=== PATIENT | male | born 1955 | race Caucasian/White ===

== ENCOUNTER 2023-12-19 06:43 | Day surgery (SDC) | payer MEDICARE, OTHER, SELFPAY ==
[2023-12-19] VITALS (7 sets, daily range): BP systolic 143–152; BP diastolic 77–91; BMI 22.6
== END 2023-12-19 17:55 | disposition home or self-care (01) ==
LOC: GI 06:43
PROVIDERS: ATTENDING PHYSICIAN Internal Medicine Gastroenterology
DX: K86.3 Pseudocyst of pancreas (principal); K86.2 Cyst of pancreas; K86.89 Other specified diseases of pancreas
CPT/HCPCS: 43240; 43237; 74018; 76000; C1769; C1874; C2617

== ENCOUNTER → 2023-12-28 06:29 | Day surgery (SDC) | payer MEDICARE, OTHER, SELFPAY ==
[2023-12-28] VITALS (7 sets, daily range): BP systolic 126–146; BP diastolic 67–75; BMI 22.8
== END ==
LOC: GI 06:29
PROVIDERS: ATTENDING PHYSICIAN Internal Medicine Gastroenterology
DX: K86.89 Other specified diseases of pancreas (principal); K86.3 Pseudocyst of pancreas; Z97.8 Presence of other specified devices
CPT/HCPCS: 43266; 48999; 74330; 76000; C1769; C2617

== ENCOUNTER 2024-01-05 16:13 | Inpatient (IN) | payer MEDICARE, OTHER, SELFPAY ==
[2024-01-05] VITALS (15 sets, daily range): BP systolic 50–105; BP diastolic 19–66; BMI 23.3
[2024-01-05] MEDS: OMNIPAQUE 50 ML PO (09:40)
[2024-01-05] MEDS: TYLENOL 1000 MG PO (09:40)
[2024-01-05] MEDS: NSS 1000 IV (09:40)
--- NOTE | 2024-01-05 09:43 | ED.GENMED ---
History of Present Illness
General
Chief Complaint: Change in Mental Status
Source: patient, spouse and ambulance crew
Exam Limitations: none
Time Seen by Provider: 01/05/24 09:24
Nursing documentation reviewed up to this point in time: agreed with
Travel History
Have you had any contact with someone who has COVID-19?: Unable to Answer
Do you have any symptoms of coronavirus? Fever > 100 degrees, chills, cough, shortness of breath, sore throat, loss of taste or smell, muscle aches, or headache?: Yes
Symptoms:: fever
History of Present Illness
History of Present Illness:
60-year-old male with past medical history of Parkinson's, pancreatitis, previous prostate cancer status post prostatectomy presenting to the emergency department today with concerns of fever body aches nausea and worsening abdominal pain over the
past 24 hours or so. He recently had an endoscopy 1 week ago on 12/28/2023 for treatment of a necrotic portion of the pancreas he had a necrosectomy at the time. Had been feeling somewhat better until last night. Denies specific chest pain
shortness of breath.
Past History
Past History
ED Past Medical History: Asthma, Cancer (Prostate CA), HTN, Other (Polycythemia Vera, pancreatitis ,Parkinsons with Tremors, IBS, ) and Other (Parkinson's disease)
ED Past Surgical History: Urological (Prostatectomy)
Social History
Tobacco: Former smoker
Alcohol: Former
Personal:
Living: with family
Review of Systems
Review of Systems
Allergies reviewed?: Yes
All Other Systems: ROS reviewed and negative except as documented in HPI and ROS
Phy Exam
Physical Exam
Physical Exam:
GENERAL: Alert , in no apparent distress
EYE: pupils equal and reactive
NECK: Supple, no significant adenopathy.
ENT: o/p clr, mmm.
CARDIAC: Regular rate and rhythm .
LUNGS: Clear breath sounds bilaterally, no acute respiratory distress, no wheezes/rales/rhonchi
ABDOMEN: Diffuse abdominal pain
NEUROLOGICAL: Alert oriented to place does not know the year no focal neuro deficits moving all extremities
SKIN: Warm and dry, skin intact.
MUSCULOSKELETAL: No edema, well perfused.
PSYCH: Normal and appropriate interaction.
Course
Orders/Labs/Results
Orders:
Orders
01/05/24
Electrocardiogram (*1) Stat
Reason for Study: Chest Pain
Comment: DONE
01/05/24 09:29
Urinalysis Reflex To Culture Urgent
Iohexol [Omnipaque] See Protocol PO NOW STA
01/05/24 09:34
CT Abd/pel (oral only)-[facility] Only Urgent
Comment:
Reason For Exam: abd pain, recent procedure, fever, pancreatic cyst
01/05/24 09:36
Complete Blood Count/With Diff Urgent
Comprehensive Metabolic Panel Urgent
Lactic Acid Urgent
Lipase Urgent
PTT Urgent
Prothrombin Time Urgent
Blood Culture Q30M
JOSÉ Source: Blood/Venous
Specimen Description:
01/05/24 09:37
0.9% Sodium Chloride 1000 ml [Nss] 1,000 ml IV BOLUS
Acetaminophen [Tylenol] 1,000 mg PO NOW STA
01/05/24 09:38
Blood Culture Q30M
JOSÉ Source: Blood/Venous
Specimen Description:
Acetaminophen [Tylenol] 1,000 mg .ROUTE .STK-MED ONE
01/05/24 09:41
COVID-19 Antigen Urgent
Source: Nasal Swab
Influenza A+B Rapid Molecular Urgent
JOSÉ Source: Nasal Swab
Specimen Description:
01/05/24 10:15
* Blood Bank Products Urgent
Blood Bank Products: *Packed RBC Leuko(PRBC's)
Quantity: 1 uni
Transfuse Today: Yes
Reason: Anemia
01/05/24 10:17
Cefepime HCl [Maxipime] 2,000 mg IV NOW STA
01/05/24 10:55
Vancomycin [Vancocin] 2,000 mg 0.9% Sodium Chloride 500 ml [Nss] 500 ml IV NOW
01/05/24 10:58
Type And Crossmatch Urgent
Abnormal Lab Results
01/05/24 01/05/24
09:36 10:58
RBC 2.36 L 10^6/uL
(4.70-6.10)
Hgb 6.2 L* g/dL
(13.0-18.0)
Hct 20.5 L* %
(39.0-52.0)
MCH 26.3 L pg
(27.0-31.0)
MCHC 30.2 L g/dL
(33.0-37.0)
RDW 22.8 H %
(11.5-14.5)
Plt Count 420 H 10^3/uL
(130-400)
Abs Immat Gran (auto) 0.1 H 10^3/uL
(0-0.05)
Absolute Neuts (auto) 10.2 H 10^3/uL
(1.4-6.5)
Absolute Lymphs (auto) 0.1 L 10^3/uL
(1.2-3.4)
Immature Gran % 0.8 H %
(0-0.5)
Neutrophils % 97.0 H %
(42.2-75.2)
Lymphocytes % 1.1 L %
(20.5-51.1)
Monocytes % 1.0 L %
(1.7-9.3)
PT 15.6 H Sec
(11.4-14.6)
Sodium 131 L mmol/L
(135-145)
BUN 21 H mg/dl
(9-20)
Glucose 105 H mg/dl
(70-99)
Calcium 8.1 L mg/dl
(8.4-10.2)
Alkaline Phosphatase 194 H U/L
(38-126)
Total Protein 5.5 L g/dl
(6.3-8.2)
Albumin 3.2 L g/dl
(3.5-5.0)
Lipase 1143 H* U/L
(23-300)
Crossmatch IS Only See Detail
01/05/24 09:36
01/05/24 09:36
Vital Signs
Initial and Last Documented VS:
Initial Vital Signs
Temp Pulse Resp Pulse Ox
103.1 F H 100 20 100
01/05/24 09:26 01/05/24 09:26 01/05/24 09:26 01/05/24 09:26
Last Documented Vital Signs
Temp Pulse Resp BP Pulse Ox
98.5 F 93 20 98/50 98
01/05/24 13:21 01/05/24 13:21 01/05/24 13:21 01/05/24 13:21 01/05/24 13:21
MDM/Problems Addressed
MDM/Problems Addressed:
60-year-old male presenting to the emergency department today with concerns of generalized bodyaches altered mental status, fever worsening abdominal pain. Recently was treated for necrotic pancreas and had a necrosectomy via endoscopy 8 days ago.
Been feeling somewhat better until last night worsening symptoms this morning. On arrival here febrile slightly tachycardic with started on fluids concern for potential sepsis plan for CT scan further assessment. Initial heart rate elevated
temperature significantly elevated blood pressure slightly low with started on fluids and treat with empiric antibiotics as there is a high likelihood of infection due to recent procedure. Patient does have multiple allergies but was started on
cefepime and vancomycin for potential community-acquired abdominal infection. Otherwise was tested for viruses but negative. Otherwise lipase still elevated but trending downwards CT scan showing possibility of area of secondary infection patient
will be admitted for further monitoring and treatment. Additionally patient was found to be anemic with hemoglobin in the sixes previously in the nines was written for a unit of blood. Admitted in stable condition.
*Critical Care Note
Total Time (30-74mins, 75-104mins- exclusive of procedures): Not Applicable
comment:
Critical care statement: A total of 40 minutes of critical care time was provided for this patient. This includes management of unstable vital signs, evaluation of the patient at bedside, reviewing the patient's pertinent medical records, discussion
with consultants, review of old EKGs and review of pertinent medical records. This time with separate from time utilized to perform the aforementioned documented procedures
ED Attending Note
-
Portions of this chart may have been created with voice recognition software.� Occasional wrong word or��sound alike� substitutions may have occurred due to the inherent limitations of voice recognition software.
Discharge Plan
Departure
Patient Disposition: Admit
Date of Disposition: 01/05/24
Time of Disposition: 13:26
Admit to: IMU
Admit to doctor: Adriel
Presentation/result/management discussed w/ accepting MD/DO: Hospitalist
Patient with high blood pressure during this ER visit?: No
Condition: Fair
Covid-19: Not Applicable
Discharge Problem:
Abdominal infection, Sepsis, Anemia
Prescriptions:
No Action
albuterol sulfate 1 PUFF HFA aerosol inhaler
2 puff inhalation R QID
carbidopa-levodopa 25-100 mg Tablet
2 tab PO TID
Jakafi 20 mg tablet
20 mg PO BID
aspirin 81 mg Capsule
81 mg PO DAILY
losartan 50 mg tablet
50 mg PO HS
pantoprazole 40 mg tablet,delayed release (DR/EC)
40 mg PO HS
cyanocobalamin (vitamin B-12) 1,000 mcg Tablet
1,000 mcg PO DAILY Qty: 100 0RF
sennosides [senna] 8.6 mg Tablet
8.6 mg PO BID
docusate sodium 100 mg Capsule
100 mg PO BID
folic acid 1 mg Tablet
1 mg PO DAILY
Referrals:
Linnette Wisdom MD [Family Provider] -
Interventions
Interventions:
*Risk Screen - Suicide Last Done: 01/05/24 09:26
*General Assessment Last Done: 01/05/24 09:26
*Neglect/Abuse Screening Last Done: 01/05/24 09:26
ED- Fall Risk Assessment Last Done: 01/05/24 09:26
*ED COVID-19 Vaccine History Last Done: 01/05/24 09:26
ED- Neurological Assessment Last Done: 01/05/24 09:26
ED- Cardiac Assessment Last Done: 01/05/24 09:26
[2024-01-05 10:01] LABS: % Basophils 0.1 % (0-2); % Immature Granulocytes 0.8 % (0-0.5); % Lymphocytes 1.1 % (20.5-51.1); Absolute Immature Granulocytes 0.1 10^3/uL (0-0.05); Absolute Lymphocytes 0.1 10^3/uL (1.2-3.4); Absolute Monocytes 0.1 10^3/uL (0.1-0.6); Absolute Neutrophils 10.2 10^3/uL (1.4-6.5); Mean Corp Hgb Conc. 30.2 g/dL (33.0-37.0); Mean Corpuscular Hgb 26.3 pg (27.0-31.0); Mean Corpuscular Volume 86.9 fL (80.0-94.0); Mean Platelet Volume 10.1 fL (7.4-10.4); Nucleated Red Blood Cells % 0.3 % (-); Platelet Count 420 10^3/uL (130-400); Red Blood Cell Count 2.36 10^6/uL (4.70-6.10); Red Cell Dist. Width 22.8 % (11.5-14.5); White Blood Cell Count 10.6 10^3/uL (4.8-10.8)
[2024-01-05 10:04] LABS: Hematocrit 20.5 % (39.0-52.0); Hemoglobin 6.2 g/dL (13.0-18.0)
[2024-01-05 10:06] LABS: INR 1.26; PT 15.6 Sec (11.4-14.6)
[2024-01-05 10:07] LABS: APTT 25.5 Sec (23.4-35.0)
[2024-01-05 10:09] LABS: COVID-19 Antigen Negative (Negative)
[2024-01-05 10:12] LABS: Lactic Acid 1.7 mmol/L (0.7-2.0)
[2024-01-05 10:18] LABS: ALT (SGPT) 22 U/L (0-50); AST (SGOT) 35 U/L (17-59); Albumin 3.2 g/dl (3.5-5.0); Alkaline Phosphatase 194 U/L (38-126); Blood Urea Nitrogen 21 mg/dl (9-20); Calcium 8.1 mg/dl (8.4-10.2); Carbon Dioxide 23 mmol/L (22-30); Chloride 103 mmol/L (98-107); Estimated Creatinine Clearance 86 ml/min; Glucose 105 mg/dl (70-99); Lipase 1143 U/L (23-300); Potassium 4.2 mmol/L (3.5-5.1); Sodium 131 mmol/L (135-145); Total Bilirubin 0.5 mg/dl (0.2-1.3); Total Protein 5.5 g/dl (6.3-8.2); eGFR > 60.00
[2024-01-05 10:46] LABS: Anisocytosis 2+; Normal RBC Morphology No; Poikilocytosis 1+; Polychromasia 1+; Target Cells 1+
[2024-01-05 10:47] LABS: Hypochromasia 2+; Ovalocytes 1+
[2024-01-05 10:49] LABS: Macrocytosis 1+
[2024-01-05 10:50] LABS: Microcytosis 1+; Stomatocytes 1+
[2024-01-05] MEDS: MAXIPIME 2000 MG IV ×2 (11:00→21:28)
[2024-01-05] MEDS: VANCOCIN 540 MG IV (11:14)
--- NOTE | 2024-01-05 15:15 | CON.GI ---
Addendum entered and electronically signed by Primitivo Arriaga MD 01/05/24 19:03:
Dr. Song reached out to me - pigtail stent into axios isn't there, it migrated out causing infection/pus to build up as the axios is occluded. He will need endoscopic clean up of axios stent orifice and necrosectomy. If stable with broad spectrum
abx (he mentioned zosyn/meropenem I told him I d/w Dr. Ding unable to do with PCn allergy) can do procedure on Monday; if not stable will need urgent necrosectomy and recommends reaching out to [facility] for this. I updated with this as well.
Addendum entered and electronically signed by Primitivo Arriaga MD 01/05/24 18:45:
I saw and examined the patient.
The CORE CUTTER or PA's note was reviewed and I agree with the note.
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
portal vein thrombosis, other history as below. He recently underwent an EUS for cystogastrostomy with stenting of pseudocyst/necrotic cavity with Dr. Song on 12/19/23 and then returned 12/28/23 for endoscopy with with necrosectomy. This AM had
abdominal pain, fever 103.1, chills, nausea, change in MS with urinary incontinence which prompted ER visit.
CT done showed 'Known peripancreatic fluid collection with placement of cystogastrostomy in the interval since prior MRI December 11, 2023. Abnormal peripancreatic fluid collection is overall slightly decreased in volume although now contains air
within an irregular low attenuation density, cannot exclude superimposed infection.'
Labs significant for Hb 6.8; rectal scant brown stool per brown BM today. Bili normal, lipase elevated.
I reached out to Dr. Song - likely has axios stent that is occluded; he placed a pigtail stent in the axios stent to prevent occlusion but that may have fallen out and the stent orifice will be blocked. He will look at CT and get back to me.
For now - broad spectrum antibiotics, NPO, monitor labs. I d/w Dr. Ding hospitalist, , and Dr. Song advanced endo.
Original Note:
Consultation
-
Date/Time Consultation Requested: 01/05/24 1335
Date/Time Consultation Performed: 01/05/24 1450
Requesting Provider: Dr. Sanchez
Performing Provider: Dr. Arriaga / Terri Schaffer PA-C
Reason for Consultation: fever, abdominal pain, recent EUS and endoscopy w/ necrosectomy w Dr Song
Medical History
Chief Complaint / HPI
Chief Complaint: abdominal pain, fever
History of Present Illness:
Raul is a 68 year old male with a past medical history of severe necrotizing pancreatitis (initial episode in March 2023, with subsequent recurrence in September 2023) with WON and development of hemorrhagic pancreatitis requiring transfusions , h/o
splenic vein and portal vein thrombosis, Polycythemia vera, asthma, HTN, Parkinson's disease, and prostate CA s/p prostatectomy.�He saw Dr. Song in the GI office in follow-up in October 2023 and underwent EUS for cystogastrostomy with stenting of
pseudocyst/necrotic cavity with Dr. Song on 12/19/23 and then returned 12/28/23 for endoscopy with with necrosectomy. He was placed on antibiotics after both procedures (Cipro 250mg BID x 3days on 12/19 and Flagyl 250ng TID x 3days on 12/28). Plan for
repeat endoscopy with Dr. Song on 01/16/24. He states he had felt okay after the procedures, but this morning complained of abdominal pain, fever, chills and nausea. He also notes a change in mental status, stating he couldn't stand up and 'wasn't
acting like myself' with trouble findings words. This happened at home and was witnessed by his . He presented to the ER with a temperature of 103.1.
Labs reviewed: CBC shows no leukocytosis, Hgb 6.2 (baseline in the 9-10 range), MCV 86.9, PT 15.6, INR 1.26, AST 35, ALT 22, alk phos 194, total bili 0.5, lipase 1143. CT scan of the abdomen/pelvis shows the known peripancreatic fluid collection
with placement of cystogastrostomy, slightly decreased overall in volume, but 'now contains air within an irregular low attenuation density, cannot exclude superimposed infection.' Patient has been started on IV antibiotics in the ER. He has chronic
normocytic anemia. Pt denies any black, tarry or bloody stools. He takes a daily baby aspirin, but otherwise denies any NSAID use. He used to drink alcohol, but currently denies.
�
Social History
Tobacco: Non-Smoker
Alcohol: Former (previously with increased alcohol use years ago, was drinking 2 beers/day prior to the onset of pancreatitis)
Drug: None
Personal:
Living: With Family
Employment: Retired
Family History
Family History: Reviewed & Not Pertinent
Allergies / Home Medications
Allergy/AdvReac Type Severity Reaction Status Date / Time
ciprofloxacin [From Cipro] Allergy Mild Unknown Verified 01/05/24 10:50
clindamycin HCl Allergy Rash Verified 01/05/24 10:50
[From Cleocin]
clindamycin palmitate HCl Allergy Rash Verified 01/05/24 10:50
[From Cleocin]
clindamycin phosphate Allergy Rash Verified 01/05/24 10:50
[From Cleocin]
influenza virus vacc Allergy SWELLING/COULDN'T Verified 01/05/24 10:50
trivalent, split BREATHE
monosodium glutamate Allergy Unknown Verified 01/05/24 10:50
Penicillins Allergy Hives Verified 01/05/24 10:50
shellfish derived Allergy Hives Verified 01/05/24 10:50
Medication Instructions Recorded
albuterol sulfate 90 mcg/actuation 2 puff inhalation R QID 01/19/18
aerosol inhaler Lung/Breathing Issues
carbidopa 25 mg-levodopa 100 mg 2 tab PO TID Neurological Condition 07/07/23
tablet
ruxolitinib 20 mg tablet (Jakafi) 20 mg PO BID Immunologic 07/07/23
aspirin 81 mg capsule 81 mg PO DAILY Fluid 07/16/23
Retention/Swelling
losartan 50 mg tablet 50 mg PO HS Blood Pressure 09/28/23
pantoprazole 40 mg tablet,delayed 40 mg PO HS Gastrointestinal Issue 09/28/23
release
cyanocobalamin (vitamin B-12) 1,000 mcg PO DAILY #100 tabs 10/13/23
1,000 mcg tablet
sennosides 8.6 mg tablet (senna) 8.6 mg PO BID 11/23/23
docusate sodium 100 mg capsule 100 mg PO BID 01/05/24
folic acid 1 mg tablet 1 mg PO DAILY 01/05/24
Review of Systems
-
History Source: Patient
All other systems: A 12 pt ROS was Negative except as stated above in HPI
Vital Signs
Temp Pulse Resp BP Pulse Ox
98.5 F 83 22 92/58 98
01/05/24 13:37 01/05/24 14:45 01/05/24 14:45 01/05/24 14:30 01/05/24 14:45
Physical Exam
Exam
General: Well Developed, Well Nourished and No Apparent Distress
Respiratory: Clear
Cardiac: Regular Rhythm
GI: Soft, Normal Bowel Sounds, Tender (+diffuse mild tenderness (worse in the epigastric and periumbilical regions)) and Distended
Skin: Warm and Dry
Neuro: AO x 3
Psych: Calm
Results
WBC 10.6 10^3/uL (4.8-10.8) 01/05/24 09:36
Hgb 6.2 g/dL (13.0-18.0) L* 01/05/24 09:36
Hct 20.5 % (39.0-52.0) L* 01/05/24 09:36
MCV 86.9 fL (80.0-94.0) 01/05/24 09:36
Plt Count 420 10^3/uL (130-400) H 01/05/24 09:36
Absolute Neuts (auto) 10.2 10^3/uL (1.4-6.5) H 01/05/24 09:36
PT 15.6 Sec (11.4-14.6) H 01/05/24 09:36
INR 1.26 01/05/24 09:36
APTT 25.5 Sec (23.4-35.0) 01/05/24 09:36
Sodium 131 mmol/L (135-145) L 01/05/24 09:36
Potassium 4.2 mmol/L (3.5-5.1) 01/05/24 09:36
Chloride 103 mmol/L (98-107) 01/05/24 09:36
Carbon Dioxide 23 mmol/L (22-30) 01/05/24 09:36
BUN 21 mg/dl (9-20) H 01/05/24 09:36
Creatinine 0.8 mg/dL (0.7-1.3) 01/05/24 09:36
Calcium 8.1 mg/dl (8.4-10.2) L 01/05/24 09:36
Total Bilirubin 0.5 mg/dl (0.2-1.3) 01/05/24 09:36
AST 35 U/L (17-59) 01/05/24 09:36
ALT 22 U/L (0-50) 01/05/24 09:36
Alkaline Phosphatase 194 U/L (38-126) H 01/05/24 09:36
Lipase 1143 U/L (23-300) H* 01/05/24 09:36
Diagnostic Image Results:
CT Abdomen/Pelvis 01/05/24:
Known peripancreatic fluid collection with placement of cystogastrostomy in the interval since prior MRI December 11, 2023. Abnormal peripancreatic fluid collection is overall slightly decreased in volume although now contains air within an irregular
low attenuation density, cannot exclude superimposed infection.
Small volume free fluid in the dependent true pelvis.
Splenomegaly.
Stable 1.8 cm right adrenal nodule most likely a benign adenoma.
MRI Abdomen w/ and w/o contrast, 12/11/23:
Large complex cystic collection in the central abdomen containing internal necrotic debris replaces the majority of the pancreas and measures 9.7 x 11.5 x 9.7 cm (AP x TV x SI), significantly increased in size compared to previous examinations. This
measured 3.4 x 7.4 x 4.[address] abdomen/pelvis from 10/11/2023.
Small volume abdominopelvic ascites.
Partially contracted gallbladder. No intrahepatic or extrahepatic bile duct dilatation. The spleen is enlarged and measures 14.9 cm in length. The liver is unremarkable. The left adrenal gland is unremarkable. A 1.8 cm low-density right adrenal
gland nodule is most compatible with an adrenal adenoma. The bilateral kidneys are within normal limits. No hydronephrosis.
The abdominal aorta is normal in caliber.
No abdominal or retroperitoneal lymphadenopathy. Some linear and nodular low-density scarring is present in the left posteromedial pararenal retroperitoneal fat.
Colonic diverticulosis.
SKELETON: Chronic degenerative changes in the spine. Mild dextroscoliotic curvature of the lumbar spine.
Prior GI Procedures:
EGD:
Endoscopy w/ necrosectomy, 12/28/23, Dr. Song
Impression:� � � � � � - Normal esophagus.
�� � � � � � � � � � � - Pre-existing gastric stent.
�� � � � � � � � � � � - Normal duodenal bulb, first portion of the duodenum
�� � � � � � � � � � � and second portion of the duodenum.
�� � � � � � � � � � � - Necrosectomy was performed.
Recommendation:� � � � - Discharge patient to home.
�� � � � � � � � � � � - Full liquid diet today. Drink a can of coca cola
�� � � � � � � � � � � daily.
�� � � � � � � � � � � - Flagyl (metronidazole) 250 mg PO TID for 3 days.
�� � � � � � � � � � � - Repeat upper endoscopy in 1 week for retreatment.
EUS 12/19/23, Dr. Song
Impression:� � � � � � - A 100 mm by 100 mm pseudocyst / necrotic cavity was
�� � � � � � � � � � � seen in the peripancreatic region. The diagnosis is a
�� � � � � � � � � � � pancreatic pseudocyst.
�� � � � � � � � � � � - Cystogastrostomy was performed. A double pigtail
�� � � � � � � � � � � plastic stent was placed into the cavity via Axios
�� � � � � � � � � � � stent to maintain patency of Axios stent.
�� � � � � � � � � � � - No specimens collected.
Recommendation:� � � � - Discharge patient to home.
�� � � � � � � � � � � - Full liquid diet today. Advance diet as tolerated.
�� � � � � � � � � � � - Perform an upper GI endoscopy in 1 week for
�� � � � � � � � � � � re-evaluation / necrosectomy.
�� � � � � � � � � � � - Cipro (ciprofloxacin) 250 mg PO BID for 3 days.
Colonoscopy: 10 yrs ago at [place]
Assessment / Plan
-
68 year old male with a past medical history of severe necrotizing pancreatitis (initial episode in March 2023, with subsequent recurrence in September 2023) with WON and development of hemorrhagic pancreatitis requiring transfusions , h/o splenic vein
and portal vein thrombosis, Polycythemia vera, asthma, HTN, Parkinson's disease, and prostate CA s/p prostatectomy.�He saw Dr. Song in the GI office in follow-up in October 2023 and underwent EUS for cystogastrostomy with stenting of
pseudocyst/necrotic cavity with Dr. Song on 12/19/23 and then returned 12/28/23 for endoscopy with with necrosectomy. He was placed on antibiotics after both procedures (Cipro 250mg BID x 3days on 12/19 and Flagyl 250ng TID x 3days on 12/28). Plan for
repeat endoscopy with Dr. Song on 01/16/24. He states he had felt okay after the procedures, but this morning complained of abdominal pain, fever, chills and nausea. He also notes a change in mental status, stating he couldn't stand up and 'wasn't
acting like myself' with trouble findings words. This happened at home and was witnessed by his . He presented to the ER with a temperature of 103.1.
Labs reviewed: CBC shows no leukocytosis, Hgb 6.2 (baseline in the 9-10 range), MCV 86.9, PT 15.6, INR 1.26, AST 35, ALT 22, alk phos 194, total bili 0.5, lipase 1143. CT scan of the abdomen/pelvis shows the known peripancreatic fluid collection
with placement of cystogastrostomy, slightly decreased overall in volume, but 'now contains air within an irregular low attenuation density, cannot exclude superimposed infection.' Patient has been started on IV antibiotics in the ER. He has chronic
normocytic anemia. Pt denies any black, tarry or bloody stools. He takes a daily baby aspirin, but otherwise denies any NSAID use. He used to drink alcohol, but currently denies.
IMPRESSION / PLAN:
H/o severe necrotizing pancreatitis with complex pseudocyst/WON, s/p recent endoscopy with necrosectomy 12/28/23
-concern for superimposed peripancreatic fluid collection infection
-NPO
-IV antibiotics - meropenem
-will monitor clinically
Severe anemia, h/o chronic normocytic anemia
-Hgb 6.2 (baseline 9-10)
-transfusing 1 unit PRBCs
-trend Hgb, transfuse if below 7
Other medical issues managed as per hospitalist.
We will follow.
-
-
Thank you for consultation and allowing me to participate in the patient's care. Please call the rn telephone triage GI physician during the after hours with any questions or concerns.
--- NOTE | 2024-01-05 16:01 | HPS.HSE ---
Family Physician
-
Family Physician: Linnette Wisdom
Chief Complaint
-
abdominal pain
History of Present Illness
Pt is s/p pancreatic cyst necrosectomy 12/28/23
Postprocedure he was doing okay with minimal abdominal discomfort which got progressively worse.
Pain is moderately severe.
Has associated nausea but was able to tolerate last night dinner.
But he was not feeling well in general. He was noted to have fever here. He was having chills at home but no rigors. No sweats.
Pain localized to the abdomen.
He also noticed some shortness of breath today. No cough. No chest pain.
Here in the ER he was noted to be febrile on the CT imaging of abdo /pelvis with PO only contrast today shows Known peripancreatic fluid collection with placement of cystogastrostomy in the interval since prior MRI December 11, 2023. Abnormal
peripancreatic fluid collection is overall slightly decreased in volume although now contains air within an irregular low attenuation density, cannot exclude superimposed infection.
HH 6.2 which is also new ;noted some dark stools but no blood per pt.
No dizziness.
Medical History
Past Medical History
Past Medical History: Reports Asthma, Cancer (prostate) and Other (Necrotic pancreatic cyst status post necrosectomy; polycythemia vera)
Additional Past Medical History:
Parkinson dz
Past Surgical History: Reports Urological
Social History
Tobacco: Non-smoker
Alcohol: Former
Drug: None
Personal:
Living: With Family
Family History
Family History: Not pertinent
Allergies / Home Medications
Allergies reflects when Allergies were last updated in [employer]
Home Medications with original date entered in [employer]
Allergy/Medication List:
Allergies
Allergy/AdvReac Type Severity Reaction Status Date / Time
ciprofloxacin [From Cipro] Allergy Mild Unknown Verified 01/05/24 10:50
clindamycin HCl Allergy Rash Verified 01/05/24 10:50
[From Cleocin]
clindamycin palmitate HCl Allergy Rash Verified 01/05/24 10:50
[From Cleocin]
clindamycin phosphate Allergy Rash Verified 01/05/24 10:50
[From Cleocin]
influenza virus vacc Allergy SWELLING/COULDN'T Verified 01/05/24 10:50
trivalent, split BREATHE
monosodium glutamate Allergy Unknown Verified 01/05/24 10:50
Penicillins Allergy Hives Verified 01/05/24 10:50
shellfish derived Allergy Hives Verified 01/05/24 10:50
Home Medications
albuterol sulfate 90 mcg/actuation aerosol inhaler 2 puff inhalation R QID Lung/Breathing Issues 01/19/18
carbidopa 25 mg-levodopa 100 mg tablet 2 tab PO TID Neurological Condition 07/07/23
ruxolitinib 20 mg tablet (Jakafi) 20 mg PO BID Immunologic 07/07/23
aspirin 81 mg capsule 81 mg PO DAILY Fluid Retention/Swelling 07/16/23
losartan 50 mg tablet 50 mg PO HS Blood Pressure 09/28/23
pantoprazole 40 mg tablet,delayed release 40 mg PO HS Gastrointestinal Issue 09/28/23
cyanocobalamin (vitamin B-12) 1,000 mcg tablet 1,000 mcg PO DAILY #100 tabs 10/13/23
sennosides 8.6 mg tablet (senna) 8.6 mg PO BID 11/23/23
docusate sodium 100 mg capsule 100 mg PO BID 01/05/24
folic acid 1 mg tablet 1 mg PO DAILY 01/05/24
Review of Systems
-
A 12 point ROS was completed and negative except as noted: Yes
Physical Exam
Vital Signs
Vital Signs
Temp Pulse Resp BP Pulse Ox
98.3 F 79 19 91/62 98
01/05/24 15:34 01/05/24 15:34 01/05/24 15:34 01/05/24 15:34 01/05/24 14:45
Physical Exam
General: No Apparent Distress
HEENT: Moist mucous membranes
Respiratory: Clear
Cardiac: S1/S2 and Regular Rhythm
GI: Soft, Non Distended, Normal Bowel Sounds and Tender (in all but most severe in epi/rt periumbilical)
Neuro: AO x 3
Psych: Calm; No Confused (not to be not coherent at home)
Laboratory Results
-
01/05/24 09:36
01/05/24 09:36
Laboratory Results
PT 15.6 Sec (11.4-14.6) H 01/05/24 09:36
INR 1.26 01/05/24 09:36
APTT 25.5 Sec (23.4-35.0) 01/05/24 09:36
Lactic Acid 1.7 mmol/L (0.7-2.0) 01/05/24 09:36
Total Bilirubin 0.5 mg/dl (0.2-1.3) 01/05/24 09:36
AST 35 U/L (17-59) 01/05/24 09:36
ALT 22 U/L (0-50) 01/05/24 09:36
Alkaline Phosphatase 194 U/L (38-126) H 01/05/24 09:36
Lipase 1143 U/L (23-300) H* 01/05/24 09:36
Data Reviewed
-
CT Scan: Report Reviewed by me (CT A/P)
Lab Data: Labs Reviewed by me
Impression/Plan
-
Acute abdominal pain with fever concerning for superimposed peripancreatic fluid collection infection. Patient recently had necrosectomy 12/28-concerning for superimposed infection. Patient allergic to penicillin. Start on cefepime and Flagyl
pending culture data. Keep him n.p.o. Consult to GI.
Elevated lipase - going in with peripancreatic fluid collection/infection issue .
Severe anemia-normocytic. Rule out recurrent GI bleeding source especially with recent endoscopic treatments. Consented for blood transfusion. Transfuse 1 unit of blood. Patient noted to have chronic anemia.
Parkinson disease-continue with his medication
Polycythemia vera on Jakafi which we will continue.
Essential hypertension hold losartan and follow.
Hyponatremia -seems chronic. Check urine lites. Follow-up. Mild in nature.
Ful code
[2024-01-05] MEDS: ProAIR HFA INHALER INH (17:29)
[2024-01-05] MEDS: D5/0.45%NACL 1000 IV (17:30)
[2024-01-05] MEDS: TYLENOL 650 MG PO (17:36)
[2024-01-05] MEDS: FLAGYL 500 MG 100 IV (17:36)
[2024-01-05] MEDS: SINEMET 25-100 2 TABLET PO ×2 (17:37→21:29)
[2024-01-05] MEDS: ProAIR HFA INHALER 2 PUFF INH ×2 (17:55→20:02)
[2024-01-05] MEDS: COLACE 100 MG PO (20:52)
[2024-01-05] MEDS: NON-FORMULARY ITEM 20 MG PO (20:52)
[2024-01-05] MEDS: SENOKOT 8.59999999999999964 MG PO (20:52)
--- NOTE | 2024-01-05 21:00 | PTCARENOTE ---
Pt complained of 8/10 pain throughout abd. SILO MAN made aware, new order provided, see MAR.
[2024-01-05] MEDS: PROTONIX 40 MG PO (21:28)
[2024-01-05] MEDS: STERILE WATER FOR INJECTION 10 ML IV (21:28)
[2024-01-05] MEDS: MORPHINE SULFATE 2 MG IV (21:28)
[2024-01-05] MEDS: FLUSH (NSS) 2 FLUSH IV (21:30)
--- NOTE | 2024-01-05 23:32 | PTCARENOTE ---
Blood pressure decreased, result=82/42, pt complained of dizziness. COMBAT CONTROL made aware, new orders provided, midodrine administered, midodrine PRN added, see MAR. Labs ordered.
[2024-01-05] MEDS: ProAmatine 10 MG PO (23:49)
[2024-01-06] VITALS (11 sets, daily range): BP systolic 96–135; BP diastolic 44–71
[2024-01-06 00:13] LABS: Hematocrit 18.5 % (39.0-52.0)
--- NOTE | 2024-01-06 00:13 | PTCARENOTE ---
Lab informed this RN of critical Hgb, result= 6.0 and critical Hct, result= 18.5. CULINARY MANAGER made aware, new orders provided, 2 u PRBC ordered.
--- NOTE | 2024-01-06 01:17 | PTCARENOTE ---
Pt stated, 'When am I due for my inhaler next? I feel like I could use it'. CRYSTALIZER OPERATOR made aware, new order provided, PRN inhaler added to MAR, will inform respiratory.
[2024-01-06] MEDS: FLAGYL 500 MG 100 IV ×2 (01:20→08:54)
[2024-01-06] MEDS: MORPHINE SULFATE 2 MG IV ×2 (01:28→17:49)
--- NOTE | 2024-01-06 01:28 | PTCARENOTE ---
1 unit PRBCs started as ordered. Pt resting in bed comfortably. No signs or symptoms of reaction. Will continue to monitor.
[2024-01-06] MEDS: ProAIR HFA INHALER 2 PUFF INH ×6 (01:48→20:14)
--- NOTE | 2024-01-06 04:23 | PTCARENOTE ---
1 unit PRBCs started as ordered. Pt resting in bed comfortably. No signs or symptoms of reaction. Will continue to monitor.
[2024-01-06] MEDS: D5/0.45%NACL 1000 IV ×2 (05:15→17:42)
[2024-01-06 05:38] LABS: Urine Albumin Trace (Neg - Trace); Urine Bilirubin Negative (Negative); Urine Character Clear (Clear); Urine Color Yellow; Urine Glucose Negative (Negative); Urine Ketone Trace (Negative); Urine Leukocyte Negative (Negative); Urine Nitrite Negative (Negative); Urine Occult Blood Negative (Negative); Urine Urobilinogen Negative (Neg - 1+)
[2024-01-06 08:28] LABS: Hematocrit 25.3 % (39.0-52.0); Mean Corpuscular Hgb 27.2 pg (27.0-31.0); Mean Corpuscular Volume 84.9 fL (80.0-94.0); Mean Platelet Volume 10.3 fL (7.4-10.4); Platelet Count 269 10^3/uL (130-400); Red Blood Cell Count 2.98 10^6/uL (4.70-6.10); Red Cell Dist. Width 19.3 % (11.5-14.5); White Blood Cell Count 11.7 10^3/uL (4.8-10.8)
[2024-01-06 08:33] LABS: Hemoglobin 8.1 g/dL (13.0-18.0)
[2024-01-06 08:41] LABS: ALT (SGPT) 10 U/L (0-50); AST (SGOT) 36 U/L (17-59); Albumin 2.6 g/dl (3.5-5.0); Alkaline Phosphatase 141 U/L (38-126); Blood Urea Nitrogen 21 mg/dl (9-20); Calcium 7.4 mg/dl (8.4-10.2); Carbon Dioxide 21 mmol/L (22-30); Chloride 104 mmol/L (98-107); Estimated Creatinine Clearance 114 ml/min; Glucose 165 mg/dl (70-99); Lipase 333 U/L (23-300); Potassium 4.1 mmol/L (3.5-5.1); Sodium 129 mmol/L (135-145); Total Bilirubin 0.7 mg/dl (0.2-1.3); Total Protein 4.8 g/dl (6.3-8.2); eGFR > 60.00
[2024-01-06] MEDS: VITAMIN B-12 1000 MCG PO (08:53)
[2024-01-06] MEDS: ASPIR LOW (ENTERIC COATED) 81 MG PO (08:53)
[2024-01-06] MEDS: COLACE 100 MG PO ×2 (08:53→21:38)
[2024-01-06] MEDS: SENOKOT 8.59999999999999964 MG PO ×2 (08:53→21:38)
[2024-01-06] MEDS: SINEMET 25-100 2 TABLET PO ×3 (08:53→21:38)
[2024-01-06] MEDS: FOLVITE 1 MG PO (08:53)
[2024-01-06] MEDS: NON-FORMULARY ITEM 20 MG PO ×2 (08:54→21:39)
[2024-01-06] MEDS: MAXIPIME 2000 MG IV (08:54)
[2024-01-06] MEDS: STERILE WATER FOR INJECTION 10 ML IV (08:54)
[2024-01-06] MEDS: TYLENOL 650 MG PO ×2 (09:09→17:42)
--- NOTE | 2024-01-06 09:52 | W.PN.HOSP.TC ---
Today's Communication/Plan
-
Diet per GI. Continue with IV fluids.
Continue with antibiotics. Consult ID.
Follow H&H.
Follow sodium. Check urine lites.
Assessment / Plan
Assessment / Plan
Acute abdominal pain with fever concerning for superimposed peripancreatic fluid collection infection concerning for abscess..� Patient recently had necrosectomy 12/28-concerning for superimposed infection/abscess.� Patient allergic to penicillin.�
Started on cefepime and Flagyl .
GI input noted-patient after necrosectomy had a pigtail stent placed but that seems to have migrated. He needs an endoscopy before the treatments.
Bacteremia-patient has gram-positive cocci in chains-currently on cefepime which I would continue. Consult ID. Patient allergic to penicillin.
Elevated lipase - going in with peripancreatic fluid collection/infection issue . Improving
Severe anemia-normocytic.� Rule out recurrent GI bleeding source especially with recent endoscopic treatments.� Status post 3 units of blood transfusion with elevated blood count to 8.1. Aim to keep it more than 8. Follow H&H. Follow-up for any
blood in the stools. Patient noted to have chronic anemia.
Parkinson disease-continue with his medication
Polycythemia vera on Jakafi which we will continue.
Essential hypertension hold losartan and follow.
Hyponatremia -seems chronic.� Check urine lites.� Follow-up.�
Ful code
DW RN
Total time spent on today's encounter was 52 minutes which included time spent in counseling the patient/family regarding diagnosis and treatment plan as listed above, goals of care, and symptom management. Case was discussed with nursing staff,
specialists, . All labs and imaging personally reviewed by me. Remainder the time spent in detailed review of previous records, lab data, imaging, and other medical provider documentation.
Anticipated Discharge: > 48 hours
Subjective/Interval History
-
Date of Service: January 06, 2024
Patient with continued abdominal pain which she rates as 8 out of 10 today. No nausea or vomiting today.
Feels dizzy but no vertigo.
Denies any fever chills.
Denying any shortness of breath today.
Objective Data
-
Labs:
Laboratory Results
01/05/24 01/06/24
23:56 07:28
WBC 11.7 H
Hgb 6.0 L* 8.1 L D
Hct 18.5 L* 25.3 L
Plt Count 269 D
Sodium 129 L
Potassium 4.1
Chloride 104
Carbon Dioxide 21 L
BUN 21 H
Creatinine 0.6 L
Glucose 165 H
Calcium 7.4 L
Total Bilirubin 0.7
AST 36
ALT 10
Alkaline Phosphatase 141 H
Vital Signs:
Vital Signs
Temp Pulse Resp BP Pulse Ox
99.8 F 72 16 124/54 100
01/06/24 07:09 01/06/24 08:15 01/06/24 08:15 01/06/24 07:09 01/06/24 08:15
I&O
01/05/24 01/06/24 01/07/24
06:59 06:59 06:59
Intake Total 2000 / 2000 250 / 250
Output Total 1050 / 1050
Balance 950 / 950 250 / 250
Review of Systems
-
Constitutional: Denies Fever or Chills
EENT: Denies Sore Throat
Respiratory: Denies Cough
Cardiac: Denies Chest Pain
Physical Exam
-
General: No Apparent Distress
HEENT: Moist Mucous Membranes
Respiratory: Clear to Auscultation
Cardiac: Regular Rhythm and S1/S2
GI: Soft, Nondistended, Normal Bowel Sounds and Tender (Mostly centered around mid abdomen)
Neuro: AO x 3
Psych: Calm; Negative Confused
Data Reviewed
-
Labs: Labs Reviewed by me
[2024-01-06 10:37] LABS: Osmolality Urine 478 mOsm/kg (300-900)
[2024-01-06 10:42] LABS: Urine Sodium 8 mmol/L (30-90)
--- NOTE | 2024-01-06 12:10 | W.PN.GI.CBS2 ---
Addendum entered and electronically signed by Primitivo Arriaga MD 01/06/24 12:16:
HypoNa per primary team
Original Note:
Today's Communication / Plan
-
clears, monitor bloodwork, fever curve
Assessment / Plan
-
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
thrombosis, other history as below.� He recently underwent an EUS for cystogastrostomy with stenting of pseudocyst/necrotic cavity with Dr. Song on 12/19/23 and then returned 12/28/23 for endoscopy with with necrosectomy. � This AM had abdominal pain,
fever 103.1, chills, nausea, change in MS with urinary incontinence which prompted ER visit.
CT done showed 'Known peripancreatic fluid collection with placement of cystogastrostomy in the interval since prior MRI December 11, 2023. Abnormal peripancreatic fluid collection is overall slightly decreased in volume although now contains air
within an irregular low attenuation density, cannot exclude superimposed infection.'
Labs significant for Hb 6.8; rectal scant brown stool per brown BM today.� Bili normal, lipase elevated.
On d/w Dr. Song the pigtail stent into axios isn't there, it migrated out causing infection/pus to build up as the axios is occluded.� He will need endoscopic clean up of axios stent orifice and necrosectomy.� If stable with broad spectrum abx (he
mentioned zosyn/meropenem I told him I d/w Dr. Ding unable to do with PCn allergy) can do procedure on Monday; if not stable will need urgent necrosectomy and recommends reaching out to [place] for this - patient/ do NOT want to go to
[place].
I d/w Dr. Ding and Dr. Song again today - Strep anginuous in blood, required 3 UPRBC, WBC went from 10 to 11, no fevers, stable hemodynamically. Dr. Song said clear liquids were ok so I ordered this.
Continue to monitor labs, fever curve, pain, plan for procedure on Monday with Dr. Song as outlined above.
at bedside today all questions answered.
Total Time Spent with Patient (in minutes): 35
Subjective
Subjective
Date of Service: January 06, 2024
Still with pain, no fevers
Objective
Data Reviewed
Laboratory Data:
Laboratory Results
01/06/24 07:28
01/06/24 07:28
Laboratory Results
PT 15.6 Sec (11.4-14.6) H 01/05/24 09:36
INR 1.26 01/05/24 09:36
APTT 25.5 Sec (23.4-35.0) 01/05/24 09:36
Total Bilirubin 0.7 mg/dl (0.2-1.3) 01/06/24 07:28
AST 36 U/L (17-59) 01/06/24 07:28
ALT 10 U/L (0-50) 01/06/24 07:28
Alkaline Phosphatase 141 U/L (38-126) H 01/06/24 07:28
Lipase 333 U/L (23-300) H 01/06/24 07:28
Vital Signs and I&O:
Vital Signs
Temp Pulse Resp BP Pulse Ox
98.0 F 72 16 115/59 98
01/06/24 11:55 01/06/24 11:58 01/06/24 11:58 01/06/24 11:55 01/06/24 11:58
I&O
01/05/24 01/06/24 01/07/24
06:59 06:59 06:59
Intake Total 2000 / 2000 250 / 250
Output Total 1050 / 1050
Balance 950 / 950 250 / 250
Physical Exam
Physical Exam
GI: Non Distended and Non Tender
--- NOTE | 2024-01-06 14:05 | CON.ID ---
Consultation
-
Date/Time Consultation Requested: 01/06/2024 09:35
Date/Time Consultation Performed: 01/06/2024 1330
Requesting Provider: Dr. Ding
Performing Provider: Dr. Huertas
Reason for Consultation: Bacteremia
Chief Complaint / Past History
History of Present Illness
Raul Jeffery is a 68-year-old man being evaluated at the request of Dr. Ding in regards to bacteremia. History is obtained from chart review, along with patient interview.
The patient has a history of severe necrotizing pancreatitis in March 2023, with multiple recurrences thereafter. In addition, he has developed walled off pancreatic necrosis with hemorrhage. On 12/19 he underwent an EUS for cystogastrostomy with
stenting of pseudocyst/necrotic cavity with Dr. Song on 12/19/23 and then returned 12/28/23 for endoscopy with with necrosectomy. His , who is at the bedside reports that his second procedure was planned for later this week.
He has been at home and was well until 01/05 when he developed increasing abdominal pain, shortness of breath and confusion. His became very concerned and called EMS. He was brought to the hospital where he was found to have a temperature of
103 degrees. Blood cultures obtained at admission are now positive for strep. Infectious Diseases is asked to comment upon further antimicrobial management.
At the present time he reports that his pain is 6 out of 10, improved from 8 out of 10 when he first presented to the hospital. He notes no fevers overnight. He denies any current nausea or vomiting.
Past History
Additional Past Medical History:
Asthma
Prostate cancer
HTN
P vera
Necrotizing pancreatitis
Blockages
IBS
Additional Past Surgical History:
Prostatectomy
Allergy History:
ciprofloxacin [From Cipro] Allergy (Verified 01/05/24 16:47)
Dizziness
clindamycin HCl [From Cleocin] Allergy (Verified 01/05/24 10:50)
Rash
clindamycin palmitate HCl [From Cleocin] Allergy (Verified 01/05/24 10:50)
Rash
clindamycin phosphate [From Cleocin] Allergy (Verified 01/05/24 10:50)
Rash
influenza virus vacc trivalent, split Allergy (Verified 01/05/24 10:50)
SWELLING/COULDN'T BREATHE
monosodium glutamate Allergy (Verified 01/05/24 10:50)
Unknown
Penicillins Allergy (Verified 01/05/24 10:50)
Hives
shellfish derived Allergy (Verified 01/05/24 10:50)
Hives
Medications Reviewed: Yes
Current Antibiotics:
Vancomycin
Cefepime
Metronidazole
Social History
Tobacco: Non-Smoker
Alcohol: None
Drug: None
Personal:
Living: With Family
Employment: Retired
Family History
Family History: Not Pertinent
Review of Systems
Vital Signs
Temp Pulse Resp BP Pulse Ox
98.0 F 72 16 115/59 98
01/06/24 11:55 01/06/24 11:58 01/06/24 11:58 01/06/24 11:55 01/06/24 11:58
Physical Exam
Physical Exam
Constitutional: No Acute Distress, Comfortable, Chronically Ill and Non-toxic
Eyes: Pupils Equal, Pupils Round, No Conjunctival Hemorrhage and Sclera Anicteric
Cardiovascular: Regular Rate and S1/S2; Negative S3/S4
Pulmonary: Clear; Negative Wheezes, Rales or Rhonchi
Gastrointestinal: Soft, Tender, Non Distended, Normal Bowel Sounds, No Rebound and No Guarding
Genito-Urinary: Negative Rodriguez
Neurological: Awake and Alert
Psychological: Calm
.
Lab / Diagnostic Study Results
01/06/24 07:28
Abs Immat Gran (auto) 0.1 10^3/uL (0-0.05) H 01/05/24 09:36
Absolute Neuts (auto) 10.2 10^3/uL (1.4-6.5) H 01/05/24 09:36
Absolute Lymphs (auto) 0.1 10^3/uL (1.2-3.4) L 01/05/24 09:36
Absolute Monos (auto) 0.1 10^3/uL (0.1-0.6) 01/05/24 09:36
Absolute Basos (auto) 0.0 10^3/uL (0-0.2) 01/05/24 09:36
Immature Gran % 0.8 % (0-0.5) H 01/05/24 09:36
Neutrophils % 97.0 % (42.2-75.2) H 01/05/24 09:36
Lymphocytes % 1.1 % (20.5-51.1) L 01/05/24 09:36
Monocytes % 1.0 % (1.7-9.3) L 01/05/24 09:36
Eosinophils % 0.0 % (0-6) 01/05/24 09:36
Basophils % 0.1 % (0-2) 01/05/24 09:36
PT 15.6 Sec (11.4-14.6) H 01/05/24 09:36
INR 1.26 01/05/24 09:36
Lactic Acid 1.7 mmol/L (0.7-2.0) 01/05/24 09:36
Microbiology Results
Micro:
01/05/24 09:38 Blood Culture - Preliminary
Blood/Venous Streptococcus anginosus
Gram Stain - Preliminary
01/05/24 09:36 Blood Culture - Preliminary
Blood/Venous No Growth in 24 hours- Final report to follow
01/05/24 09:41 Influenza Types A & B (KIM) - Final
Nasal Swab Negative for Influenza A & B, NAAT
Negative results must be combined with clinical observations
and patient history.
Nucleic Acid Amplification test (NAAT)performed on the
[employer] platform.
Imaging:
01/05/2024 CT abdomen/pelvis with oral contrast: Known peripancreatic fluid collection with placement of cystogastrostomy in the interval since prior MRI December 11, 2023. Abnormal peripancreatic fluid collection is overall slightly decreased in
volume although now contains air within an irregular low attenuation density, cannot exclude superimposed infection.
Assessment / Plan
Bacteremia
Leukocytosis
Necrotizing pancreatitis
-Recent necrosectomy, with dislodgment of previous stent and likely occlusion.
Fever
Hyponatremia
Asthma
Prostate cancer
HTN
P vera
Necrotizing pancreatitis
Blockages
IBS
Recommendations:
Discontinue further cefepime, vancomycin and metronidazole, and consolidate to ertapenem 1 g IV every 24 hours.
Repeat blood cultures to assess clearance.
Await possible repeat endoscopy and stent placement.
[2024-01-06 14:42] LABS: Hemoglobin 8.1 g/dL (13.0-18.0)
[2024-01-06] MEDS: INVANZ 60 MG IV (17:42)
--- NOTE | 2024-01-06 17:54 | PTCARENOTE ---
PT co moderate pain in abdomen after eating cler liquid dinner. Morphine given. Pt in bed. He is moaning. will re evaluate his pain
[2024-01-06] MEDS: PROTONIX 40 MG PO (21:38)
[2024-01-06] MEDS: STERILE WATER FOR INJECTION IV (21:38)
[2024-01-06 22:33] LABS: Hepatitis C Antibody Negative (Negative)
[2024-01-07] VITALS (7 sets, daily range): BP systolic 121–144; BP diastolic 56–79; PULSE 73; O2SAT 97
[2024-01-07] MEDS: ProAIR HFA INHALER 2 PUFF INH ×5 (03:40→20:20)
[2024-01-07] MEDS: FLUSH (NSS) 2 FLUSH IV (05:05)
[2024-01-07] MEDS: D5/0.45%NACL 1000 IV ×2 (05:05→15:13)
[2024-01-07] MEDS: MORPHINE SULFATE 2 MG IV ×3 (05:05→15:13)
[2024-01-07 07:49] LABS: ALT (SGPT) < 10 U/L (0-50); AST (SGOT) 29 U/L (17-59); Albumin 2.6 g/dl (3.5-5.0); Alkaline Phosphatase 179 U/L (38-126); Blood Urea Nitrogen 13 mg/dl (9-20); Calcium 7.4 mg/dl (8.4-10.2); Carbon Dioxide 19 mmol/L (22-30); Chloride 104 mmol/L (98-107); Estimated Creatinine Clearance 114 ml/min; Glucose 136 mg/dl (70-99); Potassium 3.8 mmol/L (3.5-5.1); Sodium 128 mmol/L (135-145); Total Bilirubin 0.9 mg/dl (0.2-1.3); eGFR > 60.00
[2024-01-07 08:58] LABS: Hematocrit 26.1 % (39.0-52.0); Hemoglobin 8.7 g/dL (13.0-18.0); Mean Corp Hgb Conc. 33.3 g/dL (33.0-37.0); Mean Corpuscular Volume 81.1 fL (80.0-94.0); Mean Platelet Volume 9.7 fL (7.4-10.4); Platelet Count 209 10^3/uL (130-400); Red Blood Cell Count 3.22 10^6/uL (4.70-6.10); Red Cell Dist. Width 18.8 % (11.5-14.5); White Blood Cell Count 7.2 10^3/uL (4.8-10.8)
[2024-01-07] MEDS: ASPIR LOW (ENTERIC COATED) 81 MG PO (09:44)
[2024-01-07] MEDS: SINEMET 25-100 2 TABLET PO ×3 (09:44→23:05)
[2024-01-07] MEDS: VITAMIN B-12 1000 MCG PO (09:44)
[2024-01-07] MEDS: COLACE 100 MG PO ×2 (09:44→20:14)
[2024-01-07] MEDS: TYLENOL 650 MG PO (09:45)
[2024-01-07] MEDS: NON-FORMULARY ITEM 1 MG PO (09:45)
[2024-01-07] MEDS: SENOKOT 8.59999999999999964 MG PO ×2 (09:45→20:34)
[2024-01-07] MEDS: STERILE WATER FOR INJECTION 10 ML IV (09:45)
[2024-01-07] MEDS: FOLVITE 1 MG PO (09:45)
--- NOTE | 2024-01-07 10:17 | PTCARENOTE ---
PT wco 8 severe burning pain in abdomen. abdomen with distended hyperactive bowel sounds tight and tender with minimal touch. I gave him tylenol however, he stated he needs the morphine. I said i will get the morphine. He stated that he
wanted the medication because he has so much pain but that i cannot tell his he took it. I inquired more about, He stated that yesterday when he was in pain instead of her being kind she stuck her tongue out at him only. yesterday during my
shift he co severe pain but instructed me that I am only permitted to give him tylenol. I asked him if he was ok with tylenol yesterday and he agreed. Today, I as i gave him morphine he asked me not to tell his because she will get mad at him.
I agreed not to say anything to her about it but told him I would have to educate her on the patients rights to be pain free and choose medical care. he told me that she does not want him to have morphine because it will interfere with his possible
surgery. I explained to him it would not interfer. I agreed not to say anything to her. I will talk to my charge nurse and MD about his fear of taking pain medications. I did not assess how or who manages his medical care at home
--- NOTE | 2024-01-07 11:53 | W.PN.HOSP.TC ---
Today's Communication/Plan
-
Upper GI endo in am
CW ABX
CW IV fluids
Assessment / Plan
Assessment / Plan
Acute abdominal pain with fever concerning for superimposed peripancreatic fluid collection infection concerning for abscess..� Patient recently had necrosectomy 12/28-concerning for superimposed infection/abscess.� Patient allergic to penicillin.� ID
now on board - cw abx per ID.
GI input noted-patient after necrosectomy had a pigtail stent placed but that seems to have migrated. He needs an endoscopy before the treatments. GI following .
Strep angiosus bacteremia -cw Ertapenem . Afeb, wbc normal , and nontoxic looking
Elevated lipase - going in with peripancreatic fluid collection/infection issue . Improving
Severe anemia-normocytic.� Rule out recurrent GI bleeding source especially with recent endoscopic treatments.� Status post 3 units of blood transfusion with elevated blood count to 8.1. Aim to keep it more than 8. Follow H&H which is stable .
Follow-up for any blood in the stools-no BM since asx ;pt constipated. Patient noted to have chronic anemia.
Parkinson disease-continue with his medication
Polycythemia vera on Jakafi which we will continue.
Essential hypertension hold losartan and follow.
Hyponatremia -seems chronic.� urine lites suggests pre renal stimuli.�cw fluids Follow-up.�
DVT prophylaxis Hold on subcu heparin. Patient advised to use sequential teds to decrease the risk of DVT
Ful code
DW RN
DW at bedside and updated clinicals and plan
Anticipated Discharge: > 48 hours
Subjective/Interval History
-
Date of Service: January 07, 2024
Patient has persistent abdominal pain which he rates it as severe at times. He is on clear liquids which he is not tolerating well due to pain but no nausea or vomiting.
No fever or chills.
Objective Data
-
Labs:
Laboratory Results
01/07/24 01/07/24
07:20 08:39
WBC Cancelled 7.2
Hgb Cancelled 8.7 L
Hct Cancelled 26.1 L
Plt Count Cancelled 209 D
Sodium 128 L
Potassium 3.8
Chloride 104
Carbon Dioxide 19 L
BUN 13
Creatinine 0.5 L
Glucose 136 H
Calcium 7.4 L
Total Bilirubin 0.9
AST 29
ALT < 10
Alkaline Phosphatase 179 H
Vital Signs:
Vital Signs
Temp Pulse Resp BP Pulse Ox
98.5 F 74 16 127/74 97
01/07/24 11:11 01/07/24 11:43 01/07/24 11:43 01/07/24 11:11 01/07/24 11:43
I&O
01/06/24 01/07/24 01/08/24
06:59 06:59 06:59
Intake Total 1999 / 1999 1770 / 1770
Output Total 1050 / 1050 1040 / 1040
Balance 950 / 950 730 / 730
Review of Systems
-
Constitutional: Denies Fever
Respiratory: Denies Cough or Trouble Breathing
Cardiac: Denies Chest Pain
Abdomen/GI: Reports Constipated
Neuro: Denies Dizzy
Physical Exam
-
General: No Apparent Distress
HEENT: Moist Mucous Membranes
Respiratory: Clear to Auscultation
Cardiac: Regular Rhythm and S1/S2
GI: Soft, Nondistended, Normal Bowel Sounds and Tender (mid abdomen; no rebound or guarding)
Neuro: AO x 3
Psych: Calm
Data Reviewed
-
Labs: Labs Reviewed by me
--- NOTE | 2024-01-07 12:50 | W.PN.GI.CBS2 ---
Today's Communication / Plan
-
endoscopic clean up of axios stent orifice and necrosectomy tmwr; antibiotics
Assessment / Plan
-
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
thrombosis, other history as below.� He recently underwent an EUS for cystogastrostomy with stenting of pseudocyst/necrotic cavity with Dr. Song on 12/19/23 and then returned 12/28/23 for endoscopy with with necrosectomy. � This AM had abdominal pain,
fever 103.1, chills, nausea, change in MS with urinary incontinence which prompted ER visit.
CT done showed 'Known peripancreatic fluid collection with placement of cystogastrostomy in the interval since prior MRI December 11, 2023. Abnormal peripancreatic fluid collection is overall slightly decreased in volume although now contains air
within an irregular low attenuation density, cannot exclude superimposed infection.'
Labs significant for Hb 6.8; rectal scant brown stool per brown BM today.� Bili normal, lipase elevated.
On d/w Dr. Song the pigtail stent into axios isn't there, it migrated out causing infection/pus to build up as the axios is occluded.� He will need endoscopic clean up of axios stent orifice and necrosectomy.� If stable with broad spectrum abx (he
mentioned zosyn/meropenem I told him I d/w Dr. Ding unable to do with PCn allergy) can do procedure on Monday; if not stable will need urgent necrosectomy and recommends reaching out to [place] for this - patient/ do NOT want to go to
[place].
Strep anginuous in blood, required 3 UPRBC, WBC went from 10 to 11, no fevers, stable hemodynamically. Dr. Song said clear liquids were ok so I ordered this.
Continue to monitor labs, fever curve, pain, plan for procedure on Monday (tomorrow) with Dr. Song as outlined above.
at bedside today all questions answered.
Subjective
Subjective
Date of Service: January 07, 2024
had pain post jello
tmax 100.2
leukocytosis resolved
no further blood products needed
Objective
Data Reviewed
Laboratory Data:
Laboratory Results
01/07/24 08:39
01/07/24 07:20
Laboratory Results
PT 15.6 Sec (11.4-14.6) H 01/05/24 09:36
INR 1.26 01/05/24 09:36
APTT 25.5 Sec (23.4-35.0) 01/05/24 09:36
Total Bilirubin 0.9 mg/dl (0.2-1.3) 01/07/24 07:20
AST 29 U/L (17-59) 01/07/24 07:20
ALT < 10 U/L (0-50) 01/07/24 07:20
Alkaline Phosphatase 179 U/L (38-126) H 01/07/24 07:20
Lipase 333 U/L (23-300) H 01/06/24 07:28
Vital Signs and I&O:
Vital Signs
Temp Pulse Resp BP Pulse Ox
98.5 F 74 16 127/74 97
01/07/24 11:11 01/07/24 11:43 01/07/24 11:43 01/07/24 11:11 01/07/24 11:43
I&O
01/06/24 01/07/24 01/08/24
06:59 06:59 06:59
Intake Total 1999 / 1999 1770 / 1770
Output Total 1050 / 1050 1040 / 1040
Balance 950 / 950 730 / 730
Physical Exam
Physical Exam
GI: Tender
[2024-01-07] MEDS: DULCOLAX 10 MG RECTAL (12:55)
--- NOTE | 2024-01-07 15:46 | CM ---
kennel manager dog track reviewed patient's chart and met with patient and spouse at bedside, patient lives with spouse in a town home with 3 steps to enter patient was independent with adl's and ambulation. Patient has a prescription plan and uses [facility]. Patient is agreeable to [facility] and referral sent to [facility].
PCP: Dr Wisdom
Plan; Home with spouse and [facility].
--- NOTE | 2024-01-07 16:40 | PTCARENOTE ---
PT co severe 8 out ten burning pain mid epiggastric area with gaurding and tender to palpation. Pt did not eat lunch. at bedside. PT stated tylenol would not be enough. was hesitent to utlize morphine. Pt thought morphine was for end of
life care only. I spent 20 minutes educating her and patient on the valuable uses of morphine specific to biliary system, coronary artery system, breathing and how it can be used in end of life. was very pleased to know that morphine was a
great choice of medicine for her to take . Pt took medicine and has been resting ever since Prior to the morphine pt received ducolox as per MD order. he had two large BM mixed with urine, unable to get heme because it was mixed with stool.
[2024-01-07] MEDS: INVANZ 60 MG IV (17:01)
[2024-01-07] MEDS: NON-FORMULARY ITEM 20 MG PO (20:21)
[2024-01-07] MEDS: PROTONIX 40 MG PO (23:00)
[2024-01-08] VITALS (12 sets, daily range): BP systolic 108–136; BP diastolic 65–80
[2024-01-08] MEDS: D5/0.45%NACL 1000 IV (04:52)
[2024-01-08 06:10] LABS: Hematocrit 25.8 % (39.0-52.0); Hemoglobin 8.3 g/dL (13.0-18.0); Mean Corp Hgb Conc. 32.2 g/dL (33.0-37.0); Mean Corpuscular Hgb 26.6 pg (27.0-31.0); Mean Corpuscular Volume 82.7 fL (80.0-94.0); Mean Platelet Volume 9.9 fL (7.4-10.4); Platelet Count 213 10^3/uL (130-400); Red Blood Cell Count 3.12 10^6/uL (4.70-6.10); Red Cell Dist. Width 18.6 % (11.5-14.5); White Blood Cell Count 5.3 10^3/uL (4.8-10.8)
[2024-01-08 06:34] LABS: Blood Urea Nitrogen 12 mg/dl (9-20); Calcium 7.8 mg/dl (8.4-10.2); Carbon Dioxide 23 mmol/L (22-30); Chloride 100 mmol/L (98-107); Estimated Creatinine Clearance 114 ml/min; Glucose 130 mg/dl (70-99); Potassium 3.5 mmol/L (3.5-5.1); Sodium 131 mmol/L (135-145); eGFR > 60.00
[2024-01-08] MEDS: VITAMIN B-12 1000 MCG PO (08:14)
[2024-01-08] MEDS: FOLVITE 1 MG PO (08:14)
[2024-01-08] MEDS: ASPIR LOW (ENTERIC COATED) 81 MG PO (08:14)
[2024-01-08] MEDS: SENOKOT 8.59999999999999964 MG PO ×2 (08:14→20:53)
[2024-01-08] MEDS: NON-FORMULARY ITEM 20 MG PO ×2 (08:14→20:55)
[2024-01-08] MEDS: SINEMET 25-100 2 TABLET PO ×3 (08:14→20:53)
[2024-01-08] MEDS: COLACE 100 MG PO ×2 (08:15→20:54)
[2024-01-08] MEDS: ProAIR HFA INHALER 2 PUFF INH ×3 (08:39→19:46)
--- NOTE | 2024-01-08 10:37 | W.PN.ID1 ---
Date of Service
Date of Service: January 08, 2024
Today's Communication
Continue antibiotics.
Assessment / Plan
Bacteremia
Leukocytosis
Necrotizing pancreatitis
-Recent necrosectomy, with dislodgment of previous stent and likely occlusion.
Fever
Hyponatremia
Asthma
Prostate cancer
HTN
P. vera
Necrotizing pancreatitis
IBS
Recommendations:
Continue ertapenem 1 g IV every 24 hours.
Repeat blood cultures pending.
Await repeat endoscopy and stent placement.
Chief Complaint
-: Bacteremia
Subjective / Review of Systems
Review of Systems: No Fever and No Chills
Vital Signs / Physical Exam
Vital Signs
Vital Signs
Temp Pulse Resp BP Pulse Ox
98.0 F 67 18 132/79 98
01/08/24 07:00 01/08/24 08:40 01/08/24 08:40 01/08/24 07:00 01/08/24 08:40
Physical Exam
Constitutional: No Acute Distress, Comfortable and Non-toxic
Eyes: No Conjunctival Hemorrhage and Sclera Anicteric
Cardiovascular: S1/S2; Negative S3/S4
Pulmonary: Non Labored
Gastrointestinal: Soft, Non Distended and Normal Bowel Sounds
Neurological: Awake and Alert
Psychological: Calm
Objective Data
Lab Data
Lab Results
01/08/24 05:44
01/08/24 05:44
PT 15.6 Sec (11.4-14.6) H 01/05/24 09:36
INR 1.26 01/05/24 09:36
APTT 25.5 Sec (23.4-35.0) 01/05/24 09:36
Estimated Creat Clear 114 ml/min 01/08/24 05:44
Lactic Acid 1.7 mmol/L (0.7-2.0) 01/05/24 09:36
Total Bilirubin 0.9 mg/dl (0.2-1.3) 01/07/24 07:20
AST 29 U/L (17-59) 01/07/24 07:20
ALT < 10 U/L (0-50) 01/07/24 07:20
Alkaline Phosphatase 179 U/L (38-126) H 01/07/24 07:20
Most recent labs reviewed.
Micro Results:
01/06/24 14:35 Blood Culture - Preliminary
Blood/Venous No Growth in 24 hours- Final report to follow
01/06/24 14:36 Blood Culture - Preliminary
Blood/Venous No Growth in 24 hours- Final report to follow
01/05/24 09:38 Blood Culture - Preliminary
Blood/Venous Streptococcus anginosus
Gram Stain - Preliminary
01/05/24 09:36 Blood Culture - Preliminary
Blood/Venous Positive culture in progress
Gram Stain - Preliminary
01/05/24 09:41 Influenza Types A & B (KIM) - Final
Nasal Swab Negative for Influenza A & B, NAAT
Negative results must be combined with clinical observations
and patient history.
Nucleic Acid Amplification test (NAAT)performed on the
[employer] platform.
Imaging:
01/05/2024 CT abdomen/pelvis with oral contrast: Known peripancreatic fluid collection with placement of cystogastrostomy in the interval since prior MRI December 11, 2023. Abnormal peripancreatic fluid collection is overall slightly decreased in
volume although now contains air within an irregular low attenuation density, cannot exclude superimposed infection.
--- NOTE | 2024-01-08 12:38 | W.PN.HOSP.TC ---
Today's Communication/Plan
-
For upper GI endoscopy examination and treatments today.
Continue with antibiotics.
Diet per GI
Assessment / Plan
Assessment / Plan
Acute abdominal pain with fever concerning for superimposed peripancreatic fluid collection infection concerning for abscess..� Patient recently had necrosectomy 12/28-concerning for superimposed infection/abscess.� Patient allergic to penicillin.� ID
now on board - cw abx per ID.
GI input noted-patient after necrosectomy had a pigtail stent placed but that seems to have migrated. For endoscopy exam and tx today. GI following .
Strep angiosus bacteremia -cw Ertapenem . Afeb, wbc normal , and nontoxic looking
Elevated lipase - going in with peripancreatic fluid collection/infection issue . Improving
Severe anemia-normocytic.� Rule out recurrent GI bleeding source especially with recent endoscopic treatments.� Status post 3 units of blood transfusion with elevated blood count to 8.1. Aim to keep it more than 8. Follow H&H which is stable .
Follow-up for any blood in the stools-no BM since asx ;pt constipated. Patient noted to have chronic anemia.
Parkinson disease-continue with his medication
Polycythemia vera on Jakafi which we will continue.
Essential hypertension hold losartan and follow.
Hyponatremia -seems chronic.� urine lites suggests pre renal stimuli.�cw fluids.Improved. Follow-up.�
DVT prophylaxis Hold on subcu heparin. Patient advised to use sequential teds to decrease the risk of DVT
Ful code
Anticipated Discharge: > 48 hours
Subjective/Interval History
-
Date of Service: January 08, 2024
Continue abdominal pain. But denies any nausea or vomiting.
Denies any fever. No chills.
Denies shortness of breath.
Objective Data
-
Labs:
Laboratory Results
01/08/24
05:44
WBC 5.3
Hgb 8.3 L
Hct 25.8 L
Plt Count 213
Sodium 131 L
Potassium 3.5
Chloride 100
Carbon Dioxide 23
BUN 12
Creatinine 0.6 L
Glucose 130 H
Calcium 7.8 L
Vital Signs:
Vital Signs
Temp Pulse Resp BP Pulse Ox
97.4 F 68 16 124/79 98
01/08/24 11:00 01/08/24 11:51 01/08/24 11:51 01/08/24 11:00 01/08/24 11:51
I&O
01/07/24 01/08/24 01/09/24
06:59 06:59 06:59
Intake Total 1770 / 1770 660 / 660
Output Total 1040 / 1040
Balance 730 / 730 660 / 660
Review of Systems
-
EENT: Denies Sore Throat
Respiratory: Denies Cough
Cardiac: Denies Chest Pain
Neuro: Denies Dizzy
Physical Exam
-
General: No Apparent Distress
HEENT: Moist Mucous Membranes
Respiratory: Clear to Auscultation
Cardiac: Regular Rhythm and S1/S2
GI: Soft, Nondistended, Normal Bowel Sounds and Tender (Tenderness as before but no rebound guarding rigidity.)
Neuro: AO x 3
Psych: Calm
Data Reviewed
-
Labs: Labs Reviewed by me
--- NOTE | 2024-01-08 14:52 | PN.CDI ---
CDI
- -
CDI:
Physician Documentation Request
Admit Date: 01/05/24 16:13
Dear Doctor Timur,
Clinical Indicators:
Patient admitted with peripancreatic fluid collection infection concerning for abscess.
01/08 PN, 'Strep anginosus bacteremia'
Temp on admission:
01/05/24
09:26
Temp 103.1 F H
HR/RR trend on admission:
01/05/24
09:45 01/05/24
10:00 01/05/24
10:30
Pulse 102 100 98
Resp Rate 22 23 25
01/05/24
10:45 01/05/24
11:15 01/05/24
12:15
Pulse 93 95 90
Resp Rate 22 21 23
Please clarify which of the following most accurately describes the status of the patient's infection:
Sepsis, POA
- Systemic manifestations of infection, with 2 or more SIRS criteria which include:
- Fever >100.4 degrees F or hypothermia < 96.8 degrees F
- Leukocytosis - WBC > 12,000 or leukopenia - WBC < 4,000 or > 10% bands
- Tachycardia > 90 beats per minute
- Tachypnea - RR > 20 breaths per minute or PaCO2 , 32mmHg
Source: Merck Manual 2013
Strep Anginosus Bacteremia only
- Abnormal lab finding only, does not indicate systemic illness
Other, please specify
Use of terms such as suspected, likely, concern for, or probable (associated with a specific diagnosis that is being evaluated, monitored, or treated as if it exists) are acceptable and can be coded in the inpatient setting, when documented at the
time of discharge.
Thank you,
ROD Valdivia RN
CDI Specialist
available via tiger text
Please use your independent medical judgment in providing your response.
[2024-01-08] MEDS: ProAIR HFA INHALER INH (16:09)
--- NOTE | 2024-01-08 16:37 | CM ---
Chart reviewed
For upper GI today
Referral to [facility]
CM will cont to follow for d/c needs
[2024-01-08] MEDS: INVANZ 60 MG IV (17:17)
[2024-01-08] MEDS: MORPHINE SULFATE 2 MG IV ×2 (17:36→20:51)
--- NOTE | 2024-01-08 19:19 | PTCARENOTE ---
Pt received from GI lab at 1700 via stretcher. Pt ambulated from stretcher to bed with walker and assist of this typewriter mechanic.
[2024-01-08] MEDS: FLUSH (NSS) 2 FLUSH IV (20:52)
[2024-01-08] MEDS: PROTONIX 40 MG PO (20:53)
[2024-01-09] VITALS (7 sets, daily range): BP systolic 130–157; BP diastolic 60–97; PULSE 83; O2SAT 99
[2024-01-09 06:34] LABS: Blood Urea Nitrogen 17 mg/dl (9-20); Calcium 8.1 mg/dl (8.4-10.2); Carbon Dioxide 23 mmol/L (22-30); Chloride 103 mmol/L (98-107); Estimated Creatinine Clearance 114 ml/min; Glucose 144 mg/dl (70-99); Potassium 4.4 mmol/L (3.5-5.1); Sodium 130 mmol/L (135-145); eGFR > 60.00
[2024-01-09 06:48] LABS: Hematocrit 26.7 % (39.0-52.0); Hemoglobin 8.5 g/dL (13.0-18.0); Mean Corp Hgb Conc. 31.8 g/dL (33.0-37.0); Mean Corpuscular Hgb 26.5 pg (27.0-31.0); Mean Corpuscular Volume 83.2 fL (80.0-94.0); Mean Platelet Volume 10.6 fL (7.4-10.4); Platelet Count 274 10^3/uL (130-400); Red Blood Cell Count 3.21 10^6/uL (4.70-6.10); Red Cell Dist. Width 18.5 % (11.5-14.5); White Blood Cell Count 5.1 10^3/uL (4.8-10.8)
[2024-01-09] MEDS: ProAIR HFA INHALER 2 PUFF INH ×4 (07:33→19:32)
[2024-01-09] MEDS: NON-FORMULARY ITEM 20 MG PO ×2 (07:49→20:11)
[2024-01-09] MEDS: SENOKOT 8.59999999999999964 MG PO ×2 (07:50→20:12)
[2024-01-09] MEDS: SINEMET 25-100 2 TABLET PO ×3 (07:50→21:32)
[2024-01-09] MEDS: ASPIR LOW (ENTERIC COATED) 81 MG PO (07:50)
[2024-01-09] MEDS: VITAMIN B-12 1000 MCG PO (07:51)
[2024-01-09] MEDS: FOLVITE 1 MG PO (07:51)
[2024-01-09] MEDS: COLACE 100 MG PO ×2 (07:51→20:11)
--- NOTE | 2024-01-09 09:56 | W.PN.GI.CBS2 ---
Addendum entered and electronically signed by Carolina Dyson Do, MD 01/09/24 15:44:
Correction repeat CT scan in 2 wks time from discharge. Order slip provided
OP appt with Dr Song provided to pt
Over 50mins spent counseling pt, coordinating care and arranging follow ups.
Addendum entered and electronically signed by Carolina Dyson Do, MD 01/09/24 15:39:
I saw and examined the patient.
The LITHOGRAPHER HELPER's note was reviewed and I agree with the note.
Comment: He ate 100% of lunch and feels well. Denies abd pain, nausea/vomiting. VSS NTTP, NABS. Labs reviewed. EGD done 01/08 with necrosectomy, and 2 double pigtail stents placed in existing cystogastrostomy tract.
Recommendations
- Repeat CT AP in 2mo time. Radiology slip provided. We will arrange OP FU with Dr Song in GI office
- C/w low fat diet tolerating
- Abx course per ID. Discussed with ID
At this juncture GI will sign off please call for questions.
Original Note:
Today's Communication / Plan
-
Cotninue abx
Assessment / Plan
-
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
thrombosis, other history as below.� He recently underwent an EUS for cystogastrostomy with stenting of pseudocyst/necrotic cavity with Dr. Song on 12/19/23 and then returned 12/28/23 for endoscopy with with necrosectomy. � This AM had abdominal pain,
fever 103.1, chills, nausea, change in MS with urinary incontinence which prompted ER visit.
CT done showed 'Known peripancreatic fluid collection with placement of cystogastrostomy in the interval since prior MRI December 11, 2023. Abnormal peripancreatic fluid collection is overall slightly decreased in volume although now contains air
within an irregular low attenuation density, cannot exclude superimposed infection.'
Labs significant for Hb 6.8; rectal scant brown stool per brown BM today.� Bili normal, lipase elevated.
On d/w Dr. Song the pigtail stent into axios isn't there, it migrated out causing infection/pus to build up as the axios is occluded.� He will need endoscopic clean up of axios stent orifice and necrosectomy.� If stable with broad spectrum abx (he
mentioned zosyn/meropenem I told him I d/w Dr. Ding unable to do with PCn allergy) can do procedure on Monday; if not stable will need urgent necrosectomy and recommends reaching out to [facility] for this - patient/ do NOT want to go to
[place].
Strep anginuous in blood, required 3 UPRBC, WBC went from 10 to 11, no fevers, stable hemodynamically. Dr. Song said clear liquids were ok so I ordered this.
Repeat Blood culture x 2 on 01/06/24 negative after 48 hrs
Patient s/p EGD 01/08/24:
- Normal esophagus.
�� � � � � � � � � � � - Pre-existing gastric Axios stent, migrated out.
�� � � � � � � � � � � - Pus in stomach, aspirated. Previous cystogastrostomy
�� � � � � � � � � � � tract was located and entered, necrotic cavity
�� � � � � � � � � � � contained significant pus which was drained.
�� � � � � � � � � � � - Necrotic cavity appeared to be healing well with
�� � � � � � � � � � � minimal necrotic burden present. A 10 Fr and 7 Fr 3 cm
�� � � � � � � � � � � double pigtail stents were placed under direct
�� � � � � � � � � � � endoscopic guidance via existing cystogastrostomy
�� � � � � � � � � � � tract.
�� � � � � � � � � � � - Plastic stent in the duodenum, migrated out. Removed.
�� � � � � � � � � � � - Pre-existing gastric stent, removed.
�� � � � � � � � � � � - Necrosectomy was performed.
Recommendation:� � � � - [facility] for [facility] care.
�� � � � � � � � � � � - Full liquid diet today.
�� � � � � � � � � � � - Complete the course of abx.
�� � � � � � � � � � � - Perform CT scan (computed tomography) of the abdomen
�� � � � � � � � � � � with contrast in 2 weeks.
�� � � � � � � � � � � - If repeat CT shows significant improvement of
�� � � � � � � � � � � necrotic cavity, can remove pigtail stents.
Impression:
Bacteremia-> BC on 01/05/24 strep anginosus on Ertapenem. Now repeat BC x 2 on 01/06/24 x2 no growth x 48 hrs
Leukocytosis-> improved
Necrotizing pancreatitis
-> previous cystgastrostomy stent found in stomach, pus in stomach, cyst filled with pus.
-> Necrotic cavity appeared to be healing with miniaml necrotic burden
-> 10 Fr and 7 Fr 3 cm double pigtail stents placed via existing cystgastrostomy tract
-> Plastic stent in duodenum migrated out and removed
-> Preexisting gastric stent removed
-> Necrosectomy performed
Plan:
-Continue on Abx per Infectious Disease
-Continue full liquid diet for now. will discuss with Dr. Duncan fulton timing and what type of diet.
-Perform CT of the abdomen with contrast in [address] shows significant improvement of necrotic cavity, can remove pigtail stents.
-Repeat labs in the am
Subjective
Subjective
Date of Service: January 09, 2024
Patient feeling 'okay' today. Vital signs are stable. Has chronic periumbilical discomfort. No worse then prior. Labs stable. Continues on Ertapenem, repeat blood cultures negative on 01/06/24. Infectious Disease following. He is tolerating a full
liquid diet since yesterday after EGD/necrosectomy and double pigtail stent placement. Denies any increased pain. He is passing flatus. Had a 'brown BM' since procedure.
Objective
Data Reviewed
Laboratory Data:
Laboratory Results
01/09/24 05:29
01/09/24 05:29
Laboratory Results
PT 15.6 Sec (11.4-14.6) H 01/05/24 09:36
INR 1.26 01/05/24 09:36
APTT 25.5 Sec (23.4-35.0) 01/05/24 09:36
Total Bilirubin 0.9 mg/dl (0.2-1.3) 02/18/24 07:20
AST 29 U/L (17-59) 01/07/24 07:20
ALT < 10 U/L (0-50) 01/07/24 07:20
Alkaline Phosphatase 179 U/L (38-126) H 01/07/24 07:20
Lipase 333 U/L (23-300) H 01/06/24 07:28
Vital Signs and I&O:
Vital Signs
Temp Pulse Resp BP Pulse Ox
97.3 F 86 16 149/90 97
01/09/24 07:00 01/09/24 07:38 01/09/24 07:38 01/09/24 07:00 01/09/24 07:38
I&O
01/08/24 01/09/24 01/10/24
06:59 06:59 06:59
Intake Total 660 / 660 1560 / 1560
Output Total 775 / 775
Balance 660 / 660 785 / 785
Physical Exam
Physical Exam
HEENT: Anicteric
Cardiology: Normal Sinus Rhythm
Pulmonary: Clear (anterior)
GI: Soft, Non Distended, Tender (mild periumbilical tenderness) and Normal Bowel Sounds
Extremities: No Edema
Neuro: Non Focal
--- NOTE | 2024-01-09 11:49 | W.PN.HOSP.TC ---
Today's Communication/Plan
-
Advance diet
CW abx
DC planning
Assessment / Plan
Assessment / Plan
Acute abdominal pain with fever concerning for superimposed peripancreatic fluid collection infection concerning for abscess..� Patient recently had necrosectomy 12/28-concerning for superimposed infection/abscess.� Patient allergic to penicillin.� ID
now on board - cw abx per ID.
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
Strep angiosus bacteremia -cw Ertapenem . Afeb, wbc normal , and nontoxic looking
Diet being advanced.
Elevated lipase - going in with peripancreatic fluid collection/infection issue . Improving
Severe anemia-normocytic.� Rule out recurrent GI bleeding source especially with recent endoscopic treatments.� Status post 3 units of blood transfusion with elevated blood count to 8.5. Aim to keep it more than 8. Follow H&H which is stable .
Follow-up for any blood in the stools-no BM since asx ;pt constipated. Patient noted to have chronic anemia.
Parkinson disease-continue with his medication
Polycythemia vera on Jakafi which we will continue.
Essential hypertension hold losartan and follow.
Hyponatremia -seems chronic.� urine lites suggests pre renal stimuli.�cw fluids.Improved. Follow-up.�
DVT prophylaxis Hold on subcu heparin. Patient advised to use sequential teds to decrease the risk of DVT
Ful code
PT eval noted
DC planning-likely DC in a.m. if stable
Anticipated Discharge: Within 24 hours
Subjective/Interval History
-
Date of Service: January 09, 2024
Patient feeling improved with less abdominal pain. Tolerating liquid diet. Currently advance to solid diet.
No fever or chills.
Objective Data
-
Labs:
Laboratory Results
01/09/24
05:29
WBC 5.1
Hgb 8.5 L
Hct 26.7 L
Plt Count 274 D
Sodium 130 L
Potassium 4.4 D
Chloride 103
Carbon Dioxide 23
BUN 17
Creatinine 0.6 L
Glucose 144 H
Calcium 8.1 L
Vital Signs:
Vital Signs
Temp Pulse Resp BP Pulse Ox
97.7 F 84 16 130/70 98
01/09/24 11:00 01/09/24 11:48 01/09/24 11:48 01/09/24 11:00 01/09/24 11:48
I&O
01/08/24 01/09/24 01/10/24
06:59 06:59 06:59
Intake Total 660 / 660 1560 / 1560
Output Total 775 / 775
Balance 660 / 660 785 / 785
Review of Systems
-
Respiratory: Denies Trouble Breathing
Cardiac: Denies Chest Pain
Neuro: Denies Dizzy
Physical Exam
-
General: No Apparent Distress
HEENT: Moist Mucous Membranes
Respiratory: Clear to Auscultation
Cardiac: Regular Rhythm and S1/S2
GI: Soft, Nondistended, Normal Bowel Sounds and Tender (Much improved tenderness)
Neuro: AO x 3
Psych: Calm
Data Reviewed
-
Labs: Labs Reviewed by me
--- NOTE | 2024-01-09 12:52 | CM ---
Patient seen at bedside with present. Patient seen by PT and asking about SNF. CM reviewed with patient and that he does not qualify and the physician provided Script to therapy to have a walker given to patient today. Patient was
very much against SNF and requested [facility], [facility] referral placed per chart review on 01/07. Patient given IMM and CM reviewed with patient and , they agreed to review and complete tomorrow. Patient plan is for discharge home with [facility] when
medically appropriate for discharge.
Plan; home with [facility] to follow
[2024-01-09 15:04] LABS: Osmolality Urine 447 mOsm/kg (300-900)
--- NOTE | 2024-01-09 15:10 | W.PN.ID1 ---
Date of Service
Date of Service: January 09, 2024
Today's Communication
Transition to cefdinir.
Assessment / Plan
Bacteremia with strep anginosus
- Likely GI source
- Quickly cleared
Leukocytosis
Necrotizing pancreatitis
-Recent necrosectomy, with dislodgment of previous stent and likely occlusion.
Fever
Hyponatremia
Asthma
Prostate cancer
HTN
P. vera
Necrotizing pancreatitis
IBS
Recommendations:
Anticipated discharge tomorrow.
Transition to cefdinir 300 mg p.o. twice daily. Would continue for an additional 10 days of therapy.
Chief Complaint
-: Bacteremia
Subjective / Review of Systems
Patient seen and examined. Successful stent placement today. Denies pain.
Review of Systems: No Fever and No Chills
Vital Signs / Physical Exam
Vital Signs
Vital Signs
Temp Pulse Resp BP Pulse Ox
97.7 F 84 16 130/70 98
01/09/24 11:00 01/09/24 11:48 01/09/24 11:48 01/09/24 11:00 01/09/24 11:48
Physical Exam
Constitutional: No Acute Distress, Comfortable and Non-toxic
Eyes: No Conjunctival Hemorrhage and Sclera Anicteric
Pulmonary: Non Labored
Gastrointestinal: Non Distended
Extremities: Negative Edema
Neurological: Awake, Alert and Oriented
Psychological: Calm
Objective Data
Lab Data
Lab Results
01/09/24 05:29
01/09/24 05:29
PT 15.6 Sec (11.4-14.6) H 01/05/24 09:36
INR 1.26 01/05/24 09:36
APTT 25.5 Sec (23.4-35.0) 01/05/24 09:36
Estimated Creat Clear 114 ml/min 01/09/24 05:29
Lactic Acid 1.7 mmol/L (0.7-2.0) 01/05/24 09:36
Total Bilirubin 0.9 mg/dl (0.2-1.3) 01/07/24 07:20
AST 29 U/L (17-59) 01/07/24 07:20
ALT < 10 U/L (0-50) 01/07/24 07:20
Alkaline Phosphatase 179 U/L (38-126) H 01/07/24 07:20
Most recent labs reviewed.
Micro Results:
01/06/24 14:35 Blood Culture - Preliminary
Blood/Venous No Growth in 72 hours- Final report to follow
01/06/24 14:36 Blood Culture - Preliminary
Blood/Venous No Growth in 72 hours- Final report to follow
01/05/24 09:36 Blood Culture - Preliminary
Blood/Venous Streptococcus anginosus
Gram Stain - Preliminary
01/05/24 09:38 Blood Culture - Preliminary
Blood/Venous Streptococcus anginosus
Gram Stain - Preliminary
01/05/24 09:41 Influenza Types A & B (KIM) - Final
Nasal Swab Negative for Influenza A & B, NAAT
Negative results must be combined with clinical observations
and patient history.
Nucleic Acid Amplification test (NAAT)performed on the
[employer] platform.
Imaging:
01/05/2024 CT abdomen/pelvis with oral contrast: Known peripancreatic fluid collection with placement of cystogastrostomy in the interval since prior MRI December 11, 2023. Abnormal peripancreatic fluid collection is overall slightly decreased in
volume although now contains air within an irregular low attenuation density, cannot exclude superimposed infection.
Care Review
Plan reviewed with: Physician (Hospitalist)
[2024-01-09] MEDS: OMNICEF 300 MG PO (20:11)
[2024-01-09] MEDS: TYLENOL 650 MG PO (20:23)
[2024-01-09] MEDS: PROTONIX 40 MG PO (21:32)
[2024-01-10] VITALS (13 sets, daily range): BP systolic 88–148; BP diastolic 44–75
--- NOTE | 2024-01-10 04:08 | DOWNTIME ---
There was a Friend Trusted Client Charge Hand Downtime on 01/10/2024 from 0111 to 01/10/2024 at 0405. Downtime documentation of patient's care, including medication administrations, has been reconciled in the electronic record per guidelines. Refer to the
patient's paper chart under the miscellaneous tab to see printed paper medication records and downtime forms.
[2024-01-10] MEDS: ZOFRAN 4 MG IV (04:48)
--- NOTE | 2024-01-10 05:51 | PTCARENOTE ---
Pt. c/o feeling nauseous. DERIC Smith notified. New order for zofran. Zofran administered per orders. Pt. on and off bsc frequently with verbal c/o diarrhea. When assessed, bowel movement was soft formed. Pt. then expressed feeling like he
had a fever. Temp taken, 97.7. Pt. stated to this RN 'I just don't know how I'm supposed to go home when I'm feeling so terrible.' Pt. then stated that he is not ready to go home and feels that he should stay in the hospital for longer. RN provided
1:1 emotional support and encouraged patient to discuss with attending today. Call messina within reach. Plan of care ongoing.
[2024-01-10 06:09] LABS: % Basophils 0.4 % (0-2); % Eosinophils 0.5 % (0-6); % Immature Granulocytes 0.7 % (0-0.5); % Lymphocytes 11.9 % (20.5-51.1); % Neutrophils 82.5 % (42.2-75.2); Absolute Eosinophils 0.1 10^3/uL (0-0.7); Absolute Immature Granulocytes 0.1 10^3/uL (0-0.05); Absolute Lymphocytes 1.2 10^3/uL (1.2-3.4); Absolute Monocytes 0.4 10^3/uL (0.1-0.6); Hematocrit 26.3 % (39.0-52.0); Hemoglobin 8.3 g/dL (13.0-18.0); Mean Corp Hgb Conc. 31.6 g/dL (33.0-37.0); Mean Corpuscular Hgb 26.3 pg (27.0-31.0); Mean Corpuscular Volume 83.5 fL (80.0-94.0); Mean Platelet Volume 10.2 fL (7.4-10.4); Nucleated Red Blood Cells % 0 % (-); Platelet Count 397 10^3/uL (130-400); Red Blood Cell Count 3.15 10^6/uL (4.70-6.10); Red Cell Dist. Width 18.7 % (11.5-14.5); White Blood Cell Count 9.7 10^3/uL (4.8-10.8)
[2024-01-10] MEDS: MORPHINE SULFATE 2 MG IV ×2 (06:31→23:19)
[2024-01-10 06:57] LABS: ALT (SGPT) < 10 U/L (0-50); AST (SGOT) 20 U/L (17-59); Albumin 2.6 g/dl (3.5-5.0); Alkaline Phosphatase 171 U/L (38-126); Blood Urea Nitrogen 16 mg/dl (9-20); Calcium 8.3 mg/dl (8.4-10.2); Carbon Dioxide 28 mmol/L (22-30); Chloride 99 mmol/L (98-107); Estimated Creatinine Clearance 114 ml/min; Glucose 130 mg/dl (70-99); Potassium 4.4 mmol/L (3.5-5.1); Sodium 133 mmol/L (135-145); Total Bilirubin 0.4 mg/dl (0.2-1.3); Total Protein 4.9 g/dl (6.3-8.2); eGFR > 60.00
[2024-01-10] MEDS: ProAIR HFA INHALER 2 PUFF INH ×5 (07:40→23:04)
[2024-01-10] MEDS: VITAMIN B-12 1000 MCG PO (08:53)
[2024-01-10] MEDS: FOLVITE 1 MG PO (08:53)
[2024-01-10] MEDS: OMNICEF 300 MG PO ×2 (08:53→20:06)
[2024-01-10] MEDS: ASPIR LOW (ENTERIC COATED) 81 MG PO (08:53)
[2024-01-10] MEDS: NON-FORMULARY ITEM 20 MG PO ×2 (08:53→20:08)
[2024-01-10] MEDS: SENOKOT 8.59999999999999964 MG PO (08:53)
[2024-01-10] MEDS: SINEMET 25-100 2 TABLET PO ×3 (08:53→20:06)
[2024-01-10] MEDS: COLACE 100 MG PO (08:53)
--- NOTE | 2024-01-10 09:49 | W.PN.HOSP.TC ---
Addendum entered and electronically signed by Sd Ding MD 01/10/24 17:33:
CT scan showed a possible new bleeding/hematoma within the area of pancreatic necrosis. No findings of active contrast extravasation. He did have blood in the stools later today and also had transient hypotension requiring fluid bolus. Repeat H&H
showed drop in hemoglobin to 6.7.
Transfer to IMU.
Change Protonix to IV infusion
Keep him n.p.o.
Discussed with GI who recommends a bleeding scan.
Updated the regarding the new findings and the treatment plan.
Original Note:
Today's Communication/Plan
-
CT A/P today
CW ABX
Assessment / Plan
Assessment / Plan
Acute abdominal pain with fever concerning for superimposed peripancreatic fluid collection infection concerning for abscess..� Patient recently had necrosectomy 12/28-concerning for superimposed infection/abscess.� Patient allergic to penicillin.� ID
now on board - cw abx per ID.
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
Strep angiosus bacteremia -cw Ertapenem . Afeb, wbc normal , and nontoxic looking
Diet being advanced.
Patient today with worsening abdominal pain and the loss of appetite and nausea. Abdomen is soft but tender. Did not require narcotics although yesterday but starting to require again now. Will get a CT of the abdomen pelvis for further
evaluation. Hold on diet.
Elevated lipase - going in with peripancreatic fluid collection/infection issue . Improving
Severe anemia-normocytic.� Rule out recurrent GI bleeding source especially with recent endoscopic treatments.� Status post 3 units of blood transfusion with elevated blood count to 8.5. Aim to keep it more than 8. Follow H&H which is stable .
Follow-up for any blood in the stools-no BM since asx ;pt constipated. Patient noted to have chronic anemia.
Parkinson disease-continue with his medication
Polycythemia vera on Jakafi which we will continue.
Essential hypertension hold losartan and follow.
Hyponatremia -seems chronic.� urine lites suggests pre renal stimuli.�cw fluids.Improved. Follow-up.�
DVT prophylaxis Hold on subcu heparin. Patient advised to use sequential teds to decrease the risk of DVT
Ful code
PT eval noted
Anticipated Discharge: 24 - 48 hours
Subjective/Interval History
-
Date of Service: January 10, 2024
Complains of abdominal pain starting this morning at 2:00.
He states he is not comfortable and its like a fire in his abdomen.
He did not take his breakfast.
He is feeling nauseous and holding onto nausea bag.
Objective Data
-
Labs:
Laboratory Results
01/10/24
05:53
WBC 9.7
Hgb 8.3 L
Hct 26.3 L
Plt Count 397 D
Sodium 133 L
Potassium 4.4
Chloride 99
Carbon Dioxide 28
BUN 16
Creatinine 0.6 L
Glucose 130 H
Calcium 8.3 L
Total Bilirubin 0.4
AST 20
ALT < 10
Alkaline Phosphatase 171 H
Vital Signs:
Vital Signs
Temp Pulse Resp BP Pulse Ox
97.4 F 68 16 89/44 98
01/10/24 07:00 01/10/24 07:44 01/10/24 07:44 01/10/24 07:00 01/10/24 07:44
I&O
01/09/24 01/10/24 01/11/24
06:59 06:59 06:59
Intake Total 1560 / 1560 2340 / 2340
Output Total 775 / 775 3000 / 3000
Balance 785 / 785 -660 / -660
Review of Systems
-
Constitutional: Denies Fever
EENT: Denies Sore Throat
Respiratory: Denies Cough or Trouble Breathing
Cardiac: Denies Chest Pain
Neuro: Denies Dizzy
Physical Exam
-
General: No Apparent Distress
HEENT: Moist Mucous Membranes
Respiratory: Clear to Auscultation
Cardiac: Regular Rhythm and S1/S2
GI: Soft, Nondistended, Normal Bowel Sounds and Tender (in all quadrants and even to superficial palpation; no rebound.)
Neuro: AO x 3
Psych: Calm
Data Reviewed
-
Labs: Labs Reviewed by me
[2024-01-10] MEDS: OMNIPAQUE 50 ML PO (10:57)
--- NOTE | 2024-01-10 11:38 | W.PN.ID1 ---
Date of Service
Date of Service: January 10, 2024
Today's Communication
Continue antibiotics.
Await repeat CT scan
Assessment / Plan
Bacteremia with strep anginosus
- Likely GI source
- Quickly cleared
Leukocytosis
Necrotizing pancreatitis
-Recent necrosectomy, with dislodgment of previous stent and likely occlusion.
- repeat stent placement 01/08
S/P Fever
Hyponatremia
Asthma
Prostate cancer
HTN
P. vera
Necrotizing pancreatitis
IBS
Recommendations:
Patient with increased abdominal discomfort today.
For repeat CT scan today.
Continue cefdinir 300 mg p.o. twice daily. Would continue for an additional 9 days of therapy.
����������������������������������������������������������
Chief Complaint
-: Bacteremia
Subjective / Review of Systems
Patient seen and examined. Increasing abdominal pain noted overnight.
Vital Signs / Physical Exam
Vital Signs
Vital Signs
Temp Pulse Resp BP Pulse Ox
97.4 F 68 16 89/44 98
01/10/24 07:00 01/10/24 07:44 01/10/24 07:44 01/10/24 07:00 01/10/24 07:44
Physical Exam
Constitutional: No Acute Distress, Comfortable and Non-toxic
Eyes: No Conjunctival Hemorrhage and Sclera Anicteric
Pulmonary: Non Labored; Negative Wheezes
Gastrointestinal: Soft, Tender and Non Distended
Neurological: Awake and Alert
Psychological: Calm
Objective Data
Lab Data
Lab Results
01/10/24 05:53
01/10/24 05:53
PT 15.6 Sec (11.4-14.6) H 01/05/24 09:36
INR 1.26 01/05/24 09:36
APTT 25.5 Sec (23.4-35.0) 01/05/24 09:36
Estimated Creat Clear 114 ml/min 01/10/24 05:53
Lactic Acid 1.7 mmol/L (0.7-2.0) 01/05/24 09:36
Total Bilirubin 0.4 mg/dl (0.2-1.3) 01/10/24 05:53
AST 20 U/L (17-59) 01/10/24 05:53
ALT < 10 U/L (0-50) 01/10/24 05:53
Alkaline Phosphatase 171 U/L (38-126) H 01/10/24 05:53
Most recent labs reviewed.
Micro Results:
01/06/24 14:35 Blood Culture - Preliminary
Blood/Venous No Growth in 72 hours- Final report to follow
01/06/24 14:36 Blood Culture - Preliminary
Blood/Venous No Growth in 72 hours- Final report to follow
01/05/24 09:36 Blood Culture - Preliminary
Blood/Venous Streptococcus anginosus
Gram Stain - Preliminary
01/05/24 09:38 Blood Culture - Preliminary
Blood/Venous Streptococcus anginosus
Gram Stain - Preliminary
01/05/24 09:41 Influenza Types A & B (KIM) - Final
Nasal Swab Negative for Influenza A & B, NAAT
Negative results must be combined with clinical observations
and patient history.
Nucleic Acid Amplification test (NAAT)performed on the
[employer] platform.
Imaging:
01/05/2024 CT abdomen/pelvis with oral contrast: Known peripancreatic fluid collection with placement of cystogastrostomy in the interval since prior MRI December 11, 2023. Abnormal peripancreatic fluid collection is overall slightly decreased in
volume although now contains air within an irregular low attenuation density, cannot exclude superimposed infection.
[2024-01-10] MEDS: NSS 250 IV (13:30)
--- NOTE | 2024-01-10 14:52 | CM ---
met with patient and at bedside.patient with increased abd pain.for ct of
adomen/pelvis,holding diet,seen by id-cont with iv abx.medicare letter left at bedside for to review.
Plan:home with [facility] when stable.
[2024-01-10 17:08] LABS: Hematocrit 21.1 % (39.0-52.0)
[2024-01-10 17:21] LABS: Hemoglobin 6.7 g/dL (13.0-18.0)
[2024-01-10] MEDS: NSS 1000 IV (17:53)
[2024-01-10] MEDS: PROTONIX 100 IV (18:00)
[2024-01-10 18:28] LABS: Mean Corp Hgb Conc. 31.3 g/dL (33.0-37.0); Mean Corpuscular Hgb 26.5 pg (27.0-31.0); Mean Platelet Volume 10.5 fL (7.4-10.4); Platelet Count 300 10^3/uL (130-400); Red Blood Cell Count 2.26 10^6/uL (4.70-6.10); Red Cell Dist. Width 18.6 % (11.5-14.5); White Blood Cell Count 8.5 10^3/uL (4.8-10.8)
[2024-01-10 18:38] LABS: Hematocrit 19.2 % (39.0-52.0)
--- NOTE | 2024-01-10 19:10 | PTCARENOTE ---
Pt's manual BP 90/56, c/o dizziness, Dr. Ding updated, new order noted for bolas. Pt noted with increased visible blood in stool, Dr. Ding updated, new order for H & H. Hbg 6.7, Dr. Ding notified, new order noted. IV fluids and Protonix drip
started. Report given to IMU nurse and pt transferred to IMU.
[2024-01-10] MEDS: COLACE PO (20:06)
[2024-01-10] MEDS: SENOKOT PO (20:07)
--- NOTE | 2024-01-10 21:29 | PTCARENOTE ---
Received pt at start of shift. aaox3, NSR, RA 97%. Started 1 unit PRBC, tolerating well. Prepped and brought pt down for bleeding scan. Pt is not c/o any pain, resting in bed. Bp's running soft but stable. No fevers. No BM's since the start of my
shift. IVF & PROTONIX gtt. abx. Took pills whole with water. Bed alarm on. Pt asking if we talked to Bee, updated him that the doctor did call her and update her prior to him moving to IMU. No other issues at this time. Call messina in reach.
Will monitor.
[2024-01-11] VITALS (20 sets, daily range): BP systolic 100–153; BP diastolic 50–86
[2024-01-11 01:33] LABS: Hematocrit 19.8 % (39.0-52.0); Hemoglobin 6.5 g/dL (13.0-18.0)
--- NOTE | 2024-01-11 01:53 | W.PN.UPDATE ---
Update Note
Progress Note Update
Repeat H/H 6.5, s/p Blood transfusion, patient stable, with stable Vs, will order 1 unit of PRBC's.
[2024-01-11] MEDS: ProAIR HFA INHALER 2 PUFF INH ×6 (03:40→23:34)
--- NOTE | 2024-01-11 03:59 | PTCARENOTE ---
2 bloody/maroon bm's overnight. bps stable. redraw hgb 6.5, [employer] aware. pt receiving second unit for the night. Pt states he is not feeling well.
[2024-01-11] MEDS: PROTONIX 100 IV ×3 (06:30→23:28)
[2024-01-11] MEDS: NSS 1000 IV ×2 (06:30→19:58)
[2024-01-11] MEDS: OMNICEF 300 MG PO ×2 (08:35→19:59)
[2024-01-11] MEDS: SINEMET 25-100 2 TABLET PO ×2 (08:35→19:59)
[2024-01-11 08:50] LABS: Hematocrit 25.5 % (39.0-52.0); Mean Corp Hgb Conc. 32.2 g/dL (33.0-37.0); Mean Corpuscular Hgb 27.3 pg (27.0-31.0); Mean Platelet Volume 10.9 fL (7.4-10.4); Platelet Count 283 10^3/uL (130-400); Red Cell Dist. Width 17.2 % (11.5-14.5); White Blood Cell Count 7.4 10^3/uL (4.8-10.8)
[2024-01-11 08:54] LABS: Hemoglobin 8.2 g/dL (13.0-18.0)
[2024-01-11 09:17] LABS: Blood Urea Nitrogen 25 mg/dl (9-20); Calcium 7.9 mg/dl (8.4-10.2); Carbon Dioxide 27 mmol/L (22-30); Chloride 104 mmol/L (98-107); Estimated Creatinine Clearance 114 ml/min; Glucose 122 mg/dl (70-99); Potassium 4.2 mmol/L (3.5-5.1); Sodium 133 mmol/L (135-145); eGFR > 60.00
[2024-01-11] MEDS: COLACE PO ×2 (09:20→19:34)
[2024-01-11] MEDS: FOLVITE PO (09:20)
[2024-01-11] MEDS: SENOKOT PO ×2 (09:20→19:34)
[2024-01-11] MEDS: NON-FORMULARY ITEM PO (09:20)
[2024-01-11] MEDS: VITAMIN B-12 PO (09:20)
--- NOTE | 2024-01-11 10:16 | PTCARENOTE ---
Assumed care of patient at beginning of this shift from previous RN. Dr Morelos on unit to see patient and instructed to hold all 0800 meds except: sinemet and Omnicef; Dr Ding on unit as well and aware. Repeat H&H 8.2/25.5; Dr Morelos made aware via tiger
text. Patient remains NPO for EGD but no time given as of yet. OOB to bathroom and had bloody bm. See worklist for full assessment and vital signs; see MAR for med administration.
--- NOTE | 2024-01-11 10:35 | W.PN.GI.CBS2 ---
Today's Communication / Plan
-
EGD with Dr Song today to evaluate for cause of UGIB
Serial H/H
NPO for now
Will follow with you
Assessment / Plan
-
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
thrombosis, other history as below.� He recently underwent an EUS for cystogastrostomy with stenting of pseudocyst/necrotic cavity with Dr. Song on 12/19/23 and then returned 12/28/23 for endoscopy with with necrosectomy. � This AM had abdominal pain,
fever 103.1, chills, nausea, change in MS with urinary incontinence which prompted ER visit.
CT done showed 'Known peripancreatic fluid collection with placement of cystogastrostomy in the interval since prior MRI December 11, 2023. Abnormal peripancreatic fluid collection is overall slightly decreased in volume although now contains air
within an irregular low attenuation density, cannot exclude superimposed infection.'
Labs significant for Hb 6.8; rectal scant brown stool per brown BM today.� Bili normal, lipase elevated.
On d/w Dr. Song the pigtail stent into axios isn't there, it migrated out causing infection/pus to build up as the axios is occluded.� He will need endoscopic clean up of axios stent orifice and necrosectomy.� If stable with broad spectrum abx (he
mentioned zosyn/meropenem I told him I d/w Dr. Ding unable to do with PCn allergy) can do procedure on Monday; if not stable will need urgent necrosectomy and recommends reaching out to [facility] for this - patient/ do NOT want to go to
[place].
Strep anginuous in blood, required 3 UPRBC, WBC went from 10 to 11, no fevers, stable hemodynamically. Dr. Song said clear liquids were ok so I ordered this.
Repeat Blood culture x 2 on 01/06/24 negative after 48 hrs
Patient s/p EGD 01/08/24:
- Normal esophagus.
�� � � � � � � � � � � - Pre-existing gastric Axios stent, migrated out.
�� � � � � � � � � � � - Pus in stomach, aspirated. Previous cystogastrostomy
�� � � � � � � � � � � tract was located and entered, necrotic cavity
�� � � � � � � � � � � contained significant pus which was drained.
�� � � � � � � � � � � - Necrotic cavity appeared to be healing well with
�� � � � � � � � � � � minimal necrotic burden present. A 10 Fr and 7 Fr 3 cm
�� � � � � � � � � � � double pigtail stents were placed under direct
�� � � � � � � � � � � endoscopic guidance via existing cystogastrostomy
�� � � � � � � � � � � tract.
�� � � � � � � � � � � - Plastic stent in the duodenum, migrated out. Removed.
�� � � � � � � � � � � - Pre-existing gastric stent, removed.
�� � � � � � � � � � � - Necrosectomy was performed.
Impression:
Active BRBPR and drop in Hbg
CT with hematoma/bleeding in area of pancreatic necrotic tissue
Bacteremia-> BC on 01/05/24 strep anginosus on Ertapenem. Now repeat BC x 2 on 01/06/24 x2 no growth x 48 hrs
Necrotizing pancreatitis
-> previous cystgastrostomy stent found in stomach, pus in stomach, cyst filled with pus.
-> Necrotic cavity appeared to be healing with miniaml necrotic burden
-> 10 Fr and 7 Fr 3 cm double pigtail stents placed via existing cystgastrostomy tract
-> Plastic stent in duodenum migrated out and removed
-> Preexisting gastric stent removed
-> Necrosectomy performed
Plan:
- Repeat H/H this AM improved after 2u PRBCs
- C/w abx
- Keep NPO plan for repeat EGD with Dr Song today
- Serial H/H
- Results of nuclear med bleeding scan d/w pt
Will follow with you
Subjective
Subjective
Date of Service: January 11, 2024
Yesterday afternoon GI reconsulted for worsening abd pain and blood in stools. Hbg dropped and after 2u PRBC improved to 8.2 this AM. He had nuclear med bleeding scan that was negative and moved to IMU. CTAP IV and oral contrast showed
hematoma/bleeding within area of pancreatic necrosis. No active contrast extravasation. This AM abd pain much improved and no further BRBPR.
Objective
Data Reviewed
Laboratory Data:
Laboratory Results
01/11/24 08:34
01/11/24 08:34
Laboratory Results
PT 15.6 Sec (11.4-14.6) H 01/05/24 09:36
INR 1.26 01/05/24 09:36
APTT 25.5 Sec (23.4-35.0) 01/05/24 09:36
Total Bilirubin 0.4 mg/dl (0.2-1.3) 01/10/24 05:53
AST 20 U/L (17-59) 01/10/24 05:53
ALT < 10 U/L (0-50) 01/10/24 05:53
Alkaline Phosphatase 171 U/L (38-126) H 01/10/24 05:53
Lipase 333 U/L (23-300) H 01/06/24 07:28
Vital Signs and I&O:
Vital Signs
Temp Pulse Resp BP Pulse Ox
98.2 F 67 14 139/68 96
01/11/24 07:07 01/11/24 08:00 01/11/24 08:00 01/11/24 08:00 01/11/24 09:45
I&O
01/10/24 01/11/24 01/12/24
06:59 06:59 06:59
Intake Total 2340 / 2340 2129
Output Total 3000 / 3000
Balance -660 / -660 2129
Physical Exam
Physical Exam
GEN: No acute distress, conversant, pleasant
HEENT: anicteric, extraocular movements intact, clear oropharynx without exudates
GI: soft, soft-distended, not tender to palpation, normal active bowel sounds, no hepatosplenomegaly
EXT: warm, well perfused, trace edema bilaterally
NEURO: AAOx3, non-focal
--- NOTE | 2024-01-11 10:39 | W.PN.HOSP.TC ---
Today's Communication/Plan
-
Keep him n.p.o. Continue PPI. Follow H&H.
Endoscopy eval per GI
Assessment / Plan
Assessment / Plan
Acute abdominal pain with fever concerning for superimposed peripancreatic fluid collection infection concerning for abscess..� Patient recently had necrosectomy 12/28-concerning for superimposed infection/abscess.� Patient allergic to penicillin.� ID
now on board - cw abx per ID.
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
Strep angiosus bacteremia - Afeb, wbc normal , and nontoxic looking. Continue antibiotics per ID
Acute upper GI bleed with acute blood loss anemia-patient with recurrence of abdominal pain and blood in the stool with a drop in hemoglobin. CT of the abdomen pelvis showed hematoma with no active extravasation in the gastric area. Bleeding scan
was negative. Currently hemodynamically stable. Continue with PPI drip. Will require EGD for further evaluation. GI following.
Acute blood loss anemia-s/p 2 units of transfusion since yesterday-continue to follow H&H and transfuse as needed.
Elevated lipase - going in with peripancreatic fluid collection/infection issue . Improving
Severe anemia-on admission--normocytic.� Status post 3 units of blood transfusion with elevated blood count to 8.5. Aim to keep it more than 8. Patient noted to have chronic anemia.
Parkinson disease-continue with his medication
Polycythemia vera on Jakafi which we will continue.
Essential hypertension hold losartan and follow.
Hyponatremia -seems chronic.� urine lites suggests pre renal stimuli.�cw fluids.Improved. Follow-up.�
DVT prophylaxis Hold on subcu heparin. Patient advised to use sequential teds to decrease the risk of DVT
Ful code
DW GI regarding plan for today
Anticipated Discharge: > 48 hours
Subjective/Interval History
-
Date of Service: January 11, 2024
Denies any abdominal pain today.
No nausea vomiting.
Objective Data
-
Labs:
Laboratory Results
01/11/24 01/11/24
01:21 08:34
WBC 7.4
Hgb 6.5 L* 8.2 L D
Hct 19.8 L* 25.5 L
Plt Count 283
Sodium 133 L
Potassium 4.2
Chloride 104
Carbon Dioxide 27
BUN 25 H
Creatinine 0.6 L
Glucose 122 H
Calcium 7.9 L
Vital Signs:
Vital Signs
Temp Pulse Resp BP Pulse Ox
98.2 F 67 14 139/68 96
01/11/24 07:07 01/11/24 08:00 01/11/24 08:00 01/11/24 08:00 01/11/24 09:45
I&O
01/10/24 01/11/24 01/12/24
06:59 06:59 06:59
Intake Total 2340 / 2340 2129
Output Total 3000 / 3000
Balance -660 / -660 2129
Review of Systems
-
Constitutional: Denies Fever
EENT: Denies Sore Throat
Respiratory: Denies Cough or Trouble Breathing
Cardiac: Denies Chest Pain
Neuro: Denies Dizzy
Physical Exam
-
General: No Apparent Distress
Respiratory: Clear to Auscultation
Cardiac: Regular Rhythm and S1/S2
GI: Soft, Nontender (Today), Nondistended and Normal Bowel Sounds
Psych: Calm
Data Reviewed
-
Labs: Labs Reviewed by me
--- NOTE | 2024-01-11 13:38 | W.PN.ID1 ---
Date of Service
Date of Service: January 11, 2024
Today's Communication
Coontinue abx.
Assessment / Plan
Bacteremia with strep anginosus
- Likely GI source
- Quickly cleared
Leukocytosis
Necrotizing pancreatitis
-Recent necrosectomy, with dislodgment of previous stent and likely occlusion.
- repeat stent placement 01/08
S/P Fever
Hyponatremia
Asthma
Prostate cancer
HTN
P. vera
Necrotizing pancreatitis
IBS
Recommendations:
Continue cefdinir 300 mg p.o. twice daily. Would continue for an additional 8 days of therapy.
����������������������������������������������������������
Chief Complaint
-: Bacteremia
Subjective / Review of Systems
Review of Systems: No Fever and No Chills
Vital Signs / Physical Exam
Vital Signs
Vital Signs
Temp Pulse Resp BP Pulse Ox
98.2 F 75 14 139/68 96
01/11/24 07:07 01/11/24 11:11 01/11/24 11:11 01/11/24 08:00 01/11/24 09:45
Physical Exam
Constitutional: No Acute Distress, Comfortable and Non-toxic
Eyes: Sclera Anicteric
Cardiovascular: Regular Rate and S1/S2; Negative S3/S4
Pulmonary: Non Labored
Gastrointestinal: Non Distended
Neurological: Awake and Alert
Psychological: Calm
Objective Data
Lab Data
Lab Results
01/11/24 08:34
01/11/24 08:34
PT 15.6 Sec (11.4-14.6) H 01/05/24 09:36
INR 1.26 01/05/24 09:36
APTT 25.5 Sec (23.4-35.0) 01/05/24 09:36
Estimated Creat Clear 114 ml/min 01/11/24 08:34
Lactic Acid 1.7 mmol/L (0.7-2.0) 01/05/24 09:36
Total Bilirubin 0.4 mg/dl (0.2-1.3) 01/10/24 05:53
AST 20 U/L (17-59) 01/10/24 05:53
ALT < 10 U/L (0-50) 01/10/24 05:53
Alkaline Phosphatase 171 U/L (38-126) H 01/10/24 05:53
Most recent labs reviewed.
Micro Results:
01/06/24 14:36 Blood Culture - Preliminary
Blood/Venous No Growth in 4 days- Final report to follow
01/06/24 14:35 Blood Culture - Preliminary
Blood/Venous No Growth in 4 days- Final report to follow
01/05/24 09:36 Blood Culture - Preliminary
Blood/Venous Streptococcus anginosus
Gram Stain - Preliminary
01/05/24 09:38 Blood Culture - Preliminary
Blood/Venous Streptococcus anginosus
Gram Stain - Preliminary
01/05/24 09:41 Influenza Types A & B (KIM) - Final
Nasal Swab Negative for Influenza A & B, NAAT
Negative results must be combined with clinical observations
and patient history.
Nucleic Acid Amplification test (NAAT)performed on the
[employer] platform.
Imaging:
01/05/2024 CT abdomen/pelvis with oral contrast: Known peripancreatic fluid collection with placement of cystogastrostomy in the interval since prior MRI December 11, 2023. Abnormal peripancreatic fluid collection is overall slightly decreased in
volume although now contains air within an irregular low attenuation density, cannot exclude superimposed infection.
Care Review
Plan reviewed with: Physician (GI)
[2024-01-11 15:42] LABS: Hematocrit 22.2 % (39.0-52.0); Hemoglobin 7.5 g/dL (13.0-18.0)
[2024-01-11] MEDS: SINEMET 25-100 PO (15:48)
--- NOTE | 2024-01-11 17:02 | CM ---
Patient with Hx Parkinsons Dz with Dx Acute abdominal pain, Acute upper GI bleed with anemia, Necrotizing pancreatitis. Room air. NPO. IVF. EGD today. PT recommends HH.
CM continuing to follow for d/c needs.
Plan home with [facility].
--- NOTE | 2024-01-11 17:30 | PTCARENOTE ---
Pt sent to GI lab for EGD.
[2024-01-11] MEDS: NON-FORMULARY ITEM 20 MG PO (20:01)
--- NOTE | 2024-01-11 22:01 | W.PN.UPDATE ---
Update Note
Progress Note Update
EGD today - 2 existing pigtail stents were removed, and the necrotic cavity was accessed via fistulous tract - there was large amount of blood clot. No red blood or active bleeding was seen. Removal of clot was deferred b/c 1) existing clot is
likely tamponading the bleed, 2) no active bleeding noted, 3) questionable safety of clot removal as this would be done in blind fashion in the cavity which may result in active hemorrhage. One 7 Fr 3 cm double pigtail plastic stent was placed into
the cavity with endoscopic guidance to maintain patentcy of fistula tract.
Recommend:
1) If active bleeding is suspected again, repeat bleeding scan for IR guided embolization if possible
2) Otherwise, expectant mx for now, transfuse as needed
3) ok to restart FLD and gradually advance as tolerated
4) Will need repeat CT abd w/ IV contrast - in 3-4 weeks
[2024-01-11] MEDS: MORPHINE SULFATE 2 MG IV (23:28)
[2024-01-12] VITALS (15 sets, daily range): BP systolic 97–133; BP diastolic 44–85; PULSE 78–80; BMI 21.7
[2024-01-12] MEDS: ProAIR HFA INHALER 2 PUFF INH ×5 (04:56→19:33)
[2024-01-12 05:04] LABS: Hemoglobin 7.4 g/dL (13.0-18.0); Mean Corp Hgb Conc. 32.2 g/dL (33.0-37.0); Mean Corpuscular Hgb 27.7 pg (27.0-31.0); Mean Corpuscular Volume 86.1 fL (80.0-94.0); Mean Platelet Volume 10.5 fL (7.4-10.4); Platelet Count 272 10^3/uL (130-400); Red Blood Cell Count 2.67 10^6/uL (4.70-6.10); Red Cell Dist. Width 17.4 % (11.5-14.5); White Blood Cell Count 7.2 10^3/uL (4.8-10.8)
[2024-01-12 05:18] LABS: Blood Urea Nitrogen 14 mg/dl (9-20); Calcium 7.8 mg/dl (8.4-10.2); Carbon Dioxide 26 mmol/L (22-30); Chloride 101 mmol/L (98-107); Estimated Creatinine Clearance 92 ml/min; Glucose 134 mg/dl (70-99); Potassium 4.2 mmol/L (3.5-5.1); Sodium 133 mmol/L (135-145); eGFR > 60.00
--- NOTE | 2024-01-12 06:00 | PTCARENOTE ---
Cared for pt overnight. aaox3 but very forgetful & confused. SR on monitor & RA. Returned to floor from PACU around 1944 last night. No BM overnight. Urinated fine. IVF d/c's. Protonix gtt continues. Still having sharp pain in abdomen, morphine
given X1. hgb this morning 7.4, not a significant drop from yesterday. Will continue to monitor, bed alarm on, call messina in reach.
[2024-01-12] MEDS: VITAMIN B-12 1000 MCG PO (08:35)
[2024-01-12] MEDS: FOLVITE 1 MG PO (08:35)
[2024-01-12] MEDS: COLACE 100 MG PO ×2 (08:35→19:55)
[2024-01-12] MEDS: SINEMET 25-100 2 TABLET PO ×3 (08:35→19:56)
[2024-01-12] MEDS: NON-FORMULARY ITEM 20 MG PO ×2 (08:35→19:56)
[2024-01-12] MEDS: SENOKOT 8.59999999999999964 MG PO ×2 (08:35→19:55)
[2024-01-12] MEDS: OMNICEF 300 MG PO ×2 (08:35→19:56)
--- NOTE | 2024-01-12 08:35 | W.PN.HOSP.TC ---
Addendum entered and electronically signed by Sd Ding MD 01/12/24 15:31:
Baseline parameters on admission , sepsis was present on admission.
Original Note:
Today's Communication/Plan
-
Advance diet per GI
Follow H&H
Orthostatic blood pressure readings
PT OT eval
Assessment / Plan
Assessment / Plan
Acute abdominal pain with fever concerning for superimposed peripancreatic fluid collection infection concerning for abscess..� Patient recently had necrosectomy 12/28-concerning for superimposed infection/abscess.� Patient allergic to penicillin.� ID
now on board - cw abx per ID.
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
Strep angiosus bacteremia - Afeb, wbc normal , and nontoxic looking. Continue antibiotics per ID
Acute upper GI bleed with acute blood loss anemia-patient with recurrence of abdominal pain and blood in the stool with a drop in hemoglobin. CT of the abdomen pelvis showed hematoma with no active extravasation in the gastric area. Bleeding scan
was negative.
s/p EGD 01/11 -2 existing pigtail stents were removed, and the necrotic cavity was accessed via fistulous tract - there was large amount of blood clot.� No red blood or active bleeding was seen.� Removal of clot was deferred b/c 1) existing clot is
likely tamponading the bleed, 2) no active bleeding noted, 3) questionable safety of clot removal as this would be done in blind fashion in the cavity which may result in active hemorrhage.� One 7 Fr 3 cm double pigtail plastic stent was placed into
the cavity with endoscopic guidance to maintain patentcy of fistula tract. �
Follow for active bleeding.
HH changes noted but not significant compared to yesterday ; no active bleeding evident. Repeat HH later in the day. Check iron stores. He is known to have chronic anemia to begin with
Acute blood loss anemia-s/p 2 units of transfusion since 01/10-continue to follow H&H and transfuse as needed.
Elevated lipase - going in with peripancreatic fluid collection/infection issue . Improving
Severe anemia-on admission--normocytic.� Status post 3 units of blood transfusion with elevated blood count to 8.5. Aim to keep it more than 8. Patient noted to have chronic anemia.
Parkinson disease-continue with his medication
Polycythemia vera on Jakafi which we will continue.
Essential hypertension hold losartan and follow.
Hyponatremia -seems chronic.� urine lites suggests pre renal stimuli.�cw fluids.Improved. Follow-up.�
DVT prophylaxis Hold on subcu heparin. Patient advised to use sequential teds to decrease the risk of DVT
Ful code
Transfer to med surg
Obtain orthostatic blood pressure reading
PT OT eval.
Anticipated Discharge: Within 24 hours
Subjective/Interval History
-
Date of Service: January 12, 2024
Tolerating liquid diet without nausea or vomiting. He still has some abdominal discomfort which he rates at 5-7. No bowel movements. No rectal bleeding.
He states he is feeling dizzy lightheaded when he gets up.
No chest pain.
Objective Data
-
Labs:
Laboratory Results
01/12/24
04:20
WBC 7.2
Hgb 7.4 L
Hct 23.0 L
Plt Count 272
Sodium 133 L
Potassium 4.2
Chloride 101
Carbon Dioxide 26
BUN 14
Creatinine 0.7
Glucose 134 H
Calcium 7.8 L
Vital Signs:
Vital Signs
Temp Pulse Resp BP Pulse Ox
99.1 F 74 15 117/62 96
01/11/24 23:28 01/12/24 07:46 01/12/24 07:46 01/12/24 04:00 01/12/24 07:46
I&O
01/11/24 01/12/24 01/13/24
06:59 06:59 06:59
Intake Total 2130 / 2130 2710 / 2709
Output Total 2449
Balance 2129 260 / 260
Review of Systems
-
Constitutional: Denies Fever or Chills
EENT: Denies Sore Throat
Respiratory: Reports Trouble Breathing (Complains of trouble with breathing but not hypoxic, no respiratory distress, no tachypnea, no cough)
Cardiac: Denies Chest Pain
Abdomen/GI: Reports Abdominal Pain; Denies Nausea or Vomiting
Genitourinary: Denies Dysuria
Neuro: Reports Dizzy
Physical Exam
-
General: No Apparent Distress
HEENT: Moist Mucous Membranes
Respiratory: Clear to Auscultation and Non Labored Respirations; Negative Accessory Resp Muscle Use
Cardiac: Regular Rhythm and S1/S2
GI: Soft, Nondistended, Normal Bowel Sounds and Tender (periumbilical area but no rebound or guarding)
Neuro: AO x 3
Data Reviewed
-
Labs: Labs Reviewed by me
--- NOTE | 2024-01-12 08:48 | W.PN.GI.CBS2 ---
Today's Communication / Plan
-
added oral supplements, check h/h at 1600
Assessment / Plan
-
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
thrombosis, other history as below.� He recently underwent an EUS for cystogastrostomy with stenting of pseudocyst/necrotic cavity with Dr. Song on 12/19/23 and then returned 12/28/23 for endoscopy with with necrosectomy. � This AM had abdominal pain,
fever 103.1, chills, nausea, change in MS with urinary incontinence which prompted ER visit.
CT done showed 'Known peripancreatic fluid collection with placement of cystogastrostomy in the interval since prior MRI December 11, 2023. Abnormal peripancreatic fluid collection is overall slightly decreased in volume although now contains air
within an irregular low attenuation density, cannot exclude superimposed infection.'
Labs significant for Hb 6.8; rectal scant brown stool per brown BM today.� Bili normal, lipase elevated.
On d/w Dr. Song the pigtail stent into axios isn't there, it migrated out causing infection/pus to build up as the axios is occluded.� He will need endoscopic clean up of axios stent orifice and necrosectomy.� If stable with broad spectrum abx (he
mentioned zosyn/meropenem I told him I d/w Dr. Ding unable to do with PCn allergy) can do procedure on Monday; if not stable will need urgent necrosectomy and recommends reaching out to [facility] for this - patient/ do NOT want to go to
[place].
Strep anginuous in blood, required 3 UPRBC, WBC went from 10 to 11, no fevers, stable hemodynamically. Dr. Song said clear liquids were ok so I ordered this.
Repeat Blood culture x 2 on 01/06/24 negative after 48 hrs
Transfusions:
01/11 1U
01/10 1U
01/06 2U
01/05 1 U
Patient s/p EGD 01/08/24 with Duncan:
- Normal esophagus.
�� � � � � � � � � � � - Pre-existing gastric Axios stent, migrated out.
�� � � � � � � � � � � - Pus in stomach, aspirated. Previous cystogastrostomy
�� � � � � � � � � � � tract was located and entered, necrotic cavity
�� � � � � � � � � � � contained significant pus which was drained.
�� � � � � � � � � � � - Necrotic cavity appeared to be healing well with
�� � � � � � � � � � � minimal necrotic burden present. A 10 Fr and 7 Fr 3 cm
�� � � � � � � � � � � double pigtail stents were placed under direct
�� � � � � � � � � � � endoscopic guidance via existing cystogastrostomy
�� � � � � � � � � � � tract.
�� � � � � � � � � � � - Plastic stent in the duodenum, migrated out. Removed.
�� � � � � � � � � � � - Pre-existing gastric stent, removed.
�� � � � � � � � � � � - Necrosectomy was performed.
EGD with Duncan on 01/11/24:
�� � Two existing plastic pigtail stents were found on the lesser curvature
�� � of the stomach. Stent removal was accomplished with a snare.
�� � A fistula was found on the lesser curvature of the stomach. This was
�� � entered and the cavity was examined. There were diffuse large amount of
�� � clots present, which was not cleared. No active bleeding was noted. This
�� � was stented with 7 Fr 3 cm double pigtail plastic stent under direct
�� � endoscopic guidance.
Impression:
BRBPR and drop in Hbg requiring transfusion
CT with hematoma/bleeding in area of pancreatic necrotic tissue
Bacteremia-> BC on 01/05/24 strep anginosus on Ertapenem. Now repeat BC x 2 on 01/06/24 x2 no growth x 48 hrs
Necrotizing pancreatitis
-> previous cystgastrostomy stent found in stomach, pus in stomach, cyst filled with pus.
-> Necrotic cavity appeared to be healing with miniaml necrotic burden
-> 10 Fr and 7 Fr 3 cm double pigtail stents placed via existing cystgastrostomy tract
-> Plastic stent in duodenum migrated out and removed
-> Preexisting gastric stent removed
-> Necrosectomy performed
01/12/24: hgb stable since yesterday. pt is HDstable, BUN normalized
added oral supplements to diet
full liquids today and advance tomorrow if doing well
check hgb at 1600
if has any active bleeding, needs CTA for possible embolization
Will need repeat CT abd w/ IV contrast - in 3-4 weeks
antibx per ID
discussed with his over the phone
Will follow with you
Total Time Spent with Patient (in minutes): 30
Subjective
Subjective
Date of Service: January 12, 2024
patient complaining of dizziness - has felt this way for weeks
has abdominal pain - same as before, no worse
no BM since yesterday
Objective
Data Reviewed
Laboratory Data:
Laboratory Results
01/12/24 04:20
Laboratory Results
PT 15.6 Sec (11.4-14.6) H 01/05/24 09:36
INR 1.26 01/05/24 09:36
APTT 25.5 Sec (23.4-35.0) 01/05/24 09:36
Total Bilirubin 0.4 mg/dl (0.2-1.3) 01/10/24 05:53
AST 20 U/L (17-59) 01/10/24 05:53
ALT < 10 U/L (0-50) 01/10/24 05:53
Alkaline Phosphatase 171 U/L (38-126) H 01/10/24 05:53
Lipase 333 U/L (23-300) H 01/06/24 07:28
Vital Signs and I&O:
Vital Signs
Temp Pulse Resp BP Pulse Ox
99.1 F 73 16 133/70 96
01/11/24 23:28 01/12/24 08:00 01/12/24 08:00 01/12/24 08:00 01/12/24 07:46
I&O
01/11/24 01/12/24 01/13/24
06:59 06:59 06:59
Intake Total 2129 2710 / 0
Output Total 2449
Balance 2129 260 / 260
Physical Exam
Physical Exam
HEENT: Anicteric
Pulmonary: Clear
GI: Soft and Tender
Extremities: No Edema
Neuro: Other (tremulous )
[2024-01-12] MEDS: PROTONIX 100 IV ×2 (10:23→19:54)
--- NOTE | 2024-01-12 12:18 | W.PN.ID1 ---
Date of Service
Date of Service: January 12, 2024
Today's Communication
Continue current course of cefdinir.
Assessment / Plan
Bacteremia with strep anginosus
- Likely GI source
- cleared
Leukocytosis
- resolved
Necrotizing pancreatitis
- Recent necrosectomy, with dislodgment of previous stent and likely occlusion.
- repeat stent placement 01/08
S/P Fever
Hyponatremia
Asthma
Prostate cancer
HTN
P. vera
Necrotizing pancreatitis
IBS
Recommendations:
Continue cefdinir 300 mg p.o. twice daily. Continue for an additional 7 days of therapy.
����������������������������������������������������������
Chief Complaint
-: Bacteremia
Subjective / Review of Systems
Review of Systems: No Fever
Vital Signs / Physical Exam
Vital Signs
Vital Signs
Temp Pulse Resp BP Pulse Ox
98.1 F 72 15 118/84 95
01/12/24 11:49 01/12/24 11:26 01/12/24 11:26 01/12/24 10:00 01/12/24 08:52
Physical Exam
Constitutional: No Acute Distress, Comfortable and Non-toxic
Eyes: Sclera Anicteric
Pulmonary: Non Labored
Gastrointestinal: Non Distended
Skin: Negative Rash or Jaundice
Neurological: Awake and Alert
Psychological: Calm
Objective Data
Lab Data
Lab Results
01/12/24 16:00
01/12/24 04:20
PT 15.6 Sec (11.4-14.6) H 01/05/24 09:36
INR 1.26 01/05/24 09:36
APTT 25.5 Sec (23.4-35.0) 01/05/24 09:36
Estimated Creat Clear 92 ml/min 01/12/24 04:20
Lactic Acid 1.7 mmol/L (0.7-2.0) 01/05/24 09:36
Total Bilirubin 0.4 mg/dl (0.2-1.3) 01/10/24 05:53
AST 20 U/L (17-59) 01/10/24 05:53
ALT < 10 U/L (0-50) 01/10/24 05:53
Alkaline Phosphatase 171 U/L (38-126) H 01/10/24 05:53
Most recent labs reviewed.
Micro Results:
01/06/24 14:35 Blood Culture - Final
Blood/Venous No Growth - Final Report
01/06/24 14:36 Blood Culture - Final
Blood/Venous No Growth - Final Report
01/05/24 09:36 Blood Culture - Preliminary
Blood/Venous Streptococcus anginosus
Gram Stain - Preliminary
01/05/24 09:38 Blood Culture - Preliminary
Blood/Venous Streptococcus anginosus
Gram Stain - Preliminary
01/05/24 09:41 Influenza Types A & B (KIM) - Final
Nasal Swab Negative for Influenza A & B, NAAT
Negative results must be combined with clinical observations
and patient history.
Nucleic Acid Amplification test (NAAT)performed on the
[employer] platform.
Imaging:
01/05/2024 CT abdomen/pelvis with oral contrast: Known peripancreatic fluid collection with placement of cystogastrostomy in the interval since prior MRI December 11, 2023. Abnormal peripancreatic fluid collection is overall slightly decreased in
volume although now contains air within an irregular low attenuation density, cannot exclude superimposed infection.
--- NOTE | 2024-01-12 12:26 | PTCARENOTE ---
Pt with run of VT on tele monitor, asymptomatic. Dr. Dign notified via TT. Pt now for tele status instead of med surg. No other orders received at this time.
--- NOTE | 2024-01-12 17:19 | CM ---
Patient with Hx Parkinsons Dz with Dx Acute abdominal pain, Acute upper GI bleed with anemia. Room air. Full liquids. PT & OT recommend HH.
CM continuing to follow for d/c needs.
Plan home with [facility].
[2024-01-12 19:29] LABS: Hematocrit 22.5 % (39.0-52.0); Hemoglobin 7.4 g/dL (13.0-18.0)
[2024-01-13] VITALS (15 sets, daily range): BP systolic 104–156; BP diastolic 61–81; PULSE 77–106
[2024-01-13] MEDS: ProAIR HFA INHALER 2 PUFF INH ×7 (04:31→23:39)
--- NOTE | 2024-01-13 04:40 | PTCARENOTE ---
Pt with run of VT, asymptomatic. BP stable. Broke spontaneously back in SR. Deandra COMPLIANCE ASSISTANT on floor and made aware. No further orders, will continue to monitor.
[2024-01-13 05:16] LABS: Hematocrit 25.2 % (39.0-52.0); Hemoglobin 8.2 g/dL (13.0-18.0); Mean Corp Hgb Conc. 32.5 g/dL (33.0-37.0); Mean Corpuscular Hgb 27.9 pg (27.0-31.0); Mean Corpuscular Volume 85.7 fL (80.0-94.0); Mean Platelet Volume 10.4 fL (7.4-10.4); Platelet Count 289 10^3/uL (130-400); Red Blood Cell Count 2.94 10^6/uL (4.70-6.10); Red Cell Dist. Width 17.6 % (11.5-14.5); White Blood Cell Count 6.5 10^3/uL (4.8-10.8)
--- NOTE | 2024-01-13 08:18 | W.PN.GI.CBS2 ---
Today's Communication / Plan
-
advancing diet
Assessment / Plan
-
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
thrombosis, other history as below.� He recently underwent an EUS for cystogastrostomy with stenting of pseudocyst/necrotic cavity with Dr. Song on 12/19/23 and then returned 12/28/23 for endoscopy with with necrosectomy. � This AM had abdominal pain,
fever 103.1, chills, nausea, change in MS with urinary incontinence which prompted ER visit.
CT done showed 'Known peripancreatic fluid collection with placement of cystogastrostomy in the interval since prior MRI December 11, 2023. Abnormal peripancreatic fluid collection is overall slightly decreased in volume although now contains air
within an irregular low attenuation density, cannot exclude superimposed infection.'
Labs significant for Hb 6.8; rectal scant brown stool per brown BM today.� Bili normal, lipase elevated.
On d/w Dr. Song the pigtail stent into axios isn't there, it migrated out causing infection/pus to build up as the axios is occluded.� He will need endoscopic clean up of axios stent orifice and necrosectomy.� If stable with broad spectrum abx (he
mentioned zosyn/meropenem I told him I d/w Dr. Ding unable to do with PCn allergy) can do procedure on Monday; if not stable will need urgent necrosectomy and recommends reaching out to [facility] for this - patient/ do NOT want to go to
[place].
Strep anginuous in blood, required 3 UPRBC, WBC went from 10 to 11, no fevers, stable hemodynamically. Dr. Song said clear liquids were ok so I ordered this.
Repeat Blood culture x 2 on 01/06/24 negative after 48 hrs
Transfusions:
01/11 1U
01/10 1U
01/06 2U
01/05 1 U
Patient s/p EGD 01/08/24 with Duncan:
- Normal esophagus.
�� � � � � � � � � � � - Pre-existing gastric Axios stent, migrated out.
�� � � � � � � � � � � - Pus in stomach, aspirated. Previous cystogastrostomy
�� � � � � � � � � � � tract was located and entered, necrotic cavity
�� � � � � � � � � � � contained significant pus which was drained.
�� � � � � � � � � � � - Necrotic cavity appeared to be healing well with
�� � � � � � � � � � � minimal necrotic burden present. A 10 Fr and 7 Fr 3 cm
�� � � � � � � � � � � double pigtail stents were placed under direct
�� � � � � � � � � � � endoscopic guidance via existing cystogastrostomy
�� � � � � � � � � � � tract.
�� � � � � � � � � � � - Plastic stent in the duodenum, migrated out. Removed.
�� � � � � � � � � � � - Pre-existing gastric stent, removed.
�� � � � � � � � � � � - Necrosectomy was performed.
EGD with Duncan on 01/11/24:
�� � Two existing plastic pigtail stents were found on the lesser curvature
�� � of the stomach. Stent removal was accomplished with a snare.
�� � A fistula was found on the lesser curvature of the stomach. This was
�� � entered and the cavity was examined. There were diffuse large amount of
�� � clots present, which was not cleared. No active bleeding was noted. This
�� � was stented with 7 Fr 3 cm double pigtail plastic stent under direct
�� � endoscopic guidance.
Impression:
BRBPR and drop in Hbg requiring transfusion
CT with hematoma/bleeding in area of pancreatic necrotic tissue
Bacteremia-> BC on 01/05/24 strep anginosus on Ertapenem. Now repeat BC x 2 on 01/06/24 x2 no growth x 48 hrs
Necrotizing pancreatitis
-> previous cystgastrostomy stent found in stomach, pus in stomach, cyst filled with pus.
-> Necrotic cavity appeared to be healing with minimal necrotic burden
-> 10 Fr and 7 Fr 3 cm double pigtail stents placed via existing cystgastrostomy tract
-> Plastic stent in duodenum migrated out and removed
-> Preexisting gastric stent removed
-> Necrosectomy performed
01/12/24: hgb stable since yesterday. pt is HDstable, BUN normalized
added oral supplements to diet
full liquids today and advance tomorrow if doing well
check hgb at 1600
if has any active bleeding, needs CTA for possible embolization
Will need repeat CT abd w/ IV contrast - in 3-4 weeks
antibx per ID
discussed with his over the phone
01/13/24: hgb stable - actually up 1 g, VSS
no BM - on bowel regimen already
if no BM by tomorrow, add suppository
will advance diet today
if hgb stable tomorrow, GI will sign off, however, patient concerned about being lightheaded and unsafe to go home
discussed with his , Bee and with primary team - says he has fear and anxiety about going home
Will follow with you
Total Time Spent with Patient (in minutes): 30
Subjective
Subjective
Date of Service: January 13, 2024
no overt bleeding and hgb stable.
patient concerned about being lightheaded and unable to walk safely
no BM in a couple of days
Objective
Data Reviewed
Laboratory Data:
Laboratory Results
01/13/24 05:08
01/12/24 04:20
Laboratory Results
PT 15.6 Sec (11.4-14.6) H 01/05/24 09:36
INR 1.26 01/05/24 09:36
APTT 25.5 Sec (23.4-35.0) 01/05/24 09:36
Total Bilirubin 0.4 mg/dl (0.2-1.3) 01/10/24 05:53
AST 20 U/L (17-59) 01/10/24 05:53
ALT < 10 U/L (0-50) 01/10/24 05:53
Alkaline Phosphatase 171 U/L (38-126) H 01/10/24 05:53
Lipase 333 U/L (23-300) H 01/06/24 07:28
Vital Signs and I&O:
Vital Signs
Temp Pulse Resp BP Pulse Ox
98 F 72 17 152/72 97
01/13/24 07:46 01/13/24 07:32 01/13/24 07:32 01/13/24 06:00 01/13/24 07:32
I&O
01/12/24 01/13/24 01/14/24
06:59 06:59 06:59
Intake Total 2710 / 2710 320 / 320
Output Total 2450 / 2450 2675 / 2675
Balance 260 / 260 -2355 / -2355
Physical Exam
Physical Exam
HEENT: Anicteric
GI: Soft and Tender
Extremities: No Edema
Neuro: Other (parkinson's tremor)
[2024-01-13] MEDS: COLACE 100 MG PO ×2 (08:49→19:50)
[2024-01-13] MEDS: PROTONIX 100 IV (08:49)
[2024-01-13] MEDS: OMNICEF 300 MG PO ×2 (08:50→19:50)
[2024-01-13] MEDS: FOLVITE 1 MG PO (08:50)
[2024-01-13] MEDS: SINEMET 25-100 2 TABLET PO ×3 (08:50→19:58)
[2024-01-13] MEDS: NON-FORMULARY ITEM 20 MG PO ×2 (08:51→19:50)
[2024-01-13] MEDS: SENOKOT 8.59999999999999964 MG PO ×2 (08:51→19:50)
[2024-01-13] MEDS: VITAMIN B-12 1000 MCG PO (08:51)
[2024-01-13] MEDS: MIRALAX 17 GRAMS PO (10:43)
--- NOTE | 2024-01-13 13:40 | W.PN.HOSP.TC ---
Today's Communication/Plan
-
Advance diet
CW PT
DC planning
Assessment / Plan
Assessment / Plan
Acute abdominal pain with fever concerning for superimposed peripancreatic fluid collection infection concerning for abscess..� Patient recently had necrosectomy 12/28-concerning for superimposed infection/abscess.� Patient allergic to penicillin.� ID
now on board - cw abx per ID.
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
Strep angiosus bacteremia - Afeb, wbc normal , and nontoxic looking. Continue antibiotics per ID
Acute upper GI bleed with acute blood loss anemia-patient with recurrence of abdominal pain and blood in the stool with a drop in hemoglobin. CT of the abdomen pelvis showed hematoma with no active extravasation in the gastric area. Bleeding scan
was negative.
s/p EGD 01/11 -2 existing pigtail stents were removed, and the necrotic cavity was accessed via fistulous tract - there was large amount of blood clot.� No red blood or active bleeding was seen.� Removal of clot was deferred b/c 1) existing clot is
likely tamponading the bleed, 2) no active bleeding noted, 3) questionable safety of clot removal as this would be done in blind fashion in the cavity which may result in active hemorrhage.� One 7 Fr 3 cm double pigtail plastic stent was placed into
the cavity with endoscopic guidance to maintain patentcy of fistula tract. �
No active bleeding.
HH stable
He is known to have chronic anemia to begin with
Acute blood loss anemia-s/p 2 units of transfusion since 01/10-continue to follow H&H and transfuse as needed.
Elevated lipase - going in with peripancreatic fluid collection/infection issue . Improving
Severe anemia-on admission--normocytic.� Status post 3 units of blood transfusion with elevated blood count to 8.5. Aim to keep it more than 8. Patient noted to have chronic anemia.
Parkinson disease-continue with his medication
Polycythemia vera on Jakafi which we will continue.
Essential hypertension hold losartan and follow.
Hyponatremia -seems chronic.� urine lites suggests pre renal stimuli.�cw fluids.Improved. Follow-up.�
Dizziness - suspect orthostatic hypotension from blood loss . Did ok with PT yesterday .If persistent start on midodrine .
DVT prophylaxis Hold on subcu heparin. Patient advised to use sequential teds to decrease the risk of DVT
Ful code
Dispo med surg
DC planning
Anticipated Discharge: 24 - 48 hours
Subjective/Interval History
-
Date of Service: January 13, 2024
Tolerating a liquid diet. Diet being advanced to regular diet today. No nausea or vomiting. Improved abdominal pain. No rectal bleeding.
Patient complains of dizziness and weak on legs.
According to , whenever he gets anesthesia he is kind of in a daze for the couple of days.He has PD.
Objective Data
-
Labs:
Laboratory Results
01/13/24
05:08
WBC 6.5
Hgb 8.2 L
Hct 25.2 L
Plt Count 289
Vital Signs:
Vital Signs
Temp Pulse Resp BP Pulse Ox
98.2 F 79 18 117/70 96
01/13/24 12:32 01/13/24 11:15 01/13/24 11:15 01/13/24 09:03 01/13/24 11:15
I&O
01/12/24 01/13/24 01/14/24
06:59 06:59 06:59
Intake Total 2710 / 2710 320 / 320
Output Total 2450 / 2450 2675 / 2675
Balance 260 / 260 -2355 / -2355
Review of Systems
-
Constitutional: Denies Fever
Respiratory: Denies Trouble Breathing
Cardiac: Denies Chest Pain
Physical Exam
-
General: No Apparent Distress
HEENT: Moist Mucous Membranes
Respiratory: Clear to Auscultation
Cardiac: Regular Rhythm and S1/S2
GI: Soft, Nondistended and Normal Bowel Sounds; Negative Tender (Mild periumbilical area - but improved tenderness)
Neuro: AO x 3
Data Reviewed
-
Labs: Labs Reviewed by me
--- NOTE | 2024-01-13 16:47 | PTCARENOTE ---
confirmed w/ Dr. Ding patient is to be med/surg level of care.
[2024-01-14] MEDS: ProAIR HFA INHALER 2 PUFF INH ×6 (03:38→23:46)
[2024-01-14 07:32] VITALS: BP 138/75
[2024-01-14 07:32] LABS: Hemoglobin 8.2 g/dL (13.0-18.0); Mean Corp Hgb Conc. 31.5 g/dL (33.0-37.0); Mean Corpuscular Hgb 27.8 pg (27.0-31.0); Mean Corpuscular Volume 88.1 fL (80.0-94.0); Platelet Count 332 10^3/uL (130-400); Red Blood Cell Count 2.95 10^6/uL (4.70-6.10); White Blood Cell Count 8.1 10^3/uL (4.8-10.8)
--- NOTE | 2024-01-14 08:47 | W.PN.HOSP.TC ---
Today's Communication/Plan
-
DC
Assessment / Plan
Assessment / Plan
Acute abdominal pain with fever concerning for superimposed peripancreatic fluid collection infection concerning for abscess..� Patient recently had necrosectomy 12/28-concerning for superimposed infection/abscess.� Patient allergic to penicillin.� ID
now on board - cw abx per ID.
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
Strep angiosus bacteremia - Afeb, wbc normal , and nontoxic looking. Continue antibiotics per ID - recommended 7 days of oral abx
Acute upper GI bleed with acute blood loss anemia-patient with recurrence of abdominal pain and blood in the stool with a drop in hemoglobin. CT of the abdomen pelvis showed hematoma with no active extravasation in the gastric area. Bleeding scan
was negative.
s/p EGD 01/11 -2 existing pigtail stents were removed, and the necrotic cavity was accessed via fistulous tract - there was large amount of blood clot.� No red blood or active bleeding was seen.� Removal of clot was deferred b/c 1) existing clot is
likely tamponading the bleed, 2) no active bleeding noted, 3) questionable safety of clot removal as this would be done in blind fashion in the cavity which may result in active hemorrhage.� One 7 Fr 3 cm double pigtail plastic stent was placed into
the cavity with endoscopic guidance to maintain patentcy of fistula tract. �
He is tolerating diet
No active bleeding.
HH stable
Acute blood loss anemia-s/p 2 units of transfusion since 01/10-HH stable
Elevated lipase - going in with peripancreatic fluid collection/infection issue . Improving
Severe anemia-on admission--normocytic.� Status post 3 units of blood transfusion with elevated blood count to 8.5. Aim to keep it more than 8. Patient noted to have chronic anemia.
Parkinson disease-continue with his medication
Polycythemia vera on Jakafi which we will continue.
Essential hypertension hold losartan and follow.
Hyponatremia -seems chronic.� urine lites suggests pre renal stimuli.�cw fluids.Improved. Follow-up.�
Dizziness - suspect orthostatic hypotension from blood losses . Did ok with PT .Follow orthostatic BP reading today and if postive and symptomatic will start on midodrine. H&H stable.
DVT prophylaxis cw sequential teds
Ful code
Tolerating diet. H&H stable.
Follow any blood pressure readings
DC home later today if no dizziness
Total time of dc 32 min
Anticipated Discharge: Today
Subjective/Interval History
-
Date of Service: January 14, 2024
Patient currently without nausea vomiting.
No fever or chills.
Denies shortness of breath.
Objective Data
-
Labs:
Laboratory Results
01/14/24
06:53
WBC 8.1
Hgb 8.2 L
Hct 26.0 L
Plt Count 332
Vital Signs:
Vital Signs
Temp Pulse Resp BP Pulse Ox
98.3 F 80 16 138/75 100
01/14/24 07:32 01/14/24 08:36 01/14/24 08:36 01/14/24 07:32 01/14/24 08:36
I&O
01/13/24 01/14/24 01/15/24
06:59 06:59 06:59
Intake Total 320 / 320 900 / 900
Output Total 2675 / 2675
Balance -2355 / -2355 900 / 900
Review of Systems
-
EENT: Denies Sore Throat
Respiratory: Denies Cough or Trouble Breathing
Cardiac: Denies Chest Pain
Abdomen/GI: Denies Abdominal Pain, Nausea or Vomiting
Neuro: Denies Dizzy (today so far )
Physical Exam
-
General: No Apparent Distress
HEENT: Moist Mucous Membranes
Respiratory: Clear to Auscultation
Cardiac: Regular Rhythm and S1/S2
GI: Soft, Nontender (currently), Nondistended and Normal Bowel Sounds
Neuro: AO x 3
Psych: Calm
Data Reviewed
-
Labs: Labs Reviewed by me
--- NOTE | 2024-01-14 09:06 | W.DS.TRANS ---
DC Summary - [employer]
-
Discharge Instructions:
Discharge Diagnosis/Procedures Pancreatic cyst infection with Strep angiosus
bacteremia; bleeding from cystogastrostomy site
s/p endoscopic treatments on 2 occasions on this
admission
Diet Low Fat
Activity As tolerated
Driving Restrictions As prior to admission
Blood Work CBC blood work in 1 week time-arrange through
PCP
Other Services VN,PT
Stop these medications: Your blood pressure medicine losartan. Follow-
up with your PCP to see if needed back again.
Instructions:
Stand-Alone Forms:
Changes to Home Medications: Yes
Discharge Medications:
DC Medications w/original date entered in [employer]
albuterol sulfate 90 mcg/actuation aerosol inhaler 2 puff inhalation R QID Lung/Breathing Issues 01/19/18
carbidopa 25 mg-levodopa 100 mg tablet 2 tab PO TID Neurological Condition 07/07/23
ruxolitinib 20 mg tablet (Jakafi) 20 mg PO BID Immunologic 07/07/23
aspirin 81 mg capsule 81 mg PO DAILY Fluid Retention/Swelling 07/16/23
pantoprazole 40 mg tablet,delayed release 40 mg PO HS Gastrointestinal Issue 09/28/23
cyanocobalamin (vitamin B-12) 1,000 mcg tablet 1,000 mcg PO DAILY #100 tabs 10/13/23
sennosides 8.6 mg tablet (senna) 8.6 mg PO BID Constipation 11/23/23
docusate sodium 100 mg capsule 100 mg PO BID Constipation 01/05/24
folic acid 1 mg tablet 1 mg PO DAILY Supplement 01/05/24
acetaminophen 325 mg tablet 650 mg PO Q4HPRN PRN mild pain /fever >100.4 #1 tab 01/14/24
cefdinir 300 mg capsule 300 mg PO Q12 #10 caps 01/14/24
polyethylene glycol 3350 17 gram oral powder packet (HealthyLax) 17 g PO DAILY PRN Constipation #14 ea 01/14/24
Home Medication Changes
New medication-Omnicef, MiraLAX as needed
Pending Results: No
[2024-01-14] MEDS: SINEMET 25-100 2 TABLET PO ×3 (09:28→22:18)
[2024-01-14] MEDS: FOLVITE 1 MG PO (09:28)
[2024-01-14] MEDS: COLACE 100 MG PO ×2 (09:28→20:15)
[2024-01-14] MEDS: SENOKOT 8.59999999999999964 MG PO ×2 (09:28→20:16)
[2024-01-14] MEDS: VITAMIN B-12 1000 MCG PO (09:28)
[2024-01-14] MEDS: MIRALAX 17 GRAMS PO (09:29)
[2024-01-14] MEDS: NON-FORMULARY ITEM 20 MG PO ×2 (09:29→20:16)
[2024-01-14] MEDS: OMNICEF 300 MG PO ×2 (09:29→20:15)
--- NOTE | 2024-01-14 12:58 | PTCARENOTE ---
Messaged provider via TT that patient reported blood in his stool, reddish brown and formed but did not notify RN before flushing the toilet. Provider ordered heme stool test after next BM.
[2024-01-14 15:53] VITALS: BP 134/73
[2024-01-14] MEDS: ATIVAN 0.25 MG PO (16:50)
[2024-01-14 23:10] VITALS: BP 120/69; BP 128/70; BP 131/57; PULSE 69; PULSE 70; PULSE 74
[2024-01-15] MEDS: ProAIR HFA INHALER 2 PUFF INH ×5 (04:03→20:09)
[2024-01-15 07:30] VITALS: BP 140/65
[2024-01-15 07:31] LABS: Hematocrit 26.7 % (39.0-52.0); Hemoglobin 8.3 g/dL (13.0-18.0); Mean Corp Hgb Conc. 31.1 g/dL (33.0-37.0); Mean Corpuscular Hgb 27.8 pg (27.0-31.0); Mean Corpuscular Volume 89.3 fL (80.0-94.0); Mean Platelet Volume 10.2 fL (7.4-10.4); Platelet Count 359 10^3/uL (130-400); Red Blood Cell Count 2.99 10^6/uL (4.70-6.10); Red Cell Dist. Width 18.1 % (11.5-14.5)
[2024-01-15] MEDS: SINEMET 25-100 2 TABLET PO ×3 (08:20→19:56)
[2024-01-15] MEDS: MIRALAX 17 GRAMS PO (08:20)
[2024-01-15] MEDS: OMNICEF 300 MG PO ×2 (08:21→19:56)
[2024-01-15] MEDS: SENOKOT 8.59999999999999964 MG PO ×2 (08:21→19:56)
[2024-01-15] MEDS: FOLVITE 1 MG PO (08:21)
[2024-01-15] MEDS: COLACE 100 MG PO ×2 (08:21→19:56)
[2024-01-15] MEDS: VITAMIN B-12 1000 MCG PO (08:22)
[2024-01-15] MEDS: NON-FORMULARY ITEM 20 MG PO ×2 (08:22→19:57)
[2024-01-15 08:30] VITALS: BP 140/65; BP 142/65; PULSE 71; PULSE 74
--- NOTE | 2024-01-15 09:39 | W.PN.HOSP.TC ---
Today's Communication/Plan
-
Monitor hemoglobin
Discharge tomorrow if hemoglobin continues to remain stable
Assessment / Plan
Assessment / Plan
Acute abdominal pain with fever concerning for superimposed peripancreatic fluid collection infection concerning for abscess..� Patient recently had necrosectomy 12/28-concerning for superimposed infection/abscess.� Patient allergic to penicillin.� ID
now on board - cw abx per ID.
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
Strep angiosus bacteremia - Afeb, wbc normal , and nontoxic looking. Continue antibiotics per ID - recommended 7 days of oral abx
Acute upper GI bleed with acute blood loss anemia-patient with recurrence of abdominal pain and blood in the stool with a drop in hemoglobin. CT of the abdomen pelvis showed hematoma with no active extravasation in the gastric area. Bleeding scan
was negative.
s/p EGD 01/11 -2 existing pigtail stents were removed, and the necrotic cavity was accessed via fistulous tract - there was large amount of blood clot.� No red blood or active bleeding was seen.� Removal of clot was deferred b/c 1) existing clot is
likely tamponading the bleed, 2) no active bleeding noted, 3) questionable safety of clot removal as this would be done in blind fashion in the cavity which may result in active hemorrhage.� One 7 Fr 3 cm double pigtail plastic stent was placed into
the cavity with endoscopic guidance to maintain patentcy of fistula tract. �
Severe anemia-on admission--normocytic.� Status post 5 units of blood, hemoglobin stable today at 8.3. Patient had bloody stools on the morning of 01/15. GI suspects that is residual, since his hemoglobin is 8.3 today, was 8.2 yesterday. Continue
to monitor hemoglobin, provide assurance. Plan for discharge tomorrow if hemoglobin remains stable.
Bacteremia with strep anginosus -appreciate ID input, from GI source. Continue cefdinir
Necrotizing pancreatitis -status post recent necrosectomy with dislodgment of previous stent and likely occlusion, repeat stent placement on 01/08
Elevated lipase - from peripancreatic fluid collection/infection issue. Improving
Parkinson disease-continue Sinemet
Polycythemia vera on Jakafi - continue.
Essential hypertension hold losartan and monitor.
Hyponatremia -seems chronic. urine lites suggests pre renal stimuli.� Sodium improved to 133
Dizziness -orthostatic vital signs negative
DVT prophylaxis - SCDs
Full code
Physical Exam
General: No acute distress
HEENT: Normocephalic, Atraumatic, EOMI, MMM
Respiratory: Clear to Auscultation bilaterally
Cardiac: Normal S1/S2, Regular Rate and Rhythm
GI: Soft, tender at the left lower quadrant, Nondistended, Normal Bowel Sounds
Extremities: No Clubbing, Cyanosis, or Edema
Anticipated Discharge: Within 24 hours
Subjective/Interval History
-
Date of Service: January 15, 2024
Patient reports having a bloody stool this morning. Also reports left lower quadrant abdominal pain.
Objective Data
-
Labs:
Laboratory Results
01/15/24
07:13
WBC 9.0
Hgb 8.3 L
Hct 26.7 L
Plt Count 359
Vital Signs:
Vital Signs
Temp Pulse Resp BP Pulse Ox
97.9 F 91 17 140/65 94
01/15/24 07:30 01/15/24 08:02 01/15/24 08:02 01/15/24 07:30 01/15/24 08:02
I&O
01/14/24 01/15/24 01/16/24
06:59 06:59 06:59
Intake Total 900 / 900 1100 / 1100
Balance 900 / 900 1100 / 1100
--- NOTE | 2024-01-15 11:41 | CM ---
Patient seen with , family requesting Natali from [facility] if possible. CM will discuss with VN. IMM reviewed, patient and not agreeable to sign at this time. CM will continue to follow for discharge planning needs.
Plan; home with and VN when stable.
--- NOTE | 2024-01-15 14:26 | SUR.OPER ---
Patient did have heme + stool today, reinforced that it could be old blood as his labs are improving, visiting at present. Patient does have some anxiety at times. Ambulating ad bart with steady gait , denies any dizzyness .
[2024-01-15 15:30] VITALS: BP 132/74
--- NOTE | 2024-01-15 16:47 | W.PN.GI.CBS2 ---
Today's Communication / Plan
-
Hopeful discharge tomorrow if hemoglobin is stable, continue bowel regimen.
Assessment / Plan
-
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
thrombosis, other history as below.� He recently underwent an EUS for cystogastrostomy with stenting of pseudocyst/necrotic cavity with Dr. Song on 12/19/23 and then returned 12/28/23 for endoscopy with with necrosectomy. � This AM had abdominal pain,
fever 103.1, chills, nausea, change in MS with urinary incontinence which prompted ER visit.
CT done showed 'Known peripancreatic fluid collection with placement of cystogastrostomy in the interval since prior MRI December 11, 2023. Abnormal peripancreatic fluid collection is overall slightly decreased in volume although now contains air
within an irregular low attenuation density, cannot exclude superimposed infection.'
Labs significant for Hb 6.8; rectal scant brown stool per brown BM today.� Bili normal, lipase elevated.
On d/w Dr. Song the pigtail stent into axios isn't there, it migrated out causing infection/pus to build up as the axios is occluded.� He will need endoscopic clean up of axios stent orifice and necrosectomy.� If stable with broad spectrum abx (he
mentioned zosyn/meropenem I told him I d/w Dr. Ding unable to do with PCn allergy) can do procedure on Monday; if not stable will need urgent necrosectomy and recommends reaching out to [facility] for this - patient/ do NOT want to go to
[place].
Strep anginuous in blood, required 3 UPRBC, WBC went from 10 to 11, no fevers, stable hemodynamically. Dr. Song said clear liquids were ok so I ordered this.
Repeat Blood culture x 2 on 01/06/24 negative after 48 hrs
Transfusions:
01/11 1U
01/10 1U
01/06 2U
01/05 1 U
Patient s/p EGD 01/08/24 with [facility]:
- Normal esophagus.
�� � � � � � � � � � � - Pre-existing gastric Axios stent, migrated out.
�� � � � � � � � � � � - Pus in stomach, aspirated. Previous cystogastrostomy
�� � � � � � � � � � � tract was located and entered, necrotic cavity
�� � � � � � � � � � � contained significant pus which was drained.
�� � � � � � � � � � � - Necrotic cavity appeared to be healing well with
�� � � � � � � � � � � minimal necrotic burden present. A 10 Fr and 7 Fr 3 cm
�� � � � � � � � � � � double pigtail stents were placed under direct
�� � � � � � � � � � � endoscopic guidance via existing cystogastrostomy
�� � � � � � � � � � � tract.
�� � � � � � � � � � � - Plastic stent in the duodenum, migrated out. Removed.
�� � � � � � � � � � � - Pre-existing gastric stent, removed.
�� � � � � � � � � � � - Necrosectomy was performed.
EGD with [facility] on 01/11/24:
�� � Two existing plastic pigtail stents were found on the lesser curvature
�� � of the stomach. Stent removal was accomplished with a snare.
�� � A fistula was found on the lesser curvature of the stomach. This was
�� � entered and the cavity was examined. There were diffuse large amount of
�� � clots present, which was not cleared. No active bleeding was noted. This
�� � was stented with 7 Fr 3 cm double pigtail plastic stent under direct
�� � endoscopic guidance.
Impression:
BRBPR and drop in Hbg requiring transfusion
CT with hematoma/bleeding in area of pancreatic necrotic tissue
Bacteremia-> BC on 01/05/24 strep anginosus on Ertapenem. Now repeat BC x 2 on 01/06/24 x2 no growth x 48 hrs
Necrotizing pancreatitis
-> previous cystgastrostomy stent found in stomach, pus in stomach, cyst filled with pus.
-> Necrotic cavity appeared to be healing with minimal necrotic burden
-> 10 Fr and 7 Fr 3 cm double pigtail stents placed via existing cystgastrostomy tract
-> Plastic stent in duodenum migrated out and removed
-> Preexisting gastric stent removed
-> Necrosectomy performed
01/12/24: hgb stable since yesterday. pt is HDstable, BUN normalized
added oral supplements to diet
full liquids today and advance tomorrow if doing well
check hgb at 1600
if has any active bleeding, needs CTA for possible embolization
Will need repeat CT abd w/ IV contrast - in 3-4 weeks
antibx per ID
discussed with his over the phone
01/13/24: hgb stable - actually up 1 g, VSS
no BM - on bowel regimen already
if no BM by tomorrow, add suppository
will advance diet today
if hgb stable tomorrow, GI will sign off, however, patient concerned about being lightheaded and unsafe to go home
discussed with his , Bee and with primary team - says he has fear and anxiety about going home
01/15/24: Hemoglobin stable. Finally moving his bowels which are black.
Tolerating diet. Still complains of pain. He is anxious and wants something to help him sleep
Long conversation with and patient. Reviewed images from prior. Tried to explain what happened to him. Spent over 25 minutes in the room and a total of 35 minutes
--- If his hemoglobin is stable in the morning okay for discharge home with repeat CBC in 1 week. Will need contrast CT abdomen in 3 to 4 weeks. Patient already has the order to go to Dr. Song
-- I told him this is a very long process, 1 day at a time
Will follow with you
Subjective
Subjective
Date of Service: January 15, 2024
Patient had a black small stool but hemoglobin is stable.
Objective
Data Reviewed
Laboratory Data:
Laboratory Results
01/15/24 07:13
01/12/24 04:20
Laboratory Results
PT 15.6 Sec (11.4-14.6) H 01/05/24 09:36
INR 1.26 01/05/24 09:36
APTT 25.5 Sec (23.4-35.0) 01/05/24 09:36
Total Bilirubin 0.4 mg/dl (0.2-1.3) 01/10/24 05:53
AST 20 U/L (17-59) 01/10/24 05:53
ALT < 10 U/L (0-50) 01/10/24 05:53
Alkaline Phosphatase 171 U/L (38-126) H 01/10/24 05:53
Lipase 333 U/L (23-300) H 01/06/24 07:28
Vital Signs and I&O:
Vital Signs
Temp Pulse Resp BP Pulse Ox
97.3 F 74 18 132/74 98
01/15/24 15:30 01/15/24 15:30 01/15/24 15:30 01/15/24 15:30 01/15/24 15:30
I&O
01/14/24 01/15/24 01/16/24
06:59 06:59 06:59
Intake Total 900 / 900 1100 / 1100
Balance 900 / 900 1100 / 1100
Physical Exam
Physical Exam
HEENT: Anicteric
GI: Soft and Tender
Extremities: No Edema
Neuro: Non Focal
[2024-01-15] MEDS: ATIVAN 0.25 MG PO (18:10)
[2024-01-15 22:48] VITALS: BP 110/54
[2024-01-16] MEDS: ProAIR HFA INHALER 2 PUFF INH ×4 (01:05→12:09)
[2024-01-16 07:30] VITALS: BP 123/62
--- NOTE | 2024-01-16 08:16 | W.PN.HOSP.TC ---
Addendum entered and electronically signed by Juan David Morelos MD 01/16/24 17:20:
Na low at 130, will not prescribe zoloft.
Original Note:
Today's Communication/Plan
-
Cleared by GI for discharge today
Assessment / Plan
Assessment / Plan
Acute abdominal pain with fever concerning for superimposed peripancreatic fluid collection infection concerning for abscess..� Patient recently had necrosectomy 12/28-concerning for superimposed infection/abscess.� Patient allergic to penicillin.� ID
now on board - cw abx per ID.
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
Strep angiosus bacteremia - Afeb, wbc normal , and nontoxic looking. Continue antibiotics per ID - recommended 7 days of oral abx
Acute upper GI bleed with acute blood loss anemia-patient with recurrence of abdominal pain and blood in the stool with a drop in hemoglobin. CT of the abdomen pelvis showed hematoma with no active extravasation in the gastric area. Bleeding scan
was negative.
s/p EGD 01/11 - existing pigtail stents were removed, and the necrotic cavity was accessed via fistulous tract - there was large amount of blood clot.� No red blood or active bleeding was seen.� Removal of clot was deferred b/c 1) existing clot is
likely tamponading the bleed, 2) no active bleeding noted, 3) questionable safety of clot removal as this would be done in blind fashion in the cavity which may result in active hemorrhage.� One 7 Fr 3 cm double pigtail plastic stent was placed into
the cavity with endoscopic guidance to maintain patentcy of fistula tract. �
Severe anemia-on admission--normocytic.� Status post 5 units of blood, hemoglobin stable today at 8.9, was 8.3, was 8.2. Patient had bloody stools on the morning of 01/15. GI suspects that is residual, since his hemoglobin is 8.9 today, was 8.3,
was 8.2. Medically stable for discharge today.
Bacteremia with strep anginosus -appreciate ID input, from GI source. Continue cefdinir
Necrotizing pancreatitis -status post recent necrosectomy with dislodgment of previous stent and likely occlusion, repeat stent placement on 01/08
Elevated lipase - from peripancreatic fluid collection/infection issue. Improving
Parkinson disease-continue Sinemet
Polycythemia vera on Jakafi - continue.
Essential hypertension -recommend permanently discontinue losartan upon discharge
Hyponatremia -seems chronic. urine lites suggests pre renal stimuli.� Sodium improved to 130
Dizziness -orthostatic vital signs negative
Anxiety�he is agreeable to starting Zoloft 50 mg daily upon discharge
DVT prophylaxis - SCDs
Full code
Physical Exam
General: No acute distress
HEENT: Normocephalic, Atraumatic, EOMI, MMM
Respiratory: Clear to Auscultation bilaterally
Cardiac: Normal S1/S2, Regular Rate and Rhythm
GI: Soft, tender at the left lower quadrant, Nondistended, Normal Bowel Sounds
Extremities: No Clubbing, Cyanosis, or Edema
Anticipated Discharge: Today
Subjective/Interval History
-
Date of Service: January 16, 2024
Had a bowel movement, brown. Reports some intermittent lightheadedness. No lightheadedness currently, was able to stand without any lightheadedness today.
Objective Data
-
Labs:
Laboratory Results
01/16/24
07:33
WBC Pending
Hgb Pending
Hct Pending
Plt Count Pending
Sodium Pending
Potassium Pending
Chloride Pending
Carbon Dioxide Pending
BUN Pending
Creatinine Pending
Glucose Pending
Calcium Pending
Vital Signs:
Vital Signs
Temp Pulse Resp BP Pulse Ox
97.3 F 76 16 110/54 100
01/15/24 22:48 01/16/24 08:02 01/16/24 08:02 01/15/24 22:48 01/16/24 08:02
I&O
01/15/24 01/16/24 01/17/24
06:59 06:59 06:59
Intake Total 1100 / 1100 960 / 960
Balance 1100 / 1100 960 / 960
[2024-01-16] MEDS: SINEMET 25-100 2 TABLET PO (08:18)
[2024-01-16] MEDS: SENOKOT 8.59999999999999964 MG PO (08:19)
[2024-01-16] MEDS: OMNICEF 300 MG PO (08:19)
[2024-01-16] MEDS: VITAMIN B-12 1000 MCG PO (08:19)
[2024-01-16] MEDS: MIRALAX 17 GRAMS PO (08:19)
[2024-01-16] MEDS: COLACE 100 MG PO (08:19)
[2024-01-16] MEDS: NON-FORMULARY ITEM 20 MG PO (08:19)
[2024-01-16 08:25] LABS: Hemoglobin 8.9 g/dL (13.0-18.0); Mean Corp Hgb Conc. 30.7 g/dL (33.0-37.0); Mean Corpuscular Hgb 27.7 pg (27.0-31.0); Mean Corpuscular Volume 90.3 fL (80.0-94.0); Mean Platelet Volume 10.3 fL (7.4-10.4); Platelet Count 435 10^3/uL (130-400); Red Blood Cell Count 3.21 10^6/uL (4.70-6.10); Red Cell Dist. Width 18.1 % (11.5-14.5)
[2024-01-16 08:55] LABS: Blood Urea Nitrogen 18 mg/dl (9-20); Calcium 8.2 mg/dl (8.4-10.2); Carbon Dioxide 27 mmol/L (22-30); Chloride 100 mmol/L (98-107); Estimated Creatinine Clearance 92 ml/min; Glucose 124 mg/dl (70-99); Magnesium 2.3 mg/dl (1.6-2.3); Potassium 4.5 mmol/L (3.5-5.1); Sodium 130 mmol/L (135-145); eGFR > 60.00
[2024-01-16] MEDS: FOLVITE 1 MG PO (09:42)
--- NOTE | 2024-01-16 09:43 | W.PN.GI.CBS2 ---
Today's Communication / Plan
-
Pt noted with black stools likely old blood with red blood noted on admission
hbg stable 8.9, BUN 18
eating well
repeat CT 3 weeks pt has slip from Dr. Teresa cornelius to assist with scheduling
for repeat CBC 1 week slip left on discharge
Dr. Blair updated family at length 01/15 and I updated again today
some dizziness which is chronic but ambulating around unit without difficulty
ok to resume Iron on discharge-- discussed may make stools dark
stable for discharge
returns to hospital for fever, chill, pain or issues with bleeding-- all questions answered
Assessment / Plan
-
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
thrombosis, other history as below.� He recently underwent an EUS for cystogastrostomy with stenting of pseudocyst/necrotic cavity with Dr. Song on 12/19/23 and then returned 12/28/23 for endoscopy with with necrosectomy. � Pt was noted with abdominal
pain, fever 103.1, chills, nausea, change in MS with urinary incontinence which prompting admission. During admission noted with drop in hbg to 6 requiring transfusion. s/p follow up EGD with Dr. Song 01/08 and 01/11 as noted.
Strep anginuous in blood, required 3 UPRBC, WBC went from 10 to 11, no fevers, stable hemodynamically. Dr. Song said clear liquids were ok so I ordered this.
Repeat Blood culture x 2 on 01/06/24 negative after 48 hrs
Transfusions:
total 5 units PRBC's given during admission
Patient s/p EGD 01/08/24 with Duncan:
- Normal esophagus.
�� � � � � � � � � � � - Pre-existing gastric Axios stent, migrated out.
�� � � � � � � � � � � - Pus in stomach, aspirated. Previous cystogastrostomy
�� � � � � � � � � � � tract was located and entered, necrotic cavity
�� � � � � � � � � � � contained significant pus which was drained.
�� � � � � � � � � � � - Necrotic cavity appeared to be healing well with
�� � � � � � � � � � � minimal necrotic burden present. A 10 Fr and 7 Fr 3 cm
�� � � � � � � � � � � double pigtail stents were placed under direct
�� � � � � � � � � � � endoscopic guidance via existing cystogastrostomy
�� � � � � � � � � � � tract.
�� � � � � � � � � � � - Plastic stent in the duodenum, migrated out. Removed.
�� � � � � � � � � � � - Pre-existing gastric stent, removed.
�� � � � � � � � � � � - Necrosectomy was performed.
EGD with Duncan on 01/11/24:
�� � Two existing plastic pigtail stents were found on the lesser curvature
�� � of the stomach. Stent removal was accomplished with a snare.
�� � A fistula was found on the lesser curvature of the stomach. This was
�� � entered and the cavity was examined. There were diffuse large amount of
�� � clots present, which was not cleared. No active bleeding was noted. This
�� � was stented with 7 Fr 3 cm double pigtail plastic stent under direct
�� � endoscopic guidance.
01/10 nuclear bleeding scan neg
01/10/23 �CT Abd/pel W Iv And Oral Contr
1. � Interval removal of cystogastrostomy stent now with 2 adjacent pigtail stents extending across the cystogastrostomy tract into peripancreatic collection/area of walled off necrosis. Size of this collection is not significantly decreased in size
compared to prior CT from 01/05/24 and is now filled with heterogeneously slightly hyperdense material with internal attenuation of 57 Hounsfield units. Previously, attenuation of this collection was 15 Hounsfield units. Minimal gas now present
within the collection. Findings suggestive of bleeding/hematoma now within this area of pancreatic necrosis. No CT findings for active contrast extravasation.
2. � Small volume of pelvic ascites, slightly increased in size compared to prior CT. Small amount of perihepatic and perisplenic ascites.
3. � Significant extrinsic compression of the central/extrahepatic portal vein which remains patent.
4. � Splenomegaly.
5. � Additional findings above.
Impression:
BRBPR and drop in Hbg requiring transfusion
CT with hematoma/bleeding in area of pancreatic necrotic tissue
Bacteremia-> BC on 01/05/24 strep anginosus on Ertapenem. Now repeat BC x 2 on 01/06/24 x2 no growth x 48 hrs
Necrotizing pancreatitis
-> previous cystgastrostomy stent found in stomach, pus in stomach, cyst filled with pus.
-> Necrotic cavity appeared to be healing with minimal necrotic burden
-> 10 Fr and 7 Fr 3 cm double pigtail stents placed via existing cystgastrostomy tract
-> Plastic stent in duodenum migrated out and removed
-> Preexisting gastric stent removed
-> Necrosectomy performed
hyponatremia
PLAN:
Pt noted with black stools likely old blood with red blood noted on admission
hbg stable 8.9, BUN 18
eating well
repeat CT 3 weeks pt has slip from Dr. Teresa cornelius to assist with scheduling
for repeat CBC 1 week slip left on discharge
Dr. Blair updated family at length 01/15 and I updated again today
some dizziness which is chronic but ambulating around unit without difficulty
ok to resume Iron on discharge-- discussed may make stools dark
stable for discharge
returns to hospital for fever, chill, pain or issues with bleeding-- all questions answered
Subjective
Subjective
Date of Service: January 16, 2024
01/15/black stool on IDDS6 diet tolerating diet
Objective
Data Reviewed
Laboratory Data:
Laboratory Results
01/16/24 07:33
01/16/24 07:33
Laboratory Results
PT 15.6 Sec (11.4-14.6) H 01/05/24 09:36
INR 1.26 01/05/24 09:36
APTT 25.5 Sec (23.4-35.0) 01/05/24 09:36
Phosphorus 4.0 mg/dl (2.5-4.5) 01/16/24 07:33
Magnesium 2.3 mg/dl (1.6-2.3) 01/16/24 07:33
Total Bilirubin 0.4 mg/dl (0.2-1.3) 01/10/24 05:53
AST 20 U/L (17-59) 01/10/24 05:53
ALT < 10 U/L (0-50) 01/10/24 05:53
Alkaline Phosphatase 171 U/L (38-126) H 01/10/24 05:53
Lipase 333 U/L (23-300) H 01/06/24 07:28
Vital Signs and I&O:
Vital Signs
Temp Pulse Resp BP Pulse Ox
97.9 F 76 16 123/62 100
01/16/24 07:30 01/16/24 08:02 01/16/24 08:02 01/16/24 07:30 01/16/24 08:02
I&O
01/15/24 01/16/24 01/17/24
06:59 06:59 06:59
Intake Total 1100 / 1100 960 / 960
Balance 1100 / 1100 960 / 960
Physical Exam
Physical Exam
HEENT: Anicteric and Moist mucous membranes
Cardiology: Normal Sinus Rhythm
Pulmonary: Clear
GI: Soft, Non Distended and Non Tender
Extremities: No Edema
Neuro: Non Focal
--- NOTE | 2024-01-16 12:29 | W.DCSUMMARY ---
Discharge Summary
Discharge Data
Date of Admission: 01/05/24
Date of Discharge: 01/16/24
-
Pending Results: No
Hospital Course
Discharge diagnosis:
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
Bleeding from cystogastrostomy site status post endoscopic treatments x 2
Acute blood loss anemia
Necrotizing pancreatitis status post recent necrosectomy with dislodgment of stent and possible occlusion status post repeat stent placement x 2
Parkinson's disease
Anxiety/depression
Hyponatremia
Essential hypertension
Dizziness
Consults: GI, ID
Procedures:
01/08/2024 -EGD with necrosectomy and double-pigtail stent placement
01/11/2024 -EGD with removal of 2 existing pigtail stents, placement of double-pigtail stent
Hospital course:
68-year-old male with a past medical history of necrotizing pancreatitis in March 2023, complicated by pancreatic necrosis with hemorrhage status post EUS for cystogastrostomy with stenting of pseudocyst/necrotic cavity on 12/19/2023, followed by EGD
with necrosectomy on 12/28/2023, was admitted for sepsis secondary to strep anginosus bacteremia.
Patient was seen in conjunction with ID. He was initially treated with IV Invanz.
Patient's hospital course was complicated by acute blood loss anemia secondary to bleeding from the cystogastrostomy site. He received a total of 5 units of blood. His hemoglobin remained stable at greater than 8 on the day of discharge.
Patient had 2 EGDs with further necrosectomy, and removal of occluded stents, and replacement of stents as above.
After a prolonged hospital course, he did improve. He tolerated his diet. ID transitioned him to cefdinir, and he will be discharged on cefdinir to complete his course of antibiotics.
Patient was noted to have hyponatremia. Urine studies suggest pre-renal etiology. He received IV fluids, and his sodium improved.
Patient does complain of anxiety and depression. SSRIs were considered, but due to his hyponatremia, they were not prescribed. He did ask about Ativan. He has a history of dizziness, and I would not recommend benzodiazepines at this point.
Patient had intermittent dizziness. His blood pressure was soft. His losartan was permanently discontinued. Orthostatic vital signs were negative. His dizziness resolved.
Patient's multiple medical conditions have been optimized. He is medically stable and cleared by GI for discharge. He needs to follow-up with his usual GI doctor in the office, as well as his primary care doctor in 1 week.
Disposition: Home with home care
Discharge planning: Required 45 minutes
Discharge Plan
-
Patient Disposition: Home with Home Care
Discharge Diagnosis/Procedures: Pancreatic cyst infection with Strep angiosus bacteremia; bleeding from cystogastrostomy site
s/p endoscopic treatments on 2 occasions on this admission
Diet: Low Fat
Activity: As tolerated
Driving Restrictions: As prior to admission
Blood Work: CBC blood work in 1 week time-left slip on chart
Others Tests: Ct 3-4 weeks pt has slip-- call to schedule
Other Services: VN and PT
Stop these medications:: Your blood pressure medicine losartan. Follow-up with your PCP to see if needed back again.
Referrals:
Linnette Wisdom MD [Family Provider] - in less than 1 week
Mohsen Song MD [Active] - in two weeks
Prescriptions:
New
polyethylene glycol 3350 [HealthyLax] 17 gram Powder In Packet
17 g PO DAILY PRN (Reason: Constipation) Qty: 14 0RF
cefdinir 300 mg Capsule
300 mg PO Q12 Qty: 10 0RF
acetaminophen 325 mg Tablet
650 mg PO Q4HPRN PRN (Reason: mild pain /fever >100.4) Qty: 1 0RF
tramadol 50 mg tablet
50 mg PO BID PRN (Reason: Pain) Qty: 30 0RF
Continued
albuterol sulfate 1 PUFF HFA aerosol inhaler
2 puff inhalation R QID
carbidopa-levodopa 25-100 mg Tablet
2 tab PO TID
Jakafi 20 mg tablet
20 mg PO BID
aspirin 81 mg Capsule
81 mg PO DAILY
pantoprazole 40 mg tablet,delayed release (DR/EC)
40 mg PO HS
cyanocobalamin (vitamin B-12) 1,000 mcg Tablet
1,000 mcg PO DAILY Qty: 100 0RF
sennosides [senna] 8.6 mg Tablet
8.6 mg PO BID
docusate sodium 100 mg Capsule
100 mg PO BID
folic acid 1 mg Tablet
1 mg PO DAILY
Discontinued
losartan 50 mg tablet
50 mg PO HS
Discharge Orders:
Discharge Patient (As Directed); Ordered 01/16/24
Ordered By: Juan David Morelos
Discharge Date and Time
Discharge Date/Time: 01/16/24 14:43
--- NOTE | 2024-01-16 15:07 | CM ---
CM reviewed chart, patient for discharge today. CM updated [facility], relayed patient requesting [facility] for VN. CM will continue to follow for discharge planning needs.
Plan; home wit VN.
== END 2024-01-16 14:43 | disposition home health service (06) | DRG 907 ==
LOC: 4 WEST ACU 16:13
PROVIDERS: Internal Medicine Gastroenterology; Nurse Practitioner; Nurse Practitioner Family; Nurse Practitioner Gerontology; Physician Assistant; ADMITTING PHYSICIAN Internal Medicine; ATTENDING PHYSICIAN Family Medicine; CONSULT PHYSICIAN Internal Medicine Gastroenterology; CONSULT PHYSICIAN Internal Medicine Infectious Disease; EMERGENCY PHYSICIAN Emergency Medicine; FAMILY PHYSICIAN Internal Medicine
PROC: 0D968ZZ Drainage of Stomach, Via Natural or Artificial Opening Endoscopic (ICD-10-PCS; 2024-01-08)
PROC: 0D768DZ Dilation of Stomach with Intraluminal Device, Via Natural or Artificial Opening Endoscopic (ICD-10-PCS; 2024-01-08)
PROC: 0DC68ZZ Extirpation of Matter from Stomach, Via Natural or Artificial Opening Endoscopic (ICD-10-PCS; 2024-01-11)
DX: T85.79XA Infection and inflammatory reaction due to other internal prosthetic devices, implants and grafts, initial encounter (principal); A40.8 Other streptococcal sepsis; K85.91 Acute pancreatitis with uninfected necrosis, unspecified; E87.1 Hypo-osmolality and hyponatremia; D62 Acute posthemorrhagic anemia; K86.3 Pseudocyst of pancreas; K31.6 Fistula of stomach and duodenum; Y82.8 Other medical devices associated with adverse incidents; D45 Polycythemia vera; G20.A1 Parkinson's disease without dyskinesia, without mention of fluctuations; F32.A Depression, unspecified; F41.9 Anxiety disorder, unspecified; I10 Essential (primary) hypertension; R42 Dizziness and giddiness
CPT/HCPCS: 36430; 74176; 74177; 78278; 80048; 80053; 81003; 83605; 83690; 83735; 83935; 84100; 84300; 85014; 85018; 85025; 85027; 85610; 85730; 86803; 86850; 86900; 86901; 86920; 87040; 87149; 87186; 87205; 87502; 87811; 93005; 94640; 96361; 96365; 96366; 96375; 97116; 97162; 97167; 99291; A9560; C2617; J1335; P9016; Q9967

== ENCOUNTER → 2024-01-22 14:10 | Outpatient (REF) | payer MEDICARE, OTHER, SELFPAY ==
[2024-01-22 14:27] LABS: % Basophils 0.2 % (0-2); % Eosinophils 0.1 % (0-6); % Immature Granulocytes 0.7 % (0-0.5); % Lymphocytes 3.2 % (20.5-51.1); % Neutrophils 90.8 % (42.2-75.2); Absolute Immature Granulocytes 0.1 10^3/uL (0-0.05); Absolute Lymphocytes 0.4 10^3/uL (1.2-3.4); Absolute Monocytes 0.7 10^3/uL (0.1-0.6); Absolute Neutrophils 12.3 10^3/uL (1.4-6.5); Hematocrit 24.5 % (39.0-52.0); Hemoglobin 7.6 g/dL (13.0-18.0); Mean Corpuscular Hgb 27.9 pg (27.0-31.0); Mean Corpuscular Volume 90.1 fL (80.0-94.0); Mean Platelet Volume 10.2 fL (7.4-10.4); Nucleated Red Blood Cells % 0 % (-); Platelet Count 510 10^3/uL (130-400); Red Blood Cell Count 2.72 10^6/uL (4.70-6.10); Red Cell Dist. Width 18.6 % (11.5-14.5); White Blood Cell Count 13.5 10^3/uL (4.8-10.8)
[2024-01-22 14:34] LABS: Iron 43 ug/dl (49-181)
[2024-01-22 14:44] LABS: Percent Saturation 11 % (20-50); Total Iron Binding Capacity 376 ug/dl (261-462)
[2024-01-22 15:08] LABS: Ferritin 65.3 ng/ml (17.9-464.0)
== END ==
LOC: CLAB 14:10
PROVIDERS: ATTENDING PHYSICIAN Internal Medicine Hematology & Oncology; REFERRING PHYSICIAN Internal Medicine
DX: D45 Polycythemia vera (principal); I10 Essential (primary) hypertension; D64.9 Anemia, unspecified
CPT/HCPCS: 36415; 82728; 83540; 83550; 85025

== ENCOUNTER 2024-01-24 18:17 | Inpatient (IN) | payer MEDICARE, OTHER, SELFPAY ==
[2024-01-24] VITALS (15 sets, daily range): BP systolic 113–151; BP diastolic 65–82; BMI 23.1; BMI 22.8
--- NOTE | 2024-01-24 16:11 | ED.GENMED ---
History of Present Illness
General
Chief Complaint: Abnormal Lab Value
Source: patient and spouse
Exam Limitations: none
Time Seen by Provider: 01/24/24 16:02
Travel History
Have you had any contact with someone who has COVID-19?: No
Do you have any symptoms of coronavirus? Fever > 100 degrees, chills, cough, shortness of breath, sore throat, loss of taste or smell, muscle aches, or headache?: No
History of Present Illness
History of Present Illness:
See MDM
Past History
Past History
ED Past Medical History: Asthma, Cancer (Prostate CA), HTN, Other (Polycythemia Vera, pancreatitis ,Parkinsons with Tremors, IBS, ) and Other (Parkinson's disease)
ED Past Surgical History: Urological (Prostatectomy)
Social History
Tobacco: Former smoker
Alcohol: Former
Personal:
Living: with family
Phy Exam
Physical Exam
Physical Exam:
See MDM
Course
Orders/Labs/Results
Orders:
Orders
01/24/24 16:09
0.9% Sodium Chloride 1000 ml [Nss] 1,000 ml IV BOLUS
01/24/24 16:20
Complete Blood Count/With Diff Urgent
Comprehensive Metabolic Panel Urgent
PTT Urgent
Prothrombin Time Urgent
01/24/24 16:37
* Blood Bank Products Urgent
's Orders: Dave Jeffery, DO
Blood Bank Products: *Packed RBC Leuko(PRBC's)
Quantity: 2
Transfuse Today: Yes
Reason: Bleeding
01/24/24 16:41
Type+Screen Urgent
BBK Wristband Number:
Abnormal Lab Results
01/24/24 01/24/24
16:20 16:41
RBC 2.17 L 10^6/uL
(4.70-6.10)
Hgb 6.1 L* g/dL
(13.0-18.0)
Hct 18.9 L* %
(39.0-52.0)
MCHC 32.3 L g/dL
(33.0-37.0)
RDW 18.2 H %
(11.5-14.5)
Absolute Lymphs (auto) 0.5 L 10^3/uL
(1.2-3.4)
Neutrophils % 83.1 H %
(42.2-75.2)
Lymphocytes % 9.3 L %
(20.5-51.1)
Crossmatch IS Only See Detail
01/24/24 16:20
Vital Signs
Initial and Last Documented VS:
Initial Vital Signs
Temp Pulse Resp BP Pulse Ox
98.0 F 83 16 113/68 98
01/24/24 14:39 01/24/24 14:39 01/24/24 14:39 01/24/24 14:39 01/24/24 14:39
Last Documented Vital Signs
Temp Pulse Resp BP Pulse Ox
98.0 F 83 16 113/68 98
01/24/24 14:39 01/24/24 14:39 01/24/24 14:39 01/24/24 14:39 01/24/24 14:39
MDM/Problems Addressed
Differential Diagnosis Includes:
HPI and MDM Narrative:
68-year-old male presenting with low hemoglobin. Patient had a rechecked earlier today and was told it was 6.1. Patient was recently discharged from the hospital where he was transfused multiple times for hemorrhagic pancreatitis. Patient states
his abdomen is mildly uncomfortable but denies any significant pain. He states his stools have been brown
Physical exam
General: Well appearing and non-toxic
HEENT: protecting airway. Dry mucous membranes
Neck: appears supple
CV: No evidence of cyanosis
Resp: No accessory muscle use
Abd: Non-distended. Soft. No point tenderness
Extremities: No deformities
Neuro: alert
Psych: Normal affect
Skin: Intact. Pale
Problems Addressed including Acute and Chronic Conditions affecting care:
1. Symptomatic anemia
Acuity: acute
Prognosis: unstable
Details: Will confirm worsening anemia. Given his history, likely related to hemorrhagic pancreatitis
Updates
Hemoglobin confirmed low at 6.1. Patient consented for 2 units of packed red blood cells.
Differential Diagnosis (but not limited to): Hemorrhagic pancreatitis, GI bleed, symptomatic anemia
Testing considered: Repeat CT abdomen/pelvis
Drug therapy (if applicable): OTC meds, please see d/c instruction regarding Rx drugs
Amount and/or Complexity of Data Reviewed
Clinical info obtained from: Patient
External data reviewed: Recently admitted requiring multiple transfusions for hemorrhagic pancreatitis
Labs I independently reviewed (but not limited to): Hemoglobin
Radiology: N/A
Pulse Ox: not hypoxic
EKG independently reviewed: N/A
Parts Sales Representative: N/A
Critical Care: The high probability of a clinically significant, sudden or life threatening deterioration of the cardiovascular/GI system(s) required my full and direct attention, intervention and personal management. The aggregate critical care
time was 33 minutes. This time is in addition to time spent performing reported procedures but includes the following:
[x] Data Review and interpretation
[x] Patient assessment and monitoring of vital signs
[x] Documentation
[x] Medication orders and management
Risk of Complication:
Social Determinants of health: Good social support
Discussed with other providers: Hospitalist
Escalation of Care includes Admit/Obs: Given the worsening anemia and symptoms, will transfuse and admit
Occasional wrong word or 'sound a like' substitutions may have occurred due to the inherent limitations of voice recognition software. Read the chart carefully and recognize, using context, where substitutions have occurred.
*Critical Care Note
Total Time (30-74mins, 75-104mins- exclusive of procedures): 33 min
ED Attending Note
-
Portions of this chart may have been created with voice recognition software.� Occasional wrong word or��sound alike� substitutions may have occurred due to the inherent limitations of voice recognition software.
Discharge Plan
Departure
Patient Disposition: Admit
Date of Disposition: 01/24/24
Time of Disposition: 16:48
Admit to: Telemetry
Presentation/result/management discussed w/ accepting MD/DO: Hospitalist
Discharge Problem:
Symptomatic anemia
Prescriptions:
No Action
albuterol sulfate 1 PUFF HFA aerosol inhaler
2 puff inhalation R QID
carbidopa-levodopa 25-100 mg Tablet
2 tab PO TID
Jakafi 20 mg tablet
20 mg PO BID
aspirin 81 mg Capsule
81 mg PO DAILY
pantoprazole 40 mg tablet,delayed release (DR/EC)
40 mg PO HS
cyanocobalamin (vitamin B-12) 1,000 mcg Tablet
1,000 mcg PO DAILY Qty: 100 0RF
sennosides [senna] 8.6 mg Tablet
8.6 mg PO BID
docusate sodium 100 mg Capsule
100 mg PO BID
folic acid 1 mg Tablet
1 mg PO DAILY
polyethylene glycol 3350 [HealthyLax] 17 gram Powder In Packet
17 g PO DAILY PRN (Reason: Constipation) Qty: 14 0RF
cefdinir 300 mg Capsule
300 mg PO Q12 Qty: 10 0RF
acetaminophen 325 mg Tablet
650 mg PO Q4HPRN PRN (Reason: mild pain /fever >100.4) Qty: 1 0RF
tramadol 50 mg tablet
50 mg PO BID PRN (Reason: Pain) Qty: 30 0RF
Interventions
Interventions:
*ED COVID-19 Vaccine History Last Done: 01/24/24 14:39
[2024-01-24] MEDS: NSS 1000 IV (16:20)
[2024-01-24 16:34] LABS: % Basophils 0.2 % (0-2); % Eosinophils 1.4 % (0-6); % Immature Granulocytes 0.5 % (0-0.5); % Lymphocytes 9.3 % (20.5-51.1); % Monocytes 5.5 % (1.7-9.3); % Neutrophils 83.1 % (42.2-75.2); Absolute Eosinophils 0.1 10^3/uL (0-0.7); Absolute Lymphocytes 0.5 10^3/uL (1.2-3.4); Absolute Monocytes 0.3 10^3/uL (0.1-0.6); Absolute Neutrophils 4.9 10^3/uL (1.4-6.5); Mean Corp Hgb Conc. 32.3 g/dL (33.0-37.0); Mean Corpuscular Hgb 28.1 pg (27.0-31.0); Mean Corpuscular Volume 87.1 fL (80.0-94.0); Mean Platelet Volume 9.9 fL (7.4-10.4); Nucleated Red Blood Cells % 0 % (-); Platelet Count 268 10^3/uL (130-400); Red Blood Cell Count 2.17 10^6/uL (4.70-6.10); Red Cell Dist. Width 18.2 % (11.5-14.5); White Blood Cell Count 5.8 10^3/uL (4.8-10.8)
[2024-01-24 16:37] LABS: Hematocrit 18.9 % (39.0-52.0); Hemoglobin 6.1 g/dL (13.0-18.0)
[2024-01-24 16:49] LABS: ALT (SGPT) 18 U/L (0-50); AST (SGOT) 26 U/L (17-59); Albumin 3.5 g/dl (3.5-5.0); Alkaline Phosphatase 122 U/L (38-126); Blood Urea Nitrogen 22 mg/dl (9-20); Calcium 8.2 mg/dl (8.4-10.2); Carbon Dioxide 26 mmol/L (22-30); Chloride 105 mmol/L (98-107); Glucose 164 mg/dl (70-99); Potassium 4.1 mmol/L (3.5-5.1); Sodium 134 mmol/L (135-145); Total Bilirubin 0.3 mg/dl (0.2-1.3); Total Protein 5.9 g/dl (6.3-8.2); eGFR > 60.00
--- NOTE | 2024-01-24 16:50 | HPS.HSE ---
Addendum entered and electronically signed by Sd Ding MD 01/24/24 17:47:
Seen and examined by me independently in collaboration with the nurse practitioner Prem.
Past medical history/social history/medication/allergies reviewed.
Lab data and imaging data reviewed.
Patient sent in because of high severe symptomatic anemia.
He apparently was dizzy at home with a lower blood pressure 2. He denies noticing any blood in the stools or black stools.
Denies any nausea vomiting or abdominal pain but he does have some discomfort in the periumbilical area.
His abdomen is softer but he has some tenderness more so on the right side of the upper periumbilical area. There is also palpable abnormality in that area.
Rectal shows dark stools which is grossly heme positive.
Patient has a history of prior complicated pancreatitis and pancreatic pseudocyst for which she had a cystogastrostomy followed by necrosectomy and he had bleeding from the cystogastrostomy site needing intervention. He also needed blood
transfusion support due to upper GI bleed from cystogastrostomy site.
I suspect strongly this is again upper GI bleed from gastrostomy site may be. He is currently hemodynamically stable. Will transfuse 2 units of blood. Keep n.p.o. past midnight. Discussed with GI-interventional GI Dr. Song would be available
tomorrow.
If patient has profuse bleeding or hemodynamic instability would need urgent bleeding scan and IR embolization depending.
Discussed with at bedside.
Original Note:
Family Physician
-
Family Physician:
Chief Complaint
-
low hemoglobin
History of Present Illness
68 year old with PMH For IBS, asthma, prostate cancer, coronary artery disease, hypertension, polycythemia vera, pancreatitis, Parkinson presented to us with low hemoglobin. he was noted to have hgb of 6.1 at home. patient had a fall yesterday. he
got extremely dizzy yesterday and fell from standing position. he fell on his knees. denied hitting his head. he was noted to have low blood pressure. however his BP improved but continued to have dizziness. today he had a routine blood work with
hgb of 6.1. patient denied any red, black or maroon colored stool. stated abdominal tenderness. denied DICK. denied fever, chills, chest pain, sob. denied dysuria or hematuria.
patient getting 2 units of blood. admitting for further management.
Medical History
Past Medical History
Past Medical History: Reports Other
Additional Past Medical History:
IBS
Asthma
Prostate cancer
Coronary artery disease
hypertension
Polycythemia vera
Pancreatitis
Parkinson disease
Past Surgical History: Reports Other
Additional Past Surgical History:
Prostatectomy
Social History
Tobacco: Former Smoker
Alcohol: None
Drug: None
Personal:
Living: With Family
Family History
Family History: Not pertinent
Allergies / Home Medications
Allergies reflects when Allergies were last updated in [employer].
Home Medications with original date entered in [employer]
Allergy/Medication List:
Allergies
Allergy/AdvReac Type Severity Reaction Status Date / Time
ciprofloxacin [From Cipro] Allergy Dizziness Verified 01/24/24 14:43
clindamycin HCl Allergy Rash Verified 01/24/24 14:43
[From Cleocin]
clindamycin palmitate HCl Allergy Rash Verified 01/24/24 14:43
[From Cleocin]
clindamycin phosphate Allergy Rash Verified 01/24/24 14:43
[From Cleocin]
influenza virus vacc Allergy SWELLING/COULDN'T Verified 01/24/24 14:43
trivalent, split BREATHE
monosodium glutamate Allergy Unknown Verified 01/24/24 14:43
Penicillins Allergy Hives Verified 01/24/24 14:43
shellfish derived Allergy Hives Verified 01/24/24 14:43
Home Medications
albuterol sulfate 90 mcg/actuation aerosol inhaler 2 puff inhalation R QID Lung/Breathing Issues 01/19/18
carbidopa 25 mg-levodopa 100 mg tablet 2 tab PO TID Neurological Condition 07/07/23
ruxolitinib 20 mg tablet (Jakafi) 20 mg PO BID Immunologic 07/07/23
aspirin 81 mg capsule 81 mg PO DAILY Fluid Retention/Swelling 07/16/23
pantoprazole 40 mg tablet,delayed release 40 mg PO HS Gastrointestinal Issue 09/28/23
cyanocobalamin (vitamin B-12) 1,000 mcg tablet 1,000 mcg PO DAILY #100 tabs 10/13/23
sennosides 8.6 mg tablet (senna) 8.6 mg PO BID Constipation 11/23/23
docusate sodium 100 mg capsule 100 mg PO BID Constipation 01/05/24
folic acid 1 mg tablet 1 mg PO DAILY Supplement 01/05/24
acetaminophen 325 mg tablet 650 mg PO Q4HPRN PRN mild pain /fever >100.4 #1 tab 01/14/24
polyethylene glycol 3350 17 gram oral powder packet (HealthyLax) 17 g PO DAILY PRN Constipation #14 ea 01/14/24
ferrous sulfate 325 mg (65 mg iron) tablet 325 mg PO Q48H 01/24/24
Review of Systems
-
Constitutional: Reports No Symptoms
EENT: Reports No Symptoms
Respiratory: Reports No Symptoms
Cardiac: Reports No Symptoms
Abdomen/GI: Reports Abdominal Pain
: Reports No Symptoms
Musculoskeletal: Reports No Symptoms
Skin: Reports No Symptoms
Neurological: Reports Dizzy
Endocrine: Reports No Symptoms
Hematologic/Lymphatic: Reports No Symptoms
Psych: Reports No Symptoms
Physical Exam
Vital Signs
Vital Signs
Temp Pulse Resp BP Pulse Ox
98.0 F 72 17 122/69 98
01/24/24 14:39 01/24/24 16:45 01/24/24 16:45 01/24/24 16:14 01/24/24 14:39
Physical Exam
General: Well Developed, Well Nourished and No Apparent Distress
HEENT: NormoCephalic, Moist mucous membranes and Atraumatic
Respiratory: Clear
Cardiac: S1/S2 and Regular Rhythm; No Murmur or Rub
GI: Soft, Non Tender, Non Distended and Normal Bowel Sounds; No Organomegaly
Rectal: Deferred by Provider
Musculoskeletal: No Clubbing, No Cyanosis and No Edema
Skin: No Rash
Neuro: AO x 3 and Nonfocal/grossly intact
Psych: Calm
Laboratory Results
-
01/24/24 16:20
01/24/24 16:20
Laboratory Results
Total Bilirubin 0.3 mg/dl (0.2-1.3) 01/24/24 16:20
AST 26 U/L (17-59) 01/24/24 16:20
ALT 18 U/L (0-50) 01/24/24 16:20
Alkaline Phosphatase 122 U/L (38-126) 01/24/24 16:20
Data Reviewed
-
Lab Data: Labs Reviewed by me
Impression/Plan
-
#anemia likely from recent cystogastrostomy site status post endoscopic treatments x 2�
-#Necrotizing pancreatitis status post recent necrosectomy with dislodgment of stent and possible occlusion status post repeat stent placement x 2
-01/08/2024 -EGD with necrosectomy and double-pigtail stent placement
01/11/2024 -EGD with removal of 2 existing pigtail stents, placement of double-pigtail stent
-hgb 6.1,two units ordered
-trend hgb
-IV PPI
-NPo after MN, clear liquid diet until then
-GI consult
-trend hgb
#Bacteremia with strep anginosus
-finished the course of cefdinir
#Parkinson disease-continue Sinemet
#Polycythemia vera on Jakafi - continue.
#Essential hypertension
#Hyponatremia -seems chronic
-na 134
#Anxiety
#DVT prophylaxis� - SCDs
#DNR
[2024-01-24 16:58] LABS: INR 1.09; PT 14.1 Sec (11.4-14.6)
[2024-01-24 16:59] LABS: APTT 24.5 Sec (23.4-35.0)
[2024-01-24] MEDS: ProAIR HFA INHALER 2 PUFF INH (22:46)
[2024-01-24] MEDS: PROTONIX IV 40 MG IV (22:50)
[2024-01-24] MEDS: SINEMET 25-100 2 TABLET PO (22:51)
[2024-01-24] MEDS: NSS (PRESERVATIVE FREE) 10 ML IV (22:52)
--- NOTE | 2024-01-24 23:02 | PTCARENOTE ---
Received pt from ED via stretcher, pt pulled over onto bed. at bedside answering admission questions. AAOx3, but forgetful. VSS. Bed alarm on and active. Oriented to floor, call messina within reach.
[2024-01-24] MEDS: NSS (PRESERVATIVE FREE) 0.25 ML IV (23:21)
[2024-01-24] MEDS: ATIVAN 0.5 MG IV (23:21)
--- NOTE | 2024-01-24 23:33 | PTCARENOTE ---
Pt had an approximate 10 second run of Vtach/Vfib. Asymptomatic, laying in bed talking with . Patient without complaints of chest pain. 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
[2024-01-25] VITALS (12 sets, daily range): BP systolic 15–154; BP diastolic 45–77
[2024-01-25] MEDS: NON-FORMULARY ITEM PO (00:09)
[2024-01-25] MEDS: FEOSOL 325 MG PO (05:14)
[2024-01-25 07:21] LABS: Hematocrit 23.4 % (39.0-52.0); Mean Corp Hgb Conc. 31.6 g/dL (33.0-37.0); Mean Corpuscular Hgb 27.4 pg (27.0-31.0); Mean Corpuscular Volume 86.7 fL (80.0-94.0); Mean Platelet Volume 10.3 fL (7.4-10.4); Platelet Count 263 10^3/uL (130-400); Red Cell Dist. Width 18.3 % (11.5-14.5); White Blood Cell Count 5.7 10^3/uL (4.8-10.8)
[2024-01-25 07:29] LABS: Hemoglobin 7.4 g/dL (13.0-18.0)
[2024-01-25] MEDS: ProAIR HFA INHALER 2 PUFF INH ×4 (07:37→19:31)
[2024-01-25 08:15] LABS: Blood Urea Nitrogen 12 mg/dl (9-20); Calcium 8.3 mg/dl (8.4-10.2); Carbon Dioxide 24 mmol/L (22-30); Chloride 103 mmol/L (98-107); Estimated Creatinine Clearance 113 ml/min; Glucose 130 mg/dl (70-99); Magnesium 2.2 mg/dl (1.6-2.3); Potassium 4.3 mmol/L (3.5-5.1); eGFR > 60.00
[2024-01-25 08:26] LABS: Sodium 133 mmol/L (135-145)
--- NOTE | 2024-01-25 08:39 | CON.GI ---
Addendum entered and electronically signed by Jessica Munguia MD 01/25/24 15:23:
I saw and examined the patient.
The MANAGER ICU's note was reviewed and I agree with the note.
Comment: This is a 68-year-old male with complex medical history as described below with prior severe necrotizing pancreatitis with PD disruption and recurrent ascites and hemorrhagic pancreatitis, status post necrosectomy and cystogastrostomy with
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
recurrent GI bleed with recurrent anemia OB positive stools.
Assessment and plan recurrent UGI bleed with acute blood loss anemia and also has chronic anemia discussed with Dr. Song is scheduled for repeat endoscopy to look at the site of the stents and also rule out any other etiology including peptic ulcer
disease or angioectasias. He is currently on PPI. He is scheduled for repeat CT and follow-up as outpatient also with Dr. Song
Addendum entered and electronically signed by DREIC Leary 01/25/24 10:30:
reviewed with oncology with hx clots would continue Jakafi for now with hx PV and bleeding. reviewed with
Original Note:
Consultation
-
Date/Time Consultation Requested: 01/24/242129
Date/Time Consultation Performed: 01/24/2430
Requesting Provider: DERIC Navarro
Performing Provider: DERIC Srinivasan, Jessica Munguia MD
Reason for Consultation: GI bleed hx complicated pancreatitis
Medical History
Chief Complaint / HPI
Chief Complaint: abdominal pain, fever
History of Present Illness:
Raul is a 68 year old male with a past medical history of severe necrotizing pancreatitis (initial episode in March 2023, with subsequent recurrence in September 2023) with WON and development of hemorrhagic pancreatitis requiring transfusion,
cystogastrostomy with stenting with bleeding and stent exchange, ascites requiring paracentesis with concern for pancreatic duct disruption, PV on chronic Jakafi, Prior splenic and portal vein thrombosis, bacteremia 12/2023, prior prostate CA,
and parkinsons disease presents with fall and recurrent anemia with dark grossly heme + stool in ER. Pt admits to dizziness with fall and noted hbg 6.1 on admission. He denies dysphagia, GERD, nausea, vomiting, abdominal pain, diarrhea,
constipation or visible blood or black in stools.
�
Past Medical History
Past Medical History: Asthma, Cancer (prostate CA with prior prostatectomy), HTN and Other (polycythemia vera on chronic Jakafi, splenic/PVT prior on Eliquis, necrotizing pancreatitis with hemorrhage 06/2023,WON with hemorrhagic pancreatitis,
cystgastrostomy with stenting and dislodgement and bleeding with stent change, bacteremia, ascites-para- panc duct disruption, parkinson's)
Social History
Tobacco: Former Smoker
Alcohol: Former (previously with increased alcohol use years ago, was drinking 2 beers/day prior to the onset of pancreatitis)
Drug: None
Personal:
Living: With Family
Employment: Employed (less work recently with illness )
Family History
Family History: Other (no family hx colon cA or polyps)
Allergies / Home Medications
Allergy/AdvReac Type Severity Reaction Status Date / Time
ciprofloxacin [From Cipro] Allergy Dizziness Verified 01/24/24 14:43
clindamycin HCl Allergy Rash Verified 01/24/24 14:43
[From Cleocin]
clindamycin palmitate HCl Allergy Rash Verified 01/24/24 14:43
[From Cleocin]
clindamycin phosphate Allergy Rash Verified 01/24/24 14:43
[From Cleocin]
influenza virus vacc Allergy SWELLING/COULDN'T Verified 01/24/24 14:43
trivalent, split BREATHE
monosodium glutamate Allergy Unknown Verified 01/24/24 14:43
Penicillins Allergy Hives Verified 01/24/24 14:43
shellfish derived Allergy Hives Verified 01/24/24 14:43
Medication Instructions Recorded
albuterol sulfate 90 mcg/actuation 2 puff inhalation R QID 01/19/18
aerosol inhaler Lung/Breathing Issues
carbidopa 25 mg-levodopa 100 mg 2 tab PO TID Neurological Condition 07/07/23
tablet
ruxolitinib 20 mg tablet (Jakafi) 20 mg PO BID Immunologic 07/07/23
aspirin 81 mg capsule 81 mg PO DAILY Fluid 07/16/23
Retention/Swelling
pantoprazole 40 mg tablet,delayed 40 mg PO HS Gastrointestinal Issue 09/28/23
release
cyanocobalamin (vitamin B-12) 1,000 mcg PO DAILY #100 tabs 10/13/23
1,000 mcg tablet
sennosides 8.6 mg tablet (senna) 8.6 mg PO BID Constipation 11/23/23
docusate sodium 100 mg capsule 100 mg PO BID Constipation 01/05/24
folic acid 1 mg tablet 1 mg PO DAILY Supplement 01/05/24
acetaminophen 325 mg tablet 650 mg PO Q4HPRN PRN mild pain 01/14/24
/fever >100.4 #1 tab
polyethylene glycol 3350 17 gram 17 g PO DAILY PRN Constipation #14 01/14/24
oral powder packet (HealthyLax) ea
ferrous sulfate 325 mg (65 mg 325 mg PO Q48H 01/24/24
iron) tablet
Review of Systems
-
History Source: Patient and Family
Constitutional: Reports Weight Loss ( 20lb since onset of pancreatitis ) and Fatigue
EENT: Reports No Symptoms
Respiratory: Reports No Symptoms
Cardiac: Reports No Symptoms
Abdomen/GI: Reports No Symptoms
: Reports No Symptoms
Musculoskeletal: Reports No Symptoms
Neurological: Reports Dizzy and Weakness
Endocrine: Reports No Symptoms
Hematologic/Lymphatic: Reports Bleeding
Vital Signs
Temp Pulse Resp BP Pulse Ox
98.4 F 68 16 140/75 100
01/25/24 07:00 01/25/24 07:41 01/25/24 07:41 01/25/24 07:00 01/25/24 07:41
Physical Exam
Exam
General: Well Developed, Well Nourished and No Apparent Distress
HEENT: Normocephalic and Anicteric
Respiratory: Clear
Cardiac: Regular Rhythm
GI: Soft, Tender (minimal ) and Distended (mild )
Musculoskeletal: No Clubbing and No Cyanosis
Skin: Warm and Dry
Neuro: Awake, Alert and AO x 3
Psych: Calm
Results
WBC 5.7 10^3/uL (4.8-10.8) 01/25/24 06:14
Hgb 7.4 g/dL (13.0-18.0) L D 01/25/24 06:14
Hct 23.4 % (39.0-52.0) L 01/25/24 06:14
MCV 86.7 fL (80.0-94.0) 01/25/24 06:14
Plt Count 263 10^3/uL (130-400) 01/25/24 06:14
Absolute Neuts (auto) 4.9 10^3/uL (1.4-6.5) 01/24/24 16:20
PT 14.1 Sec (11.4-14.6) 01/24/24 16:20
INR 1.09 01/24/24 16:20
APTT 24.5 Sec (23.4-35.0) 01/24/24 16:20
Sodium 133 mmol/L (135-145) L 01/25/24 06:14
Potassium 4.3 mmol/L (3.5-5.1) 01/25/24 06:14
Chloride 103 mmol/L (98-107) 01/25/24 06:14
Carbon Dioxide 24 mmol/L (22-30) 01/25/24 06:14
BUN 12 mg/dl (9-20) 01/25/24 06:14
Creatinine 0.5 mg/dL (0.7-1.3) L 01/25/24 06:14
Calcium 8.3 mg/dl (8.4-10.2) L 01/25/24 06:14
Total Bilirubin 0.3 mg/dl (0.2-1.3) 01/24/24 16:20
AST 26 U/L (17-59) 01/24/24 16:20
ALT 18 U/L (0-50) 01/24/24 16:20
Alkaline Phosphatase 122 U/L (38-126) 01/24/24 16:20
Diagnostic Image Results:
multiple paracentesis last 11/23/23-1100ml
01/10/24 bleeding scan -�No evidence for active GI bleeding.
�
01/10/24 �CT Abd/pel W Iv And Oral Contr
1. � Interval removal of cystogastrostomy stent now with 2 adjacent pigtail stents extending across the cystogastrostomy tract into peripancreatic collection/area of walled off necrosis. Size of this collection is not significantly decreased in size
compared to prior CT from 01/05/24 and is now filled with heterogeneously slightly hyperdense material with internal attenuation of 57 Hounsfield units. Previously, attenuation of this collection was 15 Hounsfield units. Minimal gas now present
within the collection. Findings suggestive of bleeding/hematoma now within this area of pancreatic necrosis. No CT findings for active contrast extravasation.
2. � Small volume of pelvic ascites, slightly increased in size compared to prior CT. Small amount of perihepatic and perisplenic ascites.
3. � Significant extrinsic compression of the central/extrahepatic portal vein which remains patent.
4. � Splenomegaly.
5. � Additional findings above.
12/11/23 MRI abdomen
Walled off pancreatic necrosis with a large complex collection in the central abdomen that measures up to 11.5 cm and has significantly increased in size compared to previous examinations.
Prior GI Procedures:
01/11/24- EGD Thelma �- Normal esophagus.
�� � � � � � � � � � � - Hematin (altered blood/izmctg-yzyvom-wihz material)
�� � � � � � � � � � � in the gastric fundus.
�� � � � � � � � � � � - Pre-existing cystgastrostomy stents, removed.
�� � � � � � � � � � � - Gastric fistula. Cavity contained large amount of
�� � � � � � � � � � � clots, which was not cleared. New 7 Fr 3 cm double
�� � � � � � � � � � � pigtail stents were placed.
�� � � � � � � � � � � - Normal duodenal bulb, first portion of the duodenum
�� � � � � � � � � � � and second portion of the duodenum.
01/08/24 EGD �thelma - Normal esophagus.
�� � � � � � � � � � � - Pre-existing gastric Axios stent, migrated out.
�� � � � � � � � � � � - Pus in stomach, aspirated. Previous cystogastrostomy
�� � � � � � � � � � � tract was located and entered, necrotic cavity
�� � � � � � � � � � � contained significant pus which was drained.
�� � � � � � � � � � � - Necrotic cavity appeared to be healing well with
�� � � � � � � � � � � minimal necrotic burden present. A 10 Fr and 7 Fr 3 cm
�� � � � � � � � � � � double pigtail stents were placed under direct
�� � � � � � � � � � � endoscopic guidance via existing cystogastrostomy
�� � � � � � � � � � � tract.
�� � � � � � � � � � � - Plastic stent in the duodenum, migrated out. Removed.
�� � � � � � � � � � � - Pre-existing gastric stent, removed.
�� � � � � � � � � � � - Necrosectomy was performed.
Endoscopy w/ necrosectomy, 12/28/23, Dr. Song
Impression:� � � � � � - Normal esophagus.
�� � � � � � � � � � � - Pre-existing gastric stent.
�� � � � � � � � � � � - Normal duodenal bulb, first portion of the duodenum
�� � � � � � � � � � � and second portion of the duodenum.
�� � � � � � � � � � � - Necrosectomy was performed.
Recommendation:� � � � - Discharge patient to home.
�� � � � � � � � � � � - Full liquid diet today. Drink a can of coca cola
�� � � � � � � � � � � daily.
�� � � � � � � � � � � - Flagyl (metronidazole) 250 mg PO TID for 3 days.
�� � � � � � � � � � � - Repeat upper endoscopy in 1 week for retreatment.
EUS 12/19/23, Dr. Song
Impression:� � � � � � - A 100 mm by 100 mm pseudocyst / necrotic cavity was
�� � � � � � � � � � � seen in the peripancreatic region. The diagnosis is a
�� � � � � � � � � � � pancreatic pseudocyst.
�� � � � � � � � � � � - Cystogastrostomy was performed. A double pigtail
�� � � � � � � � � � � plastic stent was placed into the cavity via Axios
�� � � � � � � � � � � stent to maintain patency of Axios stent.
�� � � � � � � � � � � - No specimens collected.
Recommendation:� � � � - Discharge patient to home.
�� � � � � � � � � � � - Full liquid diet today. Advance diet as tolerated.
�� � � � � � � � � � � - Perform an upper GI endoscopy in 1 week for
�� � � � � � � � � � � re-evaluation / necrosectomy.
�� � � � � � � � � � � - Cipro (ciprofloxacin) 250 mg PO BID for 3 days.
Colonoscopy:� 10 yrs ago at [place]
Assessment / Plan
-
Raul is a 68 year old male with a past medical history of severe necrotizing pancreatitis (initial episode in March 2023, with subsequent recurrence in September 2023) with WON and development of hemorrhagic pancreatitis requiring transfusion,
cystogastrostomy with stenting with bleeding and stent exchange, ascites requiring paracentesis with concern for pancreatic duct disruption, PV on chronic Jakafi, Prior splenic and portal vein thrombosis, prior prostate CA, and parkinsons
disease presents with fall and recurrent anemia with dark grossly heme + stool in ER. Pt admits to dizziness with fall and noted hbg 6.1 on admission.
-recurrent heme + symptomatic anemia
-severe necrotizing pancreatitis March 2023 and recurrent September 2023 with complicated course with PD disruption with ascites requiring paracentesis, hemorrhagic pancreatitis, cystgastrostomy with stenting, bleeding and stent management
-recent bacteremia 01/05/24 strep anginosus on Ertapenem
-PV on chronic Jakafi
-splenic and portal vein thrombosis
-prostate CA
-parkinson's
-hyponatremia
PLAN:
Etiology of bleeding related to prior noted bleeding around gastric fistula with large clot on EGD 12/2023 vs other
plan for EGD today
pt was due 02/[address] minimal pain on exam t/c repeat during this admission
NPO
s/p transfusions with some improved hbg to 7.4 cont to trends
cont PPI daily
reviewed case with Dr. Ding and Dr. Song
pt agreeable for EGD today and updated spouse on plan
with hx bacteremia no recurrent fever or WBC noted on admission
-
-
Thank you for consultation and allowing me to participate in the patient's care. Please call the client service professional GI physician during the after hours with any questions or concerns.
[2024-01-25] MEDS: NON-FORMULARY ITEM 20 MG PO ×2 (08:40→19:48)
[2024-01-25] MEDS: SINEMET 25-100 2 TABLET PO ×3 (08:41→21:30)
[2024-01-25] MEDS: VITAMIN B-12 1000 MCG PO (08:42)
[2024-01-25] MEDS: FOLVITE 1 MG PO (08:42)
[2024-01-25] MEDS: LOW STRENGTH ASPIRIN 81 MG PO (08:42)
[2024-01-25] MEDS: PROTONIX IV 40 MG IV (08:42)
[2024-01-25] MEDS: NSS (PRESERVATIVE FREE) 10 ML IV (08:43)
--- NOTE | 2024-01-25 08:54 | W.PN.HOSP.TC ---
Today's Communication/Plan
-
EGD today
Follow HH
Assessment / Plan
Assessment / Plan
# Symptomatic severe anemia likely from GI bleed. Recent GI bleed after endoscopic treatments x 2�. S/p 2 units of PRBC transfusion with improvement in hemoglobin which is 7.4 today. Aim to keep more than 7. Hemodynamically stable today. For
EGD evaluation today. Trend hemoglobin.
#Necrotizing pancreatitis status post recent necrosectomy with dislodgment of stent and possible occlusion status post repeat stent placement x 2
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
-01/08/2024 -EGD with necrosectomy and double-pigtail stent placement
01/11/2024 -EGD with removal of 2 existing pigtail stents, placement of double-pigtail stent
-IV PPI
#Parkinson disease-continue Sinemet
#Polycythemia vera on Jakafi - continue.Msg left to primary Onc regarding holding it for now.
#Essential hypertension
#Mild Hyponatremia -seems chronic
-na 134
#Anxiety
#DVT prophylaxis� - SCDs
#DNR
Anticipated Discharge: 24 - 48 hours
Subjective/Interval History
-
Date of Service: January 25, 2024
No nausea. Mild abdominal discomfort.
No shortness of breath.
No fever.
Objective Data
-
Labs:
Laboratory Results
01/25/24
06:14
WBC 5.7
Hgb 7.4 L D
Hct 23.4 L
Plt Count 263
Sodium 133 L
Potassium 4.3
Chloride 103
Carbon Dioxide 24
BUN 12
Creatinine 0.5 L
Glucose 130 H
Calcium 8.3 L
Vital Signs:
Vital Signs
Temp Pulse Resp BP Pulse Ox
98.4 F 68 16 140/75 100
01/25/24 07:00 01/25/24 07:41 01/25/24 07:41 01/25/24 07:00 01/25/24 07:41
I&O
01/24/24 01/25/24 01/26/24
06:59 06:59 06:59
Intake Total 500 / 500
Output Total 1050 / 1050
Balance -550 / -550
Review of Systems
-
EENT: Denies Sore Throat
Respiratory: Denies Cough or Trouble Breathing
Cardiac: Denies Chest Pain
Neuro: Denies Dizzy
Physical Exam
-
General: No Apparent Distress
HEENT: Moist Mucous Membranes
Respiratory: Clear to Auscultation
Cardiac: Regular Rhythm and S1/S2
GI: Soft, Nondistended, Normal Bowel Sounds and Tender (mild in right upper periumbilical area)
Neuro: AO x 3
Psych: Calm
Data Reviewed
-
Labs: Labs Reviewed by me
--- NOTE | 2024-01-25 09:24 | VNURNOTE ---
Patient is current with [facility] since 01/17 w/SN, will monitor progress and plan at discharge.
[2024-01-25] MEDS: ZENPEP DELAYED RELEASE CAPSULE 2 CAPSULE PO ×2 (17:19→21:30)
--- NOTE | 2024-01-25 17:46 | PTCARENOTE ---
Pt returned from PACU, post EGD. Report from Eliecer DOWNING.Pt awake, alert and oriented x3. Pt has no c/o pain at this time. VSS. NSR on tele. Able to ambulate with rolling walker into room, pt requesting something to eat given apple juice and ordering
dinner, Pt requesting something for anxiety errol at night has trouble sleeping due to anxiety, MD order for ativan, reoriented to room, call bel within reach, plan of care ongoing.
[2024-01-25] MEDS: TYLENOL 650 MG PO (19:03)
[2024-01-25] MEDS: ATIVAN 0.5 MG PO (21:30)
[2024-01-26] VITALS (7 sets, daily range): BP systolic 105–159; BP diastolic 60–102; PULSE 60–93
[2024-01-26] MEDS: ProAIR HFA INHALER 2 PUFF INH ×4 (07:14→19:41)
[2024-01-26 07:55] LABS: Hematocrit 24.5 % (39.0-52.0); Hemoglobin 7.7 g/dL (13.0-18.0); Mean Corp Hgb Conc. 31.4 g/dL (33.0-37.0); Mean Corpuscular Volume 89.1 fL (80.0-94.0); Mean Platelet Volume 10.4 fL (7.4-10.4); Platelet Count 242 10^3/uL (130-400); Red Blood Cell Count 2.75 10^6/uL (4.70-6.10); Red Cell Dist. Width 18.3 % (11.5-14.5); White Blood Cell Count 4.4 10^3/uL (4.8-10.8)
[2024-01-26 08:28] LABS: Blood Urea Nitrogen 13 mg/dl (9-20); Calcium 8.3 mg/dl (8.4-10.2); Carbon Dioxide 24 mmol/L (22-30); Chloride 102 mmol/L (98-107); Estimated Creatinine Clearance 113 ml/min; Glucose 117 mg/dl (70-99); Potassium 4.6 mmol/L (3.5-5.1); Sodium 132 mmol/L (135-145); eGFR > 60.00
[2024-01-26] MEDS: ZENPEP DELAYED RELEASE CAPSULE 2 CAPSULE PO ×4 (08:48→21:18)
[2024-01-26] MEDS: SINEMET 25-100 2 TABLET PO ×3 (08:48→21:18)
[2024-01-26] MEDS: LOW STRENGTH ASPIRIN 81 MG PO (08:48)
[2024-01-26] MEDS: VITAMIN B-12 1000 MCG PO (08:48)
[2024-01-26] MEDS: FOLVITE 1 MG PO (08:48)
[2024-01-26] MEDS: NON-FORMULARY ITEM 20 MG PO ×2 (08:49→21:17)
[2024-01-26] MEDS: PROTONIX IV 40 MG IV (08:50)
[2024-01-26] MEDS: FLUSH (NSS) 1 FLUSH IV (08:50)
[2024-01-26] MEDS: NSS (PRESERVATIVE FREE) 10 ML IV (08:50)
--- NOTE | 2024-01-26 10:18 | W.PN.HOSP.TC ---
Today's Communication/Plan
-
Follow HH
PT eval
DC planning when ok from GI standpoint.
Assessment / Plan
Assessment / Plan
# Symptomatic severe anemia likely from GI bleed. Recent GI bleed after endoscopic treatments x 2�. S/p 2 units of PRBC transfusion with improvement in hemoglobin which is 7.7 today. Aim to keep more than 7. Hemodynamically stable today. S/p
EGD which did not show any evidence of bleeding. Cystoscopy gastrostomy stent in place. Follow H&H.
#Necrotizing pancreatitis status post recent necrosectomy with dislodgment of stent and possible occlusion status post repeat stent placement x 2
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
-01/08/2024 -EGD with necrosectomy and double-pigtail stent placement
01/11/2024 -EGD with removal of 2 existing pigtail stents, placement of double-pigtail stent
-IV PPI
Repeat CT abodmen and pelvis yesterday showed Peripancreatic fluid collection significantly improved . He is without any infective symptoms-no leukocytosis, fever. He recently had a bacteremic episode needing antibiotics which he finished.
#Parkinson disease-continue Sinemet
#Polycythemia vera on Jakafi - continue.Msg left to primary Onc regarding holding it for now.
#Essential hypertension
#Mild Hyponatremia -seems chronic
-na 134
#Anxiety
#DVT prophylaxis� - SCDs
#DNR
Anticipated Discharge: Within 24 hours
Subjective/Interval History
-
Date of Service: January 26, 2024
S/p EGD yesterday.
Denies any nausea vomiting or abdominal pain. Tolerating diet.
Denies any dizziness.
Objective Data
-
Labs:
Laboratory Results
01/26/24
07:00
WBC 4.4 L
Hgb 7.7 L
Hct 24.5 L
Plt Count 242
Sodium 132 L
Potassium 4.6
Chloride 102
Carbon Dioxide 24
BUN 13
Creatinine 0.6 L
Glucose 117 H
Calcium 8.3 L
Vital Signs:
Vital Signs
Temp Pulse Resp BP Pulse Ox
98.1 F 61 20 159/82 100
01/26/24 07:00 01/26/24 07:16 01/26/24 07:16 01/26/24 07:00 01/26/24 08:35
I&O
01/25/24 01/26/24 01/27/24
06:59 06:59 06:59
Intake Total 500 / 500 1080 / 1080
Output Total 1050 / 1050 1625 / 1625
Balance -550 / -550 -545 / -545
Review of Systems
-
Constitutional: Denies Fever
Respiratory: Denies Trouble Breathing
Cardiac: Denies Chest Pain or Palpitations
Neuro: Denies Dizzy
Physical Exam
-
General: No Apparent Distress
HEENT: Moist Mucous Membranes
Respiratory: Clear to Auscultation
Cardiac: Regular Rhythm and S1/S2
GI: Soft and Nontender
Neuro: AO x 3
Data Reviewed
-
Labs: Labs Reviewed by me
--- NOTE | 2024-01-26 10:52 | W.PN.GI.CBS2 ---
Addendum entered and electronically signed by Mohsen Song MD 01/26/24 15:09:
I saw and examined the patient.
The PA's note was reviewed and I agree with the note.
Comment:
Pt's CT abd this AM was reviewed by me and also d/w radiology.
Addendum entered and electronically signed by Mohsen Song MD 01/26/24 15:08:
I saw and examined the patient.
The PA's note was reviewed and I agree with the note.
Comment:
EGD yesterday showed no blood/hematoma. Pigtail stent in good position, fistula tract is patent but small now, endo eval of necrotic cavity deferred due to inability to enter the cavity. CT abd w/ IV contrast done this AM shows near resolution of
previous WON, pigtail stent. No new hematoma. Given this, pt is not bleeding from necrotic cavity and drop in Hgb seems multifactorial at this point - likely anemia of chronic illness, possibly from Jakafi, or other. Given his colonoscopy was
remote, will plan for colonoscopy Monday to complete eval of anemia.
Also d/w radiology re: pt's pancreas - it appears he has viable panc in the head as well as in tail. He has disrupted duct syndrome and will likely need vermin exterminator/life long cystogastrostomy fistula, currently being served with plastic pigtail
stent. I did have discussion with pt/ re: potentially needing distal pancreatectomy if he has recurrent PFCs. Continue with PERT as he likely has EPI at this point (will check fecal elastase).
Original Note:
Today's Communication / Plan
-
Etiology of anemia and bleeding unclear
s/p EGD with no signs of bleeding noted fistula tract patent too small to enter necrotic tract, gastric stent present
01/[address] with improved collection mild ascites, moderate stool, enhancing tissue in pancreatic tail and moderate in head no tissue in body
plan for colonoscopy monday with slow bowel prep
change to low residue diet, add miralax BID and senna at HS
will need full prep on Gold
updated family
to reschedule OP follow up with heme to discuss continued Jakafi
s/p transfusions with some improved hbg to 7.7 cont to trends
cont Protnix 40mg daily
cont pancreatic enzymes
updated
Assessment / Plan
-
Raul is a 68 year old male with a past medical history of severe necrotizing pancreatitis (initial episode in March 2023, with subsequent recurrence in September 2023) with WON and development of hemorrhagic pancreatitis requiring transfusion,
concern for infected cyst 01/13, cystogastrostomy with stenting/necrosectomy with bleeding and stent exchange, ascites requiring paracentesis with concern for pancreatic duct disruption, PV on chronic Jakafi, Prior splenic and portal vein
thrombosis, prior prostate CA, and parkinsons disease presents with fall and recurrent anemia with dark grossly heme + stool in ER. Pt admits to dizziness with fall and noted hbg 6.1 on admission.
01/24 EGD normal esophagus,� - Pre-existing gastric stent. Fistula tract was patent but was too small to enter the necrotic cavity. No
�� � � � � � � � � � � blood / hematoma was seen in the fistula tract or in
�� � � � � � � � � � � the stomach.
�� � � � � � � � � � � - Normal duodenal bulb, first portion of the duodenum
�� � � � � � � � � � � and second portion of the duodenum.
�� � � � � � � � � � � - No specimens collected.
01/25 CT A/p IV contrast
Peripancreatic fluid collection significantly improved with only one remaining stent as described above.
Mild ascites. Improved. Moderate fecal material throughout the colon. Progressed.
Right adrenal nodule. Stable. Prior MRI examination confirms this is a adrenal adenoma. Mild splenomegaly. Stable
Mild diffuse bladder wall thickening. This can be seen with cystitis or bladder outlet obstruction. Improved.
There is mild remaining enhancing pancreatic tissue in the region of the pancreatic tail and a moderate amount of remaining tissue in the region of pancreatic head.
Tissue is not noted in the region of the body where this previously large fluid collection was present.
-recurrent heme + symptomatic anemia
-severe necrotizing pancreatitis March 2023 and recurrent September 2023 with complicated course with PD disruption with ascites requiring paracentesis, hemorrhagic pancreatitis, cystgastrostomy with stenting, bleeding and stent management
-recent bacteremia 01/05/24 strep anginosus on Ertapenem with concern for infected cyst
-PV on chronic Jakafi
-splenic and portal vein thrombosis
-prostate CA
-parkinson's
-hyponatremia
PLAN:
Etiology of anemia and bleeding unclear
s/p EGD with no signs of bleeding noted fistula tract patent too small to enter necrotic tract, gastric stent present
01/[address] with improved collection mild ascites, moderate stool, enhancing tissue in pancreatic tail and moderate in head no tissue in body
plan for colonoscopy monday with slow bowel prep
change to low residue diet, add miralax BID and senna at HS
updated family
to reschedule OP follow up with heme to discuss continued Jakafi
s/p transfusions with some improved hbg to 7.7 cont to trends
cont Protnix 40mg daily
cont pancreatic enzymes
Subjective
Subjective
Date of Service: January 26, 2024
01/25 regular diet, no stool mild abdominal pain
Objective
Data Reviewed
Laboratory Data:
Laboratory Results
01/26/24 07:00
01/26/24 07:00
Laboratory Results
PT 14.1 Sec (11.4-14.6) 01/24/24 16:20
INR 1.09 01/24/24 16:20
APTT 24.5 Sec (23.4-35.0) 01/24/24 16:20
Magnesium 2.2 mg/dl (1.6-2.3) 01/25/24 06:14
Total Bilirubin 0.3 mg/dl (0.2-1.3) 01/24/24 16:20
AST 26 U/L (17-59) 01/24/24 16:20
ALT 18 U/L (0-50) 01/24/24 16:20
Alkaline Phosphatase 122 U/L (38-126) 01/24/24 16:20
Vital Signs and I&O:
Vital Signs
Temp Pulse Resp BP Pulse Ox
98.1 F 61 20 159/82 100
01/26/24 07:00 01/26/24 07:16 01/26/24 07:16 01/26/24 07:00 01/26/24 08:35
I&O
01/25/24 01/26/24 01/27/24
06:59 06:59 06:59
Intake Total 500 / 500 1080 / 1080
Output Total 1050 / 1050 1625 / 1625
Balance -550 / -550 -545 / -545
Physical Exam
Physical Exam
HEENT: Anicteric and Moist mucous membranes
Cardiology: Normal Sinus Rhythm
Pulmonary: Clear
GI: Soft, Non Distended and Tender (mild diffuse )
Extremities: No Edema
Neuro: Non Focal
[2024-01-26] MEDS: MIRALAX 17 GRAMS PO ×2 (12:03→21:16)
[2024-01-26] MEDS: ATIVAN 0.5 MG PO (14:27)
--- NOTE | 2024-01-26 15:33 | CM ---
Met with patient at bedside; initial assessment completed
Pharmacy verified: [facility], [facility], [place]
Patient reports he lives with his spouse in a 3 story home including basement; 2 steps to enter; 13 steps between floors; 2nd floor bath has tub with shower and grab bar
PLOF: reports he is independent with ADLs; uses a walker with ambulation when he is on the 2nd floor of the house; Drives
Transport: will provide ride home
SNF/Rehab/Home Care utilization history: known to [facility] and will resume services when discharged
Plan: discharge to home with [facility] when medically stable
--- NOTE | 2024-01-26 16:25 | PTCARENOTE ---
Pt AAO x3, ESPANA; has Rt arm tremors. OOB with assist x1/walker, ruma well. VSS. On room air- pulse ox 99%, no c/o SOB. Abd soft, rounded, ruma low residue diet, no c/o abd discomfort. Voids in urinal without difficulty. Resting in bed at present,
no c/o. Will continue to monitor.
[2024-01-26] MEDS: SENOKOT 17.1999999999999993 MG PO (21:18)
[2024-01-27 03:21] VITALS: BP 138/67
[2024-01-27] MEDS: FEOSOL 325 MG PO (05:58)
[2024-01-27 07:12] LABS: Hematocrit 26.7 % (39.0-52.0); Hemoglobin 8.3 g/dL (13.0-18.0); Mean Corp Hgb Conc. 31.1 g/dL (33.0-37.0); Mean Corpuscular Hgb 27.4 pg (27.0-31.0); Mean Corpuscular Volume 88.1 fL (80.0-94.0); Mean Platelet Volume 10.6 fL (7.4-10.4); Platelet Count 253 10^3/uL (130-400); Red Blood Cell Count 3.03 10^6/uL (4.70-6.10)
[2024-01-27 07:36] LABS: Blood Urea Nitrogen 16 mg/dl (9-20); Calcium 8.5 mg/dl (8.4-10.2); Carbon Dioxide 27 mmol/L (22-30); Chloride 100 mmol/L (98-107); Estimated Creatinine Clearance 97 ml/min; Glucose 124 mg/dl (70-99); Potassium 4.6 mmol/L (3.5-5.1); Sodium 134 mmol/L (135-145); eGFR > 60.00
[2024-01-27 07:45] VITALS: BP 127/72
[2024-01-27] MEDS: LOW STRENGTH ASPIRIN 81 MG PO (08:35)
[2024-01-27] MEDS: VITAMIN B-12 1000 MCG PO (08:35)
[2024-01-27] MEDS: FOLVITE 1 MG PO (08:35)
[2024-01-27] MEDS: ZENPEP DELAYED RELEASE CAPSULE 2 CAPSULE PO ×4 (08:35→19:46)
[2024-01-27] MEDS: MIRALAX 17 GRAMS PO ×2 (08:35→19:43)
[2024-01-27] MEDS: SINEMET 25-100 2 TABLET PO ×3 (08:36→19:44)
[2024-01-27] MEDS: NON-FORMULARY ITEM 20 MG PO (08:37)
[2024-01-27] MEDS: NSS (PRESERVATIVE FREE) 10 ML IV (08:38)
[2024-01-27] MEDS: PROTONIX IV 40 MG IV (08:38)
[2024-01-27] MEDS: ProAIR HFA INHALER 2 PUFF INH ×4 (08:45→19:27)
--- NOTE | 2024-01-27 10:42 | W.PN.HOSP.TC ---
Today's Communication/Plan
-
[place] on monday
Assessment / Plan
Assessment / Plan
# Symptomatic severe anemia likely from GI bleed. Recent GI bleed after endoscopic treatments x 2�. S/p 2 units of PRBC transfusion with improvement in hemoglobin which is 8.4 today. Aim to keep more than 7. Hemodynamically stable today. S/p
EGD which did not show any evidence of bleeding. Cystoscopy gastrostomy stent in place. Follow H&H.
For [place] on Monday
#Necrotizing pancreatitis status post recent necrosectomy with dislodgment of stent and possible occlusion status post repeat stent placement x 2
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
-01/08/2024 -EGD with necrosectomy and double-pigtail stent placement
01/11/2024 -EGD with removal of 2 existing pigtail stents, placement of double-pigtail stent
Repeat CT abodmen and pelvis yesterday showed Peripancreatic fluid collection significantly improved . He is without any infective symptoms-no leukocytosis, fever. He recently had a bacteremic episode needing antibiotics which he finished.
#Parkinson disease-continue Sinemet
#Polycythemia vera on Jakafi - continue.Msg left to primary Onc regarding holding it for now.
#Essential hypertension
#Mild Hyponatremia -seems chronic
-na 134
#Anxiety
#DVT prophylaxis� - SCDs
#DNR
Anticipated Discharge: > 48 hours
Subjective/Interval History
-
Date of Service: January 27, 2024
Complains of mild abdominal discomfort but does not preclude him from having his diet which he is tolerating. No nausea vomiting.
Objective Data
-
Labs:
Laboratory Results
01/27/24
06:26
WBC 5.0
Hgb 8.3 L
Hct 26.7 L
Plt Count 253
Sodium 134 L
Potassium 4.6
Chloride 100
Carbon Dioxide 27
BUN 16
Creatinine 0.7
Glucose 124 H
Calcium 8.5
Vital Signs:
Vital Signs
Temp Pulse Resp BP Pulse Ox
97.3 F 71 16 127/72 99
01/27/24 07:45 01/27/24 08:48 01/27/24 08:48 01/27/24 07:45 01/27/24 08:48
I&O
01/26/24 01/27/24 01/28/24
06:59 06:59 07:59
Intake Total 1080 / 1080 1140 / 1140 900 / 900
Output Total 1625 / 1625 1400 / 1400
Balance -545 / -545 -260 / -260 900 / 900
Review of Systems
-
Constitutional: Denies Fever
Respiratory: Denies Trouble Breathing
Cardiac: Denies Chest Pain
Neuro: Denies Dizzy
Physical Exam
-
General: Comfortable
HEENT: Moist Mucous Membranes
Respiratory: Clear to Auscultation
Cardiac: Regular Rhythm and S1/S2
GI: Soft, Nondistended and Normal Bowel Sounds; Negative Tender (Mild discomfort in rt upper periumbilical area )
Neuro: AO x 3
Psych: Calm
Data Reviewed
-
Labs: Labs Reviewed by me
[2024-01-27 11:45] VITALS: BP 116/79; BP 117/75; BP 133/77; PULSE 77; PULSE 80; PULSE 91
--- NOTE | 2024-01-27 13:13 | W.PN.GI.CBS2 ---
Today's Communication / Plan
-
reg diet today
Assessment / Plan
-
Raul is a 68 year old male with a past medical history of severe necrotizing pancreatitis (initial episode in March 2023, with subsequent recurrence in September 2023) with WON and development of hemorrhagic pancreatitis requiring transfusion,
concern for infected cyst 01/13, cystogastrostomy with stenting/necrosectomy with bleeding and stent exchange, ascites requiring paracentesis with concern for pancreatic duct disruption, PV on chronic Jakafi, Prior splenic and portal vein
thrombosis, prior prostate CA, and parkinsons disease presents with fall and recurrent anemia with dark grossly heme + stool in ER. Pt admits to dizziness with fall and noted hbg 6.1 on admission.
Repeat EGD showed no blood/hematoma.� Pigtail stent in good position, fistula tract is patent but small now, endo eval of necrotic cavity deferred due to inability to enter the cavity.� CT abd w/ IV contrast done this AM shows near resolution of
previous WON, pigtail stent.� No new hematoma.� Given this, pt is not bleeding from necrotic cavity and drop in Hgb seems multifactorial at this point - likely anemia of chronic illness, possibly from Jakafi, or other.� Plan for colonoscopy Monday.
Also d/w radiology re: pt's pancreas - it appears he has viable panc in the head as well as in tail.� He has disrupted duct syndrome and will likely need usp/life long cystogastrostomy fistula, currently being served with plastic pigtail
stent.� I did have discussion with pt/ re: potentially needing distal pancreatectomy if he has recurrent PFCs.� Continue with PERT as he likely has EPI at this point (will check fecal elastase).
Hgb remains stable. Regular diet today. Will change to CLD and bowel prep tomorrow for colonoscopy Monday.
Total Time Spent with Patient (in minutes): 35
Subjective
Subjective
Date of Service: January 27, 2024
No events o/n.
Objective
Data Reviewed
Laboratory Data:
Laboratory Results
01/27/24 06:26
01/27/24 06:26
Laboratory Results
PT 14.1 Sec (11.4-14.6) 01/24/24 16:20
INR 1.09 01/24/24 16:20
APTT 24.5 Sec (23.4-35.0) 01/24/24 16:20
Magnesium 2.2 mg/dl (1.6-2.3) 01/25/24 06:14
Total Bilirubin 0.3 mg/dl (0.2-1.3) 01/24/24 16:20
AST 26 U/L (17-59) 01/24/24 16:20
ALT 18 U/L (0-50) 01/24/24 16:20
Alkaline Phosphatase 122 U/L (38-126) 01/24/24 16:20
Vital Signs and I&O:
Vital Signs
Temp Pulse Resp BP Pulse Ox
98.2 F 72 16 133/77 99
01/27/24 11:45 01/27/24 12:21 01/27/24 12:21 01/27/24 11:45 01/27/24 11:45
I&O
01/26/24 01/27/24 01/28/24
06:59 06:59 07:59
Intake Total 1080 / 1080 1140 / 1140 900 / 900
Output Total 1625 / 1625 1400 / 1400
Balance -545 / -545 -260 / -260 900 / 900
[2024-01-27 15:05] VITALS: BP 133/73
[2024-01-27 19:32] VITALS: BP 114/70; BP 122/71; BP 126/69; PULSE 78; PULSE 80; PULSE 84
[2024-01-27] MEDS: SENOKOT 17.1999999999999993 MG PO (19:43)
[2024-01-27] MEDS: TYLENOL 650 MG PO (19:44)
[2024-01-27] MEDS: NON-FORMULARY ITEM 1 MG PO (19:44)
[2024-01-27 23:34] VITALS: BP 105/59
[2024-01-28 03:23] VITALS: BP 112/65
[2024-01-28 07:06] LABS: Hemoglobin 8.6 g/dL (13.0-18.0); Mean Corp Hgb Conc. 30.7 g/dL (33.0-37.0); Mean Corpuscular Hgb 27.7 pg (27.0-31.0); Mean Corpuscular Volume 90.3 fL (80.0-94.0); Mean Platelet Volume 10.5 fL (7.4-10.4); Platelet Count 264 10^3/uL (130-400); Red Cell Dist. Width 17.8 % (11.5-14.5); White Blood Cell Count 5.2 10^3/uL (4.8-10.8)
[2024-01-28 07:24] LABS: Blood Urea Nitrogen 15 mg/dl (9-20); Calcium 8.4 mg/dl (8.4-10.2); Carbon Dioxide 30 mmol/L (22-30); Chloride 101 mmol/L (98-107); Estimated Creatinine Clearance 85 ml/min; Glucose 115 mg/dl (70-99); Potassium 4.2 mmol/L (3.5-5.1); Sodium 133 mmol/L (135-145); eGFR > 60.00
[2024-01-28 07:38] VITALS: BP 159/85
[2024-01-28] MEDS: ProAIR HFA INHALER 2 PUFF INH ×4 (08:28→19:32)
[2024-01-28] MEDS: PROTONIX IV 40 MG IV (09:02)
[2024-01-28] MEDS: MIRALAX 17 GRAMS PO (09:05)
[2024-01-28] MEDS: ZENPEP DELAYED RELEASE CAPSULE 2 CAPSULE PO ×3 (09:05→21:36)
[2024-01-28] MEDS: NSS (PRESERVATIVE FREE) 10 ML IV ×2 (09:05→09:31)
[2024-01-28] MEDS: SINEMET 25-100 2 TABLET PO ×3 (09:06→21:36)
[2024-01-28] MEDS: FOLVITE 1 MG PO (09:06)
[2024-01-28] MEDS: LOW STRENGTH ASPIRIN 81 MG PO (09:06)
[2024-01-28] MEDS: NON-FORMULARY ITEM 20 MG PO ×2 (09:07→21:37)
[2024-01-28] MEDS: VITAMIN B-12 1000 MCG PO (09:08)
--- NOTE | 2024-01-28 09:42 | W.PN.HOSP.TC ---
Today's Communication/Plan
-
[place] in am
Assessment / Plan
Assessment / Plan
# Symptomatic severe anemia likely from GI bleed. Recent GI bleed after endoscopic treatments x 2�. S/p 2 units of PRBC transfusion with improvement in hemoglobin which is 8.7 today. Aim to keep more than 7. Hemodynamically stable today. S/p
EGD which did not show any evidence of bleeding. Cystoscopy gastrostomy stent in place. Follow H&H.
For [place] on Monday
#Necrotizing pancreatitis status post recent necrosectomy with dislodgment of stent and possible occlusion status post repeat stent placement x 2
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
-01/08/2024 -EGD with necrosectomy and double-pigtail stent placement
01/11/2024 -EGD with removal of 2 existing pigtail stents, placement of double-pigtail stent
Repeat CT abodmen and pelvis yesterday showed Peripancreatic fluid collection significantly improved . He is without any infective symptoms-no leukocytosis, fever. He recently had a bacteremic episode needing antibiotics which he finished.
# Dizziness - pt HH improved, no extrarenal losses, BP stable, no orthostatic hypotension based on readings .No focal neurologically. Continue to follow ortho BP.
#Parkinson disease-continue Sinemet
#Polycythemia vera on Jakafi - continue.Msg left to primary Onc regarding holding it for now.
#Essential hypertension
#Mild Hyponatremia -seems chronic
-na 134
#Anxiety
#DVT prophylaxis� - SCDs
#DNR
Anticipated Discharge: Within 24 hours
Subjective/Interval History
-
Date of Service: January 28, 2024
Complains of dizziness-not at rest but with ambulation. His orthostatic blood pressures being negative.
No nausea or vomiting. Tolerating current diet.
Objective Data
-
Labs:
Laboratory Results
01/28/24
06:34
WBC 5.2
Hgb 8.6 L
Hct 28.0 L
Plt Count 264
Sodium 133 L
Potassium 4.2
Chloride 101
Carbon Dioxide 30
BUN 15
Creatinine 0.8
Glucose 115 H
Calcium 8.4
Vital Signs:
Vital Signs
Temp Pulse Resp BP Pulse Ox
97.7 F 69 16 159/85 99
01/28/24 07:38 01/28/24 08:30 01/28/24 08:30 01/28/24 07:38 01/28/24 08:30
I&O
01/27/24 01/28/24 01/29/24
05:59 06:59 06:59
Intake Total
Output Total
Balance
Review of Systems
-
Constitutional: Denies Fever
EENT: Denies Sore Throat
Respiratory: Denies Trouble Breathing
Cardiac: Denies Chest Pain
Abdomen/GI: Denies Nausea or Vomiting
Neuro: Reports Dizzy; Denies Headache
Physical Exam
-
General: No Apparent Distress
HEENT: Moist Mucous Membranes
Respiratory: Clear to Auscultation
Cardiac: Regular Rhythm and S1/S2
GI: Soft, Nondistended and Normal Bowel Sounds; Negative Tender (not much discomfort on palpation)
Neuro: AO x 3 and No Motor Deficits; Negative Tremors, Slurred Speech or Facial Droop
Psych: Calm
Data Reviewed
-
Labs: Labs Reviewed by me
[2024-01-28 11:45] VITALS: BP 143/85
--- NOTE | 2024-01-28 13:28 | W.PN.GI.CBS2 ---
Today's Communication / Plan
-
colonoscopy tomorrow
Assessment / Plan
-
Raul is a 68 year old male with a past medical history of severe necrotizing pancreatitis (initial episode in March 2023, with subsequent recurrence in September 2023) with WON and development of hemorrhagic pancreatitis requiring transfusion,
concern for infected cyst 01/13, cystogastrostomy with stenting/necrosectomy with bleeding and stent exchange, ascites requiring paracentesis with concern for pancreatic duct disruption, PV on chronic Jakafi, Prior splenic and portal vein
thrombosis, prior prostate CA, and parkinsons disease presents with fall and recurrent anemia with dark grossly heme + stool in ER. Pt admits to dizziness with fall and noted hbg 6.1 on admission.
Repeat EGD showed no blood/hematoma.� Pigtail stent in good position, fistula tract is patent but small now, endo eval of necrotic cavity deferred due to inability to enter the cavity.� CT abd w/ IV contrast done this AM shows near resolution of
previous WON, pigtail stent.� No new hematoma.� Given this, pt is not bleeding from necrotic cavity and drop in Hgb seems multifactorial at this point - likely anemia of chronic illness, possibly from Jakafi, or other.� Plan for colonoscopy Monday.
Also d/w radiology re: pt's pancreas - it appears he has viable panc in the head as well as in tail.� He has disrupted duct syndrome and will likely need termite treater/life long cystogastrostomy fistula, currently being served with plastic pigtail
stent.� I did have discussion with pt/ re: potentially needing distal pancreatectomy if he has recurrent PFCs.� Continue with PERT as he likely has EPI at this point (will check fecal elastase).
Hgb up to 8.6 today. Colonoscopy tomorrow.
Total Time Spent with Patient (in minutes): 35
Subjective
Subjective
Date of Service: January 28, 2024
No events o/n.
Objective
Data Reviewed
Laboratory Data:
Laboratory Results
01/28/24 06:34
01/28/24 06:34
Laboratory Results
PT 14.1 Sec (11.4-14.6) 01/24/24 16:20
INR 1.09 01/24/24 16:20
APTT 24.5 Sec (23.4-35.0) 01/24/24 16:20
Magnesium 2.2 mg/dl (1.6-2.3) 01/25/24 06:14
Total Bilirubin 0.3 mg/dl (0.2-1.3) 01/24/24 16:20
AST 26 U/L (17-59) 01/24/24 16:20
ALT 18 U/L (0-50) 01/24/24 16:20
Alkaline Phosphatase 122 U/L (38-126) 01/24/24 16:20
Vital Signs and I&O:
Vital Signs
Temp Pulse Resp BP Pulse Ox
98.3 F 70 16 143/85 98
01/28/24 11:45 01/28/24 12:03 01/28/24 12:03 01/28/24 11:45 01/28/24 11:45
I&O
01/27/24 01/28/24 01/29/24
05:59 06:59 06:59
Intake Total
Output Total
Balance
[2024-01-28] MEDS: ATIVAN 0.5 MG PO (14:44)
[2024-01-28] MEDS: ULTRAM 50 MG PO (14:52)
[2024-01-28 15:35] VITALS: BP 123/82
[2024-01-28] MEDS: ZENPEP DELAYED RELEASE CAPSULE PO (17:01)
[2024-01-28] MEDS: NULYTELY SOLUTION 2 LITERS PO (17:09)
[2024-01-28 20:00] VITALS: BP 139/75; BP 139/79; BP 148/89; PULSE 83; PULSE 89; PULSE 91
[2024-01-28] MEDS: MIRALAX PO (21:34)
[2024-01-28] MEDS: SENOKOT PO (21:34)
[2024-01-28 22:43] VITALS: BP 112/56
[2024-01-29] VITALS (8 sets, daily range): BP systolic 116–161; BP diastolic 62–84; PULSE 55–71
[2024-01-29] MEDS: NULYTELY SOLUTION 2 LITERS PO (04:55)
[2024-01-29] MEDS: FEOSOL 325 MG PO (06:36)
[2024-01-29] MEDS: ZENPEP DELAYED RELEASE CAPSULE 2 CAPSULE PO (06:36)
[2024-01-29 07:44] LABS: Hematocrit 29.8 % (39.0-52.0); Hemoglobin 9.2 g/dL (13.0-18.0); Mean Corp Hgb Conc. 30.9 g/dL (33.0-37.0); Mean Corpuscular Hgb 27.6 pg (27.0-31.0); Mean Corpuscular Volume 89.5 fL (80.0-94.0); Mean Platelet Volume 10.6 fL (7.4-10.4); Platelet Count 274 10^3/uL (130-400); Red Blood Cell Count 3.33 10^6/uL (4.70-6.10); Red Cell Dist. Width 17.5 % (11.5-14.5); White Blood Cell Count 5.3 10^3/uL (4.8-10.8)
[2024-01-29] MEDS: ProAIR HFA INHALER 2 PUFF INH ×2 (07:44→15:14)
[2024-01-29 08:14] LABS: Blood Urea Nitrogen 9 mg/dl (9-20); Calcium 8.5 mg/dl (8.4-10.2); Carbon Dioxide 28 mmol/L (22-30); Chloride 101 mmol/L (98-107); Estimated Creatinine Clearance 97 ml/min; Glucose 111 mg/dl (70-99); Potassium 4.7 mmol/L (3.5-5.1); Sodium 132 mmol/L (135-145); eGFR > 60.00
[2024-01-29] MEDS: MIRALAX PO (08:46)
[2024-01-29] MEDS: SINEMET 25-100 2 TABLET PO (08:47)
[2024-01-29] MEDS: LOW STRENGTH ASPIRIN 81 MG PO (08:47)
[2024-01-29] MEDS: FOLVITE 1 MG PO (08:50)
[2024-01-29] MEDS: NSS (PRESERVATIVE FREE) 10 ML IV (08:50)
[2024-01-29] MEDS: PROTONIX IV 40 MG IV (08:50)
[2024-01-29] MEDS: NON-FORMULARY ITEM 20 MG PO (08:51)
[2024-01-29] MEDS: VITAMIN B-12 1000 MCG PO (08:52)
--- NOTE | 2024-01-29 09:03 | W.PN.HOSP.TC ---
Addendum entered and electronically signed by Clyde Barrera MD 01/30/24 12:23:
GI bleeding and heme positive stool most likely multifactorial including internal hemorrhoids and diverticular bleed.
Original Note:
Today's Communication/Plan
-
Colonoscopy today. Discharge planning in progress
Assessment / Plan
Assessment / Plan
Physical exam:
General: Well Developed, Well Nourished and No Apparent Distress
HEENT: Normocephalic, Atraumatic and Moist Mucous Membranes
Respiratory: Clear to Auscultation; Negative Wheezes, Rales or Rhonchi
Cardiac: Regular Rhythm and S1/S2
GI: Soft, Nontender and Nondistended
Musculoskeletal: No Clubbing, No Cyanosis and No Edema
Neuro: Awake, Alert and Oriented
Psych: Calm
A/P:
# Symptomatic severe anemia likely from GI bleed. Recent GI bleed after endoscopic treatments x 2�. S/p 2 units of PRBC transfusion with improvement in hemoglobin which is 9.2 today. Aim to keep more than 7. Hemodynamically stable today. S/p
EGD which did not show any evidence of bleeding. Cystoscopy gastrostomy stent in place. Follow H&H.
For [place] today. I have discussed with today at bedside. GI reached out to me today and colonoscopy unremarkable and from their standpoint he can be discharged home today.
#Necrotizing pancreatitis status post recent necrosectomy with dislodgment of stent and possible occlusion status post repeat stent placement x 2
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
-01/08/2024 -EGD with necrosectomy and double-pigtail stent placement
01/11/2024 -EGD with removal of 2 existing pigtail stents, placement of double-pigtail stent
Repeat CT abodmen and pelvis yesterday showed Peripancreatic fluid collection significantly improved . He is without any infective symptoms-no leukocytosis, fever. He recently had a bacteremic episode needing antibiotics which he finished.
# Dizziness - pt HH improved, no extrarenal losses, BP stable, no orthostatic hypotension based on readings .No focal neurologically. Continue to follow ortho BP.
#Parkinson disease-continue Sinemet
#Polycythemia vera on Jakafi - continue.Msg left to primary Onc regarding holding it for now.
#Essential hypertension
#Mild Hyponatremia -seems chronic
-na 134
#Anxiety
#DVT prophylaxis� - SCDs
#DNR
Anticipated Discharge: Today
Subjective/Interval History
-
Date of Service: January 29, 2024
Patient doing well today. No chest pain or shortness of breath.
Objective Data
-
Labs:
Laboratory Results
01/29/24
07:09
WBC 5.3
Hgb 9.2 L
Hct 29.8 L
Plt Count 274
Sodium 132 L
Potassium 4.7
Chloride 101
Carbon Dioxide 28
BUN 9
Creatinine 0.7
Glucose 111 H
Calcium 8.5
Vital Signs:
Vital Signs
Temp Pulse Resp BP Pulse Ox
97.8 F 68 16 153/83 100
01/29/24 07:20 01/29/24 07:48 01/29/24 07:48 01/29/24 07:20 01/29/24 07:48
I&O
01/28/24 01/29/24 01/30/24
06:59 06:59 06:59
Intake Total 2880 / 2880
Output Total
Balance 2880 / 2880
[2024-01-29] MEDS: ProAIR HFA INHALER INH (11:16)
--- NOTE | 2024-01-29 12:52 | W.DCSUMMARY ---
Discharge Summary
Discharge Data
Date of Admission: 01/24/24
Date of Discharge: 01/29/24
-
Pending Results: No
Hospital Course
Patient 68 years old man with complex medical including prior severe necrotizing pancreatitis with PD disruption, recurrent ascites, hemorrhagic conversion of pancreatitis, necrosectomy and cystogastrostomy with stent in the past and recently had
stent exchange for stent migration and bleeding, polycythemia vera, history of portal vein thrombosis treated with anticoagulation but discontinued after hemorrhagic pancreatitis, history of recurrent GI bleed, presented to the hospital with
generalized dizziness fall and anemia with a hemoglobin of 6.1 upon admission. GI was consulted. He had some blood transfusions. His hemoglobin has gone up to 9.[address] scan of the abdomen with some chronic abnormalities but no
acute abnormalities reported. GI did upper endoscopy and colonoscopy without significant clear evidence of active bleeding. Upper endoscopy with normal esophagus, pre-existing gastric stent, fistula tract was patent but was too small to enter to
the necrotic cavity and no blood or hematoma and normal duodenal bulb, first portion of the duodenum, and second portion of the duodenum. Colonoscopy did show some hemorrhoids and some polyp that was resected and there was evidence of some
diverticulosis. GI reach out to me that he is cleared to go home today and he can follow-up with GI as outpatient. Otherwise, patient is hemodynamically stable and no signs of bleeding. He will be discharged in relatively stable condition today.
Discharge duration: 35 minutes
Discharge Plan
-
Patient Disposition: Home (Routine Discharge)
Discharge Diagnosis/Procedures: Anemia. History of severe necrotizing pancreatitis in the past with hemorrhagic pancreatitis conversion and history of cystogastrostomy with stenting/necrosectomy with bleeding and stent exchange and ascites.
History of splenic portal vein thrombosis. History of prostate cancer. History of paroxysmal disease. History of myeloproliferative disorder, polycythemia vera.
Diet: Low Cholesterol
Activity: As tolerated
Driving Restrictions: No driving for 24 hours
Blood Work: Please PCP to order CBC, BMP within 1 week.
Referrals:
Linnette Wisdom MD [Family Provider] - in less than 1 week
Mohsen Song MD [Active] - 02/09/24 10:15 am (follow up in January as scheduled)
Prescriptions:
Continued
albuterol sulfate 1 PUFF HFA aerosol inhaler
2 puff inhalation R QID
carbidopa-levodopa 25-100 mg Tablet
2 tab PO TID
Jakafi 20 mg tablet
20 mg PO BID
aspirin 81 mg Capsule
81 mg PO DAILY
pantoprazole 40 mg tablet,delayed release (DR/EC)
40 mg PO HS
cyanocobalamin (vitamin B-12) 1,000 mcg Tablet
1,000 mcg PO DAILY Qty: 100 0RF
sennosides [senna] 8.6 mg Tablet
8.6 mg PO BID
docusate sodium 100 mg Capsule
100 mg PO BID
folic acid 1 mg Tablet
1 mg PO DAILY
polyethylene glycol 3350 [HealthyLax] 17 gram Powder In Packet
17 g PO DAILY PRN (Reason: Constipation) Qty: 14 0RF
acetaminophen 325 mg Tablet
650 mg PO Q4HPRN PRN (Reason: mild pain /fever >100.4) Qty: 1 0RF
ferrous sulfate 325 mg (65 mg iron) Tablet
325 mg PO Q48H
Discharge Orders:
Discharge Patient (As Directed); Ordered 01/29/24
Ordered By: Clyde Barrera
Discharge Date and Time
Discharge Date/Time: 01/29/24 16:07
--- NOTE | 2024-01-29 13:09 | VNURNOTE ---
[facility] resumption of care completed in Care Port after review of chart and discussion with patient's Bee. Bee confirmed having VN contact number.
--- NOTE | 2024-01-29 14:32 | CM ---
CM reviewed chart and noted dc order
Pt accepted by [facility] for [facility]N order on chart
CM met with pt bedside
IMM verbally reviewed- copy provided
Pt notes concerns with steps in home to 2nd floor
Call with spouse to further discuss pr his request
Spouse notes pt typically has anxiety about dc home during hospitalizations
Spouse notes supports throughout the home including railings and assistance she will provide
TT/GI requesting call to spouse with update per her request
Spouse will transport home and remains in agreement with plan
Pt later is now requesting to dc home
Discharge Disposition- home with [facility]- spouse transport
[2024-01-29] MEDS: ZENPEP DELAYED RELEASE CAPSULE PO (14:50)
--- NOTE | 2024-01-29 17:05 | PN.CDI ---
CDI
- -
CDI:
Physician Documentation Request
Admit Date: 01/24/24 18:17
Dear Doctor Bruce,
Per hospitalist progress notes pt admitted for symptomatic severe anemia likely from GI bleed. S/p 2 units PRBC with improvement of hemoglobin.
H&P states 'Rectal shows dark stools which is grossly heme positive'
Per 01/26 GI note 'Repeat EGD showed no blood/hematoma. Pigtail stent in good position, fistula tract is patent but small now. CT abd w/ IV contrast done this AM shows near resolution of previous WON, pigtail stent.� No new hematoma'
01/28 colonoscopy findings included 'Hemorrhoids were found on perianal exam. 5 mm polyp was found in the sigmoid colon. Multiple small-mouthed diverticula were found in the sigmoid colon, descending colon, transverse colon, hepatic flexure and
ascending colon. Internal hemorrhoids'
After careful study what is the likely etiology of the heme positive stool/GI bleeding:
Polyp
Diverticula
Internal hemorrhoids
Multifactorial - please specify
Other
Use of terms such as suspected, likely, concern for, or probable (associated with a specific diagnosis that is being evaluated, monitored, or treated as if it exists) are acceptable and can be coded in the inpatient setting, when documented at the
time of discharge.
Thank you,
Nancy Melendrez RN, BSN
CDI Specialist
tiger text
Please use your independent medical judgment in providing your response.
== END 2024-01-29 16:07 | disposition home health service (06) | DRG 378 ==
LOC: 4 EAST ACU 18:17
PROVIDERS: Internal Medicine Gastroenterology; Registered Nurse; ADMITTING PHYSICIAN Internal Medicine; ATTENDING PHYSICIAN Hospitalist; CONSULT PHYSICIAN Internal Medicine Gastroenterology; EMERGENCY PHYSICIAN Student in an Organized Health Care Education/Training Program; FAMILY PHYSICIAN Internal Medicine
PROC: 30233N1 Transfusion of Nonautologous Red Blood Cells into Peripheral Vein, Percutaneous Approach (ICD-10-PCS; 2024-01-24)
PROC: 0DJ08ZZ Inspection of Upper Intestinal Tract, Via Natural or Artificial Opening Endoscopic (ICD-10-PCS; 2024-01-25)
PROC: 0DBN8ZX Excision of Sigmoid Colon, Via Natural or Artificial Opening Endoscopic, Diagnostic (ICD-10-PCS; 2024-01-29)
DX: K57.31 Diverticulosis of large intestine without perforation or abscess with bleeding (principal); D62 Acute posthemorrhagic anemia; E87.1 Hypo-osmolality and hyponatremia; D50.9 Iron deficiency anemia, unspecified; K64.0 First degree hemorrhoids; D12.5 Benign neoplasm of sigmoid colon; G20.A1 Parkinson's disease without dyskinesia, without mention of fluctuations; D45 Polycythemia vera; I10 Essential (primary) hypertension; F41.9 Anxiety disorder, unspecified; Z66 Do not resuscitate
CPT/HCPCS: 88305; 36415; 36430; 74177; 80048; 80053; 82728; 83540; 83550; 83735; 85025; 85027; 85610; 85730; 86850; 86900; 86901; 86920; 94640; 96360; 96361; 97162; 99291; P9016; Q9967

== ENCOUNTER → 2024-02-07 09:19 | Outpatient (REF) | payer MEDICARE, OTHER, SELFPAY ==
[2024-02-07 11:34] LABS: % Basophils 0.3 % (0-2); % Eosinophils 0.9 % (0-6); % Immature Granulocytes 0.5 % (0-0.5); % Lymphocytes 6.3 % (20.5-51.1); % Monocytes 3.3 % (1.7-9.3); % Neutrophils 88.7 % (42.2-75.2); Absolute Basophils 0.1 10^3/uL (0-0.2); Absolute Eosinophils 0.1 10^3/uL (0-0.7); Absolute Immature Granulocytes 0.1 10^3/uL (0-0.05); Absolute Monocytes 0.5 10^3/uL (0.1-0.6); Absolute Neutrophils 13.6 10^3/uL (1.4-6.5); Hematocrit 23.2 % (39.0-52.0); Mean Corp Hgb Conc. 30.2 g/dL (33.0-37.0); Mean Corpuscular Hgb 26.9 pg (27.0-31.0); Mean Corpuscular Volume 89.2 fL (80.0-94.0); Mean Platelet Volume 10.5 fL (7.4-10.4); Nucleated Red Blood Cells % 0 % (-); Platelet Count 477 10^3/uL (130-400); Red Cell Dist. Width 16.2 % (11.5-14.5); White Blood Cell Count 15.4 10^3/uL (4.8-10.8)
== END ==
LOC: REG 09:19
PROVIDERS: ATTENDING PHYSICIAN Internal Medicine Gastroenterology; FAMILY PHYSICIAN Internal Medicine
DX: D50.9 Iron deficiency anemia, unspecified (principal)
CPT/HCPCS: 36415; 85025

== ENCOUNTER 2024-02-08 15:33 | Inpatient (IN) | payer MEDICARE, OTHER, SELFPAY ==
[2024-02-08] VITALS (48 sets, daily range): BP systolic 80–123; BP diastolic 42–81; BMI 22.2; BMI 23.4
[2024-02-08] MEDS: NSS 2000 IV (13:11)
--- NOTE | 2024-02-08 13:12 | ED.GENMED ---
History of Present Illness
General
Chief Complaint: Abdominal Pain
Source: patient and ambulance crew
Exam Limitations: none
Time Seen by Provider: 02/08/24 13:07
Nursing documentation reviewed up to this point in time: agreed with
Travel History
Have you had any contact with someone who has COVID-19?: Unable to Answer
Do you have any symptoms of coronavirus? Fever > 100 degrees, chills, cough, shortness of breath, sore throat, loss of taste or smell, muscle aches, or headache?: Unable to Answer
History of Present Illness
History of Present Illness:
68-year-old male presents the emergency department complaining of diffuse abdominal pain. His called EMS due to his abdominal pain, and weakness. EMS reports he was pale and minimally responsive with blood pressure in the 50s systolic. They
gave him 600 mL normal saline and push dose epinephrine en route which did bring his blood pressure up to 80s over 60s upon arrival. He is able to give some history. He was recently discharged due to symptomatic anemia, where he was given blood
transfusion. He also had upper and lower endoscopy that showed diverticulosis, otherwise no significant findings to account for his anemia.
Past History
Past History
ED Past Medical History: Asthma, Cancer (Prostate CA), HTN, Other (Polycythemia Vera, pancreatitis ,Parkinsons with Tremors, IBS, ) and Other (Parkinson's disease)
ED Past Surgical History: Urological (Prostatectomy)
Social History
Tobacco: Former smoker
Alcohol: Former
Personal:
Living: with family
Review of Systems
Review of Systems
Allergies reviewed?: Yes
All Other Systems: Not applicable
Constitutional: Reports fatigue
EENT: Reports no symptoms
Respiratory: Reports trouble breathing
Cardiac: Reports no symptoms
ABD/GI: Reports abdominal pain, nausea and bloody stools
: Reports no symptoms
Musculoskeletal: Reports no symptoms
Skin: Reports no symptoms
Neurological: Reports weakness
Endocrine: Reports no symptoms
Hematologic/Lymphatic: Reports no symptoms
Psychiatric: Reports no symptoms
Phy Exam
Physical Exam
Physical Exam:
Physical Exam
General: Pale, ill-appearing, hypotensive 85/61, thin
Neck: supple. no meningeal signs. normal posterior pharynx
Heart: s1/s2 regular rate and rhythm, no murmur. equal radial
pulses.
HEENT: Pupils equal round reactive to light, EOMI
Lungs: Moderate respiratory distress. clear bilaterally
Abdomen: normal bowel sounds. No rebound or guarding, mild tenderness to palpation diffusely. No CVAT
Neuro: alert and oriented. no focal neurological deficits cranial nerves II through XII intact
Skin: no rash
Psychiatric: well kept. interactive and cooperative
Extremities: no edema. no calf tenderness. negative homans. good distal pulses
Course
Orders/Labs/Results
Orders:
Orders
02/08/24 13:06
EKG [Electrocardiogram (*1)] Urgent
Reason for Study: Abdominal Pain
EKG- Treatment ONCE
02/08/24 13:07
Cardiac Monitoring- Treatment ONCE
IV Insert/Care/Rem.- Treatment PRN
CR Chest Portable - 1 View Urgent
Comment:
Reason For Exam: short of breath, hypoxia
Reason Study Needs to be Portable: Patient Unstable
Pulse Ox/cont/shift [RESP] Stat
Quantity: 1
02/08/24 13:08
NORepinephrine 4 MG/250 ML [Levophed] 4 mg in 250 ml IV NOW
Initial dose in mcg/min, then titrate:: 5
Titrate to keep:: MAP > 65 mmHg
Titrate by mcg/min:: 1-2 mcg/min
Frequency of titrations (minutes):: 5
Maximum dose in ICU in mcg/min:: 30
Maximum dose in IMU in mcg/min:: 8
Maximum dose in IVU in mcg/min:: 4
Begin to taper infusion when:: Remained at goal for 4hrs
Taper by mcg/min:: 1-2 mcg/min
Frequency of taper (minutes) if patient maintains goal:: 30
Taper to off?: Yes
If infusion off & no longer maintaining goal:: Contact Provider
02/08/24 13:09
0.9% Sodium Chloride 1000 ml [Nss] 2,000 ml IV BOLUS
02/08/24 13:10
Type+Screen Urgent
CT Abd/pelvis W Iv Cont Urgent
Comment:
Reason For Exam: diffuse abdominal pain, hx hem pancreatitis
Complete Blood Count/With Diff Urgent
Comprehensive Metabolic Panel Urgent
Lactic Acid Q4H
Comment: CANCEL 2nd LACTIC ACID IF 1st LACTIC ACID IS LESS THAN 2
Lipase Urgent
PTT Urgent
Prothrombin Time Urgent
Blood Culture Q30M
JOSÉ Source: Blood/Venous
Specimen Description:
Blood Culture Q30M
JOSÉ Source: Blood/Venous
Specimen Description:
02/08/24 13:12
Rodriguez Placement- Treatment ONCE
Reason for insertion: I&O's Critical Care
Ondansetron Injectable [Zofran] 4 mg IV NOW STA
02/08/24 13:19
Fentanyl Citrate/Pf [Sublimaze] 100 mcg .ROUTE .STK-MED ONE
02/08/24 13:20
Fentanyl Citrate/Pf [Sublimaze] 50 mcg IV NOW STA
02/08/24 13:50
* Blood Bank Products Urgent
Dr's Orders: 2 unit prbcs
Blood Bank Products: *Packed RBC Leuko(PRBC's)
Quantity: 2
Transfuse Today: Yes
Reason: Anemia
02/08/24 14:48
Fentanyl Citrate/Pf [Sublimaze] 100 mcg .ROUTE .STK-MED ONE
Ondansetron Injectable [Zofran] 4 mg .ROUTE .STK-MED ONE
02/08/24 14:49
Ondansetron Injectable [Zofran] 4 mg IV NOW STA
02/08/24 14:50
Fentanyl Citrate/Pf [Sublimaze] 50 mcg IV NOW STA
02/08/24 Dinner
NPO
Allow oral meds: No
Allow clear liquids: No
02/08/24 15:02
Urinalysis Reflex To Culture Urgent
Date Specimen was Collected: 02/08/24
Time Specimen was Collected: 13:16
Urine Microscopic Reflex Cult Urgent
02/08/24 15:25
Admit/Transfer Patient As Directed
Co-Sign Provider:
Level of Care: Inpatient admission
Assign to:: ICU
Physician / Group: DR Barrera
Diagnosis: Acute GI bleed. Shock
Reason for Hospitalization: pte p/w BBPR, weakness, anemia.
Expected length of stay greater than two midnights?: Yes
ELOS- Estimated Length of Stay in days: 2
I certify the patient meets the requirements for IP care: Yes
Code Status As Directed
Resuscitation Status: Do not resuscitate
Reached after discussion with pt or family/Healthcare POA: Yes
02/08/24 15:26
DNR Bracelet Application ONCE
02/08/24 15:30
0.9% Sodium Chloride 1000 ml [Nss] 1,000 ml IV BOLUS
02/08/24 15:31
Ertapenem [Invanz] 1,000 mg 0.9% Sodium Chloride [Nss] 50 ml IV NOW
02/08/24 15:33
Kitchen Food Assembler Consult Routine
Consulting Provider: Adi Estrada
Was physician already notified: Yes
Reason for consult: Anemia with shock requiring pressor
02/08/24 15:34
GASTROINTESTINAL CONSULT Routine
Consulting Provider: Primitivo Arriaga
Was physician already notified: Yes
Reason for consult: GI bleed with anemia Hb 5 and hypotension
HEMATOLOGY CONSULT Routine
Consulting Provider: Rory Zurita
Was physician already notified: Yes
Reason for consult: Severe Anemia and PV on Jafaki
02/08/24 16:00
Pantoprazole 80 mg/100 ml Nss [Protonix] 80 mg in 100 ml IV Q10H
02/08/24 17:51
0.9% Sodium Chloride 1000 ml [Nss] 1,000 ml IV 100 mls/hr
02/08/24 17:51
Activity As Directed
Activity Level: Bedrest
INT (Intravenous Needle Therapy) As Directed
Comment: Place 2 IV catheters of the largest bore possible until stable
Orthostatic Vital Signs As Directed
Orthostatic VS Frequency: Now
Comment: then every four hours for twenty-four hours
Pneumatic Compression Sleeves As Directed
Type: Knee high
Vital Signs As Directed
Frequency: Per unit guidelines
DX Deep Vein Thrombosis Video Routine
02/08/24 18:45
H&H Q6H
Lactic Acid Q4H
Comment: CANCEL 2nd LACTIC ACID IF 1st LACTIC ACID IS LESS THAN 2
02/08/24 20:00
Blood Culture Stat
JOSÉ Source: Blood/Venous
Specimen Description:
02/08/24 23:51
H&H Q6H
02/09/24 06:00
Complete Blood Count/With Diff IN AM
Comprehensive Metabolic Panel IN AM
Abnormal Lab Results
02/08/24 02/08/24
13:10 15:02
WBC 11.2 H 10^3/uL
(4.8-10.8)
RBC 1.98 L 10^6/uL
(4.70-6.10)
Hgb 5.3 L* D g/dL
(13.0-18.0)
Hct 17.7 L* %
(39.0-52.0)
MCH 26.8 L pg
(27.0-31.0)
MCHC 29.9 L g/dL
(33.0-37.0)
RDW 16.6 H %
(11.5-14.5)
Plt Count 403 H 10^3/uL
(130-400)
MPV 10.6 H fL
(7.4-10.4)
Abs Immat Gran (auto) 0.1 H 10^3/uL
(0-0.05)
Absolute Neuts (auto) 8.9 H 10^3/uL
(1.4-6.5)
Immature Gran % 1.2 H %
(0-0.5)
Neutrophils % 79.4 H %
(42.2-75.2)
Lymphocytes % 13.0 L %
(20.5-51.1)
PT 16.9 H Sec
(11.4-14.6)
APTT 23.2 L Sec
(23.4-35.0)
Sodium 128 L mmol/L
(135-145)
Carbon Dioxide 10 L* mmol/L
(22-30)
Glucose 192 H mg/dl
(70-99)
Lactic Acid 11.8 H* mmol/L
(0.7-2.0)
Calcium 7.3 L mg/dl
(8.4-10.2)
Total Protein 4.8 L g/dl
(6.3-8.2)
Albumin 2.8 L g/dl
(3.5-5.0)
Urine Ketones Trace A
(Negative)
Ur Occult Blood Reflex Trace A
(Negative)
Urine Bacteria (Reflex) Few A
(Negative)
Urine Glucose Trace A
(Negative)
Urine Albumin (Reflex) 2+ A
(Neg - Trace)
Crossmatch IS Only See Detail
02/08/24 13:10
02/08/24 13:10
Vital Signs
Initial and Last Documented VS:
Initial Vital Signs
Pulse Resp BP
90 22 85/61
02/08/24 13:03 02/08/24 13:03 02/08/24 13:03
Last Documented Vital Signs
Temp Pulse Resp BP Pulse Ox
99 F 77 16 102/81 99
02/08/24 19:01 02/08/24 19:00 02/08/24 19:00 02/08/24 19:00 02/08/24 19:00
MDM/Problems Addressed
Differential Diagnosis Includes:
GI bleed, hemorrhagic pancreatitis, bowel obstruction
MDM/Problems Addressed:
60-year-old male with GI bleed, hemorrhagic pancreatitis, bowel obstruction. 2 units packed red blood cells transfused. Admit to hospitalist. Gastroenterology notified.
Chronic conditions affecting care: Asthma and Other (Necrotizing pancreatitis)
Acute Exacerbation and/or Progression of Chronic Illness: Asthma and Other (Necrotizing pancreatitis)
*Radiology
Radiology exam reviewed: radiology read reviewed (CT abdomen pelvis shows blood clot around pancreas, pancreatitis and pancreatic pseudocyst, bowel obstruction)
*Pulse Oximetry
Patient hypoxic: yes
*EKG
Interpreted by ED Provider?: Yes
EKG Intrepretation Date: 02/08/24
EKG Intrepretation Time: 13:05
Interpretation: normal
Comparison EKG: no comparison EKG present
Heart Rate: 87
Rate: normal
Rhythm: sinus
[place]: normal axis
Interval: normal interval
QRS Pattern: normal QRS
Ischemia: no ischemia
*Toolroom Attendant Interpretation
Rate: normal
Interpretation: normal
Heart Rate: 87
Rhythm: sinus
*Critical Care Note
Total Time (30-74mins, 75-104mins- exclusive of procedures): 45
comment:
Critical care statement: A total of 45 minutes of critical care time was provided for this patient. This includes management of unstable vital signs, evaluation of the patient at bedside, reviewing the patient's pertinent medical records, discussion
with consultants, review of old EKGs and review of pertinent medical records. This time with separate from time utilized to perform the aforementioned documented procedures
Data Reviewed
Review of Other/Old Records Reveals: Operative Reports (Prior endoscopy on 01/29/2024, no source of bleeding found)
Patient Management
Social determinants of health affecting care: Living situation
Discussion with other providers: Hospitalist and Welding Machine Operator [employer] (Gastroenterology)
Escalation/DeEscalation of care consider admission/obs:
Admit to ICU indicated
ED Attending Note
-
Portions of this chart may have been created with voice recognition software.� Occasional wrong word or��sound alike� substitutions may have occurred due to the inherent limitations of voice recognition software.
Discharge Plan
Departure
Patient Disposition: Admit
Date of Disposition: 02/08/24
Time of Disposition: 14:54
Admit to: ICU
Presentation/result/management discussed w/ accepting MD/DO: Hospitalist
Patient with high blood pressure during this ER visit?: No
Condition: Fair
Discharge Problem:
Acute blood loss anemia, Partial obstruction of small intestine, Acute pancreatitis
Interventions
Interventions:
*Risk Screen - Suicide Last Done: 02/08/24 13:08
*General Assessment Last Done: 02/08/24 13:08
*Neglect/Abuse Screening Last Done: 02/08/24 13:08
ED- Fall Risk Assessment Last Done: 02/08/24 13:14
*ED COVID-19 Vaccine History Last Done: 02/08/24 13:08
*Nursing Disposition Last Done: 02/08/24 17:17
GF-Dcjhad-Icqhdtixax Assessment Last Done: 02/08/24 13:08
Discharge Date and Time
Discharge Date/Time: 02/08/24 17:18
[2024-02-08] MEDS: ZOFRAN 4 MG IV ×2 (13:20→14:51)
[2024-02-08] MEDS: SUBLIMAZE 50 MCG IV ×2 (13:22→14:51)
[2024-02-08 13:34] LABS: % Basophils 0.2 % (0-2); % Eosinophils 0.7 % (0-6); % Immature Granulocytes 1.2 % (0-0.5); % Monocytes 5.5 % (1.7-9.3); % Neutrophils 79.4 % (42.2-75.2); Absolute Eosinophils 0.1 10^3/uL (0-0.7); Absolute Immature Granulocytes 0.1 10^3/uL (0-0.05); Absolute Lymphocytes 1.5 10^3/uL (1.2-3.4); Absolute Monocytes 0.6 10^3/uL (0.1-0.6); Absolute Neutrophils 8.9 10^3/uL (1.4-6.5); Mean Corp Hgb Conc. 29.9 g/dL (33.0-37.0); Mean Corpuscular Hgb 26.8 pg (27.0-31.0); Mean Corpuscular Volume 89.4 fL (80.0-94.0); Mean Platelet Volume 10.6 fL (7.4-10.4); Nucleated Red Blood Cells % 0 % (-); Platelet Count 403 10^3/uL (130-400); Red Blood Cell Count 1.98 10^6/uL (4.70-6.10); Red Cell Dist. Width 16.6 % (11.5-14.5); White Blood Cell Count 11.2 10^3/uL (4.8-10.8)
[2024-02-08 13:46] LABS: Hematocrit 17.7 % (39.0-52.0); Hemoglobin 5.3 g/dL (13.0-18.0)
[2024-02-08 13:48] LABS: INR 1.36; PT 16.9 Sec (11.4-14.6)
[2024-02-08 13:49] LABS: APTT 23.2 Sec (23.4-35.0)
[2024-02-08 13:55] LABS: ALT (SGPT) 16 U/L (0-50); AST (SGOT) 24 U/L (17-59); Albumin 2.8 g/dl (3.5-5.0); Alkaline Phosphatase 84 U/L (38-126); Blood Urea Nitrogen 20 mg/dl (9-20); Calcium 7.3 mg/dl (8.4-10.2); Carbon Dioxide 10 mmol/L (22-30); Chloride 103 mmol/L (98-107); Estimated Creatinine Clearance 60 ml/min; Glucose 192 mg/dl (70-99); Lipase 292 U/L (23-300); Potassium 4.3 mmol/L (3.5-5.1); Sodium 128 mmol/L (135-145); Total Bilirubin 0.2 mg/dl (0.2-1.3); Total Protein 4.8 g/dl (6.3-8.2); eGFR > 60.00
[2024-02-08 14:48] LABS: Lactic Acid 11.8 mmol/L (0.7-2.0)
--- NOTE | 2024-02-08 15:08 | CON.GI ---
Addendum entered and electronically signed by Primitivo Arriaga MD 02/08/24 17:22:
I saw and examined the patient.
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
Comment: 68-year-old male past medical history of severe necrotizing pancreatitis known to our group from multiple prior admissions as outlined below most recent admission January 24 with anemia and heme positive stool hemoglobin down to 6.1 underwent
endoscopy and colonoscopy with Dr. Song as below. Now he is presenting again with severe anemia with hemoglobin of 5 (from 7 yesterday) as well as hypotension, and hypothermia. Patient critically ill on pressors. On discussion with , when she
came home patient was pale, repeating over and over again help me take me to the hospital and an ambulance was called. Case was discussed with Dr. Song who reviewed the CT scan with plans for urgent endoscopy today. Discussed with spouse at
bedside.
Original Note:
Consultation
-
Date/Time Consultation Requested: 02/08/24 1500
Date/Time Consultation Performed: 02/08/24 1510
Requesting Provider: Elbert Swartz DO
Performing Provider: DERIC Srinivasan, Mei Arriaga MD
Reason for Consultation: anemia, abdominal pain
Medical History
Chief Complaint / HPI
Chief Complaint: abdominal pain weakness
History of Present Illness:
Raul is a 68 year old male with a past medical history of severe necrotizing pancreatitis (initial episode in March 2023, with subsequent recurrence in September 2023) with WON and development of hemorrhagic pancreatitis requiring transfusion,
concern for infected cyst 12/2023 with bacteremia, cystogastrostomy with stenting with complication of bleeding and stent exchange, ascites requiring paracentesis with concern for pancreatic duct disruption, polycythemia vera on chronic Jakafi,
Prior splenic and portal vein thrombosis, prior prostate CA, and Parkinson's disease. Pt with multiple admission over last year. Last admission 01/24 with anemia and heme + stools with hbg down to 6.1. He completed EGD 01/24 with Normal esophagus pre
existing gastric stent, fistula tract patent and too small to enter necrotic cavity with no blood or hematoma seen in tract. normal duodenum. He also completed 01/28 with colonoscopy hemorrhoids, 5 mm polyp, diverticulosis, IH. Hbg was 9.2 on
discharge 01/28 and states stable hbg last week. He was noted with passing bright red blood on 02/06 with hbg 7 and further drop to hbg 5.3 on admission. Pt did report last stool day of admission was formed less bloody. He also reports dizziness,
fatigue and feeling of inability to get up. On EMS arrival noted with severe hypotension with BP in 50's with minimal responsiveness. Prior to arrival he was given IV fluid bolus and epi then PRBC's in ER with improved BP. Pt admits to increased
nausea with GERD without vomiting and abdominal pain with recent bloody stools. He denies black stools.
�� � � � � � �CT completed on admission with pancreatitis with a 6 cm pancreatic pseudocyst at the body of the pancreas The gastropancreatic stent extends to the margin of but not into the pseudocyst. There also concern for partial bowel
obstruction at the level of the second portion of the duodenum presumably as a result of this pancreatitis with associated dilatation of the fluid-filled stomach and duodenal bulb, 1.5 cm adenal adenoma, and DDD.
�
Past Medical History
Past Medical History: Asthma, Cancer (prostate CA with prior prostatectomy), HTN and Other (polycythemia vera on chronic Jakafi, splenic/PVT prior on Eliquis, necrotizing pancreatitis with hemorrhage 06/2023,WON with hemorrhagic pancreatitis,
infected cyst, cystgastrostomy w/stenting &dislodgement and bleeding with stent change, bacteremia, ascites-para- panc duct disruption, parkinson's)
Social History
Tobacco: Former Smoker
Alcohol: Former (previously with increased alcohol use years ago, was drinking 2 beers/day prior to the onset of pancreatitis)
Drug: None
Personal:
Living: With Family
Employment: Employed (less work recently with illness )
Family History
Family History: Other (no family hx colon cA or polyps)
Allergies / Home Medications
Allergy/AdvReac Type Severity Reaction Status Date / Time
ciprofloxacin [From Cipro] Allergy Dizziness Verified 02/08/24 13:03
clindamycin HCl Allergy Rash Verified 02/08/24 13:03
[From Cleocin]
clindamycin palmitate HCl Allergy Rash Verified 02/08/24 13:03
[From Cleocin]
clindamycin phosphate Allergy Rash Verified 02/08/24 13:03
[From Cleocin]
hydromorphone [From Dilaudid] Allergy Rash Verified 02/08/24 13:37
influenza virus vacc Allergy SWELLING/COULDN'T Verified 02/08/24 13:03
trivalent, split BREATHE
monosodium glutamate Allergy Unknown Verified 02/08/24 13:03
Penicillins Allergy Hives Verified 02/08/24 13:03
shellfish derived Allergy Hives Verified 02/08/24 13:03
Medication Instructions Recorded
albuterol sulfate 90 mcg/actuation 2 puff inhalation R Q6HPRN PRN sob 01/19/18
aerosol inhaler
carbidopa 25 mg-levodopa 100 mg 2 tab PO TID Neurological Condition 07/07/23
tablet
ruxolitinib 20 mg tablet (Jakafi) 20 mg PO BID Immunologic 07/07/23
pantoprazole 40 mg tablet,delayed 40 mg PO HS Gastrointestinal Issue 09/28/23
release
cyanocobalamin (vitamin B-12) 1,000 mcg PO DAILY #100 tabs 10/13/23
1,000 mcg tablet
sennosides 8.6 mg tablet (senna) 8.6 mg PO BID Constipation 11/23/23
docusate sodium 100 mg capsule 100 mg PO BID Constipation 01/05/24
folic acid 1 mg tablet 1 mg PO DAILY Supplement 01/05/24
ferrous sulfate 325 mg (65 mg 325 mg PO Q48H Supplement 01/24/24
iron) tablet
aspirin 81 mg tablet,delayed 81 mg PO DAILY 02/08/24
release
gangnf-qxpsxwpu-zhzlofy 1 cap PO AC 02/08/24
24,000-76,000-120,000 unit
capsule,delayed rel (Creon)
polyethylene glycol 3350 17 gram 17 g PO DAILY Constipation 02/08/24
oral powder packet (HealthyLax)
Review of Systems
-
History Source: Patient and Family
Constitutional: Reports Weight Loss ( 20lb since onset of pancreatitis ) and Fatigue (severe )
EENT: Reports No Symptoms
Respiratory: Reports No Symptoms
Cardiac: Reports No Symptoms
Abdomen/GI: Reports Abdominal Pain, Nausea and Bloody Stools
: Reports No Symptoms
Musculoskeletal: Reports No Symptoms
Neurological: Reports Dizzy and Weakness (diffuse weakness )
Endocrine: Reports No Symptoms
Hematologic/Lymphatic: Reports Bleeding
Vital Signs
Temp Pulse Resp BP Pulse Ox
96.1 F L 78 18 91/60 96
02/08/24 15:06 02/08/24 15:06 02/08/24 15:06 02/08/24 15:06 02/08/24 15:06
Physical Exam
Exam
General: Other (ill and very pale appearing )
HEENT: Normocephalic and Anicteric
Respiratory: Clear
Cardiac: Regular Rhythm
GI: Soft, Tender and Distended (mild)
Musculoskeletal: No Clubbing and No Cyanosis
Skin: Warm and Dry
Neuro: Other (awakens to voice and answers most questions )
Psych: Calm
Results
WBC 11.2 10^3/uL (4.8-10.8) H 02/08/24 13:10
Hgb 5.3 g/dL (13.0-18.0) L* D 02/08/24 13:10
Hct 17.7 % (39.0-52.0) L* 02/08/24 13:10
MCV 89.4 fL (80.0-94.0) 02/08/24 13:10
Plt Count 403 10^3/uL (130-400) H 02/08/24 13:10
Absolute Neuts (auto) 8.9 10^3/uL (1.4-6.5) H 02/08/24 13:10
PT 16.9 Sec (11.4-14.6) H 02/08/24 13:10
INR 1.36 02/08/24 13:10
APTT 23.2 Sec (23.4-35.0) L 02/08/24 13:10
Sodium 128 mmol/L (135-145) L 02/08/24 13:10
Potassium 4.3 mmol/L (3.5-5.1) 02/08/24 13:10
Chloride 103 mmol/L (98-107) 02/08/24 13:10
Carbon Dioxide 10 mmol/L (22-30) L* 02/08/24 13:10
BUN 20 mg/dl (9-20) 02/08/24 13:10
Creatinine 1.1 mg/dL (0.7-1.3) 02/08/24 13:10
Calcium 7.3 mg/dl (8.4-10.2) L 02/08/24 13:10
Total Bilirubin 0.2 mg/dl (0.2-1.3) 02/08/24 13:10
AST 24 U/L (17-59) 02/08/24 13:10
ALT 16 U/L (0-50) 02/08/24 13:10
Alkaline Phosphatase 84 U/L (38-126) 02/08/24 13:10
Lipase 292 U/L (23-300) 02/08/24 13:10
Diagnostic Image Results:
02/07 �CT Abd/pelvis W Iv Cont
1). There is pancreatitis with a 6 cm pancreatic pseudocyst at the body of the pancreas
The gastropancreatic stent extends to the margin of but not into the pseudocyst
2). There is partial bowel obstruction at the level of the second portion of the duodenum presumably as a result of this pancreatitis with associated dilatation of the fluid-filled stomach and duodenal bulb
3). There is 1.5 cm right adrenal adenoma
4). There is multilevel lumbar degenerative disc disease
01/26/24 CT A/p
IMPRESSION: Peripancreatic fluid collection significantly improved with only one remaining stent as described above.
Mild ascites. Improved.
Moderate fecal material throughout the colon. Progressed.
Right adrenal nodule. Stable. Prior MRI examination confirms this is a adrenal adenoma.
Mild splenomegaly. Stable
Mild diffuse bladder wall thickening. This can be seen with cystitis or bladder outlet obstruction. Improved
addendum
There is mild remaining enhancing pancreatic tissue in the region of the pancreatic tail and a moderate amount of remaining tissue in the region of pancreatic head.
Tissue is not noted in the region of the body where this previously large fluid collection was present.
multiple paracentesis last 11/23/23-1100ml
01/10/24 bleeding scan -�No evidence for active GI bleeding.
�
01/10/24 �CT Abd/pel W Iv And Oral Contr
1. � Interval removal of cystogastrostomy stent now with 2 adjacent pigtail stents extending across the cystogastrostomy tract into peripancreatic collection/area of walled off necrosis. Size of this collection is not significantly decreased in size
compared to prior CT from 01/05/24 and is now filled with heterogeneously slightly hyperdense material with internal attenuation of 57 Hounsfield units. Previously, attenuation of this collection was 15 Hounsfield units. Minimal gas now present
within the collection. Findings suggestive of bleeding/hematoma now within this area of pancreatic necrosis. No CT findings for active contrast extravasation.
2. � Small volume of pelvic ascites, slightly increased in size compared to prior CT. Small amount of perihepatic and perisplenic ascites.
3. � Significant extrinsic compression of the central/extrahepatic portal vein which remains patent.
4. � Splenomegaly.
5. � Additional findings above.
12/11/23 MRI abdomen
Walled off pancreatic necrosis with a large complex collection in the central abdomen that measures up to 11.5 cm and has significantly increased in size compared to previous examinations.
Prior GI Procedures:
01/11/24- EGD Thelma �- Normal esophagus.
�� � � � � � � � � � � - Hematin (altered blood/wwfxai-evxrct-esok material)
�� � � � � � � � � � � in the gastric fundus.
�� � � � � � � � � � � - Pre-existing cystgastrostomy stents, removed.
�� � � � � � � � � � � - Gastric fistula. Cavity contained large amount of
�� � � � � � � � � � � clots, which was not cleared. New 7 Fr 3 cm double
�� � � � � � � � � � � pigtail stents were placed.
�� � � � � � � � � � � - Normal duodenal bulb, first portion of the duodenum
�� � � � � � � � � � � and second portion of the duodenum.
01/08/24 EGD �thelma - Normal esophagus.
�� � � � � � � � � � � - Pre-existing gastric Axios stent, migrated out.
�� � � � � � � � � � � - Pus in stomach, aspirated. Previous cystogastrostomy
�� � � � � � � � � � � tract was located and entered, necrotic cavity
�� � � � � � � � � � � contained significant pus which was drained.
�� � � � � � � � � � � - Necrotic cavity appeared to be healing well with
�� � � � � � � � � � � minimal necrotic burden present. A 10 Fr and 7 Fr 3 cm
�� � � � � � � � � � � double pigtail stents were placed under direct
�� � � � � � � � � � � endoscopic guidance via existing cystogastrostomy
�� � � � � � � � � � � tract.
�� � � � � � � � � � � - Plastic stent in the duodenum, migrated out. Removed.
�� � � � � � � � � � � - Pre-existing gastric stent, removed.
�� � � � � � � � � � � - Necrosectomy was performed.
Endoscopy w/ necrosectomy, 12/28/23, Dr. Song
Impression:� � � � � � - Normal esophagus.
�� � � � � � � � � � � - Pre-existing gastric stent.
�� � � � � � � � � � � - Normal duodenal bulb, first portion of the duodenum
�� � � � � � � � � � � and second portion of the duodenum.
�� � � � � � � � � � � - Necrosectomy was performed.
Recommendation:� � � � - Discharge patient to home.
�� � � � � � � � � � � - Full liquid diet today. Drink a can of coca cola
�� � � � � � � � � � � daily.
�� � � � � � � � � � � - Flagyl (metronidazole) 250 mg PO TID for 3 days.
�� � � � � � � � � � � - Repeat upper endoscopy in 1 week for retreatment.
EUS 12/19/23, Dr. Song
Impression:� � � � � � - A 100 mm by 100 mm pseudocyst / necrotic cavity was
�� � � � � � � � � � � seen in the peripancreatic region. The diagnosis is a
�� � � � � � � � � � � pancreatic pseudocyst.
�� � � � � � � � � � � - Cystogastrostomy was performed. A double pigtail
�� � � � � � � � � � � plastic stent was placed into the cavity via Axios
�� � � � � � � � � � � stent to maintain patency of Axios stent.
�� � � � � � � � � � � - No specimens collected.
Prior GI Procedures:
EGD: 01/25/24 wesley Song MD �� � - Normal esophagus.
�� � � � � � � � � � � - Pre-existing gastric stent. Fistula tract was patent
�� � � � � � � � � � � but was too small to enter the necrotic cavity. No
�� � � � � � � � � � � blood / hematoma was seen in the fistula tract or in
�� � � � � � � � � � � the stomach.
�� � � � � � � � � � � - Normal duodenal bulb, first portion of the duodenum
�� � � � � � � � � � � and second portion of the duodenum.
�� � � � � � � � � � � - No specimens collected
Colonoscopy: 01/29/24 Wesley Song MD�� � - Hemorrhoids found on perianal exam.
�� � � � � � � � � � � - The examined portion of the ileum was normal.
�� � � � � � � � � � � - One 5 mm polyp in the sigmoid colon, removed with a
�� � � � � � � � � � � cold snare. Resected and retrieved.
�� � � � � � � � � � � - Diverticulosis in the sigmoid colon, in the
�� � � � � � � � � � � descending colon, in the transverse colon, at the
�� � � � � � � � � � � hepatic flexure and in the ascending colon.
�� � � � � � � � � � � - Internal hemorrhoids.
�� � � � � � � � � � � - The examination was otherwise normal.
bx TA
Assessment / Plan
-
Raul is a 68 year old male with a past medical history of severe necrotizing pancreatitis (initial episode in March 2023, with subsequent recurrence in September 2023) with WON and development of hemorrhagic pancreatitis requiring transfusion,
concern for infected cyst 12/2023 with bacteremia, cystogastrostomy with stenting with complication of bleeding and stent exchange, ascites requiring paracentesis with concern for pancreatic duct disruption, polycythemia vera on chronic Jakafi,
Prior splenic and portal vein thrombosis, prior prostate CA, and Parkinson's disease. Pt with multiple admission over last year. Last admission 01/24 with anemia and heme + stools with hbg down to 6.1. He completed EGD 01/24 with Normal esophagus pre
existing gastric stent, fistula tract patent and too small to enter necrotic cavity with no blood or hematoma seen in tract. normal duodenum. He also completed 01/28 with colonoscopy hemorrhoids, 5 mm polyp, diverticulosis, IH. Hbg was 9.2 on
discharge 01/28 and states stable hbg last week. He was noted with passing bright red blood on 02/06 with hbg 7 and further drop to hbg 5.3 on admission. Pt did report last stool day of admission was formed less bloody. He also reports dizziness,
fatigue and feeling of inability to get up. On EMS arrival noted with severe hypotension with BP in 50's with minimal responsiveness. Prior to arrival he was given IV fluid bolus and epi then PRBC's in ER with improved BP. Pt admits to increased
nausea with GERD without vomiting and abdominal pain with recent bloody stools. He denies black stools.
02/07 �CT A/p pancreatitis with a 6 cm pancreatic pseudocyst at the body of the pancreas The gastropancreatic stent extends to the margin of but not into the pseudocyst. There also concern for partial bowel obstruction at the level of the second
portion of the duodenum presumably as a result of this pancreatitis with associated dilatation of the fluid-filled stomach and duodenal bulb, 1.5 cm adrenal adenoma, and DDD.
�� � � � � �
-recurrent GI bleed with recent BRBPR and drop in hbg
-symptomatic anemia with severe hypovolemic shock with hypotension on admission
-abdominal pain with abnormal cT with concern for partial small bowel obstruction and fluid filled stomach
-severe necrotizing pancreatitis March 2023 and recurrent September 2023 with complicated course with PD disruption with ascites requiring paracentesis, hemorrhagic pancreatitis, cystgastrostomy with stenting, bleeding and stent management
-recent bacteremia 01/05/24 strep anginosus on Ertapenem with concern for infected pseudocyst
-PV on chronic Jakafi
-splenic and portal vein thrombosis not on AC prior to admission
-prostate CA
-parkinson's
-hyponatremia
PLAN:
Etiology of bleeding related to prior noted bleeding around gastric fistula vs other and also concern for obstructive process
agree with ICU admission
reviewed imaging with Dr. Song who spoke with Dr. Espinosa
plan for EGD today
updated spouse
NPO
t/c NGT if any vomiting
for 2nd unit transfusion soon
for heme eval to again review for chronic Jakafi use with bleeding
cont PPI gtt
-
-
Thank you for consultation and allowing me to participate in the patient's care. Please call the photonics technician GI physician during the after hours with any questions or concerns.
[2024-02-08 15:14] LABS: Urine Albumin 2+ (Neg - Trace); Urine Bilirubin Negative (Negative); Urine Character Clear (Clear); Urine Color Yellow; Urine Glucose Trace (Negative); Urine Ketone Trace (Negative); Urine Leukocyte Negative (Negative); Urine Nitrite Negative (Negative); Urine Occult Blood Trace (Negative); Urine Specific Gravity 1.025 (<1.030); Urine Urobilinogen Negative (Neg - 1+)
[2024-02-08 15:21] LABS: Urine Bacteria Few (Negative); Urine Red Blood Cell 0-2 /HPF (0-2); Urine White Cell 0-2 /HPF (0-5)
--- NOTE | 2024-02-08 15:31 | CON.INTV ---
Consultation
Consultation Request
Date/Time Consultation Requested: 02/08/2024-3:30 PM
Date/Time Consultation Performed: 02/08/2024-4 PM
Requesting Provider: Hospitalist
Performing Provider: Dr. Estrada
Reason for Consultation: GI bleed/critical care management
Medical History
-
Chief Complaint: GI bleed
History of Present Illness:
68-year-old male former smoker who was just discharged 01/29/2024 for anemia and underwent EGD and colonoscopy who also has a history of necrotizing pancreatitis, recurrent ascites, asthma, polycythemia vera, prostate cancer, Parkinson's, IBS and
pancreatitis presented with diffuse abdominal pain noted to have severe anemia, GI bleed and with hypotension admitted to ICU-crepe sole wire brusher consulted for anemia/GI bleed/critical care management 02/08/2024. He was recently discharged. I am seeing him
in the emergency room after nearly 3 L of fluids, 1 unit of packed red blood cells and is feeling somewhat improved. Continues to complain of abdominal pain. Does not complain shortness of breath, chest pain, chest congestion, productive cough.
His reports that he uses albuterol 'all the time'. He quit smoking about 2 years ago.
Past Medical History
Past Medical History: None (Necrotizing pancreatitis. Recurrent ascites. PCV. Portal vein thrombosis. Recurrent GI bleed. Pancreatic cyst infection-strep bacteremia. Former [id number]-year. Asthma. Prostate cancer/prostatectomy.
Hypertension. Parkinson's. Anxiety. Depression.)
Social History
Tobacco: Former Smoker
Alcohol: None
Drug: None
Personal:
Living: With Family
Occupational Exposures: No known asbestos exposure
Environmental Exposures: No known tuberculosis exposure
Family History
Family History: Reviewed & Not Pertinent
Allergies / Home Medications
Allergies
Allergy/AdvReac Type Severity Reaction Status Date / Time
ciprofloxacin [From Cipro] Allergy Dizziness Verified 02/08/24 13:03
clindamycin HCl Allergy Rash Verified 02/08/24 13:03
[From Cleocin]
clindamycin palmitate HCl Allergy Rash Verified 02/08/24 13:03
[From Cleocin]
clindamycin phosphate Allergy Rash Verified 02/08/24 13:03
[From Cleocin]
hydromorphone [From Dilaudid] Allergy Rash Verified 02/08/24 13:37
influenza virus vacc Allergy SWELLING/COULDN'T Verified 02/08/24 13:03
trivalent, split BREATHE
monosodium glutamate Allergy Unknown Verified 02/08/24 13:03
Penicillins Allergy Hives Verified 02/08/24 13:03
shellfish derived Allergy Hives Verified 02/08/24 13:03
Home Medications
Medication Instructions Recorded Confirmed Last Taken Type
albuterol sulfate 90 mcg/actuation 2 puff inhalation R Q6HPRN PRN sob 01/19/18 02/08/24 02/08/24 History
aerosol inhaler
carbidopa 25 mg-levodopa 100 mg 2 tab PO TID Neurological Condition 07/07/23 02/08/24 02/08/24 History
tablet
ruxolitinib 20 mg tablet (Jakafi) 20 mg PO BID Immunologic 07/07/23 02/08/24 02/08/24 History
10 mg
pantoprazole 40 mg tablet,delayed 40 mg PO HS Gastrointestinal Issue 09/28/23 02/08/24 02/07/24 History
release
cyanocobalamin (vitamin B-12) 1,000 mcg PO DAILY #100 tabs 10/13/23 02/08/24 01/24/24 Rx
1,000 mcg tablet
sennosides 8.6 mg tablet (senna) 8.6 mg PO BID Constipation 11/23/23 02/08/24 01/24/24 History
docusate sodium 100 mg capsule 100 mg PO BID Constipation 01/05/24 02/08/24 02/05/24 History
folic acid 1 mg tablet 1 mg PO DAILY Supplement 01/05/24 02/08/24 02/08/24 History
ferrous sulfate 325 mg (65 mg 325 mg PO Q48H Supplement 01/24/24 02/08/24 Unknown History
iron) tablet
aspirin 81 mg tablet,delayed 81 mg PO DAILY 02/08/24 02/08/24 02/08/24 History
release
ptqwyg-pnvdnsdm-qhouxit 1 cap PO AC 02/08/24 02/08/24 02/08/24 History
24,000-76,000-120,000 unit
capsule,delayed rel (Creon)
polyethylene glycol 3350 17 gram 17 g PO DAILY Constipation 02/08/24 02/08/24 02/06/24 History
oral powder packet (HealthyLax)
Review of Systems
-
Unable to Obtain full review of systems at this time due to: Other (Per HPI)
Vitals / Labs / Diagnostic Testing
Vital Signs
Temp Pulse Resp BP Pulse Ox
96.4 F L 76 18 91/64 97
02/08/24 15:25 02/08/24 15:25 02/08/24 15:25 02/08/24 15:25 02/08/24 15:25
Lab Data
02/08/24 13:10
02/08/24 13:10
Laboratory Results
02/08/24
13:10
PT 16.9 H
INR 1.36
APTT 23.2 L
Diagnostic Testing:
Physical Exam
-
Exam:
Well-nourished and well-developed in no apparent distress
HEENT-atraumatic, normocephalic
Neck-supple, no JVD, no bruit
Heart-regular rate and rhythm-no murmurs, rubs or gallops
Chest-clear to auscultation, no wheezes, crackles
Back-no tenderness
Abdomen-soft, nontender, nondistended, no hepatosplenomegaly
Extremities-no cyanosis, clubbing, edema and good peripheral pulses
Integument-intact, no rashes, lesions or ecchymosis
Neurology-alert and oriented, nonfocal motor and sensory exam
Assessment
-
68-year-old male former smoker who was just discharged 01/29/2024 for anemia and underwent EGD and colonoscopy who also has a history of necrotizing pancreatitis, recurrent ascites, asthma, polycythemia vera, prostate cancer, Parkinson's, IBS and
pancreatitis presented with diffuse abdominal pain noted to have severe anemia, GI bleed and with hypotension admitted to ICU-crepe sole wire brusher consulted for anemia/GI bleed/critical care management 02/08/2024.
GI bleed with hemorrhagic shock
Anemia due to acute blood loss-hemoglobin 5.3
Lactic acidosis
Hypocalcemia
Leukocytosis
Hypoalbuminemia
Conditions present prior to admission:
Necrotizing pancreatitis-recurrent with initial episode March 2023, hemorrhagic episode 06/2023, and subsequent September 2023
Recurrent ascites-status post multiple paracenteses
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
Portal vein thrombosis-was on Eliquis
Recurrent GI bleed.
Pancreatic cyst infection-strep bacteremia-hospitalized 12/2023
Former [id number]-year quit 2021
Asthma-on albuterol, no maintenance inhalers, does not see a yarding supervisor
Prostate cancer/prostatectomy.
Hypertension.
Parkinson's.
Anxiety.
Depression.
Plan
Patient will be admitted to medical intensive care with active bleeding, critically ill and in need of resuscitation
Supplemental oxygen as needed
Aspiration precautions
Incentive spirometry
Monitor hemoglobin
Transfuse packed red blood cells and FFP as needed
Intravenous fluid resuscitation
Norepinephrine as needed
Monitor coagulopathy
GI evaluation ongoing-reviewed personally with GI/PA
EGD-pending
Lipase normal
CT abdomen noted-summarized below
Recent endoscopy and colonoscopy reviewed
Ocreotide drip and PPI drip if needed per GI
Empiric antibiotics if ascites is suspected
Hematology evaluation
History of polycythemia vera on Jakafi
Was on Eliquis with history of thrombosis-portal vein thrombosis-, however, may need to be discontinued because of recurrent bleeding/hemorrhagic pancreatitis
DVT prophylaxis
GI prophylaxis
Aspiration precautions
Nutrition
Early mobilization
Reviewed with in the emergency room as well as GI
Would likely benefit from outpatient pulm evaluation-PFTs, ongoing smoking cessation counseling, and likely eligible for yearly low-dose lung cancer screening CT
Critical care statement: A total of 55 minutes of critical care time was provided for this patient today. This includes management of unstable vital signs, management of transfusions, evaluation of the patient at bedside, reviewing the patient's
pertinent medical records including radiographs, microbiology, laboratory evaluations, and discussion with primary team, consultants, pharmacy, nutrition, physical therapy, case management, charge nurse, critical care nursing, and respiratory
therapy.
Diagnostic data:
Chest x-ray 02/08/2024-NAD
CT abdomen and pelvis 02/08/2024-pancreatitis with 6 cm pancreatic pseudocyst, gastropancreatic stent extends to margin but not into the pseudocyst, partial bowel obstruction, 1.5 cm adrenal adenoma
Data Reviewed
-
EKG: Report reviewed by me
Radiology: Report reviewed by me
CT Scan: Image personally visualized and interpreted
Labs: Labs reviewed by me
Old Records: Reviewed
Critical Care Time (in minutes): 55
--- NOTE | 2024-02-08 15:51 | HPS.HSE ---
Addendum entered and electronically signed by Clyde Barrera MD 02/08/24 20:57:
Blood in gastric area by egd-discussed with GI. Plan for CTA and if bleeding consider IR embolization. Transfuse with blood as needed.
Original Note:
Family Physician
-
Family Physician: Linnette Wisdom
Chief Complaint
-
Bright blood per rectum
History of Present Illness
Patient is 68 years old with a complicated GI history some of which include severe necrotizing pancreatitis with PD disruption, recurrent ascites, hemorrhagic pancreatitis, status post necrosectomy and cystogastrostomy with stent and stent migration
and bleeding, also polycythemia vera on Jakafi, history of splenic portal vein thrombosis treated with anticoagulation in the past and subsequently discontinued after developing hemorrhagic pancreatitis, recurrent GI bleed, hypertension, asthma,
Parkinson's, presented to the hospital with generalized weakness, abdominal pain, and bright blood per rectum. Patient tells me that he has not been feeling well since yesterday and he had an episode of bright blood per rectum yesterday and another
episode today, he cannot quantify how much and not sure how often but states that probably at least 1 time both days, he also has abdominal pain diffuse moderate to severe intensity crampy in nature. He does have nausea. He denies vomiting or
hematemesis. He denies fevers or chills. He has generalized weakness profound fatigue and inability to get up by himself. Denies chest pain or shortness of breath. He just had a recent hospitalization at our hospital (remember seeing him upon
discharge) for which he had an upper endoscopy and colonoscopy both of which were unrevealing. On EMS arrival he was noted to have blood pressure in the 50s with minimal responsiveness. In the ED, hemoglobin was 5.3 from a hemoglobin of 7 on 02/06,
MCV 89.4, platelet count 403, WBC 11.2, Sodium 128, bicarbonate 10, BUN/creatinine 21.1, lactic acid 11.8, glucose 192. Blood pressure as low as 85/61, relatively tachycardic to 90s, tachypneic in the 19, hypothermic with temperature 93.4 �F. CT
scan of the abdomen shows pancreatitis with a sick centimeters pancreatic pseudocyst in the body of the pancreas, the gastropancreatic stent extends to the margin of the pseudocyst, partial bowel obstruction within the second portion of duodenum
presumably as a result of his pancreatitis with associated dilation of fluid-filled stomach and duodenal bulb, 1.5 cm right adrenal adenoma, and multilevel lumbar degenerative disc disease. He was referred to hospitalist for further evaluation.
Medical History
Past Medical History
Past Medical History: Reports Other (Hypertension, asthma, prostate cancer, polycythemia vera, splenic and portal vein thrombosis, severe necrotizing pancreatitis, hemorrhagic pancreatitis, cystogastrostomy with stenting and dislodgment and bleeding
with stent, ascites, Parkinson's.)
Past Surgical History: Reports Other (Prostatectomy, EGD and colonoscopy.)
Social History
Tobacco: Former Smoker
Alcohol: None
Drug: None
Family History
Family History: Not pertinent
Allergies / Home Medications
Allergies reflects when Allergies were last updated in [employer].
Home Medications with original date entered in [employer]
Allergy/Medication List:
Allergies
Allergy/AdvReac Type Severity Reaction Status Date / Time
ciprofloxacin [From Cipro] Allergy Dizziness Verified 02/08/24 13:03
clindamycin HCl Allergy Rash Verified 02/08/24 13:03
[From Cleocin]
hydromorphone [From Dilaudid] Allergy Rash Verified 02/08/24 13:37
influenza virus vacc Allergy SWELLING/COULDN'T Verified 02/08/24 13:03
trivalent, split BREATHE
monosodium glutamate Allergy Unknown Verified 02/08/24 13:03
Penicillins Allergy Hives; Verified 02/08/24 15:45
tolerated
cefepime,
ertapenem
12/2023
shellfish derived Allergy Hives Verified 02/08/24 13:03
Home Medications
albuterol sulfate 90 mcg/actuation aerosol inhaler 2 puff inhalation R Q6HPRN PRN sob 01/19/18
carbidopa 25 mg-levodopa 100 mg tablet 2 tab PO TID Neurological Condition 07/07/23
ruxolitinib 20 mg tablet (Jakafi) 20 mg PO BID Immunologic 07/07/23
pantoprazole 40 mg tablet,delayed release 40 mg PO HS Gastrointestinal Issue 09/28/23
cyanocobalamin (vitamin B-12) 1,000 mcg tablet 1,000 mcg PO DAILY #100 tabs 10/13/23
sennosides 8.6 mg tablet (senna) 8.6 mg PO BID Constipation 11/23/23
docusate sodium 100 mg capsule 100 mg PO BID Constipation 01/05/24
folic acid 1 mg tablet 1 mg PO DAILY Supplement 01/05/24
ferrous sulfate 325 mg (65 mg iron) tablet 325 mg PO Q48H Supplement 01/24/24
aspirin 81 mg tablet,delayed release 81 mg PO DAILY 02/08/24
wmbslg-gagcwkyu-isyrzij 24,000-76,000-120,000 unit capsule,delayed rel (Creon) 1 cap PO AC 02/08/24
polyethylene glycol 3350 17 gram oral powder packet (HealthyLax) 17 g PO DAILY Constipation 02/08/24
Review of Systems
-
Unable to obtain full review of systems at this time due to: Acuity
Physical Exam
Vital Signs
Vital Signs
Temp Pulse Resp BP Pulse Ox
96.4 F L 76 19 97/58 96
02/08/24 15:25 02/08/24 15:45 02/08/24 15:45 02/08/24 15:45 02/08/24 15:45
Physical exam:
General: Acutely ill. Pale. Frail
HEENT: Normocephalic, Atraumatic and Dry Mucous Membranes
Respiratory: Clear to Auscultation; Negative Wheezes, Rales or Rhonchi
Cardiac: Regular Rhythm and S1/S2
GI: Soft, Tender diffusely and distended
Musculoskeletal: No Clubbing, No Cyanosis and No Edema
Neuro: Awake but lethargic and Oriented, he does respond to questions appropriately. Generalized weakness.
Psych: Calm
Physical Exam
General: Other
Laboratory Results
-
02/08/24 13:10
02/08/24 13:10
Laboratory Results
PT 16.9 Sec (11.4-14.6) H 02/08/24 13:10
INR 1.36 02/08/24 13:10
APTT 23.2 Sec (23.4-35.0) L 02/08/24 13:10
Lactic Acid 11.8 mmol/L (0.7-2.0) H* 02/08/24 13:10
Total Bilirubin 0.2 mg/dl (0.2-1.3) 02/08/24 13:10
AST 24 U/L (17-59) 02/08/24 13:10
ALT 16 U/L (0-50) 02/08/24 13:10
Alkaline Phosphatase 84 U/L (38-126) 02/08/24 13:10
Lipase 292 U/L (23-300) 02/08/24 13:10
Impression/Plan
-
IMPRESSION:
Patient is 68 years old with multiple and complex comorbidities presented to the hospital with hemorrhagic shock in the presence of acute GI bleed and concerns for sepsis and or ischemia as well. He has multiple episodes of GI bleed in the past
without clear source but this time appears upper GI source although lower cannot be excluded. He is hypotensive with severe metabolic acidosis and lactic acidosis and acute blood loss anemia with a hemoglobin over 5 and he is critically ill at the
moment. He has high increased risk of morbidity mortality and explained this to patient and at bedside. He will be admitted to intensive care unit and further management and workup as appropriate.
Impression:
Shock hypovolemic/hemorrhagic versus septic
Acute GI bleed
Acute symptomatic blood loss anemia
Severe metabolic acidosis
Hyponatremia
Concern for small bowel obstruction
Conditions prior to presentation:
Severe necrotizing pancreatitis
Hemorrhagic pancreatitis
Polycythemia vera
Prostate cancer
Parkinson's disease
History of splenic vein and portal vein thrombosis
History of cystogastrostomy with stent and necrosectomy with bleeding and stent exchange.
History of ascites
History recurrent GI bleed
History of chronic anemia
PLAN:
IV fluids with isotonic and then bicarbonate drip (give bicarbonate bolus x1 stat)
Start Protonix drip
Pressors with Levophed
Blood transfusion MRAT
Will order Invanz 1 g IV x 1 now and then will be ordered tomorrow as indicated
Probably NG tube benefit he is going to follow-up�for now.
Obtain blood cultures
Seen and reviewed CT scan of the
Start Protonix drip
Hemoglobin every 4-6 hours
Urine sodium, osmolality, serum osmolarity as well, TSH, cortisol.
Critical care consult, [place] texted warp dyeing vat tender today.
GI consult, communicated with GI in person today.
Surgery consult, [place] texted surgery today.
Hematology consult, [place] texted hematology today.
SCDs for DVT prophylaxis
CODE STATUS DNR and confirmed with at bedside.
Patient critically ill with prognosis guarded.
Total Critical Care Time 60 minutes. I was immediately available to the patient and staff. I personally examined, reviewed labs, diagnostic images/reports, interpretations, treatment plans, discussed patient care with other providers and family
or caregivers (if patient is unable to make decisions), entered orders as appropriate and documented the medical record.
[2024-02-08] MEDS: NSS 1000 IV ×2 (16:02→18:09)
[2024-02-08] MEDS: PROTONIX 100 IV (16:07)
[2024-02-08] MEDS: INVANZ 60 MG IV (16:07)
[2024-02-08] MEDS: SODIUM BICARBONATE 50 MEQ IV (16:48)
--- NOTE | 2024-02-08 17:05 | CON.GS ---
Consultation
-
Date/Time Consultation Requested: 02/08/2024 4 PM
Date/Time Consultation Performed: 02/08/2024 4:30 PM
Requesting Provider: hospitalist
Performing Provider: gonzález
Reason for Consultation: GI bleed, pancreatic pseudocyst
Medical History
-
Chief Complaint: Abdominal pain, dizziness
History of Present Illness:
Patient is a 68-year-old male known to our GI service but previously not evaluated by our surgical service presenting secondary to acute onset of dizziness, fatigue and abdominal pain.
He has a history of necrotizing pancreatitis initially diagnosed March 2023, recurrence in September 2023. Subsequently developed hemorrhagic pancreatitis and bacteremia with concern for infected walled off pancreatic collection/necrosis. He
underwent endoscopic cystogastrostomy with stenting. Has had episodes of bleeding, pancreatic stent exchanges, ascites with paracentesis due to concern for pancreatic duct disruption.
His medical history is notable for PV on Jakafi, history of splenic and portal vein thrombosis, previous history of prostate cancer and Parkinson's. His last evaluation was just the other week in beginning of January where he was hospitalized for
heme positive stools and anemia with a hemoglobin of 6.1. Last EGD 01/24 identifying small residual patent fistula tract to pancreatic cyst.
He was discharged on 01/28. Over the past few days began developing weakness and fatigue. On my evaluation patient was unaware of blood per rectum but per GI notes states that he passed bright red blood 02/06 had a hemoglobin checked of 7. Believes
he had a more formed stool today without blood. He has had nausea and GERD and generalized abdominal pressure and pain.
Prior to these acute episodes he states that in the past he was eating well without any obstructive like symptoms.
Past Medical History
Past Medical History: Other (Asthma, history of prostate cancer, hypertension, polycythemia vera, history of splenic and portal vein thrombosis, history of necrotizing pancreatitis with development of walled off collection/hemorrhagic pancreatitis,
infected cyst, Parkinson's)
Past Surgical History: Other (Multiple upper endoscopy procedures including endoscopic cystogastrostomy, stenting, replacement of stent/stent exchanges)
Social History
Tobacco: Former Smoker
Alcohol: Former
Personal:
Living: With Family
Family History
Family History: Reviewed & Not Pertinent
Allergies / Home Medications
Allergy/AdvReac Type Severity Reaction Status Date / Time
ciprofloxacin [From Cipro] Allergy Dizziness Verified 02/08/24 13:03
clindamycin HCl Allergy Rash Verified 02/08/24 13:03
[From Cleocin]
hydromorphone [From Dilaudid] Allergy Rash Verified 02/08/24 13:37
influenza virus vacc Allergy SWELLING/COULDN'T Verified 02/08/24 13:03
trivalent, split BREATHE
monosodium glutamate Allergy Unknown Verified 02/08/24 13:03
Penicillins Allergy Hives; Verified 02/08/24 15:45
tolerated
cefepime,
ertapenem
12/2023
shellfish derived Allergy Hives Verified 02/08/24 13:03
Medication Instructions Recorded Confirmed Type
albuterol sulfate 90 mcg/actuation 2 puff inhalation R Q6HPRN PRN sob 01/19/18 02/08/24 History
aerosol inhaler
carbidopa 25 mg-levodopa 100 mg 2 tab PO TID Neurological Condition 07/07/23 02/08/24 History
tablet
ruxolitinib 20 mg tablet (Jakafi) 20 mg PO BID Immunologic 07/07/23 02/08/24 History
pantoprazole 40 mg tablet,delayed 40 mg PO HS Gastrointestinal Issue 09/28/23 02/08/24 History
release
cyanocobalamin (vitamin B-12) 1,000 mcg PO DAILY #100 tabs 10/13/23 02/08/24 Rx
1,000 mcg tablet
sennosides 8.6 mg tablet (senna) 8.6 mg PO BID Constipation 11/23/23 02/08/24 History
docusate sodium 100 mg capsule 100 mg PO BID Constipation 01/05/24 02/08/24 History
folic acid 1 mg tablet 1 mg PO DAILY Supplement 01/05/24 02/08/24 History
ferrous sulfate 325 mg (65 mg 325 mg PO Q48H Supplement 01/24/24 02/08/24 History
iron) tablet
aspirin 81 mg tablet,delayed 81 mg PO DAILY 02/08/24 02/08/24 History
release
gvmzzz-fnmdzxgv-nozcgvn 1 cap PO AC 02/08/24 02/08/24 History
24,000-76,000-120,000 unit
capsule,delayed rel (Creon)
polyethylene glycol 3350 17 gram 17 g PO DAILY Constipation 02/08/24 02/08/24 History
oral powder packet (HealthyLax)
Review of Systems
-
History Source: Patient and Family
All other systems: Negative unless noted
A 10 point review of systems was completed, and was negative except as per HPI.
Physical Exam
Vital Signs
Temp Pulse Resp BP Pulse Ox
97.9 F 86 15 110/59 97
02/08/24 16:55 02/08/24 16:55 02/08/24 16:55 02/08/24 16:55 02/08/24 16:37
02/07/24 02/08/24 02/09/24
06:59 06:59 06:59
Actual Weight 66.1 kg
Body Mass Index (BMI) 22.2
Lab Results
02/08/24 13:10
02/08/24 13:10
WBC 11.2 10^3/uL (4.8-10.8) H 02/08/24 13:10
Hgb 5.3 g/dL (13.0-18.0) L* D 02/08/24 13:10
Hct 17.7 % (39.0-52.0) L* 02/08/24 13:10
Plt Count 403 10^3/uL (130-400) H 02/08/24 13:10
Abs Immat Gran (auto) 0.1 10^3/uL (0-0.05) H 02/08/24 13:10
Neutrophils % 79.4 % (42.2-75.2) H 02/08/24 13:10
Physical Exam
General: Comfortable and Other (Lying in emergency department stretcher, conversive for history taking but acutely ill-appearing.)
HEENT: Normocephalic, Anicteric and Atraumatic
Respiratory: Non Labored Respirations
Cardiac: Regular Rhythm
GI: Soft, Non Distended and Tender (Mild generalized tenderness greater in the epigastrium. No rebound rigidity or guarding)
Neuro: AO x 3
Psych: Calm
Data Reviewed
-
CT Scan: Image Personally Visualized and interpreted, Report Reviewed by me, Discussed with Physician, Discussed with Patient and Discussed with Family
Assessment / Plan
-
Assessment: 68-year-old male with history of necrotizing pancreatitis and walled off pancreatic necrosis status post endoscopic cystogastrostomy with necrosectomy and subsequent bleeding which is likely related to his history of polycythemia vera.
Presenting again with acute blood loss anemia. CT imaging looks most consistent with a large amount of clot/old blood within the stomach lumen. Source is most likely small surface area from his chronic walled off pancreatic necrosis/necrosectomy
site.
Radiologist reading for possible duodenal obstruction although this seems unlikely given patient has been tolerating diet up until his recent acute symptoms.
Went with patient up to GI lab and present during Dr. Song's upper GI endoscopy identifying large clot overlying cyst gastrostomy site. Did not disturb. No active bleeding visualized. No additional ulceration or bleeding sites. Sweep of the
duodenum was visualized endoscopically and unremarkable. No endoscopic findings concerning for esophageal, stomach or duodenal ischemia, perforation or compromise.
Plan: No indications for acute surgical intervention.
Discussed with Dr. Song. Consider CT angio to rule out any ongoing bleeding as unable to visualize pseudocyst cavity with current clot burden.
Serial H&H, transfusions and aggressive resuscitation with monitoring for ongoing blood loss.
Follow-up for any signs of gastric outlet obstruction but this appears unlikely so far based on upper endoscopy findings. Could consider upper GI swallow evaluation when GI clears to resume dietary intake.
Unfortunately this may be a challenging long-term management situation without surgical intervention due to multiple recurrent episodes of bleeding at his pancreatic necrosectomy site raw surface area. PV likely contributing to bleeding episodes.
Consideration to be given to referral to tertiary care center for hepatobiliary/pancreatic surgeon evaluation.
--- NOTE | 2024-02-08 19:01 | PTCARENOTE ---
pt received from pacu- aox3, able to make needs known. nsr on monitor- 2LNC, sats 99%. bp 102/81. ivf infusing and protonix gtt as per order. chg bath given. scds on. labs sent. singletary draining ana urine- core temp 99.0. all safety precautions in
place, lungs clear, good pulses. last bm per pt was this am.
[2024-02-08 19:10] LABS: Hematocrit 17.4 % (39.0-52.0); Hemoglobin 5.9 g/dL (13.0-18.0)
[2024-02-08 19:16] LABS: Lactic Acid 0.9 mmol/L (0.7-2.0)
--- NOTE | 2024-02-08 21:00 | PTCARENOTE ---
Received pt and went for abd CT. Aox3, VSS, c/o abd pain 06/29. Tylenol administered. No obvious signs of bleeding at this time. Repeat Hemiglobin 5.9, 1 unit PRBC ordered.
[2024-02-08] MEDS: OFIRMEV 100 IV (21:24)
[2024-02-08] MEDS: ProAIR HFA INHALER 2 PUFF INH (21:44)
[2024-02-09] VITALS (82 sets, daily range): BP systolic 86–190; BP diastolic 55–131; BMI 23.6
--- NOTE | 2024-02-09 00:18 | PTCARENOTE ---
Protonix gtt and NS infusing per order. 1unit PRBC infused. VSS. Temp 99.3, pt is sleeping comfortably in bed,.
[2024-02-09] MEDS: PROTONIX 100 IV ×3 (01:20→22:03)
[2024-02-09] MEDS: NSS 1000 IV ×3 (03:34→23:35)
[2024-02-09] MEDS: ProAIR HFA INHALER 2 PUFF INH ×3 (03:44→20:45)
[2024-02-09 04:10] LABS: % Basophils 0.2 % (0-2); % Immature Granulocytes 0.5 % (0-0.5); % Lymphocytes 8.9 % (20.5-51.1); % Monocytes 6.4 % (1.7-9.3); Absolute Eosinophils 0.1 10^3/uL (0-0.7); Absolute Lymphocytes 0.5 10^3/uL (1.2-3.4); Absolute Monocytes 0.4 10^3/uL (0.1-0.6); Mean Corp Hgb Conc. 34.1 g/dL (33.0-37.0); Mean Platelet Volume 10.8 fL (7.4-10.4); Nucleated Red Blood Cells % 0 % (-); Platelet Count 163 10^3/uL (130-400); Red Blood Cell Count 2.14 10^6/uL (4.70-6.10); Red Cell Dist. Width 15.4 % (11.5-14.5); White Blood Cell Count 6.1 10^3/uL (4.8-10.8)
[2024-02-09 04:16] LABS: Osmolality Serum 287 mOsm/kg (275-300)
[2024-02-09] MEDS: MORPHINE SULFATE 2 MG IV ×4 (04:20→19:34)
[2024-02-09 04:26] LABS: ALT (SGPT) 18 U/L (0-50); AST (SGOT) 26 U/L (17-59); Albumin 2.3 g/dl (3.5-5.0); Alkaline Phosphatase 76 U/L (38-126); Blood Urea Nitrogen 24 mg/dl (9-20); Carbon Dioxide 21 mmol/L (22-30); Chloride 109 mmol/L (98-107); Estimated Creatinine Clearance 98 ml/min; Glucose 130 mg/dl (70-99); Potassium 4.4 mmol/L (3.5-5.1); Sodium 131 mmol/L (135-145); Total Bilirubin 0.5 mg/dl (0.2-1.3); Total Protein 4.2 g/dl (6.3-8.2); eGFR > 60.00
[2024-02-09 04:30] LABS: Hematocrit 18.2 % (39.0-52.0); Hemoglobin 6.2 g/dL (13.0-18.0)
[2024-02-09] MEDS: CALCIUM GLUCONATE 130 MG IV (04:52)
[2024-02-09 05:02] LABS: Cortisol, Random 19.5 ug/dl; TSH Reflex To Free T4 1.22 uIU/ml (0.47-4.68)
--- NOTE | 2024-02-09 05:03 | PTCARENOTE ---
Pt hemoglobin 6.2, another PRBC ordered. Calcium 7, infusing calcium gluconate. dose of Morphine for 9/10 abd pain. Run of SVT noted, Pt with no symptoms, VSS.
[2024-02-09 05:26] LABS: Magnesium 2.4 mg/dl (1.6-2.3)
[2024-02-09 05:42] LABS: Osmolality Urine 605 mOsm/kg (300-900)
[2024-02-09 05:55] LABS: Urine Sodium 152 mmol/L (30-90)
--- NOTE | 2024-02-09 07:24 | PTCARENOTE ---
pt received from previous rn- aox3- nsr w/ 1st degree block on monitor, room air. unit of blood infusing- pt tolerating. ivf and protonix gtts continue as per order. pt able to turn and reposition self. c/o minimal abdominal pain at this time. all
safety precautions in place. call messina within reach.
--- NOTE | 2024-02-09 07:43 | W.PN.INTV ---
Today's Communication / Plan
Recommendations
Serial hemoglobin
Continue to transfuse
Norepinephrine if needed
Repeat endoscopy
Assessment
-
68-year-old male former smoker who was just discharged 01/29/2024 for anemia and underwent EGD and colonoscopy who also has a history of necrotizing pancreatitis, recurrent ascites, asthma, polycythemia vera, prostate cancer, Parkinson's, IBS and
pancreatitis presented with diffuse abdominal pain noted to have severe anemia, GI bleed and with hypotension admitted to ICU-estimator binding consulted for anemia/GI bleed/critical care management 02/08/2024.
GI bleed with hemorrhagic shock
Emergent endoscopy 02/08/2024-normal esophagus, large amount of clotted blood gastric body, cyst gastrostomy stent noted, duodenum normal
Repeat endoscopy 02/09/2024
Anemia due to acute blood loss-hemoglobin 5.3
Lactic acidosis
Hypocalcemia
Leukocytosis
Hypoalbuminemia
Conditions present prior to admission:
Necrotizing pancreatitis-recurrent with initial episode March 2023, hemorrhagic episode 06/2023, and subsequent September 2023
Recurrent ascites-status post multiple paracenteses
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
Portal vein thrombosis-was on Eliquis
Recurrent GI bleed.
Pancreatic cyst infection-strep bacteremia-hospitalized 12/2023
Former [id number]-year quit 2021
Asthma-on albuterol, no maintenance inhalers, does not see a rn progressive care
Prostate cancer/prostatectomy.
Hypertension.
Parkinson's.
Anxiety.
Depression.
Plan
Patient remains critically ill with ongoing bleeding and need for continuous transfusions
Supplemental oxygen as needed
Patient not to be intubated mechanically ventilated as a DNR
Aspiration precautions
Incentive spirometry
Continue to follow hemoglobin
Transfuse packed red blood cells and FFP as needed
Intravenous fluid resuscitation
Norepinephrine as needed
Monitor coagulopathy
GI evaluation ongoing-reviewed personally with GI/PA
EGD-pending
Lipase normal
CT abdomen noted-summarized below
Recent endoscopy and colonoscopy reviewed
Ocreotide drip and PPI drip if needed per GI
Empiric antibiotics if ascites is suspected
Hematology evaluation noted-correspondence reviewed
History of polycythemia vera on Jakafi-on hold
Was on Eliquis with history of thrombosis-portal vein thrombosis-, however, may need to be discontinued because of recurrent bleeding/hemorrhagic pancreatitis
DVT prophylaxis-mechanical
GI prophylaxis-on PPI
Aspiration precautions
Nutrition per gastroenterology
Early mobilization
Dr. Estrada reviewed with in the emergency room as well as GI
Recommend outpatient pulmonary evaluation-PFTs, ongoing smoking cessation counseling, and likely eligible for yearly low-dose lung cancer screening CT
Critical care statement: A total of 35 minutes of critical care time was provided for this patient today. This includes management of unstable vital signs, management of transfusions, evaluation of the patient at bedside, reviewing the patient's
pertinent medical records including radiographs, pressor management, severe anemia management with transfusions, microbiology, laboratory evaluations, and discussion with primary team, consultants, pharmacy, nutrition, physical therapy, case
management, charge nurse, critical care nursing, and respiratory therapy.
Diagnostic data:
Chest x-ray 02/08/2024-NAD
CT abdomen and pelvis 02/08/2024-pancreatitis with 6 cm pancreatic pseudocyst, gastropancreatic stent extends to margin but not into the pseudocyst, partial bowel obstruction, 1.5 cm adrenal adenoma
Subjective Dataa
Subjective Data
Date of Service:
Date of Service: February 09, 2024
Chief Complaint: Managing Partner Follow Up, Pulmonary Follow Up and Other (GI bleeding)
Subjective:
Patient feels overall better, has received 4 units of packed red blood cells, good urine output, ongoing bleeding, ongoing abdominal pain, no shortness of breath, chest pain, productive cough
Review of Systems
General: Other (Per HPI)
Objective Data
Data Reviewed
Vital Signs / I&O / Oxygen:
Vital Signs
Temp Pulse Resp BP Pulse Ox
99.2 F 76 16 112/97 95
02/09/24 07:19 02/09/24 07:15 02/09/24 07:15 02/09/24 07:15 02/09/24 07:19
Intake and Output
02/08/24 02/09/24 02/10/24
06:59 06:59 06:59
Intake Total 2019 / 2129 110 / 110
Output Total 2315 / 2615 300 / 300
Balance -295 / -485 -190 / -190
SaO2 95
Nasal Cannula flow liters per 2
minute
Physical Exam
General: Respiratory Distress (n) and Comfortable
HEENT: Normocephalic, Anicteric and Moist Mucous Membranes
Cardiovascular: Regular Rhythm
Respiratory: Wheeze (n), Crackles (Rare basilar), Rhonchi (n), Non-Labored Respirations, Accessory Resp Muscle Use (n) and Stridor (n)
GI: Soft, Non Distended and Tender
Neurology: Awake, Alert and No Motor Deficits
Skin: Warm, Good Color, Cyanosis (n), Jaundice (n) and Rash (n)
Labs/Micro/Reports
Lab Data
02/09/24 03:53
Laboratory Results
02/08/24
13:10
PT 16.9 H
INR 1.36
APTT 23.2 L
--- NOTE | 2024-02-09 09:00 | W.PN.HOSP.TC ---
Today's Communication/Plan
-
Blood transfusion. IV PPI drip. Plan for repeat EGD today.
Assessment / Plan
Assessment / Plan
Physical exam:
General: Acutely ill.�Frail
HEENT: Normocephalic, Atraumatic and Dry Mucous Membranes
Respiratory: Clear to Auscultation; Negative Wheezes, Rales or Rhonchi
Cardiac: Regular Rhythm and S1/S2
GI: Soft, Tender diffusely and distended
Musculoskeletal: No Clubbing, No Cyanosis and No Edema
Neuro: Awake Alert and Oriented.� Generalized weakness. No gross neuro-deficits.
Psych: Calm
A/P:
Impression:
Acute GI bleed with hemorrhagic shock
Acute symptomatic blood loss anemia
Severe metabolic acidosis/lactic acidosis
Hyponatremia
Less likely small bowel obstruction
Leukocytosis
Hypoalbuminemia
Conditions prior to presentation:
Severe necrotizing pancreatitis
Hemorrhagic pancreatitis
Polycythemia vera on Jakafi
Prostate cancer
Parkinson's disease
History of splenic vein and portal vein thrombosis
History of cystogastrostomy with stent and necrosectomy with bleeding and stent exchange.
History of ascites
History recurrent GI bleed
History of chronic anemia
PLAN:
Keep n.p.o. and IV fluids
Status post emergent EGD on 02/07 for a large clot of blood in the gastric body. Status post CTA of the abdomen with no active extravasation bleeding but gastropancreatic stent has changed position.
Plan to repeat EGD today on 02/08 +/- EUS
Repeat Blood transfusion today and as needed
Continue pantoprazole drip
Pressors as needed
Given Invanz last evening but hold off on further antibiotics.
Follow-up cultures
SCDs for DVT prophylaxis. No pharmacological prophylaxis due to active GI bleed and anemia.
CODE STATUS DNR
Total time spent on today's encounter was 65 minutes which included time spent in counseling the patient/family regarding diagnosis and treatment plan as listed above, goals of care, and symptom management. Case was discussed with nursing staff,
specialists, and care coordinators/case management. All labs and imaging personally reviewed by me. Remainder the time spent in detailed review of previous records, lab data, imaging, and other medical provider documentation.
Anticipated Discharge: > 48 hours
Subjective/Interval History
-
Date of Service: February 09, 2024
Patient feels better today. He is also in better spirits. He still has abdominal pain, diffusely but less intense. No chest pain or shortness of breath. Afebrile
Objective Data
-
Labs:
Laboratory Results
02/09/24 02/09/24 02/09/24
03:53 03:53 03:53
WBC 6.1
Hgb Cancelled 6.2 L*
Hct Cancelled 18.2 L*
Plt Count 163 D
Sodium 131 L
Potassium 4.4
Chloride 109 H
Carbon Dioxide 21 L
BUN 24 H
Creatinine 0.7
Glucose 130 H
Calcium 7.0 L
Total Bilirubin 0.5
AST 26
ALT 18
Alkaline Phosphatase 76
02/09/24
09:00
WBC
Hgb Pending
Hct Pending
Plt Count
Sodium
Potassium
Chloride
Carbon Dioxide
BUN
Creatinine
Glucose
Calcium
Total Bilirubin
AST
ALT
Alkaline Phosphatase
Vital Signs:
Vital Signs
Temp Pulse Resp BP Pulse Ox
99.3 F 78 20 116/77 96
02/09/24 08:07 02/09/24 08:07 02/09/24 08:07 02/09/24 08:07 02/09/24 08:06
I&O
02/08/24 02/09/2402/09/24
06:59 06:59 06:59
Intake Total 2019 580 / 580
Output Total 2314 / 2614 700 / 700
Balance -295 / -485 -120 / -120
Review of Systems
-
All other systems: Reviewed and negative
--- NOTE | 2024-02-09 09:13 | CON.ONC ---
Addendum entered and electronically signed by Farhad Rothman MD 02/09/24 15:45:
Hematology Addendum:
Patient seen and evaluated and agree w/ BUSINESS MANAGER note and plan as outlined
-acute anemia of GI blood loss - GI and surgery following - for additional EGD eval this afternoon
-cont trasfusional support prn - PRBCs to maintain Hb>7g/dl
-follow CBC
Original Note:
Impression
Impression
Polycythemia vera on Jakafi( +JAK2 mutation)
Hx splenic/portal vein thrombosis
Recent GIB s/p EGD/colonoscopy (01/2024)
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
Hx Hemorrhagic pancreatitis
Cystogastrostomy with stenting
Acute GIB; hypovolemic shock
Symptomatic blood loss anemia
Partial bowel obstruction
Acute abdominal pain
Hx ascites s/p paracentesis (11/2023)
Hx prostate cancer s/p prostatectomy
Plan
Plan
02/08 Hgb 6.8, Hct 20.4
s/p 4units pRBCs, 1unit transfusing now
Transfuse as needed to maintain Hgb >7, PLT >20 (or >50 with active bleeding)
Serial H/H, monitor for bleeding
Hold Jakafi
GI following: s/p EGD. For repeat EGD this afternoon
Consider transfer to tertiary care center
We will follow. Monitor counts.
Outpatient followup will be arranged with Dr. Malin regarding polycythemia vera/management of Jakafi.
Patient History
History of Present Illness
Raul Jeffery is a 68 year old male known to Dr. Malin with [place] for history of polycythemia vera on Jakafi. He presented to the ER yesterday, 02/07, via EMS with complaints of severe diffuse abdominal pain and weakness. EMS and spouse
reported patient to be very pale, minimally responsive, disoriented, and lethargic with systolic BP in the 50s. He received 600cc NSS bolus en route as well as epinephrine which BP responded to. On arrival to the ER, Hgb noted to be 5.3. He received
blood products in the ER; total of 4 units. He reported symptoms of nausea and GERD to staff once he was more alert. Denies vomiting or evidence of bloody stools. Imaging concerning for migration of gastropancreatic stent and partial bowel
obstruction as a result of acute pancreatitis and dilation of duodenal bulb/stomach. He was taken urgently for endoscopy with Dr. Song GI. He was admitted to ICU post-procedure. EGD showed large amount of clotted blood in gastric body overlying cyst
gastrostomy site with stent visualized. Stent was not exchanged or removed. Dr. Reece was consulted and did not recommend surgical intervention at this time.
Past-Medical/Surgical History
Polycythemia vera on Jakafi
+JAK2 mutation
Hx phlebotomy
Hx portal vein thrombosis
Recurrent necrotizing pancreatitis
Hemorrhagic pancreatitis
Hx prostate cancer s/p prostatectomy
Recent GIB
Recurrent ascites
Parkinson's disease
Hypertension
Asthma
Former smoker (2021, 50 pack year hx)
Former ETOH (2 beers/daily)
Pancreatic cyst infection; strep bacteremia
Anxiety/depression
Patient Medication
Medication Instructions Recorded Confirmed Last Taken Type
albuterol sulfate 90 mcg/actuation 2 puff inhalation R Q6HPRN PRN sob 01/19/18 02/08/24 02/08/24 History
aerosol inhaler
carbidopa 25 mg-levodopa 100 mg 2 tab PO TID Neurological Condition 07/07/23 02/08/24 02/08/24 History
tablet
ruxolitinib 20 mg tablet (Jakafi) 20 mg PO BID Immunologic 07/07/23 02/08/24 02/08/24 History
10 mg
pantoprazole 40 mg tablet,delayed 40 mg PO HS Gastrointestinal Issue 09/28/23 02/08/2424 History
release
cyanocobalamin (vitamin B-12) 1,000 mcg PO DAILY #100 tabs 10/13/23 02/08/24 01/24/24 Rx
1,000 mcg tablet
sennosides 8.6 mg tablet (senna) 8.6 mg PO BID Constipation 11/23/23 02/08/24 01/24/24 History
docusate sodium 100 mg capsule 100 mg PO BID Constipation 01/05/24 02/08/24 02/05/24 History
folic acid 1 mg tablet 1 mg PO DAILY Supplement 01/05/24 02/08/24 02/08/24 History
ferrous sulfate 325 mg (65 mg 325 mg PO Q48H Supplement 01/24/24 02/08/24 Unknown History
iron) tablet
aspirin 81 mg tablet,delayed 81 mg PO DAILY 02/08/24 02/08/24 02/08/24 History
release
ggoxcd-flsezhzu-bxxeoex 1 cap PO AC 02/08/24 02/08/24 02/08/24 History
24,000-76,000-120,000 unit
capsule,delayed rel (Creon)
polyethylene glycol 3350 17 gram 17 g PO DAILY Constipation 02/08/24 02/08/24 02/06/24 History
oral powder packet (HealthyLax)
Active Medications
Generic Name Dose Route Start Last Admin
Trade Name Freq PRN Reason Stop Dose Admin
Albuterol 2 puff 02/08/24 21:49 02/09/24 08:04
Albuterol Hfa [90 Mcg/Dose] Inhaler INH 2 puff
R Q4HPRN PRN Administration
sob
Protocol
Pantoprazole Sodium 80 mg in 100 mls @ 10 mls/hr 02/08/24 16:00 02/09/24 01:20
Protonix IV 100 mls
Q10H SELINA Administration
8 MG/HR
Sodium Chloride 1,000 mls @ 100 mls/hr 02/08/24 17:51 02/09/24 03:34
Nss IV 1,000 mls
.Q10H SELINA Administration
Norepinephrine Bitartrate 4 mg in 250 mls @ 0 mls/hr 02/08/24 19:30
Levophed IV
PER PROTOCOL SELINA
Protocol
Per Protocol
Morphine Sulfate 2 mg 02/09/24 08:35 02/09/24 08:52
Morphine 2 Mg/Ml Syringe IV 02/23/24 08:34 2 mg
Q2HPRN PRN Administration
pain
Sodium Chloride 0 flush 02/08/24 16:00
Sodium Chloride 0.9% (Flush) Syringe IV 03/07/24 15:59
PER PROTOCOL SELINA
Review of Systems
-
History Source: Patient, Family, Physician, Coordinated Provider and Records
Constitutional: Reports Fatigue
EENT: Reports No Symptoms
Respiratory: Reports No Symptoms
Cardiac: Reports No Symptoms
GI: Reports Abdominal Pain
Breast: Reports N/A
Musculoskeletal: Reports No Symptoms
Skin: Reports No Symptoms
Neuro: Reports No Symptoms
Endocrine: Reports No Symptoms
Hematologic/Lymphatic: Reports No Symptoms
Allergy / Immunology: Reports No Symptoms
Psych: Reports No Symptoms
Physical Exam
-
Patient is resting comfortably in bed. He notes abdominal pain with palpation. Family at bedside; very anxious. 1unit blood transfusing at this time.
General: No Apparent Distress, Comfortable and Conversant
HEENT: Negative Jaundice
Cardiology: S1 and S2
Pulmonary: Clear
GI: Normal Bowel Sounds
Genito-Urinary: Rodriguez (clear, yellow urine)
Musculoskeletal: No Edema
Extremities: Pulses Present
Neurology: Non Focal
Skin: Warm and Dry
Psych: Calm
Labs
Lab Results
WBC 6.1 10^3/uL (4.8-10.8) 02/09/24 03:53
RBC 2.14 10^6/uL (4.70-6.10) L 02/09/24 03:53
Hgb 6.2 g/dL (13.0-18.0) L* 02/09/24 03:53
Hgb Cancelled 02/09/24 03:53
Hct 18.2 % (39.0-52.0) L* 02/09/24 03:53
Hct Cancelled 02/09/24 03:53
MCV 85.0 fL (80.0-94.0) 02/09/24 03:53
MCH 29.0 pg (27.0-31.0) 02/09/24 03:53
MCHC 34.1 g/dL (33.0-37.0) 02/09/24 03:53
RDW 15.4 % (11.5-14.5) H 02/09/24 03:53
Plt Count 163 10^3/uL (130-400) D 02/09/24 03:53
MPV 10.8 fL (7.4-10.4) H 02/09/24 03:53
Abs Immat Gran (auto) 0.0 10^3/uL (0-0.05) 02/09/24 03:53
Absolute Neuts (auto) 5.0 10^3/uL (1.4-6.5) 02/09/24 03:53
Absolute Lymphs (auto) 0.5 10^3/uL (1.2-3.4) L 02/09/24 03:53
Absolute Monos (auto) 0.4 10^3/uL (0.1-0.6) 02/09/24 03:53
Absolute Eos (auto) 0.1 10^3/uL (0-0.7) 02/09/24 03:53
Absolute Basos (auto) 0.0 10^3/uL (0-0.2) 02/09/24 03:53
Immature Gran % 0.5 % (0-0.5) 02/09/24 03:53
Neutrophils % 83.0 % (42.2-75.2) H 02/09/24 03:53
Lymphocytes % 8.9 % (20.5-51.1) L 02/09/24 03:53
Monocytes % 6.4 % (1.7-9.3) 02/09/24 03:53
Eosinophils % 1.0 % (0-6) 02/09/24 03:53
Basophils % 0.2 % (0-2) 02/09/24 03:53
Creatinine 0.7 mg/dL (0.7-1.3) 02/09/24 03:53
Vital Signs
Vital Signs
Temp Pulse Resp BP Pulse Ox
99.3 F 78 20 116/77 96
02/09/24 08:07 02/09/24 08:07 02/09/24 08:07 02/09/24 08:07 02/09/24 08:06
02/08/24 CT abd/pelvis: No findings to suggest an acute GI bleed.When compared to the exam performed 6 hours earlier there is now slight increase in bibasilar dependent atelectasis, new perihepatic and perisplenic ascites and a small amount of
ascites in the pelvis.The gastropancreatic stent has changed position and is now in the gastric fundus. This does not extend to the pancreas.
[2024-02-09 09:27] LABS: Hemoglobin 6.8 g/dL (13.0-18.0)
[2024-02-09 09:28] LABS: Hematocrit 20.4 % (39.0-52.0)
--- NOTE | 2024-02-09 09:49 | VNURNOTE ---
Patient is current with [facility] since 01/17 w/SN, will monitor progress and plan at discharge.
--- NOTE | 2024-02-09 11:24 | W.PN.UPDATE ---
Update Note
Progress Note Update
Discussed with Dr. Song this morning. Patient is scheduled for repeat EGD +/- EUS this afternoon.
Updated patient's
Continue monitor hemoglobin. Transfuse to keep hemoglobin above 7
--- NOTE | 2024-02-09 11:36 | PTCARENOTE ---
pt receiving additional unit of blood. at bedside and updated- verbalized understanding for plan of care. assessment unchanged.
--- NOTE | 2024-02-09 11:49 | W.PN.GS2 ---
Today's Communication / Plan
-
-- No plans for surgical intervention at this time
-- Repeat EGD planned by GI, would place NGT at time of procedure
-- Continue to transfuse with goal Hb > 7
-- Consider transfer to tertiary care center ([facility])
Assessment / Plan
-
68-year-old male with history of necrotizing pancreatitis c/b WOPN s/p EGD with cystogastrostomy and necrosectomy, complicated by stent migration requiring repeat EGDs most recently on . Pt p/w acute GI bleed from cystgastrostomy which is
likely compounded by his history of polycythemia vera.
EGD (02/07): Large amount of clot, no active bleeding, normal first and second portions of duodenum, bulging from mass effect of cyst on bulb
Complex issue compounded by current bleeding likely worsened with history of PCV. GI plans for repeat EGD and EUS today, will need to touch base on the colon plans with this procedure. Mr. Jeffery has received 4 units of PRBCs with mild improvement
and Hb. Afebrile and hemodynamically stable, making large quantities of urine - clinically it does not appear as though he has significant ongoing bleeding. Surgical treatment of WOPN includes open and MIS (VARD) necrosectomy. Given his current
issues with bleeding a necrosectomy may have risks > benefits, and necessitate distal pancreatectomy. No plans for surgical intervention at this time. Given complexity would consider transfer to tertiary center, family requesting [facility].
-- No plans for surgical intervention at this time
-- Repeat EGD planned by GI, would place NGT at time of procedure
-- Continue to transfuse with goal Hb > 7
-- Consider transfer to tertiary care center ([facility])
Subjective Data
-
Date of Service: February 09, 2024
Complaints of abdominal pain. Reports dizziness. No current nausea or emesis. No fevers
Objective Data
-
Intake and Output
02/08/24 02/09/24 02/10/24
06:59 06:59 06:59
Intake Total 2019 800 / 800
Output Total 231 / 2615 1100 / 1100
Balance -295 / -485 -300 / -300
Intake:
IV fluids (Total) 1520 / 1630 550 / 550
Nss 1400 / 1500 500 / 500
protonix 120 / 130 50 / 50
Blood Product Amount Infused ( 500 / 500 250 / 250
mL)
Packed Rbc Leukoreduced Unit 0 / 0
[id number]
Packed Rbc Leukoreduced Unit 0 / 0
[id number]
Packed Rbc Leukoreduced Unit 250 / 250
[id number]
Packed Rbc Leukoreduced Unit 250 / 250
[id number]
Packed Rbc Leukoreduced Unit 0 / 0 250 / 250
[id number]
Output:
Urine, Rodriguez 2315 / 2615 1100 / 1100
Vital Signs
Temp Pulse Resp BP Pulse Ox
99.2 F 77 16 125/94 98
02/09/24 11:02 02/09/24 11:30 02/09/24 11:30 02/09/24 11:30 02/09/24 11:30
Lab Results
02/09/24 09:11
02/09/24 03:53
Calcium 7.0 mg/dl (8.4-10.2) L 02/09/24 03:53
Magnesium 2.4 mg/dl (1.6-2.3) H 02/09/24 03:53
Total Bilirubin 0.5 mg/dl (0.2-1.3) 02/09/24 03:53
AST 26 U/L (17-59) 02/09/24 03:53
ALT 18 U/L (0-50) 02/09/24 03:53
Alkaline Phosphatase 76 U/L (38-126) 02/09/24 03:53
Total Protein 4.2 g/dl (6.3-8.2) L 02/09/24 03:53
Albumin 2.3 g/dl (3.5-5.0) L 02/09/24 03:53
Physical Exam
-
Gen: NAD, pale
Abd: soft, tender diffusely though primarily in upper abdomen, mild/moderate distension, non-peritoneal
--- NOTE | 2024-02-09 13:13 | CM ---
CM following re: discharge planning.
Discussed in Rounds, reviewed pt's chart, met with pt.
Pt is a 68 year old male, admitted with primary dx of GI bleed with hemorrhagic shock. per Rounds meeting, Emergent endoscopy yesterday 02/08/2024, Repeat endoscopy today 02/09/2024. Per general surgery, Consider transfer to tertiary care center [facility]
Patient reports he lives with his spouse in a 3 story home including basement; 2 steps to enter; 13 steps between floors; 2nd floor bath has tub with shower and grab bar
Pt reports he is independent with ADLs; uses a walker with ambulation when he is on the 2nd floor of the house, drives, active with [employer]
PCP: Linnette Wisdom
Pharmacy: [facility].
D/C plan: recommended transfer to [facility].
CM will follow with discharge plan updates as hospitalization progresses
--- NOTE | 2024-02-09 13:30 | PTCARENOTE ---
pt taken to gi lab at 1230- blood infusion continued as transported. pt tolerating.
--- NOTE | 2024-02-09 16:18 | CHAP ---
Emotional and spiritual support provided for Raul's , Bee, in his room while he was off the floor for a procedure. Bee is overwhelmed and exhausted and appreciated the chance to talk. Will follow as able.
[2024-02-09 16:52] LABS: Hematocrit 27.5 % (39.0-52.0)
[2024-02-09 16:56] LABS: Hemoglobin 9.2 g/dL (13.0-18.0)
--- NOTE | 2024-02-09 17:05 | PTCARENOTE ---
pt received from gi lab at approx 1600- pt on room air- oriented, complaining of pain- morphine given as per order. vitals stable and as charted- nsr. pt with multiple melena stools- dr. renee aware- trumpet in place. pt given full bed bath. iv fluids
and protonix gtts continue. pt ok for clear liquid diet. update and education provided to - verbalized understanding. scds on. all safety precautions in place, call messina within reach.
--- NOTE | 2024-02-09 19:52 | PTCARENOTE ---
Pt Aox3, periods of forgetfulness, NSR on monitor, complains of 9/10 central abdominal pain. PRN morphine. IVF and Protonix per order. Pt tolerating CLD, and having frequent diarrhea, black in color. Trumpet in place. Rodriguez draining adequate amount
of urine. Pt turns self in bed. SCDs are on.
[2024-02-09 23:13] LABS: % Basophils 0.1 % (0-2); % Immature Granulocytes 0.7 % (0-0.5); % Lymphocytes 3.5 % (20.5-51.1); % Monocytes 2.5 % (1.7-9.3); % Neutrophils 93.2 % (42.2-75.2); Absolute Immature Granulocytes 0.1 10^3/uL (0-0.05); Absolute Lymphocytes 0.3 10^3/uL (1.2-3.4); Absolute Monocytes 0.2 10^3/uL (0.1-0.6); Absolute Neutrophils 8.4 10^3/uL (1.4-6.5); Hematocrit 23.5 % (39.0-52.0); Hemoglobin 8.2 g/dL (13.0-18.0); Mean Corp Hgb Conc. 34.9 g/dL (33.0-37.0); Mean Corpuscular Hgb 28.9 pg (27.0-31.0); Mean Corpuscular Volume 82.7 fL (80.0-94.0); Mean Platelet Volume 10.6 fL (7.4-10.4); Nucleated Red Blood Cells % 0 % (-); Platelet Count 167 10^3/uL (130-400); Red Blood Cell Count 2.84 10^6/uL (4.70-6.10); Red Cell Dist. Width 16.1 % (11.5-14.5)
[2024-02-09] MEDS: OFIRMEV 100 IV (23:27)
--- NOTE | 2024-02-09 23:30 | PTCARENOTE ---
Pt AOx3, some confused conversation, Tylenol for a pain. Protonix gtt infusing, pt resting comfortably in bed. Hemoglobin 8.2.
[2024-02-10] VITALS (47 sets, daily range): BP systolic 80–139; BP diastolic 42–120; BMI 23.3
[2024-02-10] MEDS: ProAIR HFA INHALER 2 PUFF INH ×5 (02:21→20:24)
[2024-02-10 04:40] LABS: % Basophils 0.1 % (0-2); % Eosinophils 0.1 % (0-6); % Immature Granulocytes 0.6 % (0-0.5); % Lymphocytes 5.1 % (20.5-51.1); % Monocytes 4.5 % (1.7-9.3); % Neutrophils 89.6 % (42.2-75.2); Absolute Lymphocytes 0.4 10^3/uL (1.2-3.4); Absolute Monocytes 0.3 10^3/uL (0.1-0.6); Absolute Neutrophils 6.2 10^3/uL (1.4-6.5); Hematocrit 22.6 % (39.0-52.0); Hemoglobin 7.3 g/dL (13.0-18.0); Mean Corp Hgb Conc. 32.3 g/dL (33.0-37.0); Mean Corpuscular Hgb 27.8 pg (27.0-31.0); Mean Corpuscular Volume 85.9 fL (80.0-94.0); Mean Platelet Volume 10.8 fL (7.4-10.4); Nucleated Red Blood Cells % 0 % (-); Platelet Count 152 10^3/uL (130-400); Red Blood Cell Count 2.63 10^6/uL (4.70-6.10); Red Cell Dist. Width 16.1 % (11.5-14.5); White Blood Cell Count 6.9 10^3/uL (4.8-10.8)
[2024-02-10 05:02] LABS: Blood Urea Nitrogen 27 mg/dl (9-20); Calcium 7.1 mg/dl (8.4-10.2); Carbon Dioxide 21 mmol/L (22-30); Chloride 108 mmol/L (98-107); Estimated Creatinine Clearance 114 ml/min; Glucose 153 mg/dl (70-99); Potassium 4.4 mmol/L (3.5-5.1); Sodium 129 mmol/L (135-145); eGFR > 60.00
[2024-02-10] MEDS: MORPHINE SULFATE 2 MG IV ×5 (05:35→19:35)
--- NOTE | 2024-02-10 06:23 | W.PN.ONC2 ---
Today's Communication / Plan
-
Follow CBC and transfuse PRN.
Continue to hold Jakafi while basically NPO.
Impression
Impression
Active Upper GI bleed
Polycythemia vera on Jakafi( +JAK2 mutation)
Hx splenic/portal vein thrombosis
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
Hx Hemorrhagic pancreatitis
Cystogastrostomy with stenting
Symptomatic blood loss anemia
Partial bowel obstruction
Hx ascites s/p paracentesis (11/2023)
Hx prostate cancer s/p prostatectomy
Plan
Plan
Active GI bleeding noted on EGD: Red blood clot and fresh blood in the gastric fundus and in the gastric body. Previous cystogastrostomy fistula was located and dilated. The cavity was entered, large amount of clot was seen. After clot removal,
active spurting hemorrhage was localized. Treated with hot biopsy forceps and coag grasper.
Hold Jakafi while NPO. No evidence for discontinuation syndrome.
Outpatient followup will be arranged with Dr. Malin regarding polycythemia vera/management of Jakafi.
Subjective/Objective
Chief Complaint
ACS Heme Onc
Subjective
Patient getting PRBC currently. Feels 'very, very tired.' EGD results noted.
Vital Signs:
Vital Signs
Temp Pulse Resp BP Pulse Ox
98.0 F 79 16 104/45 98
02/10/24 05:31 02/10/24 05:31 02/10/24 05:31 02/10/24 05:31 02/10/24 05:15
Lab Results:
Laboratory Data
WBC 6.9 10^3/uL (4.8-10.8) 02/10/24 04:06
Hgb 7.3 g/dL (13.0-18.0) L 02/10/24 04:06
Plt Count 152 10^3/uL (130-400) 02/10/24 04:06
PT 16.9 Sec (11.4-14.6) H 02/08/24 13:10
INR 1.36 02/08/24 13:10
APTT 23.2 Sec (23.4-35.0) L 02/08/24 13:10
eGFR > 60.00 02/10/24 04:06
Physical Exam
HEENT: No Jaundice
Cardiology: S1 and S2
Pulmonary: Clear
--- NOTE | 2024-02-10 07:06 | W.PN.INTV ---
Today's Communication / Plan
Recommendations
EGD results reviewed
Follow hemoglobin
Transfuse as needed
Advance diet
If remains hemodynamically stable without active bleeding then transfer out of ICU-call pulmonary if respiratory issues arise
Assessment
-
68-year-old male former smoker who was just discharged 01/29/2024 for anemia and underwent EGD and colonoscopy who also has a history of necrotizing pancreatitis, recurrent ascites, asthma, polycythemia vera, prostate cancer, Parkinson's, IBS and
pancreatitis presented with diffuse abdominal pain noted to have severe anemia, GI bleed and with hypotension admitted to ICU-blueprint clerk consulted for anemia/GI bleed/critical care management 02/08/2024.
GI bleed with hemorrhagic shock
Emergent endoscopy 02/08/2024-normal esophagus, large amount of clotted blood gastric body, cyst gastrostomy stent noted, duodenum normal
Repeat endoscopy 02/09/2024
Anemia due to acute blood loss-hemoglobin 5.3-received a total of 8 units x 02/10/20 4 AM
Lactic acidosis
Hypocalcemia
Leukocytosis
Hypoalbuminemia
Conditions present prior to admission:
Necrotizing pancreatitis-recurrent with initial episode March 2023, hemorrhagic episode 06/2023, and subsequent September 2023
Recurrent ascites-status post multiple paracenteses
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
Portal vein thrombosis-was on Eliquis
Recurrent GI bleed.
Pancreatic cyst infection-strep bacteremia-hospitalized 12/2023
Former [id number] quit 2021
Asthma-on albuterol, no maintenance inhalers, does not see a pattern setter
Prostate cancer/prostatectomy.
Hypertension.
Parkinson's.
Anxiety.
Depression.
Plan
Continues to be critically ill with ongoing bleeding and ongoing transfusions
Supplemental oxygen as needed
Patient not to be intubated mechanically ventilated as a DNR
Aspiration precautions
Incentive spirometry
Monitor hemoglobin closely
Transfuse packed red blood cells and FFP as needed-has received 8 units thus far
Intravenous fluid resuscitation
Norepinephrine as needed
Monitor coagulopathy
GI evaluation ongoing-reviewed personally with GI/PA
EGD-02/09/[address] Song-esophagus normal, fresh blood and clots in gastric fundus and body, clot seen in previous cystogastrostomy fistula tract was suspected to be present, after clot removal of the fistula tract was seen, 5 mm fistula was found
in the lesser curvature of the stomach dilation was performed to 8 mm, cavity was entered via existing fistula track large amount of clot was seen and clots were difficult to remove, after clot removal active spurting hemorrhage was noted and after
multiple attempts coagulation for hemostasis using hot forceps and coagulation grasper was successful, fistula found on lesser curvature of the stomach was stented
Lipase normal
CT abdomen noted-summarized below
Recent endoscopy and colonoscopy reviewed
PPI continues
Hematology evaluation noted-correspondence reviewed
History of polycythemia vera on Jakafi-on hold
Was on Eliquis with history of thrombosis-portal vein thrombosis-, however, may need to be discontinued because of recurrent bleeding/hemorrhagic pancreatitis
DVT prophylaxis-mechanical
GI prophylaxis-on PPI
Aspiration precautions
Nutrition per gastroenterology-begin clear liquids
Begin ambulation
Dr. Estrada reviewed with in the emergency room as well as GI
If patient's bleeding stopped and hemodynamically stable then transfer out of ICU-blueprint clerk will sign off at that time
Recommend outpatient pulmonary evaluation-PFTs, ongoing smoking cessation counseling, and likely eligible for yearly low-dose lung cancer screening CT
Critical care statement: A total of 38 minutes of critical care time was provided for this patient today. This includes management of unstable vital signs, management of transfusions, evaluation of the patient at bedside, reviewing the patient's
pertinent medical records including radiographs, pressor management, severe anemia management with transfusions, microbiology, laboratory evaluations, and discussion with primary team, consultants, pharmacy, nutrition, physical therapy, case
management, charge nurse, critical care nursing, and respiratory therapy.
Diagnostic data:
Chest x-ray 02/08/2024-NAD
CT abdomen and pelvis 02/08/2024-pancreatitis with 6 cm pancreatic pseudocyst, gastropancreatic stent extends to margin but not into the pseudocyst, partial bowel obstruction, 1.5 cm adrenal adenoma
Subjective Dataa
Subjective Data
Date of Service:
Date of Service: February 10, 2024
Chief Complaint: Toilet And Laundry Soap Supervisor Follow Up, Pulmonary Follow Up and Other (GI bleeding)
Subjective:
States still has significant abdominal pain, hungry, asking for more food, asking if he can be discharged today, no complaints of increased shortness of breath, chest congestion, chest pain
Review of Systems
General: Other (Per HPI)
Objective Data
Data Reviewed
Vital Signs / I&O / Oxygen:
Vital Signs
Temp Pulse Resp BP Pulse Ox
98.0 F 79 16 104/45 98
02/10/24 05:31 02/10/24 05:31 02/10/24 05:31 02/10/24 05:31 02/10/24 05:15
Intake and Output
02/09/24 02/10/24 02/11/24
06:59 06:59 06:59
Intake Total 2019 / 2129 3560 / 3670 110 / 110
Output Total 2315 / 2615 3380 / 3530 150 / 150
Balance -295 / -485 180 / 140 -40 / -40
SaO2 98
Nasal Cannula flow liters per 2
minute
Physical Exam
General: Respiratory Distress (n) and Comfortable
HEENT: Normocephalic, Anicteric and Moist Mucous Membranes
Cardiovascular: Regular Rhythm
Respiratory: Wheeze (n), Crackles (Rare basilar), Rhonchi (n), Non-Labored Respirations, Accessory Resp Muscle Use (n) and Stridor (n)
GI: Soft, Non Distended and Tender
Neurology: Awake, Alert and No Motor Deficits
Skin: Warm, Good Color, Cyanosis (n), Jaundice (n) and Rash (n)
Labs/Micro/Reports
Lab Data
02/10/24 04:06
Microbiology
02/09/24 03:53 Blood/Venous Blood Culture - Preliminary
No Growth in 24 hours- Final report to follow
02/08/24 13:10 Blood/Venous Blood Culture - Preliminary
No Growth in 24 hours- Final report to follow
02/08/24 13:10 Blood/Venous Blood Culture - Preliminary
No Growth in 24 hours- Final report to follow
--- NOTE | 2024-02-10 07:13 | PTCARENOTE ---
pt received from previous rn-aox3, able to make needs known. nsr with first degree on mmonitor, room air. able to turn and reposition self. blood transfusion continues. ivf and protonix gtts as ordered. pt on clear liquid diet and tolerating. all
safety precautions in place, call messina within reach
[2024-02-10] MEDS: NSS 1000 IV ×2 (07:45→16:41)
[2024-02-10] MEDS: PROTONIX 100 IV ×2 (07:45→16:41)
--- NOTE | 2024-02-10 07:54 | W.PN.ANS.POP ---
Anesthesia Post Operative
- Anesthesia Post Op Note
Vital Signs Stable-See Nursing Note: Yes
Airway Patent: Yes
Adequate Pain Control: Yes
Change in Mental Status: No
Current Postoperative Nausea & Vomiting: No
Anesthesia Complications: No
General Anesthetic Recall: No
Unplanned Admission: No
Post Op Hydration Adequate: Yes
--- NOTE | 2024-02-10 09:26 | W.PN.HOSP.TC ---
Today's Communication/Plan
-
Follow HH
CW PPI drip
CW clear liquid diet
Assessment / Plan
Assessment / Plan
A/P:
Impression:
Acute GI bleed with hemorrhagic shock
Massive blood transfusion - 8 units since admission
Acute symptomatic blood loss anemia
Severe metabolic acidosis/lactic acidosis
Hyponatremia
Less likely small bowel obstruction
Leukocytosis
Hypoalbuminemia
Hyponatremia
Conditions prior to presentation:
Severe necrotizing pancreatitis
Hemorrhagic pancreatitis
Polycythemia vera on Jakafi
Prostate cancer
Parkinson's disease
History of splenic vein and portal vein thrombosis
History of cystogastrostomy with stent and necrosectomy with bleeding and stent exchange.
History of ascites
History recurrent GI bleed
History of chronic anemia
PLAN:
Status post emergent EGD on 02/07 for a large clot of blood in the gastric body. Status post CTA of the abdomen with no active extravasation bleeding but gastropancreatic stent has changed position.
Plan to repeat EGD today on 02/08 +/- EUS
Repeat Blood transfusion as needed; aim to keep HH>7.0
Continue pantoprazole drip
CW clear liquid diet
Given Invanz initially but hold off on further antibiotics.
Blood cultures neg
SCDs for DVT prophylaxis. No pharmacological prophylaxis due to active GI bleed and anemia.
CODE STATUS DNR
Total time spent on today's encounter was 52 minutes which included time spent in counseling the patient/family regarding diagnosis and treatment plan as listed above, goals of care, and symptom management. Case was discussed with nursing staff,
specialists, and care coordinators/case management. All labs and imaging personally reviewed by me. Remainder the time spent in detailed review of previous records, lab data, imaging, and other medical provider documentation.
Anticipated Discharge: > 48 hours
Subjective/Interval History
-
Date of Service: February 10, 2024
No nausea. Abdominal discomfort present.
No shortness of breath. No fever chills
Tolerating clear liquid diet.
Objective Data
-
Labs:
Laboratory Results
02/09/24 02/10/24 02/10/24
23:08 00:00 04:06
WBC 9.0 Cancelled 6.9
Hgb 8.2 L Cancelled 7.3 L
Hct 23.5 L Cancelled 22.6 L
Plt Count 167 Cancelled 152
Sodium 129 L
Potassium 4.4
Chloride 108 H
Carbon Dioxide 21 L
BUN 27 H
Creatinine 0.6 L
Glucose 153 H
Calcium 7.1 L
02/10/24 02/10/24
12:00 18:00
WBC Pending Pending
Hgb Pending Pending
Hct Pending Pending
Plt Count Pending Pending
Sodium
Potassium
Chloride
Carbon Dioxide
BUN
Creatinine
Glucose
Calcium
Vital Signs:
Vital Signs
Temp Pulse Resp BP Pulse Ox
98.2 F 80 22 105/57 100
02/10/24 07:40 02/10/24 08:30 02/10/24 08:30 02/10/24 08:00 02/10/24 08:30
I&O
02/09/24 02/10/24 02/11/24
06:59 06:59 06:59
Intake Total 2019 3560 / 3670 470 / 470
Output Total 231 / 2615 3380 / 3530 300 / 300
Balance -295 / -485 180 / 140 170 / 170
Review of Systems
-
Constitutional: Denies Fever
EENT: Denies Sore Throat
Respiratory: Denies Cough
Cardiac: Denies Chest Pain
Neuro: Denies Dizzy
Physical Exam
-
General: No Apparent Distress
HEENT: Moist Mucous Membranes
Respiratory: Clear to Auscultation
Cardiac: Regular Rhythm and S1/S2
GI: Soft, Nondistended and Normal Bowel Sounds; Negative Tender (mild discomfort in epigastric area but no rebound)
Neuro: AO x 3
Psych: Calm
Data Reviewed
-
Labs: Labs Reviewed by me
--- NOTE | 2024-02-10 11:06 | W.PN.GI.CBS2 ---
Today's Communication / Plan
-
Clear liquid diet
Continue monitor H&H/signs of bleeding
Assessment / Plan
-
Raul is a 68 year old male with a past medical history of severe necrotizing pancreatitis (initial episode in March 2023, with subsequent recurrence in September 2023) with WON and development of hemorrhagic pancreatitis requiring transfusion,
concern for infected cyst 12/2023 with bacteremia, cystogastrostomy with stenting with complication of bleeding and stent exchange, ascites requiring paracentesis with concern for pancreatic duct disruption, polycythemia vera on chronic Jakafi,
Prior splenic and portal vein thrombosis, prior prostate CA, and Parkinson's disease. Pt with multiple admission over last year. Last admission 01/24 with anemia and heme + stools with hbg down to 6.1. He completed EGD 01/24 with Normal esophagus pre
existing gastric stent, fistula tract patent and too small to enter necrotic cavity with no blood or hematoma seen in tract. normal duodenum. He also completed 01/28 with colonoscopy hemorrhoids, 5 mm polyp, diverticulosis, IH. Hbg was 9.2 on
discharge 01/28 and states stable hbg last week. He was noted with passing bright red blood on 02/06 with hbg 7 and further drop to hbg 5.3 on admission. Pt did report last stool day of admission was formed less bloody. He also reports dizziness,
fatigue and feeling of inability to get up. On EMS arrival noted with severe hypotension with BP in 50's with minimal responsiveness. Prior to arrival he was given IV fluid bolus and epi then PRBC's in ER with improved BP. Pt admits to increased
nausea with GERD without vomiting and abdominal pain with recent bloody stools. He denies black stools.
02/07 �CT A/p pancreatitis with a 6 cm pancreatic pseudocyst at the body of the pancreas The gastropancreatic stent extends to the margin of but not into the pseudocyst. There also concern for partial bowel obstruction at the level of the second
portion of the duodenum presumably as a result of this pancreatitis with associated dilatation of the fluid-filled stomach and duodenal bulb, 1.5 cm adrenal adenoma, and DDD.
�� � � � � �
- acute symptomatic anemia/hemorrhagic pancreatitis (received 8 units PRBC during this admission) -s/p repeat EGD 02/09/[address] Song
Impression:� � � � � � - Normal esophagus.
�� � � � � � � � � � � - Red blood clot and fresh blood in the gastric fundus
�� � � � � � � � � � � and in the gastric body.
�� � � � � � � � � � � - Previous cystogastrostomy fistula was located and
�� � � � � � � � � � � dilated.
�� � � � � � � � � � � - The cavity was entered, large amount of clot was
�� � � � � � � � � � � seen. After clot removal, active spurting hemorrhage
�� � � � � � � � � � � was localized. Treated with hot biopsy forceps and
�� � � � � � � � � � � coag grasper.
�� � � � � � � � � � � - Gastric fistula. A new 10 Fr 3 cm double pigtail
�� � � � � � � � � � � plastic stent was placed.
�� � � � � � � � � � � - Normal duodenal bulb, first portion of the duodenum
�� � � � � � � � � � � and second portion of the duodenum.
CTA 02/07- No active bleeding
-severe necrotizing pancreatitis March 2023 and recurrent September 2023 with complicated course with PD disruption with ascites requiring paracentesis, hemorrhagic pancreatitis, cystgastrostomy with stenting, bleeding and stent management
-recent bacteremia 01/05/24 strep anginosus on Ertapenem with concern for infected pseudocyst
-PV on chronic Jakafi
-splenic and portal vein thrombosis not on AC prior to admission
-prostate CA
-parkinson's
-hyponatremia
PLAN:
Clear liquid diet
Continue monitor H&H. Transfuse to keep hemoglobin above 7
Continue Protonix drip
Hold Jakafi as per heme-onc
Total Time Spent with Patient (in minutes): 35
Subjective
Subjective
Date of Service: February 10, 2024
Complaining of mild to moderate epigastric abdominal pain. Denies any nausea or vomiting. Small amount of dark stool after EGD yesterday. Tolerating clear liquid diet
Objective
Data Reviewed
Laboratory Data:
Laboratory Results
02/10/24 04:06
Laboratory Results
PT 16.9 Sec (11.4-14.6) H 02/08/24 13:10
INR 1.36 02/08/24 13:10
APTT 23.2 Sec (23.4-35.0) L 02/08/24 13:10
Magnesium 2.4 mg/dl (1.6-2.3) H 02/09/24 03:53
Total Bilirubin 0.5 mg/dl (0.2-1.3) 02/09/24 03:53
AST 26 U/L (17-59) 02/09/24 03:53
ALT 18 U/L (0-50) 02/09/24 03:53
Alkaline Phosphatase 76 U/L (38-126) 02/09/24 03:53
Lipase 292 U/L (23-300) 02/08/24 13:10
Vital Signs and I&O:
Vital Signs
Temp Pulse Resp BP Pulse Ox
98.2 F 80 22 105/57 100
02/10/24 07:40 02/10/24 08:30 02/10/24 08:30 02/10/24 08:00 02/10/24 08:30
I&O
02/09/24 02/10/24 02/11/24
06:59 06:59 06:59
Intake Total 2019 / 2129 3560 / 3670 690 / 690
Output Total 2315 / 2615 3380 / 3530 700 / 700
Balance -295 / -485 180 / 140 -10 / -10
Physical Exam
Physical Exam
GI: Soft, Distended and Tender (Epigastric tenderness on superficial palpation)
[2024-02-10 11:12] LABS: % Basophils 0.1 % (0-2); % Eosinophils 0.6 % (0-6); % Immature Granulocytes 0.4 % (0-0.5); % Lymphocytes 6.5 % (20.5-51.1); % Monocytes 5.6 % (1.7-9.3); % Neutrophils 86.8 % (42.2-75.2); Absolute Lymphocytes 0.5 10^3/uL (1.2-3.4); Absolute Monocytes 0.4 10^3/uL (0.1-0.6); Absolute Neutrophils 6.2 10^3/uL (1.4-6.5); Hematocrit 23.6 % (39.0-52.0); Hemoglobin 8.1 g/dL (13.0-18.0); Mean Corp Hgb Conc. 34.3 g/dL (33.0-37.0); Mean Corpuscular Volume 84.6 fL (80.0-94.0); Mean Platelet Volume 10.9 fL (7.4-10.4); Nucleated Red Blood Cells % 0 % (-); Platelet Count 137 10^3/uL (130-400); Red Blood Cell Count 2.79 10^6/uL (4.70-6.10); Red Cell Dist. Width 15.6 % (11.5-14.5); White Blood Cell Count 7.1 10^3/uL (4.8-10.8)
--- NOTE | 2024-02-10 11:38 | PTCARENOTE ---
pt oob to chair for lunch- tolerating clear liquids. assessment unchanged. morphine given as ordered for pain. at bedside- updated.
--- NOTE | 2024-02-10 12:31 | W.PN.GS2 ---
Today's Communication / Plan
-
-- No plans for surgical intervention at this time
-- Consider transfer to tertiary care center ([facility]) if bleeding persists
-- Will follow as needed
Assessment / Plan
-
68-year-old male with history of necrotizing pancreatitis c/b WOPN s/p EGD with cystogastrostomy and necrosectomy, complicated by stent migration requiring repeat EGDs most recently on . Pt p/w acute GI bleed from cystgastrostomy which is
likely compounded by his history of polycythemia vera.
EGD (02/07): Large amount of clot, no active bleeding, normal first and second portions of duodenum, bulging from mass effect of cyst on bulb
EGD (02/08): active bleeding from the necrotic cavity after dilating/traversing the cystogastrostomy tract.
Complex issue compounded by current bleeding likely worsened with history of PCV. Mr. Jeffery has received 8 units of PRBCs. Afebrile and hemodynamically stable, making large quantities of urine - clinically it does not appear as though he has
significant ongoing bleeding. Surgical treatment of WOPN includes open and MIS (VARD) necrosectomy. Given his current issues with bleeding a necrosectomy may have risks > benefits, and necessitate distal pancreatectomy. No plans for surgical
intervention at this time. Given complexity would consider transfer to tertiary center, family requesting [facility].
Subjective Data
-
Date of Service: February 10, 2024
Still with pain requiring narcotics.
EGD with control of bleeding noted. No bloody stools overnight documented.
Objective Data
-
Intake and Output
02/09/24 02/10/24 02/11/24
06:59 06:59 06:59
Intake Total 2019 3560 / 3670 800 / 800
Output Total 231 / 2615 3380 / 3530 950 / 950
Balance -295 / -485 180 / 140 -150 / -150
Intake:
IV fluids (Total) 1520 / 1630 2310 / 2420 550 / 550
Nss 1400 / 1500 2100 / 2200 500 / 500
protonix 120 / 130 210 / 220 50 / 50
Blood Products 750 / 750
Packed red blood cells 750 / 750
Blood Product Amount Infused ( 500 / 500 500 / 500 250 / 250
mL)
Packed Rbc Leukoreduced Unit 250 / 250
[id number]
Packed Rbc Leukoreduced Unit 0 / 0 250 / 250
[id number]
Packed Rbc Leukoreduced Unit 0 / 0
[id number]
Packed Rbc Leukoreduced Unit 250 / 250
[id number]
Packed Rbc Leukoreduced Unit 250 / 250
[id number]
Packed Rbc Leukoreduced Unit 0 / 0 250 / 250
[id number]
Output:
Urine, Rodriguez 2315 / 2615 3380 / 3530 950 / 950
Vital Signs
Temp Pulse Resp BP Pulse Ox
98.3 F 77 16 111/81 99
02/10/24 11:10 02/10/24 11:55 02/10/24 11:55 02/10/24 11:00 02/10/24 11:55
Lab Results
02/10/24 04:06
Calcium 7.1 mg/dl (8.4-10.2) L 02/10/24 04:06
Magnesium 2.4 mg/dl (1.6-2.3) H 02/09/24 03:53
Total Bilirubin 0.5 mg/dl (0.2-1.3) 02/09/24 03:53
AST 26 U/L (17-59) 02/09/24 03:53
ALT 18 U/L (0-50) 02/09/24 03:53
Alkaline Phosphatase 76 U/L (38-126) 02/09/24 03:53
Total Protein 4.2 g/dl (6.3-8.2) L 02/09/24 03:53
Albumin 2.3 g/dl (3.5-5.0) L 02/09/24 03:53
Physical Exam
-
NAD
Abd: distended with diffuse tenderness, mostly in the upper abdomen
--- NOTE | 2024-02-10 15:55 | CHAP ---
Mr. Jeffery was welcoming. He shared that he is very tired of tests, procedures, and being sick. But he still smiles - he's calm and grounded. We talked about suffering, and we prayed together, for him, his family, and the med staff. Brought a
prayer blanket, and met , Bee. Left to allow them a private visit.
[2024-02-10] MEDS: XANAX 0.25 MG PO ×2 (16:41→20:16)
--- NOTE | 2024-02-10 16:48 | PTCARENOTE ---
pt toolerated being oob to chair for approx 2 hours. pt c/o anxiety- xanax given as per order. assessment unchanged.
[2024-02-10] MEDS: OFIRMEV 100 IV (18:29)
--- NOTE | 2024-02-10 19:53 | PTCARENOTE ---
Pt Aox3, confused conversation at times. VSS, c/o abdominal pain PRN Morphine given. Rodriguez in place draining clear yellow urine. Protonix gtt and IVF infusing per order.
[2024-02-10 20:18] LABS: % Basophils 0.3 % (0-2); % Eosinophils 1.1 % (0-6); % Immature Granulocytes 0.5 % (0-0.5); % Lymphocytes 8.2 % (20.5-51.1); % Monocytes 5.2 % (1.7-9.3); % Neutrophils 84.7 % (42.2-75.2); Absolute Eosinophils 0.1 10^3/uL (0-0.7); Absolute Lymphocytes 0.5 10^3/uL (1.2-3.4); Absolute Monocytes 0.3 10^3/uL (0.1-0.6); Absolute Neutrophils 5.4 10^3/uL (1.4-6.5); Hematocrit 22.8 % (39.0-52.0); Hemoglobin 7.7 g/dL (13.0-18.0); Mean Corp Hgb Conc. 33.8 g/dL (33.0-37.0); Mean Corpuscular Hgb 28.4 pg (27.0-31.0); Mean Corpuscular Volume 84.1 fL (80.0-94.0); Nucleated Red Blood Cells % 0 % (-); Platelet Count 125 10^3/uL (130-400); Red Blood Cell Count 2.71 10^6/uL (4.70-6.10); Red Cell Dist. Width 16.1 % (11.5-14.5); White Blood Cell Count 6.3 10^3/uL (4.8-10.8)
[2024-02-11] VITALS (14 sets, daily range): BP systolic 96–165; BP diastolic 38–113; BMI 23.7
[2024-02-11] MEDS: ProAIR HFA INHALER 2 PUFF INH ×4 (01:10→20:35)
[2024-02-11] MEDS: PROTONIX 100 IV ×3 (02:20→23:34)
[2024-02-11] MEDS: NSS 1000 IV (02:20)
[2024-02-11] MEDS: XANAX 0.25 MG PO ×3 (03:24→20:37)
[2024-02-11 03:33] LABS: % Basophils 0.4 % (0-2); % Eosinophils 1.4 % (0-6); % Immature Granulocytes 0.8 % (0-0.5); % Lymphocytes 10.3 % (20.5-51.1); % Monocytes 4.5 % (1.7-9.3); % Neutrophils 82.6 % (42.2-75.2); Absolute Eosinophils 0.1 10^3/uL (0-0.7); Absolute Lymphocytes 0.5 10^3/uL (1.2-3.4); Absolute Monocytes 0.2 10^3/uL (0.1-0.6); Absolute Neutrophils 4.2 10^3/uL (1.4-6.5); Hematocrit 25.1 % (39.0-52.0); Hemoglobin 8.4 g/dL (13.0-18.0); Mean Corp Hgb Conc. 33.5 g/dL (33.0-37.0); Mean Corpuscular Hgb 28.8 pg (27.0-31.0); Mean Platelet Volume 10.9 fL (7.4-10.4); Nucleated Red Blood Cells % 0 % (-); Platelet Count 141 10^3/uL (130-400); Red Blood Cell Count 2.92 10^6/uL (4.70-6.10); Red Cell Dist. Width 16.1 % (11.5-14.5); White Blood Cell Count 5.1 10^3/uL (4.8-10.8)
[2024-02-11 03:44] LABS: INR 1.22; PT 15.2 Sec (11.4-14.6)
[2024-02-11 03:45] LABS: APTT 24.9 Sec (23.4-35.0)
[2024-02-11 04:39] LABS: Blood Urea Nitrogen 19 mg/dl (9-20); Calcium 7.9 mg/dl (8.4-10.2); Carbon Dioxide 25 mmol/L (22-30); Chloride 105 mmol/L (98-107); Estimated Creatinine Clearance 98 ml/min; Glucose 129 mg/dl (70-99); Potassium 3.9 mmol/L (3.5-5.1); Sodium 137 mmol/L (135-145); eGFR > 60.00
--- NOTE | 2024-02-11 06:32 | PTCARENOTE ---
Pt Alert and oriented, confused conversation at times. PRN Xanax for anxiety. Pt with 3000ml+ of urine out, NS reduced to 50ml/hrs. Hemoglobin stable at 8.4.
--- NOTE | 2024-02-11 07:47 | W.PN.INTV ---
Today's Communication / Plan
Recommendations
Follow hemoglobin
Transfuse as needed
Advance diet
Increase activity
Stable for transfer out of ICU-applications development consultant will sign off-call pulmonary for respiratory issues
Recommend outpatient pulm evaluation
Assessment
-
68-year-old male former smoker who was just discharged 01/29/2024 for anemia and underwent EGD and colonoscopy who also has a history of necrotizing pancreatitis, recurrent ascites, asthma, polycythemia vera, prostate cancer, Parkinson's, IBS and
pancreatitis presented with diffuse abdominal pain noted to have severe anemia, GI bleed and with hypotension admitted to ICU-applications development consultant consulted for anemia/GI bleed/critical care management 02/08/2024.
GI bleed with hemorrhagic shock
Emergent endoscopy 02/08/2024-normal esophagus, large amount of clotted blood gastric body, cyst gastrostomy stent noted, duodenum normal
Repeat endoscopy 02/09/2024
Anemia due to acute blood loss-hemoglobin 5.3-received a total of 8 units x 02/10/20 4 AM
Lactic acidosis
Hypocalcemia
Leukocytosis
Hypoalbuminemia
Conditions present prior to admission:
Necrotizing pancreatitis-recurrent with initial episode March 2023, hemorrhagic episode 06/2023, and subsequent September 2023
Recurrent ascites-status post multiple paracenteses
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
Portal vein thrombosis-was on Eliquis
Recurrent GI bleed.
Pancreatic cyst infection-strep bacteremia-hospitalized 12/2023
Former [id number]-year quit 2021
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
Prostate cancer/prostatectomy.
Hypertension.
Parkinson's.
Anxiety.
Depression.
Plan
Continues with abdominal pain, however, hemodynamically stable, hemoglobin stable
Wean supplemental oxygen
Nebulizers if needed-currently not bronchospastic
Patient not to be intubated mechanically ventilated as a DNR
Aspiration precautions
Incentive spirometry
Follow-up hemoglobin closely
Transfuse packed red blood cells and FFP as needed-has received 8 units thus far
Decrease IV fluids
Advance diet
Norepinephrine as needed-off
GI evaluation ongoing-correspondence reviewed
EGD-02/09/[address] Song-esophagus normal, fresh blood and clots in gastric fundus and body, clot seen in previous cystogastrostomy fistula tract was suspected to be present, after clot removal of the fistula tract was seen, 5 mm fistula was found
in the lesser curvature of the stomach dilation was performed to 8 mm, cavity was entered via existing fistula track large amount of clot was seen and clots were difficult to remove, after clot removal active spurting hemorrhage was noted and after
multiple attempts coagulation for hemostasis using hot forceps and coagulation grasper was successful, fistula found on lesser curvature of the stomach was stented
Lipase normal
CT abdomen noted-summarized below
Recent endoscopy and colonoscopy reviewed
PPI continues
Hematology evaluation noted-correspondence reviewed
History of polycythemia vera on Jakafi-on hold
Was on Eliquis with history of thrombosis-portal vein thrombosis-, however, may need to be discontinued because of recurrent bleeding/hemorrhagic pancreatitis
DVT prophylaxis-mechanical
GI prophylaxis-on PPI
Aspiration precautions
Nutrition per gastroenterology-begin clear liquids
Begin ambulation
If patient's bleeding stopped and hemodynamically stable then transfer out of ICU-applications development consultant will sign off at that time
Recommend outpatient pulmonary evaluation-PFTs, ongoing smoking cessation counseling, and likely eligible for yearly low-dose lung cancer screening CT
Reviewed the patient's pertinent medical records including radiographs, pressor management, severe anemia management with transfusions, microbiology, laboratory evaluations, and discussion with primary team, consultants, pharmacy, nutrition,
physical therapy, case management, charge nurse, critical care nursing, and respiratory therapy.
Diagnostic data:
Chest x-ray 02/08/2024-NAD
CT abdomen and pelvis 02/08/2024-pancreatitis with 6 cm pancreatic pseudocyst, gastropancreatic stent extends to margin but not into the pseudocyst, partial bowel obstruction, 1.5 cm adrenal adenoma
Subjective Dataa
Subjective Data
Date of Service:
Date of Service: February 11, 2024
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
Subjective:
Still with abdominal pain, no complaints of shortness of breath, chest congestion, productive cough or
Review of Systems
General: Other (Per HPI)
Objective Data
Data Reviewed
Vital Signs / I&O / Oxygen:
Vital Signs
Temp Pulse Resp BP Pulse Ox
98.1 F 70 13 113/65 98
02/11/24 07:00 02/11/24 04:00 02/11/24 04:00 02/11/24 04:00 02/11/24 04:00
Intake and Output
02/10/24 02/11/24 02/12/24
06:59 06:59 06:59
Intake Total 3560 / 3670 2690 / 2690
Output Total 3380 / 3530 5330 / 5330
Balance 180 / 140 -2640 / -2640
SaO2 98
Nasal Cannula flow liters per 2
minute
Physical Exam
General: Respiratory Distress (n) and Comfortable
HEENT: Normocephalic, Anicteric and Moist Mucous Membranes
Cardiovascular: Regular Rhythm
Respiratory: Wheeze (n), Crackles (Rare basilar), Rhonchi (n), Non-Labored Respirations, Accessory Resp Muscle Use (n) and Stridor (n)
GI: Soft, Non Distended and Tender
Neurology: Awake, Alert and No Motor Deficits
Skin: Warm, Good Color, Cyanosis (n), Jaundice (n) and Rash (n)
Labs/Micro/Reports
Lab Data
02/11/24 03:24
Laboratory Results
02/11/24
03:24
PT 15.2 H
INR 1.22
APTT 24.9
Microbiology
02/09/24 03:53 Blood/Venous Blood Culture - Preliminary
No Growth in 48 hours- Final report to follow
02/08/24 13:10 Blood/Venous Blood Culture - Preliminary
No Growth in 48 hours- Final report to follow
02/08/24 13:10 Blood/Venous Blood Culture - Preliminary
No Growth in 48 hours- Final report to follow
--- NOTE | 2024-02-11 08:11 | W.PN.HOSP.TC ---
Today's Communication/Plan
-
Resume Sinemet
DC IV fluids
Follow HH
Assessment / Plan
Assessment / Plan
A/P:
Impression:
Acute GI bleed with hemorrhagic shock
Massive blood transfusion - 8 units since admission
Acute symptomatic blood loss anemia
Severe metabolic acidosis/lactic acidosis
Hyponatremia
Less likely small bowel obstruction
Leukocytosis
Hypoalbuminemia
Conditions prior to presentation:
Severe necrotizing pancreatitis
Hemorrhagic pancreatitis
Polycythemia vera on Jakafi
Prostate cancer
Parkinson's disease
History of splenic vein and portal vein thrombosis
History of cystogastrostomy with stent and necrosectomy with bleeding and stent exchange.
History of ascites
History recurrent GI bleed
History of chronic anemia
PLAN:
Status post emergent EGD on 02/07 for a large clot of blood in the gastric body. Status post CTA of the abdomen with no active extravasation bleeding but gastropancreatic stent has changed position.
Repeat EGD 02/08 �Red blood clot and fresh blood in the gastric fundus and in the gastric body.Previous cystogastrostomy fistula was located and dilated.The cavity was entered, large amount of clot was seen.
After clot removal, active spurting hemorrhage was localized. Treated with hot biopsy forceps and coag grasper. Gastric fistula. A new 10 Fr 3 cm double pigtailplastic stent was placed.
Complicated walled off pancreatic necrosis. Patient with recurrent bleeding issues and pigtail dislodgement. Surgical recommendations about tranfer to tertiary ctr noted. Will discuss with GI.
Repeat Blood transfusion as needed; aim to keep HH>7.0. H&H stable.
Continue pantoprazole drip
CW clear liquid diet
Given Invanz initially but hold off on further antibiotics.
Blood cultures neg
SCDs for DVT prophylaxis. No pharmacological prophylaxis due to active GI bleed and anemia.
CODE STATUS DNR
Tx to med surg if ok from GI standpoint
Anticipated Discharge: > 48 hours
Subjective/Interval History
-
Date of Service: February 11, 2024
Tolerating clear liquid diet. No nausea. Mild abdominal discomfort present .
Denies shortness of breath. No cough.
Objective Data
-
Labs:
Laboratory Results
02/10/24 02/11/24 02/11/24
20:12 03:24 03:24
WBC 6.3 5.1
Hgb 7.7 L Cancelled 8.4 L
Hct 22.8 L Cancelled
Plt Count 125 L
PT
INR
APTT
Sodium
Potassium
Chloride
Carbon Dioxide
BUN
Creatinine
Glucose
Calcium
02/11/24 02/11/24 02/11/24
03:24 03:24 03:24
WBC
Hgb
Hct 25.1 L
Plt Count 141
PT 15.2 H
INR 1.22
APTT 24.9
Sodium Cancelled 137 D
Potassium Cancelled 3.9
Chloride Cancelled
Carbon Dioxide
BUN
Creatinine
Glucose
Calcium
02/11/24 02/11/24 02/11/24
03:24 03:24 03:24
WBC
Hgb
Hct
Plt Count
PT
INR
APTT
Sodium
Potassium
Chloride 105
Carbon Dioxide Cancelled 25
BUN Cancelled 19
Creatinine Cancelled
Glucose
Calcium
02/11/24 02/11/24 02/11/24
03:24 03:24 03:24
WBC
Hgb
Hct
Plt Count
PT
INR
APTT
Sodium
Potassium
Chloride
Carbon Dioxide
BUN
Creatinine 0.7
Glucose Cancelled 129 H
Calcium Cancelled 7.9 L
02/11/24
12:00
WBC Pending
Hgb Pending
Hct Pending
Plt Count Pending
PT
INR
APTT
Sodium
Potassium
Chloride
Carbon Dioxide
BUN
Creatinine
Glucose
Calcium
Vital Signs:
Vital Signs
Temp Pulse Resp BP Pulse Ox
98.1 F 87 13 113/65 98
02/11/24 07:00 02/11/24 08:06 02/11/24 04:00 02/11/24 04:00 02/11/24 08:06
I&O
02/10/24 02/11/24 02/12/24
06:59 06:59 06:59
Intake Total 3560 / 3670 2690 / 2690
Output Total 3380 / 3530 5330 / 5330
Balance 180 / 140 -2640 / -2640
Review of Systems
-
Constitutional: Denies Fever
EENT: Denies Sore Throat
Respiratory: Denies Cough
Neuro: Reports Dizzy
Physical Exam
-
General: No Apparent Distress
HEENT: Moist Mucous Membranes
Respiratory: Clear to Auscultation
Cardiac: Regular Rhythm and S1/S2
GI: Soft
Neuro: AO x 3
Psych: Calm
Data Reviewed
-
Labs: Labs Reviewed by me
[2024-02-11] MEDS: ULTRAM 50 MG PO ×2 (08:18→20:36)
--- NOTE | 2024-02-11 10:00 | PTCARENOTE ---
Received pt this am with multiple complaints, mostly very anxious about everything. Medicated for pain as charted, dizziness with no affect on vital signs with any position, denies nausea and reports he vomited which was never seen by staff. Pt
tolerating liquids and medication. Keeps saying he is having bm, but only passing gas. GI aware, no changes except to advance diet. Gas Analyst asked to visit. Pt refused communion. Oob and within minutes pt requested back to bed , many attempts
by multiple staff members to improve anxiety. Little relief noted until extra dose of xanax given and pt fell asleep.
[2024-02-11] MEDS: SINEMET 25-100 2 TABLET PO ×3 (10:24→22:13)
--- NOTE | 2024-02-11 11:44 | W.PN.GI.CBS2 ---
Today's Communication / Plan
-
Full liquid diet
Monitor H&H
Assessment / Plan
-
Raul is a 68 year old male with a past medical history of severe necrotizing pancreatitis (initial episode in March 2023, with subsequent recurrence in September 2023) with WON and development of hemorrhagic pancreatitis requiring transfusion,
concern for infected cyst 12/2023 with bacteremia, cystogastrostomy with stenting with complication of bleeding and stent exchange, ascites requiring paracentesis with concern for pancreatic duct disruption, polycythemia vera on chronic Jakafi,
Prior splenic and portal vein thrombosis, prior prostate CA, and Parkinson's disease. Pt with multiple admission over last year. Last admission 01/24 with anemia and heme + stools with hbg down to 6.1. He completed EGD 01/24 with Normal esophagus pre
existing gastric stent, fistula tract patent and too small to enter necrotic cavity with no blood or hematoma seen in tract. normal duodenum. He also completed 01/28 with colonoscopy hemorrhoids, 5 mm polyp, diverticulosis, IH. Hbg was 9.2 on
discharge 01/28 and states stable hbg last week. He was noted with passing bright red blood on 02/06 with hbg 7 and further drop to hbg 5.3 on admission. Pt did report last stool day of admission was formed less bloody. He also reports dizziness,
fatigue and feeling of inability to get up. On EMS arrival noted with severe hypotension with BP in 50's with minimal responsiveness. Prior to arrival he was given IV fluid bolus and epi then PRBC's in ER with improved BP. Pt admits to increased
nausea with GERD without vomiting and abdominal pain with recent bloody stools. He denies black stools.
02/07 �CT A/p pancreatitis with a 6 cm pancreatic pseudocyst at the body of the pancreas The gastropancreatic stent extends to the margin of but not into the pseudocyst. There also concern for partial bowel obstruction at the level of the second
portion of the duodenum presumably as a result of this pancreatitis with associated dilatation of the fluid-filled stomach and duodenal bulb, 1.5 cm adrenal adenoma, and DDD.
�� � � � � �
- acute symptomatic anemia/hemorrhagic pancreatitis (received 8 units PRBC during this admission) -s/p repeat EGD 02/09/[address] Song
Impression:� � � � � � - Normal esophagus.
�� � � � � � � � � � � - Red blood clot and fresh blood in the gastric fundus
�� � � � � � � � � � � and in the gastric body.
�� � � � � � � � � � � - Previous cystogastrostomy fistula was located and
�� � � � � � � � � � � dilated.
�� � � � � � � � � � � - The cavity was entered, large amount of clot was
�� � � � � � � � � � � seen. After clot removal, active spurting hemorrhage
�� � � � � � � � � � � was localized. Treated with hot biopsy forceps and
�� � � � � � � � � � � coag grasper.
�� � � � � � � � � � � - Gastric fistula. A new 10 Fr 3 cm double pigtail
�� � � � � � � � � � � plastic stent was placed.
�� � � � � � � � � � � - Normal duodenal bulb, first portion of the duodenum
�� � � � � � � � � � � and second portion of the duodenum.
CTA 02/07- No active bleeding
blood cx this admission - no growth
-severe necrotizing pancreatitis March 2023 and recurrent September 2023 with complicated course with PD disruption with ascites requiring paracentesis, hemorrhagic pancreatitis, cystgastrostomy with stenting, bleeding and stent management
-recent bacteremia 01/05/24 strep anginosus on Ertapenem with concern for infected pseudocyst
-PV on chronic Jakafi
-splenic and portal vein thrombosis not on AC prior to admission
-prostate CA
-parkinson's
-hyponatremia
PLAN:
Hb stable. No further bleeding. Will advance to full liquid diet today
Continue monitor H&H. Transfuse to keep hemoglobin above 7
Continue Protonix drip for another 24 hours
Hold Jakafi as per heme-onc
Pain management as per medical team
Total Time Spent with Patient (in minutes): 35
Subjective
Subjective
Date of Service: February 11, 2024
Denies any hematemesis or blood in stool. Continues to have abdominal discomfort/pain. Tolerating clear liquid diet
Objective
Data Reviewed
Laboratory Data:
Laboratory Results
02/11/24 03:24
Laboratory Results
PT 15.2 Sec (11.4-14.6) H 02/11/24 03:24
INR 1.22 02/11/24 03:24
APTT 24.9 Sec (23.4-35.0) 02/11/24 03:24
Magnesium 2.4 mg/dl (1.6-2.3) H 02/09/24 03:53
Total Bilirubin 0.5 mg/dl (0.2-1.3) 02/09/24 03:53
AST 26 U/L (17-59) 02/09/24 03:53
ALT 18 U/L (0-50) 02/09/24 03:53
Alkaline Phosphatase 76 U/L (38-126) 02/09/24 03:53
Lipase 292 U/L (23-300) 02/08/24 13:10
Vital Signs and I&O:
Vital Signs
Temp Pulse Resp BP Pulse Ox
97.9 F 64 16 151/74 98
02/11/24 11:00 02/11/24 11:38 02/11/24 11:38 02/11/24 10:00 02/11/24 08:06
I&O
02/10/24 02/11/24 02/12/24
06:59 06:59 06:59
Intake Total 3560 / 3670 2690 / 2750 1320 / 1320
Output Total 3380 / 3530 5330 / 5330 1400 / 1400
Balance 180 / 140 -2640 / -2580 -80 / -80
Physical Exam
Physical Exam
GI: Soft, Distended and Tender (Epigastric region)
--- NOTE | 2024-02-11 14:38 | PTCARENOTE ---
Received pt from ICU via wheelchair, accompanied by ICU staff. Pt AAO x3, anxious; ambulatory to bed with assist x1; pt unsteady w/OOb activity. Denies dizziness. VSS. On room air- pulse ox 100%, no c/o SOB. Abd soft,m rounded, ruma full
liquids; requesting 'solid food'. Pt DTV; Michael dc'd prior to transfer from ICU; urinal at bedside. Protonix drip @ 8 mg/hr (10 ml/hr) infusing via Rt hand site without sx of infiltration. Oriented to 4east, currently resting in bed. Will
continue to monitor.
[2024-02-11 16:25] LABS: Hematocrit 24.6 % (39.0-52.0); Hemoglobin 8.3 g/dL (13.0-18.0)
[2024-02-12] MEDS: ProAIR HFA INHALER 2 PUFF INH ×7 (00:14→23:54)
[2024-02-12 07:00] VITALS: BP 168/99
[2024-02-12] MEDS: SINEMET 25-100 2 TABLET PO ×3 (08:05→21:59)
[2024-02-12] MEDS: XANAX 0.25 MG PO ×2 (08:09→17:56)
[2024-02-12] MEDS: PROTONIX 100 IV (08:10)
--- NOTE | 2024-02-12 10:46 | W.PN.GI.CBS2 ---
Addendum entered and electronically signed by Danie June MD 02/12/24 15:34:
I saw and examined the patient.
The OYSTER GRADER's note was reviewed and I agree with the note.
- acute symptomatic anemia/hemorrhagic pancreatitis (received 8 units PRBC during this admission) -s/p repeat� EGD 02/09/[address] Song
Impression:� � � � � � - Normal esophagus.
�� � � � � � � � � � � - Red blood clot and fresh blood in the gastric fundus
�� � � � � � � � � � � and in the gastric body.
�� � � � � � � � � � � - Previous cystogastrostomy fistula was located and
�� � � � � � � � � � � dilated.
�� � � � � � � � � � � - The cavity was entered, large amount of clot was
�� � � � � � � � � � � seen. After clot removal, active spurting hemorrhage
�� � � � � � � � � � � was localized. Treated with hot biopsy forceps and
�� � � � � � � � � � � coag grasper.
�� � � � � � � � � � � - Gastric fistula. A new 10 Fr 3 cm double pigtail
�� � � � � � � � � � � plastic stent was placed.
�� � � � � � � � � � � - Normal duodenal bulb, first portion of the duodenum
�� � � � � � � � � � � and second portion of the duodenum.
CTA 02/07- No active bleeding
blood cx this admission - no growth
plan
No further bleeding. Hemoglobin stable
Discussed with Dr. Song. Okay for low-fat diet
Pain management as per medical team
Original Note:
Today's Communication / Plan
-
Check CBC
Protonix gtt today then BID
Assessment / Plan
-
Raul is a 68 year old male with a past medical history of severe necrotizing pancreatitis (initial episode in March 2023, with subsequent recurrence in September 2023) with WON and development of hemorrhagic pancreatitis requiring transfusion,
concern for infected cyst 12/2023 with bacteremia, cystogastrostomy with stenting with complication of bleeding and stent exchange, ascites requiring paracentesis with concern for pancreatic duct disruption, polycythemia vera on chronic Jakafi,
Prior splenic and portal vein thrombosis, prior prostate CA, and Parkinson's disease. Pt with multiple admission over last year. Last admission 01/24 with anemia and heme + stools with hbg down to 6.1. He completed EGD 01/24 with Normal esophagus pre
existing gastric stent, fistula tract patent and too small to enter necrotic cavity with no blood or hematoma seen in tract. normal duodenum. He also completed 01/28 with colonoscopy hemorrhoids, 5 mm polyp, diverticulosis, IH. Hbg was 9.2 on
discharge 01/28 and states stable hbg last week. He was noted with passing bright red blood on 02/06 with hbg 7 and further drop to hbg 5.3 on admission. Pt did report last stool day of admission was formed less bloody. He also reports dizziness,
fatigue and feeling of inability to get up. On EMS arrival noted with severe hypotension with BP in 50's with minimal responsiveness. Prior to arrival he was given IV fluid bolus and epi then PRBC's in ER with improved BP. Pt admits to increased
nausea with GERD without vomiting and abdominal pain with recent bloody stools. He denies black stools.
02/07 �CT A/p pancreatitis with a 6 cm pancreatic pseudocyst at the body of the pancreas The gastropancreatic stent extends to the margin of but not into the pseudocyst. There also concern for partial bowel obstruction at the level of the second
portion of the duodenum presumably as a result of this pancreatitis with associated dilatation of the fluid-filled stomach and duodenal bulb, 1.5 cm adrenal adenoma, and DDD.
�� � � � � �
- acute symptomatic anemia/hemorrhagic pancreatitis (received 8 units PRBC during this admission) -s/p repeat EGD 02/09/[address] Song
Impression:� � � � � � - Normal esophagus.
�� � � � � � � � � � � - Red blood clot and fresh blood in the gastric fundus
�� � � � � � � � � � � and in the gastric body.
�� � � � � � � � � � � - Previous cystogastrostomy fistula was located and
�� � � � � � � � � � � dilated.
�� � � � � � � � � � � - The cavity was entered, large amount of clot was
�� � � � � � � � � � � seen. After clot removal, active spurting hemorrhage
�� � � � � � � � � � � was localized. Treated with hot biopsy forceps and
�� � � � � � � � � � � coag grasper.
�� � � � � � � � � � � - Gastric fistula. A new 10 Fr 3 cm double pigtail
�� � � � � � � � � � � plastic stent was placed.
�� � � � � � � � � � � - Normal duodenal bulb, first portion of the duodenum
�� � � � � � � � � � � and second portion of the duodenum.
CTA 02/07- No active bleeding
blood cx this admission - no growth
-severe necrotizing pancreatitis March 2023 and recurrent September 2023 with complicated course with PD disruption with ascites requiring paracentesis, hemorrhagic pancreatitis, cystgastrostomy with stenting, bleeding and stent management
-recent bacteremia 01/05/24 strep anginosus on Ertapenem with concern for infected pseudocyst
-PV on chronic Jakafi
-splenic and portal vein thrombosis not on AC prior to admission
-prostate CA
-parkinson's
-hyponatremia
PLAN:
Hb stable. No further bleeding. On full liquid diet
CBC this am. Transfuse to keep hemoglobin above 7
Protonix gtt today, then BID
Hold Jakafi as per heme-onc
Pain management as per medical team
Subjective
Subjective
Date of Service: February 12, 2024
Patient without any BM since yesterday, at that time he states it was brown. He is tolerating a full liquid diet and has no pain with eating. He states that when he does not have food on his stomach he has 'a cramp or a seized up feeling'. He has
nausea on and off which is not new.
Objective
Data Reviewed
Laboratory Data:
Laboratory Results
02/11/24 16:11
02/11/24 03:24
Laboratory Results
PT 15.2 Sec (11.4-14.6) H 02/11/24 03:24
INR 1.22 02/11/24 03:24
APTT 24.9 Sec (23.4-35.0) 02/11/24 03:24
Magnesium 2.4 mg/dl (1.6-2.3) H 02/09/24 03:53
Total Bilirubin 0.5 mg/dl (0.2-1.3) 02/09/24 03:53
AST 26 U/L (17-59) 02/09/24 03:53
ALT 18 U/L (0-50) 02/09/24 03:53
Alkaline Phosphatase 76 U/L (38-126) 02/09/24 03:53
Lipase 292 U/L (23-300) 02/08/24 13:10
Vital Signs and I&O:
Vital Signs
Temp Pulse Resp BP Pulse Ox
98.4 F 83 18 168/99 97
02/12/24 07:00 02/12/24 07:45 02/12/24 07:45 02/12/24 07:00 02/12/24 07:45
I&O
02/11/24 02/12/24 02/13/24
06:59 06:59 06:59
Intake Total 2690 / 2750 2900 / 2900
Output Total 5330 / 5330 5205 / 5205
Balance -2640 / -2580 -2305 / -2305
Physical Exam
Physical Exam
HEENT: Anicteric
Cardiology: Normal Sinus Rhythm
Pulmonary: Clear (anterior)
GI: Soft, Non Distended, Tender (mild epigastric ) and Normal Bowel Sounds
Neuro: Non Focal
[2024-02-12 11:13] LABS: Hematocrit 26.7 % (39.0-52.0); Hemoglobin 8.7 g/dL (13.0-18.0); Mean Corp Hgb Conc. 32.6 g/dL (33.0-37.0); Mean Corpuscular Hgb 28.7 pg (27.0-31.0); Mean Corpuscular Volume 88.1 fL (80.0-94.0); Mean Platelet Volume 11.2 fL (7.4-10.4); Platelet Count 142 10^3/uL (130-400); Red Blood Cell Count 3.03 10^6/uL (4.70-6.10); Red Cell Dist. Width 16.6 % (11.5-14.5); White Blood Cell Count 5.7 10^3/uL (4.8-10.8)
--- NOTE | 2024-02-12 12:58 | W.PN.ONC ---
Today's Communication / Plan
-
02/11 Hgb 8.7, Hct 26.7
s/p 8units pRBCs
Transfuse as needed to maintain Hgb >7, PLT >20 (or >50 with active bleeding)
Continue to hold Jakafi
Diet per GI
Outpatient followup will be arranged with Dr. Malin regarding polycythemia vera/management of Jakafi upon discharge.
Office has been notified/updated of patient's clinical status.
Impression
Impression
Active Upper GI bleed
Polycythemia vera on Jakafi (+JAK2 mutation)
Hx splenic/portal vein thrombosis
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
Hx Hemorrhagic pancreatitis
Cystogastrostomy with stenting
Symptomatic blood loss anemia
Partial bowel obstruction
Hx ascites s/p paracentesis (11/2023)
Hx prostate cancer s/p prostatectomy
Subjective/Objective
Subjective/Objective
Patient is pleasant and resting comfortably in bed. He offers no complaints. family at bedside.
Vital Signs:
Vital Signs
Temp Pulse Resp BP Pulse Ox
98.4 F 83 18 168/99 97
02/12/24 07:00 02/12/24 07:45 02/12/24 07:45 02/12/24 07:00 02/12/24 07:45
physical exam changed. tremors noted.
Lab Results:
Laboratory Data
WBC 5.7 10^3/uL (4.8-10.8) 02/12/24 11:02
Hgb 8.7 g/dL (13.0-18.0) L 02/12/24 11:02
Plt Count 142 10^3/uL (130-400) 02/12/24 11:02
PT 15.2 Sec (11.4-14.6) H 02/11/24 03:24
INR 1.22 02/11/24 03:24
APTT 24.9 Sec (23.4-35.0) 02/11/24 03:24
eGFR > 60.00 02/11/24 03:24
eGFR Cancelled 02/11/24 03:24
[2024-02-12 15:00] VITALS: BP 143/96
--- NOTE | 2024-02-12 15:10 | W.PN.HOSP.TC ---
Today's Communication/Plan
-
Advance diet per GI
DC planning
Assessment / Plan
Assessment / Plan
A/P:
Impression:
Acute GI bleed with hemorrhagic shock
Massive blood transfusion - 8 units since admission
Acute symptomatic blood loss anemia
Severe metabolic acidosis/lactic acidosis
Hyponatremia
Less likely small bowel obstruction
Leukocytosis
Hypoalbuminemia
Conditions prior to presentation:
Severe necrotizing pancreatitis
Hemorrhagic pancreatitis
Polycythemia vera on Jakafi
Prostate cancer
Parkinson's disease
History of splenic vein and portal vein thrombosis
History of cystogastrostomy with stent and necrosectomy with bleeding and stent exchange.
History of ascites
History recurrent GI bleed
History of chronic anemia
PLAN:
Status post emergent EGD on 02/07 for a large clot of blood in the gastric body. Status post CTA of the abdomen with no active extravasation bleeding but gastropancreatic stent has changed position.
Repeat EGD 02/08 �Red blood clot and fresh blood in the gastric fundus and in the gastric body.Previous cystogastrostomy fistula was located and dilated.The cavity was entered, large amount of clot was seen.
After clot removal, active spurting hemorrhage was localized. Treated with hot biopsy forceps and coag grasper. Gastric fistula. A new 10 Fr 3 cm double pigtailplastic stent was placed.
Complicated walled off pancreatic necrosis. Patient with recurrent bleeding issues and pigtail dislodgement. Surgical recommendations about tranfer to tertiary ctr noted. [facility] GI Dr Song 02/10 - with stability ,will plan to hold on transfer to
tertiary center.
Repeat Blood transfusion as needed; aim to keep HH>7.0. H&H stable.
Continue pantoprazole drip
CW full liquid diet
Given Invanz initially but hold off on further antibiotics.
Blood cultures neg
SCDs for DVT prophylaxis. No pharmacological prophylaxis due to active GI bleed and anemia.
CODE STATUS DNR
DC when ok from GI standpoint
Anticipated Discharge: 24 - 48 hours
Subjective/Interval History
-
Date of Service: February 12, 2024
Tolerating diet
Objective Data
-
Labs:
Laboratory Results
02/12/24
11:02
WBC 5.7
Hgb 8.7 L
Hct 26.7 L
Plt Count 142
Vital Signs:
Vital Signs
Temp Pulse Resp BP Pulse Ox
98.4 F 79 16 168/99 100
02/12/24 07:00 02/12/24 13:00 02/12/24 13:00 02/12/24 07:00 02/12/24 13:00
I&O
02/11/24 02/12/24 02/13/24
06:59 06:59 06:59
Intake Total 2690 / 2750 2900 / 2900
Output Total 5330 / 5330 5205 / 5205 1000 / 1000
Balance -2640 / -2580 -2305 / -2305 -1000 / -1000
Review of Systems
-
Constitutional: Denies Fever
EENT: Denies Sore Throat
Respiratory: Denies Cough or Trouble Breathing
Cardiac: Denies Chest Pain
Physical Exam
-
General: No Apparent Distress
HEENT: Moist Mucous Membranes
Respiratory: Clear to Auscultation
Cardiac: Regular Rhythm and S1/S2
GI: Soft
Neuro: AO x 3
Psych: Calm
Data Reviewed
-
Labs: Labs Reviewed by me
[2024-02-12] MEDS: ZENPEP DELAYED RELEASE CAPSULE 1 CAPSULE PO ×2 (16:43→22:00)
--- NOTE | 2024-02-12 17:05 | CM ---
Spoke with patient and in room.Pt requested [facility] at dc.
As per care port [facility] accepted him.
Pt has received 8 units PRBCs this stay .
PLAN Home with [facility]
[2024-02-12] MEDS: ULTRAM 50 MG PO (17:55)
[2024-02-12 23:00] VITALS: BP 141/72
[2024-02-13] MEDS: ProAIR HFA INHALER 2 PUFF INH ×4 (06:38→19:37)
[2024-02-13 06:58] LABS: Hematocrit 27.1 % (39.0-52.0); Hemoglobin 8.6 g/dL (13.0-18.0); Mean Corp Hgb Conc. 31.7 g/dL (33.0-37.0); Mean Corpuscular Hgb 28.3 pg (27.0-31.0); Mean Corpuscular Volume 89.1 fL (80.0-94.0); Mean Platelet Volume 10.7 fL (7.4-10.4); Platelet Count 149 10^3/uL (130-400); Red Blood Cell Count 3.04 10^6/uL (4.70-6.10); Red Cell Dist. Width 16.3 % (11.5-14.5)
[2024-02-13 07:47] VITALS: BP 150/80
[2024-02-13] MEDS: ZENPEP DELAYED RELEASE CAPSULE 1 CAPSULE PO ×4 (08:14→22:21)
[2024-02-13] MEDS: SINEMET 25-100 2 TABLET PO ×3 (08:15→22:20)
--- NOTE | 2024-02-13 11:06 | W.PN.GI.CBS2 ---
Addendum entered and electronically signed by Mohsen Song MD 02/13/24 14:24:
I saw and examined the patient.
The PA's note was reviewed and I agree with the note.
Comment:
Pt feels ok, unchanged, continues to have some abdominal pain/discomfort. Tolerated regular diet yesterday. Hgb o/n is stable, however as per nursing staff maroon streaked stool this AM. Agree with repeat H/H. Repeat CT abd done today and I
reviewed the images. The new collection appears smaller/nearly resolved. Moderate amount of gastric content, likely ingested food. Will follow H/H.
Original Note:
Today's Communication / Plan
-
CT scan with IV contrast. Monitor symptoms, consider downgrading diet if ongoing tenderness, pending CT scan. Repeat CMP. Monitor H/H.
Assessment / Plan
-
The pt is a 68 year old male with a past medical history of severe necrotizing pancreatitis (initial episode in March 2023, with subsequent recurrence in September 2023) with WON and development of hemorrhagic pancreatitis requiring transfusion,
concern for infected cyst 12/2023 with bacteremia, cystogastrostomy with stenting with complication of bleeding and stent exchange, ascites requiring paracentesis with concern for pancreatic duct disruption, polycythemia vera on chronic Jakafi,
Prior splenic and portal vein thrombosis, prior prostate CA, and Parkinson's disease. Pt with multiple admission over last year. Last admission 01/24 with anemia and heme + stools with hbg down to 6.1. He completed EGD 01/24 with Normal esophagus pre
existing gastric stent, fistula tract patent and too small to enter necrotic cavity with no blood or hematoma seen in tract. normal duodenum. He also completed 01/28 with colonoscopy hemorrhoids, 5 mm polyp, diverticulosis, IH. Hbg was 9.2 on
discharge 01/28 and states stable hbg last week. He was noted with passing bright red blood on 02/06 with hbg 7 and further drop to hbg 5.3 on admission. Pt did report last stool day of admission was formed less bloody. He also reports dizziness,
fatigue and feeling of inability to get up. On EMS arrival noted with severe hypotension with BP in 50's with minimal responsiveness. Prior to arrival he was given IV fluid bolus and epi then PRBC's in ER with improved BP. Pt admits to increased
nausea with GERD without vomiting and abdominal pain with recent bloody stools. He denies black stools.
02/07 �CT A/p pancreatitis with a 6 cm pancreatic pseudocyst at the body of the pancreas The gastropancreatic stent extends to the margin of but not into the pseudocyst. There also concern for partial bowel obstruction at the level of the second
portion of the duodenum presumably as a result of this pancreatitis with associated dilatation of the fluid-filled stomach and duodenal bulb, 1.5 cm adrenal adenoma, and DDD.
CTA 02/07- No active bleeding.
�� � � � � �
Problem list:
-acute symptomatic anemia/hemorrhagic pancreatitis (received 8 units PRBC during this admission) -
--s/p repeat EGD 02/09/[address] Song
Impression:� Normal esophagus. Red blood clot and fresh blood in the gastric fundus and in the gastric body. Previous cystogastrostomy fistula was located and dilated. The cavity was entered, large amount of clot was seen. After clot removal, active
spurting hemorrhage was localized. Treated with hot biopsy forceps and coag grasper. Gastric fistula. A new 10 Fr 3 cm double pigtail plastic stent was placed. Normal duodenal bulb, first portion of the duodenum and second portion of the duodenum.
-severe necrotizing pancreatitis March 2023 and recurrent September 2023 with complicated course with PD disruption with ascites requiring paracentesis, hemorrhagic pancreatitis, cystgastrostomy with stenting, bleeding and stent management
-recent bacteremia 01/05/24 strep anginosus on Ertapenem with concern for infected pseudocyst
-PV on chronic Jakafi
-splenic and portal vein thrombosis not on AC prior to admission
-prostate CA
-Parkinson's
-hyponatremia
Recommendations:
-Hemoglobin is stable today with no further signs of bleeding.
-He has some recurrent abdominal tenderness, was started on low-fat diet yesterday
-Discussed with Dr. Song and Dr. Ding, will repeat CT scan with IV contrast today to reevaluate the fistulous cavity.
-Will place on smaller more frequent meals, if ongoing abdominal tenderness, will reduce back to full liquid diet
-IV fluids
-Continue to trend H&H and transfuse for hemoglobin less than 7
-PPI twice daily
-Hold Jakafi as per heme-onc
-Continue pain management as per medical team
-He does report anxiety, he does have as needed benzodiazepines ordered for this
-Will follow
Subjective
Subjective
Date of Service: February 13, 2024
The pt was seen and examined at the bedside. He continues to feel weak but improved. He feels somewhat more tender in his abdomen today but has not taken pain medications. His hgb is stable.
Objective
Data Reviewed
Laboratory Data:
Laboratory Results
02/13/24 06:28
02/11/24 03:24
Laboratory Results
PT 15.2 Sec (11.4-14.6) H 02/11/24 03:24
INR 1.22 02/11/24 03:24
APTT 24.9 Sec (23.4-35.0) 02/11/24 03:24
Magnesium 2.4 mg/dl (1.6-2.3) H 02/09/24 03:53
Total Bilirubin 0.5 mg/dl (0.2-1.3) 02/09/24 03:53
AST 26 U/L (17-59) 02/09/24 03:53
ALT 18 U/L (0-50) 02/09/24 03:53
Alkaline Phosphatase 76 U/L (38-126) 02/09/24 03:53
Lipase 292 U/L (23-300) 02/08/24 13:10
Vital Signs and I&O:
Vital Signs
Temp Pulse Resp BP Pulse Ox
97.8 F 72 16 150/80 98
02/13/24 07:47 02/13/24 07:47 02/13/24 07:47 02/13/24 07:47 02/13/24 07:47
I&O
02/12/24 02/13/24 02/14/24
06:59 06:59 06:59
Intake Total 2900 / 2900 720 / 720
Output Total 5205 / 5205 1750 / 1750 3200 / 3200
Balance -2305 / -2305 -1030 / -1030 -3200 / -3200
Physical Exam
Physical Exam
HEENT: Anicteric and Moist mucous membranes
Cardiology: S1 and S2 (regular rate/rhythm)
Pulmonary: Clear
GI: Soft, Distended (minimally distended), Tender (significantly tender upper abdomen with light palpation) and Normal Bowel Sounds
Extremities: No Edema
Neuro: Non Focal and Other (UE tremors)
--- NOTE | 2024-02-13 11:36 | W.PN.HOSP.TC ---
Addendum entered and electronically signed by Sd Ding MD 02/22/24 16:08:
No Evidence of sepsis nor hypoxia noted on admission
Original Note:
Today's Communication/Plan
-
CW PPI
For repeat CT A/P today
Assessment / Plan
Assessment / Plan
A/P:
Impression:
Acute GI bleed with hemorrhagic shock
Massive blood transfusion - 8 units since admission
Acute symptomatic blood loss anemia
Severe metabolic acidosis/lactic acidosis
Hyponatremia
Less likely small bowel obstruction
Leukocytosis
Hypoalbuminemia
Conditions prior to presentation:
Severe necrotizing pancreatitis
Hemorrhagic pancreatitis
Polycythemia vera on Jakafi
Prostate cancer
Parkinson's disease
History of splenic vein and portal vein thrombosis
History of cystogastrostomy with stent and necrosectomy with bleeding and stent exchange.
History of ascites
History recurrent GI bleed
History of chronic anemia
PLAN:
Status post emergent EGD on 02/07 for a large clot of blood in the gastric body. Status post CTA of the abdomen with no active extravasation bleeding but gastropancreatic stent has changed position.
Repeat EGD 02/08 �Red blood clot and fresh blood in the gastric fundus and in the gastric body.Previous cystogastrostomy fistula was located and dilated.The cavity was entered, large amount of clot was seen.
After clot removal, active spurting hemorrhage was localized. Treated with hot biopsy forceps and coag grasper. Gastric fistula. A new 10 Fr 3 cm double pigtailplastic stent was placed.
Complicated walled off pancreatic necrosis. Patient with recurrent bleeding issues and pigtail dislodgement. Surgical recommendations about tranfer to tertiary ctr noted. [facility] Dr Song 02/10 - with stability ,will plan to hold on transfer to
tertiary center.
Repeat Blood transfusion as needed; aim to keep HH>7.0. H&H stable.
Continue pantoprazole drip
Diet advanced to solid diet
Given Invanz initially but hold off on further antibiotics.
Blood cultures neg
For repeat CT A/P today
SCDs for DVT prophylaxis. No pharmacological prophylaxis due to active GI bleed and anemia.
CODE STATUS DNR
DC when ok from GI standpoint
Anticipated Discharge: 24 - 48 hours
Subjective/Interval History
-
Date of Service: February 13, 2024
Complains of little more abdominal pain today no nausea vomiting.
No fever chills
Objective Data
-
Labs:
Laboratory Results
02/13/24 02/13/24
06:28 11:16
WBC 6.0
Hgb 8.6 L
Hct 27.1 L
Plt Count 149
Sodium Pending
Potassium Pending
Chloride Pending
Carbon Dioxide Pending
BUN Pending
Creatinine Pending
Glucose Pending
Calcium Pending
Total Bilirubin Pending
AST Pending
ALT Pending
Alkaline Phosphatase Pending
Vital Signs:
Vital Signs
Temp Pulse Resp BP Pulse Ox
97.8 F 72 16 150/80 98
02/13/24 07:47 02/13/24 07:47 02/13/24 07:47 02/13/24 07:47 02/13/24 08:15
I&O
02/12/24 02/13/24 02/14/24
06:59 06:59 06:59
Intake Total 2900 / 2900 720 / 720
Output Total 5205 / 5205 1750 / 1750 3200 / 3200
Balance -2305 / -2305 -1030 / -1030 -3200 / -3200
Review of Systems
-
Respiratory: Denies Trouble Breathing
Cardiac: Denies Chest Pain
Neuro: Denies Dizzy
Physical Exam
-
General: No Apparent Distress
HEENT: Moist Mucous Membranes
Respiratory: Clear to Auscultation
Cardiac: Regular Rhythm and S1/S2
GI: Soft, Nondistended, Normal Bowel Sounds and Tender (Epigastri area , no rebound or guarding)
Psych: Calm
Data Reviewed
-
Labs: Labs Reviewed by me
[2024-02-13 12:36] LABS: ALT (SGPT) < 10 U/L (0-50); AST (SGOT) 15 U/L (17-59); Albumin 3.1 g/dl (3.5-5.0); Alkaline Phosphatase 120 U/L (38-126); Blood Urea Nitrogen 14 mg/dl (9-20); Calcium 8.6 mg/dl (8.4-10.2); Carbon Dioxide 29 mmol/L (22-30); Chloride 98 mmol/L (98-107); Estimated Creatinine Clearance 114 ml/min; Glucose 157 mg/dl (70-99); Potassium 4.4 mmol/L (3.5-5.1); Sodium 132 mmol/L (135-145); Total Bilirubin 0.3 mg/dl (0.2-1.3); Total Protein 5.1 g/dl (6.3-8.2); eGFR > 60.00
[2024-02-13] MEDS: ULTRAM 50 MG PO ×2 (14:38→20:33)
[2024-02-13 14:55] LABS: Hematocrit 27.9 % (39.0-52.0)
[2024-02-13 15:07] VITALS: BP 146/79
[2024-02-13] MEDS: XANAX 0.25 MG PO (16:17)
[2024-02-13] MEDS: PROTONIX IV 40 MG IV (20:19)
[2024-02-13] MEDS: NSS (PRESERVATIVE FREE) 10 ML IV (20:20)
[2024-02-13 23:44] VITALS: BP 141/83
[2024-02-14] MEDS: ProAIR HFA INHALER 2 PUFF INH ×5 (00:24→19:44)
--- NOTE | 2024-02-14 03:28 | DOWNTIME ---
There was a [employer] Client [employer] Downtime on 02/14/2024 from 0100 to 02/14/2024 at 0322. Downtime documentation of patient's care, including medication administrations, has been reconciled in the electronic record per guidelines. Refer to the
patient's paper chart under the miscellaneous tab to see printed paper medication records and downtime forms.
[2024-02-14 06:19] LABS: Hematocrit 27.7 % (39.0-52.0); Hemoglobin 8.9 g/dL (13.0-18.0); Mean Corp Hgb Conc. 32.1 g/dL (33.0-37.0); Mean Corpuscular Hgb 28.2 pg (27.0-31.0); Mean Corpuscular Volume 87.7 fL (80.0-94.0); Mean Platelet Volume 11.4 fL (7.4-10.4); Platelet Count 151 10^3/uL (130-400); Red Blood Cell Count 3.16 10^6/uL (4.70-6.10); Red Cell Dist. Width 15.8 % (11.5-14.5); White Blood Cell Count 5.9 10^3/uL (4.8-10.8)
[2024-02-14 07:25] VITALS: BP 138/74
[2024-02-14] MEDS: ZENPEP DELAYED RELEASE CAPSULE 1 CAPSULE PO ×4 (08:01→21:29)
[2024-02-14] MEDS: NSS (PRESERVATIVE FREE) 10 ML IV ×2 (08:01→20:05)
[2024-02-14] MEDS: SINEMET 25-100 2 TABLET PO ×3 (08:01→21:29)
[2024-02-14] MEDS: PROTONIX IV 40 MG IV ×2 (08:01→20:06)
--- NOTE | 2024-02-14 10:09 | W.PN.GI.CBS2 ---
Addendum entered and electronically signed by Mohsen Song MD 02/14/24 11:41:
I saw and examined the patient.
The PA's note was reviewed and I agree with the note.
Comment:
Hgb remains stable. Tolerating diet. Continues to have melenic stool as per pt, wonder if residual blood due to his likely decreased motility from his Parkinson's dz. Continue to monitor Hgb, anticipate d/c in 24-48 hrs.
Original Note:
Today's Communication / Plan
-
Monitor H&H and stool output. Pain management. Diet as tolerated.
Assessment / Plan
-
The pt is a 68 year old male with a past medical history of severe necrotizing pancreatitis (initial episode in March 2023, with subsequent recurrence in September 2023) with WON and development of hemorrhagic pancreatitis requiring transfusion,
concern for infected cyst 12/2023 with bacteremia, cystogastrostomy with stenting with complication of bleeding and stent exchange, ascites requiring paracentesis with concern for pancreatic duct disruption, polycythemia vera on chronic Jakafi,
Prior splenic and portal vein thrombosis, prior prostate CA, and Parkinson's disease. Pt with multiple admission over last year. Last admission 01/24 with anemia and heme + stools with hbg down to 6.1. He completed EGD 01/24 with Normal esophagus pre
existing gastric stent, fistula tract patent and too small to enter necrotic cavity with no blood or hematoma seen in tract. normal duodenum. He also completed 01/28 with colonoscopy hemorrhoids, 5 mm polyp, diverticulosis, IH. Hbg was 9.2 on
discharge 01/28 and states stable hbg last week. He was noted with passing bright red blood on 02/06 with hbg 7 and further drop to hbg 5.3 on admission. Pt did report last stool day of admission was formed less bloody. He also reports dizziness,
fatigue and feeling of inability to get up. On EMS arrival noted with severe hypotension with BP in 50's with minimal responsiveness. Prior to arrival he was given IV fluid bolus and epi then PRBC's in ER with improved BP. Pt admits to increased
nausea with GERD without vomiting and abdominal pain with recent bloody stools. He denies black stools.
02/07 �CT A/p pancreatitis with a 6 cm pancreatic pseudocyst at the body of the pancreas The gastropancreatic stent extends to the margin of but not into the pseudocyst. There also concern for partial bowel obstruction at the level of the second
portion of the duodenum presumably as a result of this pancreatitis with associated dilatation of the fluid-filled stomach and duodenal bulb, 1.5 cm adrenal adenoma, and DDD.
CTA 02/07- No active bleeding.
�� � � � � �
Problem list:
-acute symptomatic anemia/hemorrhagic pancreatitis (received 8 units PRBC during this admission) -
--s/p repeat EGD 02/09/[address] Song
Impression:� Normal esophagus. Red blood clot and fresh blood in the gastric fundus and in the gastric body. Previous cystogastrostomy fistula was located and dilated. The cavity was entered, large amount of clot was seen. After clot removal, active
spurting hemorrhage was localized. Treated with hot biopsy forceps and coag grasper. Gastric fistula. A new 10 Fr 3 cm double pigtail plastic stent was placed. Normal duodenal bulb, first portion of the duodenum and second portion of the duodenum.
-severe necrotizing pancreatitis March 2023 and recurrent September 2023 with complicated course with PD disruption with ascites requiring paracentesis, hemorrhagic pancreatitis, cystgastrostomy with stenting, bleeding and stent management
-recent bacteremia 01/05/24 strep anginosus on Ertapenem with concern for infected pseudocyst
-PV on chronic Jakafi
-splenic and portal vein thrombosis not on AC prior to admission
-prostate CA
-Parkinson's
-hyponatremia
Recommendations:
-Continue to monitor H&H and stool output. Likely old blood coming out now since he is eating a regular diet.
-Advised him to try Tylenol for his pain and can alternate with tramadol. I advised him that with the significance of his pancreatic disease he likely will have pain chronically to an extent.
-Continue pancreatic enzymes
-Continue diet as tolerated with smaller more frequent meals
-PPI twice daily
-Hold Jakafi as per heme-onc
-Continue pain management as per medical team
-He does report anxiety, he does have as needed benzodiazepines ordered for this. I advised him he will need to ask for this as it is only ordered as needed
-Will follow
Subjective
Subjective
Date of Service: February 14, 2024
The patient was seen and examined at the bedside. He continues with some abdominal tenderness which has been stable from yesterday. He denies any nausea or vomiting. He is tolerating his diet. CT imaging reviewed and appears stable. Hemoglobin
also stable at 8.9. He notes he did have a black stool this morning
Objective
Data Reviewed
Laboratory Data:
Laboratory Results
02/14/24 05:07
02/13/24 06:27
Laboratory Results
PT 15.2 Sec (11.4-14.6) H 02/11/24 03:24
INR 1.22 02/11/24 03:24
APTT 24.9 Sec (23.4-35.0) 02/11/24 03:24
Magnesium 2.4 mg/dl (1.6-2.3) H 02/09/24 03:53
Total Bilirubin 0.3 mg/dl (0.2-1.3) 02/13/24 06:27
AST 15 U/L (17-59) L 02/13/24 06:27
ALT < 10 U/L (0-50) 02/13/24 06:27
Alkaline Phosphatase 120 U/L (38-126) 02/13/24 06:27
Lipase 292 U/L (23-300) 02/08/24 13:10
Vital Signs and I&O:
Vital Signs
Temp Pulse Resp BP Pulse Ox
98.3 F 77 16 138/74 98
02/14/24 07:25 02/14/24 07:25 02/14/24 07:25 02/14/24 07:25 02/14/24 07:25
I&O
02/13/24 02/14/24 02/15/24
06:59 06:59 06:59
Intake Total 720 / 720 480 / 480
Output Total 1750 / 1750 4700 / 4700
Balance -1030 / -1030 -4220 / -4220
Physical Exam
Physical Exam
HEENT: Anicteric
Cardiology: S1 and S2 (Regular rate/rhythm)
Pulmonary: Clear
GI: Soft, Distended (Mildly distended but soft), Tender (Diffusely tender with light palpation ) and Normal Bowel Sounds
Rectal: Other (Per patient melena)
Neuro: Other (Upper extremity tremor)
--- NOTE | 2024-02-14 10:25 | CM ---
will be able to drive pt home at dc.
Pt requested [facility].
As per care port [facility] accepted him.
Pt has received 8 units PRBCs this stay .
PLAN Home with [facility]
[2024-02-14] MEDS: XANAX 0.25 MG PO ×2 (11:58→20:06)
--- NOTE | 2024-02-14 13:49 | W.PN.HOSP.TC ---
Addendum entered and electronically signed by Marleny Bella MD 02/14/24 16:26:
Correction the lady was at the bedside is the patient's spouse not the daughter
Original Note:
Today's Communication/Plan
-
All discussed with the patient
Discussed with the daughter
Discussed with the nurse
Assessment / Plan
Assessment / Plan
Physical exam:
General: Mildly anxious, have tremor of upper extremities awake, alert and oriented x3, not in distress and holds appropriate conversation.
HEENT: No active discharge, ecchymosis or bruising, moist lips, tongue and mucous membrane.
Eyes: No discharge or red conjunctiva, no nystagmus, pupils are reactive and equal
Neck:Supple, no JVD no bruit no goiter.
Respiratory: Normal AP contour and diameter, normal chest wall movement, normal respiratory effort, no respiratory distress,
Lungs: Good air entry bilaterally, no wheezing or rhonchi, no rales or crackles
Heart: S1, S2 regular, normal rate, no added sound.
Gastrointestinal: Positive bowel sounds, soft, mild epigastric tenderness with no guarding or rigidity or organomegaly
Musculoskeletal: , no chest wall abnormality or tenderness. All joints and extremities have good range of motion, no muscle tenderness or any joint swelling or tenderness.
Extremities: No pitting edema, good peripheral pulses, good range of motion
Skin: Warm and dry, no ulceration, normal color.
Neurological: Awake, alert and oriented x3, , speech clear and comprehensive, good muscle tone, tremors of his
Psychiatric: Normal mood, normal thought and judgment, normal affect,
Assessment and plan:
Impression:
Acute GI bleed with hemorrhagic shock
Massive blood transfusion - 8 units since admission
Acute symptomatic blood loss anemia
Severe metabolic acidosis/lactic acidosis
Hyponatremia
Less likely small bowel obstruction
Leukocytosis
Hypoalbuminemia
Conditions prior to presentation:
Severe necrotizing pancreatitis
Hemorrhagic pancreatitis
Polycythemia vera on Jakafi
Prostate cancer
Parkinson's disease
History of splenic vein and portal vein thrombosis
History of cystogastrostomy with stent and necrosectomy with bleeding and stent exchange.
History of ascites
History recurrent GI bleed
History of chronic anemia
PLAN:
Status post emergent EGD on 02/07 for a large clot of blood in the gastric body. At the site of cystogastrostomy fistula, status post CTA of the abdomen with no active extravasation bleeding but gastropancreatic stent has changed position.
Repeat EGD 02/08 �Red blood clot and fresh blood in the gastric fundus and in the gastric body.Previous cystogastrostomy fistula was located and dilated.The cavity was entered, large amount of clot was seen.
After clot removal, active spurting hemorrhage was localized. Treated with hot biopsy forceps and coag grasper. Gastric fistula. A new 10 Fr 3 cm double pigtailplastic stent was placed.
Complicated walled off pancreatic necrosis. Patient with recurrent bleeding issues and pigtail dislodgement. Surgical recommendations about tranfer to tertiary ctr noted. [facility] Dr Song 02/10 - with stability ,will plan to hold on transfer to
tertiary center.
Repeat Blood transfusion as needed; aim to keep HH>7.0. H&H stable. Status post 8 units of blood transfusion
So for the last couple of the hemoglobin been stable despite passing dark stool was possibly secondary to remanent if any specially with the slow gastric movement secondary to Parkinson,
Continue pantoprazole,, currently on IV changed to p.o. as he is tolerating p.o.
Tolerated solid diet
Recheck labs, monitor H&H,
Tylenol and more as needed
Xanax as needed for anxiety.
Continue Sinemet for Parkinson.
GI input appreciated
Will monitor for another day or to make sure hemoglobin stable at least stool clearing up.
SCDs for DVT prophylaxis. No pharmacological prophylaxis due to active GI bleed and anemia.
CODE STATUS DNR
Anticipated Discharge: 24 - 48 hours
Subjective/Interval History
-
Date of Service: February 14, 2024
Seen and examined, daughter at the bedside, he is awake, alert and oriented x 3 hold appropriate conversation, fine tremor, moved his bowels this morning was well-formed but still dark and tarry but no fresh blood, tolerates diet well, no
hematemesis or any nausea or vomiting, no fever or chill or cough or congestion, complain of upper abdominal pain and discomfort, crampy in nature especially after he moved his bowels.
He is anxious.
Nurse also came to the bedside.
Objective Data
-
Labs:
Laboratory Results
02/14/24
05:07
WBC 5.9
Hgb 8.9 L
Hct 27.7 L
Plt Count 151
Vital Signs:
Vital Signs
Temp Pulse Resp BP Pulse Ox
98.3 F 86 16 138/74 100
02/14/24 07:25 02/14/24 12:11 02/14/24 12:11 02/14/24 07:25 02/14/24 12:11
I&O
02/13/24 02/14/24 02/15/24
07:59 07:59 07:59
Intake Total 720 / 720 480 / 480
Output Total 4950 / 4950 1500 / 1500
Balance -4230 / -4230 -1020 / -1020
Review of Systems
-
All other systems: Reviewed and negative
--- NOTE | 2024-02-14 14:02 | PN.CDI ---
CDI
- -
CDI:
Physician Documentation Request
Admit Date: 02/08/24 15:33
Dear Doctor Timur,
Please review the following and provide your response in the progress notes.
Clinical Indicators:
#EMS transport, 4 L NC O2
ER, 02/07
#Lungs: Moderate respiratory distress. clear bilaterally
Selected Entries
02/08/24
13:07
SaO2 100
Flow liters per minute # 15
Oxygen Mode of Delivery Non-rebreather
mask
Please clarify which of the following accurately represents the patient's respiratory status:
Acute respiratory failure, POA
Acute respiratory failure, POA, now resolved
Hypoxia
Other
Additional information for Respiratory Failure:
Recognized criteria for Respiratory Failure (Source: [facility] Sep 2013)
ABGs: (1 or more) Symptoms Please indicate type if known
1. p)2 <60 or RA SPO2 <91% on RA 1. Tachypnea, SOB, dyspnea Hypoxic
2. pCO2 50 and pH <7.35 2. Use of accessory muscles Hypercapnic
3. pO2 decrease of pCO2 increase by 3. Pallor or cyanosis Hypoxic and Hypercapnic
10 mmHg from baseline if known 4. Anxiety or restlessness Unable to determine
5. Unable to speak in full sentences
Supplemental O2 of > 40% (5LPM) Intubation is not required
Use of terms such as suspected, likely, concern for, or probable (associated with a specific diagnosis that is being evaluated, monitored, or treated as if it exists) are acceptable and can be coded in the inpatient setting, when documented at the
time of discharge.
Thank you,
Ivelisse Briggs RN BSN CCDS
CDI Specialist
please contact via tiger text
Please use your independent medical judgment in providing your response.
--- NOTE | 2024-02-14 14:10 | PN.CDI ---
CDI
- -
CDI:
Physician Documentation Request
Admit Date: 02/08/24 15:33
Dear Doctor Timur,
Please review the following and provide your response in the progress notes.
Clinical Indicators:
ED, 02/07
#Acute blood loss anemia, Partial obstruction of small intestine, Acute pancreatitis
H+P, 02/07
#Shock hypovolemic/hemorrhagic versus septic
#Acute GI bleed
#Acute symptomatic blood loss anemia
#Severe metabolic acidosis
Selected Entries
02/08/24
13:03 02/08/24
13:07 02/08/24
13:12
Temp 93.4 F L
Resp Rate 22
SaO2 100
Flow liters per minute # 15
Oxygen Mode of Delivery Non-rebreather
mask
02/08/24
13:19 02/08/24
13:33 02/08/24
14:00
Temp 95.2 F L 35.3 F L 95.7 F L
02/08/24
15:00 02/08/24
15:06 02/08/24
15:25
Temp 96.1 F L 96.1 F L 96.4 F L
02/08/24
16:00
Temp 96.8 F L
Please clarify which most accurately describes the patient:
Sepsis, POA(please specify infectious source)
SIRS due to non-infectious source
Indicate the known or suspected etiology
Indicate if there is associated organ dysfunction, such as renal or respiratory failure
Other(please specify)
Sepsis
Systemic manifestations of infection, with 2 or more SIRS criteria which include:
Fever > 100.4 degrees F or hypothermia < 96.8 degrees F
Leukocytosis - WBC > 12,000 or leukopenia, WBC < 4,000 or > 10% bands
Tachycardia - > 90 beats per minute
Tachypnea - RR > 20 breaths per minute or PaCO2 < 32 mmHg
Source: [employer] Manual 2013
Indicate the known or suspected organism
Indicate the known or suspected underlying infection, such as UTI, pneumonia or cellulitis
Indicate if a suspected bacterial infection of unknown source
Indicate if associated with an implanted device such as a F/C, PICC line, orthopedic hardware etc.
Indicate if there is associated organ dysfunction, such as renal or respiratory failure
SIRS due to a non-infectious source
Indicate the known or suspected etiology
Indicate if there is associated organ dysfunction, such as renal or respiratory failure
Use of terms such as suspected, likely, concern for, or probable (associated with a specific diagnosis that is being evaluated, monitored, or treated as if it exists) are acceptable and can be coded in the inpatient setting, when documented at the
time of discharge.
Thank you,
Ivelisse Briggs RN BSN CCDS
CDI Specialist
please contact via tiger text
Please use your independent medical judgment in providing your response.
[2024-02-14] MEDS: ULTRAM 50 MG PO (15:02)
[2024-02-14 15:20] VITALS: BP 117/72
--- NOTE | 2024-02-14 15:59 | VNURNOTE ---
[facility] resumption of care completed in [facility] after review of chart and discussion with patient and . Patient confirmed having [facility] contact number.
[2024-02-14] MEDS: MORPHINE SULFATE 2 MG IV ×2 (17:53→20:06)
[2024-02-14 23:00] VITALS: BP 138/85
[2024-02-15 06:17] LABS: Hematocrit 29.2 % (39.0-52.0); Hemoglobin 9.2 g/dL (13.0-18.0); Mean Corp Hgb Conc. 31.5 g/dL (33.0-37.0); Mean Corpuscular Hgb 28.1 pg (27.0-31.0); Mean Corpuscular Volume 89.3 fL (80.0-94.0); Mean Platelet Volume 11.2 fL (7.4-10.4); Platelet Count 171 10^3/uL (130-400); Red Blood Cell Count 3.27 10^6/uL (4.70-6.10); Red Cell Dist. Width 15.6 % (11.5-14.5); White Blood Cell Count 7.3 10^3/uL (4.8-10.8)
[2024-02-15 07:00] VITALS: BP 148/97
[2024-02-15] MEDS: ZENPEP DELAYED RELEASE CAPSULE 1 CAPSULE PO ×4 (07:24→21:54)
[2024-02-15] MEDS: NSS (PRESERVATIVE FREE) 10 ML IV ×2 (07:24→20:28)
[2024-02-15] MEDS: SINEMET 25-100 2 TABLET PO ×3 (07:24→21:54)
[2024-02-15] MEDS: PROTONIX IV 40 MG IV ×2 (07:24→20:28)
[2024-02-15] MEDS: ProAIR HFA INHALER 2 PUFF INH ×5 (09:49→23:57)
--- NOTE | 2024-02-15 11:34 | CM ---
will be able to drive pt home at dc.
Pt requested [facility].
As per care port [facility] accepted him.
IMM reviewed signed on chart.
PLAN Home with [facility]
--- NOTE | 2024-02-15 14:13 | W.PN.HOSP.TC ---
Today's Communication/Plan
-
All discussed with the patient
Discussed with the
Discussed with the nurse
Assessment / Plan
Assessment / Plan
Physical exam:
General: Mildly anxious, have tremor of upper extremities awake, alert and oriented x3, not in distress and holds appropriate conversation.
HEENT: No active discharge, ecchymosis or bruising, moist lips, tongue and mucous membrane.
Eyes: No discharge or red conjunctiva, no nystagmus, pupils are reactive and equal
Neck:Supple, no JVD no bruit no goiter.
Respiratory: Normal AP contour and diameter, normal chest wall movement, normal respiratory effort, no respiratory distress,
Lungs: Good air entry bilaterally, no wheezing or rhonchi, no rales or crackles
Heart: S1, S2 regular, normal rate, no added sound.
Gastrointestinal: Positive bowel sounds, soft, mild epigastric tenderness with no guarding or rigidity or organomegaly
Musculoskeletal: , no chest wall abnormality or tenderness. All joints and extremities have good range of motion, no muscle tenderness or any joint swelling or tenderness.
Extremities: No pitting edema, good peripheral pulses, good range of motion
Skin: Warm and dry, no ulceration, normal color.
Psychiatric: Nervous, normal thought and judgment, normal affect,
Assessment and plan:
Impression:
Acute GI bleed with hemorrhagic shock
Massive blood transfusion - 8 units since admission
Acute symptomatic blood loss anemia
Severe metabolic acidosis/lactic acidosis
Hyponatremia
Less likely small bowel obstruction
Leukocytosis
Hypoalbuminemia
Conditions prior to presentation:
Severe necrotizing pancreatitis
Hemorrhagic pancreatitis
Polycythemia vera on Jakafi
Prostate cancer
Parkinson's disease
History of splenic vein and portal vein thrombosis
History of cystogastrostomy with stent and necrosectomy with bleeding and stent exchange.
History of ascites
History recurrent GI bleed
History of chronic anemia
PLAN:
Status post emergent EGD on 02/07 for a large clot of blood in the gastric body. At the site of cystogastrostomy fistula, status post CTA of the abdomen with no active extravasation bleeding but gastropancreatic stent has changed position.
Repeat EGD 02/08 �Red blood clot and fresh blood in the gastric fundus and in the gastric body.Previous cystogastrostomy fistula was located and dilated.The cavity was entered, large amount of clot was seen.
After clot removal, active spurting hemorrhage was localized. Treated with hot biopsy forceps and coag grasper. Gastric fistula. A new 10 Fr 3 cm double pigtailplastic stent was placed.
Complicated walled off pancreatic necrosis. Patient with recurrent bleeding issues and pigtail dislodgement. Surgical recommendations about tranfer to tertiary ctr noted. DW GI Dr Song 02/10 - with stability ,will plan to hold on transfer to
tertiary center.
Repeat Blood transfusion as needed; aim to keep HH>7.0. H&H stable. Status post 8 units of blood transfusion, hemoglobin is 9.2 today is better than yesterday 8.9
But he still have persistent abdominal pain and fear of eating. And no bowel movement today
Had a dark stool yesterday.
So for the last couple of the hemoglobin been stable despite passing dark stool was possibly secondary to remanent if any specially with the slow gastric movement secondary to Parkinson,
Continue pantoprazole,, oral
Tolerated solid diet but he is can hesitant to eat fear of the pain and bleeding
Recheck labs, monitor H&H,
Tylenol and more as needed
Xanax as needed for anxiety.
Continue Sinemet for Parkinson.
GI input appreciated
Will monitor for another day or to make sure hemoglobin stable at least stool clearing up.
SCDs for DVT prophylaxis. No pharmacological prophylaxis due to active GI bleed and anemia.
CODE STATUS DNR
Anticipated Discharge: 24 - 48 hours
Subjective/Interval History
-
Date of Service: February 15, 2024
Seen and examined, awake and alert, at the bedside, still having some continuous mild abdominal and epigastric pain which occasionally get superadded cramps lasting few minutes, no bowel movement today. No fresh rectal bleed, no hematemesis no
melena.
Eating and drinking well.
Admit he still anxious and having tremor upper extremity, the idea of him going home make him even more nervous.
Objective Data
-
Labs:
Laboratory Results
02/15/24
05:28
WBC 7.3
Hgb 9.2 L
Hct 29.2 L
Plt Count 171
Vital Signs:
Vital Signs
Temp Pulse Resp BP Pulse Ox
97.9 F 85 16 148/97 99
02/15/24 07:00 02/15/24 10:26 02/15/24 10:26 02/15/24 07:00 02/15/24 10:26
I&O
02/14/24 02/15/24 02/16/24
07:59 07:59 07:59
Intake Total 480 / 480 2405 / 2405
Output Total 1500 / 1500 375 / 375
Balance -1020 / -1020 2029 / 2029
Review of Systems
-
All other systems: Reviewed and negative
[2024-02-15] MEDS: XANAX 0.25 MG PO (14:49)
[2024-02-15] MEDS: MORPHINE SULFATE 2 MG IV (14:50)
--- NOTE | 2024-02-15 15:06 | W.PN.ONC ---
Today's Communication / Plan
-
No symptoms typical of abrupt Jakafi withdrawal
Continue to monitor CBC
Transfuse as needed as per parameters
Impression
Impression
Active Upper GI bleed
Polycythemia vera on Jakafi (+JAK2 mutation)
Hx splenic/portal vein thrombosis
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
Hx Hemorrhagic pancreatitis
Cystogastrostomy with stenting
Symptomatic blood loss anemia
Partial bowel obstruction
Hx ascites s/p paracentesis (11/2023)
Hx prostate cancer s/p prostatectomy
Subjective/Objective
Subjective/Objective
Continues to have cramping abdominal pain and he reports occasional melena
Vital Signs:
Vital Signs
Temp Pulse Resp BP Pulse Ox
97.9 F 85 16 148/97 99
02/15/24 07:00 02/15/24 10:26 02/15/24 10:26 02/15/24 07:00 02/15/24 10:26
Physical Exam
HEENT: Anicteric
Cardiology: Regular rate/rhythm
Pulmonary: Clear
GI: Soft, Tender (Diffusely tender with light palpation) and Normal Bowel Sounds
Neuro: Right upper extremity resting tremor
Lab Results:
Laboratory Data
WBC 7.3 10^3/uL (4.8-10.8) 02/15/24 05:28
Hgb 9.2 g/dL (13.0-18.0) L 02/15/24 05:28
Plt Count 171 10^3/uL (130-400) 02/15/24 05:28
PT 15.2 Sec (11.4-14.6) H 02/11/24 03:24
INR 1.22 02/11/24 03:24
APTT 24.9 Sec (23.4-35.0) 02/11/24 03:24
eGFR > 60.00 02/13/24 06:27
[2024-02-15 16:05] VITALS: BP 125/74
--- NOTE | 2024-02-15 21:12 | W.PN.GI.CBS2 ---
Today's Communication / Plan
-
likely d/c home tomorrow if Hgb remains stable
Assessment / Plan
-
The pt is a 68 year old male with a past medical history of severe necrotizing pancreatitis (initial episode in March 2023, with subsequent recurrence in September 2023) with WON and development of hemorrhagic pancreatitis requiring transfusion,
concern for infected cyst 12/2023 with bacteremia, cystogastrostomy with stenting with complication of bleeding and stent exchange, ascites requiring paracentesis with concern for pancreatic duct disruption, polycythemia vera on chronic Jakafi,
Prior splenic and portal vein thrombosis, prior prostate CA, and Parkinson's disease. Pt with multiple admission over last year. Last admission 01/24 with anemia and heme + stools with hbg down to 6.1. He completed EGD 01/24 with Normal esophagus pre
existing gastric stent, fistula tract patent and too small to enter necrotic cavity with no blood or hematoma seen in tract. normal duodenum. He also completed 01/28 with colonoscopy hemorrhoids, 5 mm polyp, diverticulosis, IH. Hbg was 9.2 on
discharge 01/28 and states stable hbg last week. He was noted with passing bright red blood on 02/06 with hbg 7 and further drop to hbg 5.3 on admission. Pt did report last stool day of admission was formed less bloody. He also reports dizziness,
fatigue and feeling of inability to get up. On EMS arrival noted with severe hypotension with BP in 50's with minimal responsiveness. Prior to arrival he was given IV fluid bolus and epi then PRBC's in ER with improved BP. Pt admits to increased
nausea with GERD without vomiting and abdominal pain with recent bloody stools. He denies black stools.
Continues to do well. Tolerating diet, Hgb remains stable. I anticipate d/c home tomorrow with f/u with me.
Total Time Spent with Patient (in minutes): 35
Subjective
Subjective
Date of Service: February 15, 2024
no events o/n
Objective
Data Reviewed
Laboratory Data:
Laboratory Results
02/15/24 05:28
02/13/24 06:27
Laboratory Results
PT 15.2 Sec (11.4-14.6) H 02/11/24 03:24
INR 1.22 02/11/24 03:24
APTT 24.9 Sec (23.4-35.0) 02/11/24 03:24
Magnesium 2.4 mg/dl (1.6-2.3) H 02/09/24 03:53
Total Bilirubin 0.3 mg/dl (0.2-1.3) 02/13/24 06:27
AST 15 U/L (17-59) L 02/13/24 06:27
ALT < 10 U/L (0-50) 02/13/24 06:27
Alkaline Phosphatase 120 U/L (38-126) 02/13/24 06:27
Lipase 292 U/L (23-300) 02/08/24 13:10
Vital Signs and I&O:
Vital Signs
Temp Pulse Resp BP Pulse Ox
97.5 F 95 16 125/74 98
02/15/24 16:05 02/15/24 19:59 02/15/24 19:59 02/15/24 16:05 02/15/24 19:59
I&O
02/14/24 02/15/24 02/16/24
06:59 06:59 06:59
Intake Total 480 / 480 2405 / 2405 940 / 940
Output Total 4700 / 4700 375 / 375 625 / 625
Balance -4220 / -4220 2029 / 2029 315 / 315
[2024-02-15 23:39] VITALS: BP 135/92
[2024-02-16] MEDS: ProAIR HFA INHALER 2 PUFF INH ×4 (05:26→22:06)
[2024-02-16 06:11] LABS: Hematocrit 27.6 % (39.0-52.0); Hemoglobin 8.8 g/dL (13.0-18.0); Mean Corp Hgb Conc. 31.9 g/dL (33.0-37.0); Mean Corpuscular Volume 87.9 fL (80.0-94.0); Mean Platelet Volume 11.1 fL (7.4-10.4); Platelet Count 181 10^3/uL (130-400); Red Blood Cell Count 3.14 10^6/uL (4.70-6.10); Red Cell Dist. Width 15.4 % (11.5-14.5); White Blood Cell Count 6.9 10^3/uL (4.8-10.8)
[2024-02-16 07:00] VITALS: BP 133/70
[2024-02-16] MEDS: NSS (PRESERVATIVE FREE) 10 ML IV ×2 (07:23→20:54)
[2024-02-16] MEDS: ZENPEP DELAYED RELEASE CAPSULE 1 CAPSULE PO ×4 (07:23→21:05)
[2024-02-16] MEDS: PROTONIX IV 40 MG IV ×2 (07:23→20:54)
[2024-02-16] MEDS: SINEMET 25-100 2 TABLET PO ×3 (07:23→21:05)
--- NOTE | 2024-02-16 10:31 | W.PN.GI.CBS2 ---
Addendum entered and electronically signed by Rupesh Mullins MD 02/16/24 17:25:
I saw and examined the patient.
The [employer] or PA's note was reviewed and I agree with the note.
Comment:
Pt feels stable, still some abd d/c but mild. states he is having bms.
abd: soft, mildly tender
impression:
necrotizing pancreatitis
h/oWON
h/o pancreas duct disruption
h/o GI bleed
plan:
monitor
follow hgb, wbc
low fat diet
if pain worsens then imaging
Original Note:
Today's Communication / Plan
-
hbg stable at 8.8
some abdominal pain on exam today -- monitor next few hours til seen by Dr. Mullins if persist will review need for repeat CT
pt had hard brown BM today may be related to constipation
cont panc enzymes
appreciate heme input for iron infusion and Jakafi remains on hold
-cont protonix twice daily
-Hold Jakafi as per heme-onc
-Continue pain management as per medical team
updated at bedside
Assessment / Plan
-
The pt is a 68 year old male with a past medical history of severe necrotizing pancreatitis (initial episode in March 2023, with subsequent recurrence in September 2023) with WON and development of hemorrhagic pancreatitis requiring transfusion,
concern for infected cyst 12/2023 with bacteremia, cystogastrostomy with stenting with complication of bleeding and stent exchange, ascites requiring paracentesis with concern for pancreatic duct disruption, polycythemia vera on chronic Jakafi,
Prior splenic and portal vein thrombosis, prior prostate CA, and Parkinson's disease. Pt with multiple admission over last year. Last admission 01/24 with anemia and heme + stools with hbg down to 6.1. He completed EGD 01/24 with Normal esophagus pre
existing gastric stent, fistula tract patent and too small to enter necrotic cavity with no blood or hematoma seen in tract. normal duodenum. He also completed 01/28 with colonoscopy hemorrhoids, 5 mm polyp, diverticulosis, IH. Hbg was 9.2 on
discharge 01/28 and states stable hbg last week. He was noted with passing bright red blood on 02/06 with hbg 7 and further drop to hbg 5.3 on admission. Repeat EGD 02/08 as noted with active spurting hemorrhage with treatment.
02/07 �CT A/p pancreatitis with a 6 cm pancreatic pseudocyst at the body of the pancreas The gastropancreatic stent extends to the margin of but not into the pseudocyst. There also concern for partial bowel obstruction at the level of the second
portion of the duodenum presumably as a result of this pancreatitis with associated dilatation of the fluid-filled stomach and duodenal bulb, 1.5 cm adrenal adenoma, and DDD.
CTA 02/07- No active bleeding.
�� � � � � �
Problem list:
-abdominal pain
-acute symptomatic anemia/hemorrhagic pancreatitis (received 8 units PRBC during this admission) -
--s/p repeat EGD 02/09/[address] Song
Impression:� Normal esophagus. Red blood clot and fresh blood in the gastric fundus and in the gastric body. Previous cystogastrostomy fistula was located and dilated. The cavity was entered, large amount of clot was seen. After clot removal, active
spurting hemorrhage was localized. Treated with hot biopsy forceps and coag grasper. Gastric fistula. A new 10 Fr 3 cm double pigtail plastic stent was placed. Normal duodenal bulb, first portion of the duodenum and second portion of the duodenum.
-severe necrotizing pancreatitis March 2023 and recurrent September 2023 with complicated course with PD disruption with ascites requiring paracentesis, hemorrhagic pancreatitis, cystgastrostomy with stenting, bleeding and stent management
-recent bacteremia 01/05/24 strep anginosus on Ertapenem with concern for infected pseudocyst
-PV on chronic Jakafi
-splenic and portal vein thrombosis not on AC prior to admission
-prostate CA
-Parkinson's
-hyponatremia
Recommendations:
hbg stable at 8.8
some abdominal pain on exam today -- monitor next few hours til seen by Dr. Mullins if persist will review need for repeat CT
pt had hard brown BM today may be related to constipation
cont panc enzymes
appreciate heme input for iron infusion and Jakafi remains on hold
-cont protonix twice daily
-Hold Jakafi as per heme-onc
-Continue pain management as per medical team
updated at bedside
Subjective
Subjective
Date of Service: February 16, 2024
02/15 brown stool, on low fat diet pt reports some abdominal pain but appears comfortable on exam also some dizziness
Objective
Data Reviewed
Laboratory Data:
Laboratory Results
02/16/24 04:58
02/13/24 06:27
Laboratory Results
PT 15.2 Sec (11.4-14.6) H 02/11/24 03:24
INR 1.22 02/11/24 03:24
APTT 24.9 Sec (23.4-35.0) 02/11/24 03:24
Magnesium 2.4 mg/dl (1.6-2.3) H 02/09/24 03:53
Total Bilirubin 0.3 mg/dl (0.2-1.3) 02/13/24 06:27
AST 15 U/L (17-59) L 02/13/24 06:27
ALT < 10 U/L (0-50) 02/13/24 06:27
Alkaline Phosphatase 120 U/L (38-126) 02/13/24 06:27
Lipase 292 U/L (23-300) 02/08/24 13:10
Vital Signs and I&O:
Vital Signs
Temp Pulse Resp BP Pulse Ox
98.3 F 92 18 133/70 97
02/16/24 07:00 02/16/24 07:00 02/16/24 07:00 02/16/24 07:00 02/16/24 07:00
I&O
02/15/24 02/16/2424
06:59 06:59 06:59
Intake Total 2405 / 2405 1340 / 1340
Output Total 375 / 375 625 / 625
Balance 2029 715 / 715
Physical Exam
Physical Exam
HEENT: Anicteric and Moist mucous membranes
Cardiology: Normal Sinus Rhythm
Pulmonary: Clear
GI: Soft, Non Distended and Tender (diffuse)
Extremities: No Edema
Neuro: Non Focal
--- NOTE | 2024-02-16 10:51 | W.PN.ONC2 ---
Today's Communication / Plan
-
Continue to hold Jakafi with anemia and normal Plt.
IV iron x 2 days - anticipate this will be diagnostic as well as therapeutic. If Hgb does not correct with IV iron and no evidence of ongoing bleeding then would suggest bone marrow bx to eval for progression to myelofibrosis in which case he would
be candidate for momelotinib (Ojjaara).
Retic ct in 1-2 weeks.
PSA now.
Impression
Impression
Active Upper GI bleed
Polycythemia vera on Jakafi (+JAK2 mutation)
Hx splenic/portal vein thrombosis
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
Hx Hemorrhagic pancreatitis
Cystogastrostomy with stenting
Symptomatic blood loss anemia
Partial bowel obstruction
Hx ascites s/p paracentesis (11/2023)
Hx prostate cancer s/p prostatectomy
Plan
Plan
Active GI bleeding noted on EGD: Red blood clot and fresh blood in the gastric fundus and in the gastric body. Previous cystogastrostomy fistula was located and dilated. The cavity was entered, large amount of clot was seen. After clot removal,
active spurting hemorrhage was localized. Treated with hot biopsy forceps and coag grasper.
Hold Jakafi while NPO. No evidence for discontinuation syndrome.
Pt has had significant anemia since 04/2023. Part of this may be inflammatory from pancreatitis. Ferritin low-normal at 65.3 (may be artificially normal in setting of inflammation) and iron sat 11%.
We do not usually give IV iron in myeloproliferative disorder. However, given the ongoing anemia, will give abbreviated course and then check retic in 1-2 weeks.
Check PSA with hx prostate cancer.
Discussed at length with pt and , they are amenable to above.
Subjective/Objective
Chief Complaint
Anemia, hx P.vera
Subjective
Denies new complaint.
Vital Signs:
Vital Signs
Temp Pulse Resp BP Pulse Ox
98.3 F 92 18 133/70 97
02/16/24 07:00 02/16/24 07:00 02/16/24 07:00 02/16/24 07:00 02/16/24 07:00
Lab Results:
Laboratory Data
WBC 6.9 10^3/uL (4.8-10.8) 02/16/24 04:58
Hgb 8.8 g/dL (13.0-18.0) L 02/16/24 04:58
Plt Count 181 10^3/uL (130-400) 02/16/24 04:58
PT 15.2 Sec (11.4-14.6) H 02/11/24 03:24
INR 1.22 02/11/24 03:24
APTT 24.9 Sec (23.4-35.0) 02/11/24 03:24
eGFR > 60.00 02/13/24 06:27
Physical Exam
HEENT: Moist Mucous Membranes; No Jaundice
Cardiology: Normal Sinus Rhythm, S1 and S2
Pulmonary: Clear; No Wheezes
GI: Soft and Normal Bowel Sounds
Extremities: Pulses Present; No No C/C/E
Neuro: Non Focal
Review of Systems
Review of Systems
Constitutional: Reports Fatigue; Denies Fever
Head: Denies Sore Throat or Hearing Loss
Respiratory: Reports Dyspnea; Denies Cough
Cardiovascular: Denies Chest Pain or Palpitations
Gastrointestinal: Denies Nausea/Vomiting or Diarrhea
Genitourinary: Reports Hematuria (scant)
Skin: Denies Rash or Pruritis
Neurological: Denies Headache or Numbness
Psychiatric: Denies Depression
Hem/Lymphatic: Denies Night Sweats or Swollen Glands
Orders
Orders
Orders From Last 24 Hours
02/16/24 14:00
Ferric Gluconate 125 mg IVPB DAILY@1400 Ferric Gluconate [Ferrlecit] 125 mg 0.9% Sodium Chloride 100 ml [Nss] 100 ml IV DAILY@1400
[2024-02-16] MEDS: FERRLECIT 110 MG IV (13:35)
[2024-02-16] MEDS: XANAX 0.25 MG PO (13:42)
[2024-02-16] MEDS: MORPHINE SULFATE 2 MG IV ×2 (13:42→18:28)
--- NOTE | 2024-02-16 15:22 | W.PN.HOSP.TC ---
Today's Communication/Plan
-
Abdominal Pain today -- may need repeat CT imaging -- GI will advise
AM labs
Assessment / Plan
Assessment / Plan
Physical Exam
General: Not in acute distress
HEENT: Normocephalic
Neck:Supple
Lungs: Good air entry bilaterally, no wheezing or rhonchi, no rales or crackles
Heart: S1, S2 regular, normal rate, no added sound.
Gastrointestinal: Positive bowel sounds, soft, mild epigastric tenderness
Extremities: No edema. No cyanosis.
Skin: Warm and dry.
Psychiatric: Anxious
Assessment and Plan
Impression:
Acute GI bleed with hemorrhagic shock
Status post blood transfusion - 8 units since admission (last PRBC transfusion was on February 10, 2024)
Acute symptomatic blood loss anemia
Severe metabolic acidosis/lactic acidosis
Hyponatremia
Less likely small bowel obstruction
Leukocytosis
Hypoalbuminemia
Conditions prior to presentation:
Severe necrotizing pancreatitis
Hemorrhagic pancreatitis
Polycythemia vera on Jakafi
Prostate cancer
Parkinson's disease
History of splenic vein and portal vein thrombosis
History of cystogastrostomy with stent and necrosectomy with bleeding and stent exchange.
History of ascites
History recurrent GI bleed
History of chronic anemia
PLAN:
Status post emergent EGD on 02/07 for a large clot of blood in the gastric body. At the site of cystogastrostomy fistula, status post CTA of the abdomen with no active extravasation bleeding but gastropancreatic stent had changed position.
Repeat EGD 02/08 �Red blood clot and fresh blood in the gastric fundus and in the gastric body.Previous cystogastrostomy fistula was located and dilated.The cavity was entered, large amount of clot was seen.
After clot removal, active spurting hemorrhage was localized. Treated with hot biopsy forceps and coag grasper. Gastric fistula. A new 10 Fr 3 cm double pigtailplastic stent was placed.
Complicated walled off pancreatic necrosis. Patient with recurrent bleeding issues and pigtail dislodgement. Surgical recommendations about transfer to tertiary center noted. As per GI Dr Song 02/10 - with stability ,will plan to hold on transfer to
tertiary center.
Repeat Blood transfusion as needed; aim to keep HH>7.0. H&H stable. Status post 8 units of blood transfusion, hemoglobin is 9.2 today is better than yesterday 8.9
But he still have persistent abdominal pain and fear of eating. And no bowel movement today
So for the last couple of the hemoglobin been stable despite passing dark stool was possibly secondary to remnant if any specially with the slow gastric movement secondary to Parkinson,
Continue pantoprazole,, oral
Tolerated solid diet but he is can hesitant to eat fear of the pain and bleeding
Recheck labs, monitor H&H,
Hematology consulted, recommendations appreciated.
Continue to hold Jakafi with anemia and normal Platelets.
IV iron x 2 days - if Hgb does not correct with this AND no evidence of ongoing bleeding then would bone marrow biopsy would be indicated
Tylenol and more as needed
Xanax as needed for anxiety.
Continue Sinemet for Parkinson.
GI input appreciated
SCDs for DVT prophylaxis. No pharmacological prophylaxis due to active GI bleed and anemia.
CODE STATUS DNR
Anticipated Discharge: > 48 hours
Subjective/Interval History
-
Date of Service: February 16, 2024
Patient was seen and examined. He reported on and off episodes of significant abdominal pain.
Objective Data
-
Labs:
Laboratory Results
02/16/24
04:58
WBC 6.9
Hgb 8.8 L
Hct 27.6 L
Plt Count 181
Vital Signs:
Vital Signs
Temp Pulse Resp BP Pulse Ox
98.3 F 88 16 133/70 97
02/16/24 07:00 02/16/24 11:23 02/16/24 11:23 02/16/24 07:00 02/16/24 07:00
I&O
02/15/24 02/16/24 02/17/24
06:59 06:59 06:59
Intake Total 2405 / 2405 1340 / 1340
Output Total 375 / 375 625 / 625
Balance 2029 715 / 715
[2024-02-16 16:03] VITALS: BP 117/74
--- NOTE | 2024-02-16 16:12 | CM ---
Not ready for c today.
will be able to drive pt home at dc.
Pt requested [facility].
As per care port [facility] accepted him.
PLAN Home with [facility]
[2024-02-16] MEDS: ULTRAM 50 MG PO (17:14)
--- NOTE | 2024-02-16 17:25 | W.PN.UPDATE ---
Update Note
Progress Note Update
for billing purposes only
[2024-02-16 19:00] VITALS: BP 122/63
[2024-02-16 19:46] LABS: Blood Urea Nitrogen 20 mg/dl (9-20); Calcium 8.5 mg/dl (8.4-10.2); Carbon Dioxide 26 mmol/L (22-30); Chloride 93 mmol/L (98-107); Estimated Creatinine Clearance 98 ml/min; Glucose 439 mg/dl (70-99); Potassium 4.6 mmol/L (3.5-5.1); Sodium 127 mmol/L (135-145); eGFR > 60.00
--- NOTE | 2024-02-17 01:02 | PTCARENOTE ---
Pt sodium came back 127 down from 132 on 02/12. Pt at his baseline mentation, offers no complaint. DERIC (Epifanio Xiao) made aware. No orders given.
[2024-02-17] MEDS: ProAIR HFA INHALER 2 PUFF INH ×5 (05:26→21:26)
[2024-02-17 07:23] LABS: Hematocrit 29.3 % (39.0-52.0); Hemoglobin 9.1 g/dL (13.0-18.0); Mean Corp Hgb Conc. 31.1 g/dL (33.0-37.0); Mean Corpuscular Hgb 27.7 pg (27.0-31.0); Mean Corpuscular Volume 89.1 fL (80.0-94.0); Platelet Count 184 10^3/uL (130-400); Red Blood Cell Count 3.29 10^6/uL (4.70-6.10); Red Cell Dist. Width 15.5 % (11.5-14.5); White Blood Cell Count 7.6 10^3/uL (4.8-10.8)
[2024-02-17] MEDS: ZENPEP DELAYED RELEASE CAPSULE 1 CAPSULE PO ×4 (07:30→21:15)
[2024-02-17] MEDS: SINEMET 25-100 2 TABLET PO ×3 (07:30→21:15)
[2024-02-17] MEDS: NSS (PRESERVATIVE FREE) 10 ML IV (07:30)
[2024-02-17] MEDS: PROTONIX IV 40 MG IV (07:31)
[2024-02-17 07:32] VITALS: BP 129/77
[2024-02-17 08:22] LABS: PSA, Total - Diagnostic < 0.06 ng/ml (0.0-4.0)
--- NOTE | 2024-02-17 12:45 | W.PN.GI.CBS2 ---
Today's Communication / Plan
-
ct scan
Assessment / Plan
-
The pt is a 68 year old male with a past medical history of severe necrotizing pancreatitis (initial episode in March 2023, with subsequent recurrence in September 2023) with WON and development of hemorrhagic pancreatitis requiring transfusion,
concern for infected cyst 12/2023 with bacteremia, cystogastrostomy with stenting with complication of bleeding and stent exchange, ascites requiring paracentesis with concern for pancreatic duct disruption, polycythemia vera on chronic Jakafi,
Prior splenic and portal vein thrombosis, prior prostate CA, and Parkinson's disease. Pt with multiple admission over last year. Last admission 01/24 with anemia and heme + stools with hbg down to 6.1. He completed EGD 01/24 with Normal esophagus pre
existing gastric stent, fistula tract patent and too small to enter necrotic cavity with no blood or hematoma seen in tract. normal duodenum. He also completed 01/28 with colonoscopy hemorrhoids, 5 mm polyp, diverticulosis, IH. Hbg was 9.2 on
discharge 01/28 and states stable hbg last week. He was noted with passing bright red blood on 02/06 with hbg 7 and further drop to hbg 5.3 on admission. Repeat EGD 02/08 as noted with active spurting hemorrhage with treatment.
02/07 �CT A/p pancreatitis with a 6 cm pancreatic pseudocyst at the body of the pancreas The gastropancreatic stent extends to the margin of but not into the pseudocyst. There also concern for partial bowel obstruction at the level of the second
portion of the duodenum presumably as a result of this pancreatitis with associated dilatation of the fluid-filled stomach and duodenal bulb, 1.5 cm adrenal adenoma, and DDD.
CTA 02/07- No active bleeding.
�� � � � � �
Problem list:
-abdominal pain
-acute symptomatic anemia/hemorrhagic pancreatitis (received 8 units PRBC during this admission) -
--s/p repeat EGD 02/09/[address] Song
Impression:� Normal esophagus. Red blood clot and fresh blood in the gastric fundus and in the gastric body. Previous cystogastrostomy fistula was located and dilated. The cavity was entered, large amount of clot was seen. After clot removal, active
spurting hemorrhage was localized. Treated with hot biopsy forceps and coag grasper. Gastric fistula. A new 10 Fr 3 cm double pigtail plastic stent was placed. Normal duodenal bulb, first portion of the duodenum and second portion of the duodenum.
-severe necrotizing pancreatitis March 2023 and recurrent September 2023 with complicated course with PD disruption with ascites requiring paracentesis, hemorrhagic pancreatitis, cystgastrostomy with stenting, bleeding and stent management
-recent bacteremia 01/05/24 strep anginosus on Ertapenem with concern for infected pseudocyst
-PV on chronic Jakafi
-splenic and portal vein thrombosis not on AC prior to admission
-prostate CA
-Parkinson's
-hyponatremia
Recommendations:
1. CT abd/pelvis today to ensure no acute pancreatic process
2. if ok can continue low fat diet
3. recheck lipase
Subjective
Subjective
Date of Service: February 17, 2024
Pt feels bloated with intermittent d/c in stomach but can tolerate po
Objective
Data Reviewed
Laboratory Data:
Laboratory Results
02/17/24 06:12
02/16/24 19:26
Laboratory Results
PT 15.2 Sec (11.4-14.6) H 02/11/24 03:24
INR 1.22 02/11/24 03:24
APTT 24.9 Sec (23.4-35.0) 02/11/24 03:24
Magnesium 2.4 mg/dl (1.6-2.3) H 02/09/24 03:53
Total Bilirubin 0.3 mg/dl (0.2-1.3) 02/13/24 06:27
AST 15 U/L (17-59) L 02/13/24 06:27
ALT < 10 U/L (0-50) 02/13/24 06:27
Alkaline Phosphatase 120 U/L (38-126) 02/13/24 06:27
Lipase 292 U/L (23-300) 02/08/24 13:10
Vital Signs and I&O:
Vital Signs
Temp Pulse Resp BP Pulse Ox
98 F 87 14 129/77 97
02/17/24 07:32 02/17/24 08:25 02/17/24 08:25 02/17/24 07:32 02/17/24 08:25
I&O
02/16/24 02/17/24 02/18/24
06:59 06:59 06:59
Intake Total 1340 / 1340 1560 / 1560
Output Total 625 / 625 900 / 900
Balance 715 / 715 660 / 660
Physical Exam
Physical Exam
GI: Soft, Non Distended (improved from yesterday) and Non Tender
Neuro: Non Focal
[2024-02-17] MEDS: FERRLECIT 110 MG IV (13:08)
--- NOTE | 2024-02-17 13:51 | W.PN.HOSP.TC ---
Today's Communication/Plan
-
Anticipated discharge tomorrow
CT Abdomen/Pelvis without any acute findings
Assessment / Plan
Assessment / Plan
Physical Exam
General: Not in acute distress
HEENT: Normocephalic
Neck:Supple
Lungs: Good air entry bilaterally, no wheezing or rhonchi, no rales or crackles
Heart: S1, S2 regular, normal rate, no added sound.
Gastrointestinal: Positive bowel sounds, soft, mild epigastric tenderness
Extremities: No edema. No cyanosis.
Skin: Warm and dry.
Psychiatric: Anxious
Assessment and Plan
Impression:
Acute GI bleed with hemorrhagic shock
Status post blood transfusion - 8 units since admission (last PRBC transfusion was on February 10, 2024)
Acute symptomatic blood loss anemia/hemorrhagic pancreatitis
Severe metabolic acidosis/lactic acidosis
Hyponatremia
Less likely small bowel obstruction
Leukocytosis
Hypoalbuminemia
Conditions prior to presentation:
Severe necrotizing pancreatitis
Hemorrhagic pancreatitis
Polycythemia vera on Jakafi
Prostate cancer
Parkinson's disease
History of splenic vein and portal vein thrombosis
History of cystogastrostomy with stent and necrosectomy with bleeding and stent exchange.
History of ascites
History recurrent GI bleed
History of chronic anemia
PLAN:
Status post emergent EGD on 02/07 for a large clot of blood in the gastric body. At the site of cystogastrostomy fistula, status post CTA of the abdomen with no active extravasation bleeding but gastropancreatic stent had changed position.
Repeat EGD 02/08 �Red blood clot and fresh blood in the gastric fundus and in the gastric body.Previous cystogastrostomy fistula was located and dilated.The cavity was entered, large amount of clot was seen.
After clot removal, active spurting hemorrhage was localized. Treated with hot biopsy forceps and coag grasper. Gastric fistula. A new 10 Fr 3 cm double pigtailplastic stent was placed.
Complicated walled off pancreatic necrosis. Patient with recurrent bleeding issues and pigtail dislodgement. Surgical recommendations about transfer to tertiary center noted. As per GI Dr Song 02/10 - with stability ,will plan to hold on transfer to
tertiary center.
Repeat Blood transfusion as needed; aim to keep HH>7.0. H&H stable. Status post 8 units of blood transfusion, hemoglobin is 9.1 today -- stable
But he still have persistent abdominal pain and fear of eating but able to tolerate PO.
Continue pantoprazole
Tolerated solid diet but he is can hesitant to eat fear of the pain and bleeding
Recheck labs, monitor H&H,
Hematology consulted, recommendations appreciated.
Continue to hold Jakafi with anemia and normal Platelets.
IV iron x 2 days - if Hgb does not correct with this AND no evidence of ongoing bleeding then would bone marrow biopsy would be indicated
Tylenol and more as needed
Xanax as needed for anxiety.
Continue Sinemet for Parkinson.
GI input appreciated
SCDs for DVT prophylaxis. No pharmacological prophylaxis due to recent active GI bleed and anemia.
CODE STATUS DNR
Anticipated Discharge: Within 24 hours
Subjective/Interval History
-
Date of Service: February 17, 2024
Patient was seen and examined. He reported more intense abdominal pain, but he is able to tolerate oral intake. He had a normal but tight bowel movement earlier.
Objective Data
-
Labs:
Laboratory Results
02/17/24
06:12
WBC 7.6
Hgb 9.1 L
Hct 29.3 L
Plt Count 184
Vital Signs:
Vital Signs
Temp Pulse Resp BP Pulse Ox
98 F 82 14 129/77 98
02/17/24 07:32 02/17/24 13:24 02/17/24 13:24 02/17/24 07:32 02/17/24 13:24
I&O
02/16/24 02/17/24 02/18/24
06:59 06:59 06:59
Intake Total 1340 / 1340 1560 / 1560
Output Total 625 / 625 900 / 900
Balance 715 / 715 660 / 660
[2024-02-17 15:24] VITALS: BP 130/76
[2024-02-17] MEDS: ULTRAM 50 MG PO (16:34)
[2024-02-17] MEDS: PROTONIX 40 MG PO (21:17)
[2024-02-17 23:31] VITALS: BP 131/70
[2024-02-18] MEDS: ProAIR HFA INHALER 2 PUFF INH ×3 (04:21→13:13)
[2024-02-18 07:15] VITALS: BP 144/76
[2024-02-18] MEDS: ZENPEP DELAYED RELEASE CAPSULE 1 CAPSULE PO ×2 (08:05→11:39)
[2024-02-18] MEDS: SINEMET 25-100 2 TABLET PO (08:06)
[2024-02-18 08:38] LABS: Lipase 34 U/L (23-300)
--- NOTE | 2024-02-18 09:22 | W.PN.GI.CBS2 ---
Today's Communication / Plan
-
no further inpatient management issues
Assessment / Plan
-
The pt is a 68 year old male with a past medical history of severe necrotizing pancreatitis (initial episode in March 2023, with subsequent recurrence in September 2023) with WON and development of hemorrhagic pancreatitis requiring transfusion,
concern for infected cyst 12/2023 with bacteremia, cystogastrostomy with stenting with complication of bleeding and stent exchange, ascites requiring paracentesis with concern for pancreatic duct disruption, polycythemia vera on chronic Jakafi,
Prior splenic and portal vein thrombosis, prior prostate CA, and Parkinson's disease. Pt with multiple admission over last year. Last admission 01/24 with anemia and heme + stools with hbg down to 6.1. He completed EGD 01/24 with Normal esophagus pre
existing gastric stent, fistula tract patent and too small to enter necrotic cavity with no blood or hematoma seen in tract. normal duodenum. He also completed 01/28 with colonoscopy hemorrhoids, 5 mm polyp, diverticulosis, IH. Hbg was 9.2 on
discharge 01/28 and states stable hbg last week. He was noted with passing bright red blood on 02/06 with hbg 7 and further drop to hbg 5.3 on admission. Repeat EGD 02/08 as noted with active spurting hemorrhage with treatment.
02/07 �CT A/p pancreatitis with a 6 cm pancreatic pseudocyst at the body of the pancreas The gastropancreatic stent extends to the margin of but not into the pseudocyst. There also concern for partial bowel obstruction at the level of the second
portion of the duodenum presumably as a result of this pancreatitis with associated dilatation of the fluid-filled stomach and duodenal bulb, 1.5 cm adrenal adenoma, and DDD.
CTA 02/07- No active bleeding.
�� � � � � �
Problem list:
-abdominal pain
-acute symptomatic anemia/hemorrhagic pancreatitis (received 8 units PRBC during this admission) -
--s/p repeat EGD 02/09/[address] Song
Impression:� Normal esophagus. Red blood clot and fresh blood in the gastric fundus and in the gastric body. Previous cystogastrostomy fistula was located and dilated. The cavity was entered, large amount of clot was seen. After clot removal, active
spurting hemorrhage was localized. Treated with hot biopsy forceps and coag grasper. Gastric fistula. A new 10 Fr 3 cm double pigtail plastic stent was placed. Normal duodenal bulb, first portion of the duodenum and second portion of the duodenum.
-severe necrotizing pancreatitis March 2023 and recurrent September 2023 with complicated course with PD disruption with ascites requiring paracentesis, hemorrhagic pancreatitis, cystgastrostomy with stenting, bleeding and stent management
-recent bacteremia 01/05/24 strep anginosus on Ertapenem with concern for infected pseudocyst
-PV on chronic Jakafi
-splenic and portal vein thrombosis not on AC prior to admission
-prostate CA
-Parkinson's
-hyponatremia
Recommendations:
1. low fat diet
2. lipase, hgb stable
ok for discharge
Subjective
Subjective
Date of Service: February 18, 2024
Pt w/o complaints, eating. Negative CT scan yesterday. No pain
Objective
Data Reviewed
Laboratory Data:
Laboratory Results
02/17/24 06:12
02/16/24 19:26
Laboratory Results
PT 15.2 Sec (11.4-14.6) H 02/11/24 03:24
INR 1.22 02/11/24 03:24
APTT 24.9 Sec (23.4-35.0) 02/11/24 03:24
Magnesium 2.4 mg/dl (1.6-2.3) H 02/09/24 03:53
Total Bilirubin 0.3 mg/dl (0.2-1.3) 02/13/24 06:27
AST 15 U/L (17-59) L 02/13/24 06:27
ALT < 10 U/L (0-50) 02/13/24 06:27
Alkaline Phosphatase 120 U/L (38-126) 02/13/24 06:27
Lipase 34 U/L (23-300) 02/18/24 06:09
Vital Signs and I&O:
Vital Signs
Temp Pulse Resp BP Pulse Ox
98.1 F 78 16 144/76 100
02/18/24 07:15 02/18/24 08:36 02/18/24 08:36 02/18/24 07:15 02/18/24 08:36
I&O
02/17/24 02/18/24 02/19/24
06:59 06:59 06:59
Intake Total 1560 / 1560 960 / 960
Output Total 900 / 900 745 / 745
Balance 660 / 660 215 / 215
Physical Exam
Physical Exam
GI: Soft, Non Distended and Non Tender
--- NOTE | 2024-02-18 11:58 | W.PN.HOSP.TC ---
Today's Communication/Plan
-
Discharge today
Assessment / Plan
Assessment / Plan
Physical Exam
General: Not in acute distress
HEENT: Normocephalic
Neck: Supple
Lungs: Good air entry bilaterally, no wheezing or rhonchi, no rales or crackles
Heart: S1, S2 regular, normal rate, no added sound.
Gastrointestinal: Positive bowel sounds, soft, minimal tenderness
Extremities: No edema. No cyanosis.
Skin: Warm and dry.
Psychiatric: Anxious
Assessment and Plan
Impression:
Acute GI bleed with hemorrhagic shock
Status post blood transfusion - 8 units since admission (last PRBC transfusion was on February 10, 2024)
Acute symptomatic blood loss anemia/hemorrhagic pancreatitis
Severe metabolic acidosis/lactic acidosis
Hyponatremia
Less likely small bowel obstruction
Leukocytosis
Hypoalbuminemia
Conditions prior to presentation:
Severe necrotizing pancreatitis
Hemorrhagic pancreatitis
Polycythemia vera on Jakafi
Prostate cancer
Parkinson's disease
History of splenic vein and portal vein thrombosis
History of cystogastrostomy with stent and necrosectomy with bleeding and stent exchange.
History of ascites
History recurrent GI bleed
History of chronic anemia
PLAN:
Status post emergent EGD on 02/07 for a large clot of blood in the gastric body. At the site of cystogastrostomy fistula, status post CTA of the abdomen with no active extravasation bleeding but gastropancreatic stent had changed position.
Repeat EGD 02/08 �Red blood clot and fresh blood in the gastric fundus and in the gastric body.Previous cystogastrostomy fistula was located and dilated.The cavity was entered, large amount of clot was seen.
After clot removal, active spurting hemorrhage was localized. Treated with hot biopsy forceps and coag grasper. Gastric fistula. A new 10 Fr 3 cm double pigtailplastic stent was placed.
Complicated walled off pancreatic necrosis. Patient with recurrent bleeding issues and pigtail dislodgement. Surgical recommendations about transfer to tertiary center noted. As per GI Dr Song 02/10 - with stability ,will plan to hold on transfer to
tertiary center.
Repeat Blood transfusion as needed; aim to keep HH>7.0. H&H stable. Status post 8 units of blood transfusion, hemoglobin is 9.1 today -- stable
Continue pantoprazole
Tolerated solid diet but he is can hesitant to eat fear of the pain and bleeding
Recheck labs outpatient, monitor H&H,
Hematology consulted, recommendations appreciated.
Continue to hold Jakafi with anemia and normal Platelets.
Status post IV iron x 2 days - if Hgb does not correct with this AND no evidence of ongoing bleeding then would bone marrow biopsy would be indicated
Tylenol and more as needed
Xanax as needed for anxiety.
Continue Sinemet for Parkinson.
GI input appreciated
SCDs for DVT prophylaxis. No pharmacological prophylaxis due to recent active GI bleed and anemia.
CODE STATUS DNR
More than 30 minutes spent in discharge including
Final examination of the patient
Summarizing hospital stay
Instructions for continuing care to all relevant caregivers
Preparation of discharge records, prescriptions, and referral forms
Total time spent (in minutes): 38
Anticipated Discharge: Today
Subjective/Interval History
-
Date of Service: February 18, 2024
Patient was seen and examined. He reported that his abdominal pain today has improved. He is eating fine. Otherwise, he denied any other new symptoms or complaints.
Objective Data
-
Vital Signs:
Vital Signs
Temp Pulse Resp BP Pulse Ox
98.1 F 78 16 144/76 100
02/18/24 07:15 02/18/24 08:36 02/18/24 08:36 02/18/24 07:15 02/18/24 08:36
I&O
02/17/24 02/18/24 02/19/24
06:59 06:59 06:59
Intake Total 1560 / 1560 960 / 960
Output Total 900 / 900 745 / 745
Balance 660 / 660 215 / 215
[2024-02-18 13:03] LABS: Glucose - Point of Care 364 mg/dl (70-99)
--- NOTE | 2024-02-18 13:21 | W.DS.TRANS ---
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
-
Discharge Instructions:
Discharge Diagnosis/Procedures Acute GI bleed with hemorrhagic shock
Status post blood transfusion - 8 units since
admission (last PRBC transfusion was on February 09
, 2023)
Acute symptomatic blood loss anemia/hemorrhagic
pancreatitis
Severe metabolic acidosis/lactic acidosis
Hyponatremia
Less likely small bowel obstruction
Leukocytosis
Hypoalbuminemia
Severe necrotizing pancreatitis
Hemorrhagic pancreatitis
Polycythemia vera on Jakafi
Prostate cancer
Parkinson's disease
History of splenic vein and portal vein
thrombosis
History of cystogastrostomy with stent and
necrosectomy with bleeding and stent exchange.
History of ascites
History recurrent GI bleed
History of chronic anemia
Diet Low Fat,Low Residue
Additional Diets You should be on both a LOW FAT diet PLUS as LOW
RESIDUE diet until you follow-up with your
battery checker, Dr. Song.
Activity As tolerated
Driving Restrictions Not until seen by your Dr
Blood Work Recheck CBC and BMP with your primary care
provider in the next 1 to 2 days.
Other Services VN
Instructions:
Stand-Alone Forms:
Changes to Home Medications: Yes
Discharge Medications:
DC Medications w/original date entered in [facility]
albuterol sulfate 90 mcg/actuation aerosol inhaler 2 puff inhalation R [id number] PRN sob 01/19/18
carbidopa 25 mg-levodopa 100 mg tablet 2 tab PO TID Neurological Condition 07/07/23
ruxolitinib 20 mg tablet (Jakafi) 20 mg PO BID Immunologic 07/07/23
pantoprazole 40 mg tablet,delayed release 40 mg PO HS Gastrointestinal Issue 09/28/23
cyanocobalamin (vitamin B-12) 1,000 mcg tablet 1,000 mcg PO DAILY #100 tabs 10/13/23
sennosides 8.6 mg tablet (senna) 8.6 mg PO BID Constipation 11/23/23
docusate sodium 100 mg capsule 100 mg PO BID Constipation 01/05/24
folic acid 1 mg tablet 1 mg PO DAILY Supplement 01/05/24
ferrous sulfate 325 mg (65 mg iron) tablet 325 mg PO Q48H Supplement 01/24/24
aspirin 81 mg tablet,delayed release 81 mg PO DAILY Blood Clot Prevention/Tx 02/08/24
rcwwhz-zadaylxy-rbsacfw 24,000-76,000-120,000 unit capsule,delayed rel (Creon) 1 cap PO AC Gastrointestinal Issue 02/08/24
polyethylene glycol 3350 17 gram oral powder packet (HealthyLax) 17 g PO DAILY Constipation 02/08/24
Home Medication Changes
Aspirin and Jakafi have been held for now -- to be resumed soon depending on your outpatient bloodwork recheck and what patient's outpatient physicians think about restarting these medications.
Pending Results: No
Total time spent discharging patient (in min): 38
--- NOTE | 2024-02-18 13:54 | CM ---
Met with patient and at bedside
Signed IMM on the chart
Plan: discharge to home today with home health services from [facility]; will provide transport home
--- NOTE | 2024-02-21 05:31 | W.DCSUMMARY ---
Discharge Summary
Discharge Data
Date of Admission: 02/08/24
Date of Discharge: 02/18/24
Total time spent discharging patient (in min): 38
-
Pending Results: No
Hospital Course
68 year old with a complicated gastrointestinal history some of which include severe necrotizing pancreatitis with PD disruption, recurrent ascites, hemorrhagic pancreatitis, status post necrosectomy and cystogastrostomy with stent and stent
migration and bleeding, also polycythemia vera on Jakafi, history of splenic portal vein thrombosis treated with anticoagulation in the past and subsequently discontinued after developing hemorrhagic pancreatitis, recurrent GI bleed, hypertension,
asthma, Parkinson's, presented to the hospital with generalized weakness, abdominal pain, and bright blood per rectum. Patient had a recent hospitalization at [facility] during which he had an upper endoscopy and colonoscopy both of which
were unrevealing. On EMS arrival, patient was noted to have blood pressure in the 50s with minimal responsiveness. In the Emergency Department, hemoglobin was 5.3 from a hemoglobin of 7 on 02/06, MCV 89.4, platelet count 403, WBC 11.2, Sodium 128,
bicarbonate 10, BUN/creatinine 21.1, lactic acid 11.8, glucose 192. Blood pressure was as low as 85/61, relatively tachycardic to 90s, tachypneic in the 19, hypothermic with temperature 93.4 �F. CT scan of the abdomen as per radiologist's report
showed pancreatitis with a sick centimeters pancreatic pseudocyst in the body of the pancreas, the gastropancreatic stent extends to the margin of the pseudocyst, partial bowel obstruction within the second portion of duodenum presumably as a result
of his pancreatitis with associated dilation of fluid-filled stomach and duodenal bulb, 1.5 cm right adrenal adenoma, and multilevel lumbar degenerative disc disease. He was referred to hospitalist for further evaluation.
Patient was admitted with shock and admitted to the intensive care unit. Patient was also started on antibiotics and Protonix Drip. Blood transfusion was ordered. General Surgery and Gastroenterology (GI) were consulted. GI performed an upper
endoscopy which showed large clotted blood in the gastric body and pre-existing gastric stent and duodenal deformity. There was no surgical intervention indicated at the time. CT Angiogram was performed and showed no active extravasation but
gastropancreatic stent had changed position. Hematology was consulted and they recommended holding patient's Jakafi.
A repeat upper endoscopy was performed, and per case management specialist's report, showed: '1) Red blood clot and fresh blood in the gastric fundus and in the gastric body; 2) Previous cystogastrostomy fistula was located and dilated; 3) The cavity was
entered, large amount of clot was seen. After clot removal, active spurting hemorrhage was localized. Treated with hot biopsy forceps and coag grasper; 4) Gastric fistula. A new 10 Fr 3 cm double pigtail plastic stent was placed.'
Surgery team recommended patient be transferred to a tertiary care hospital but since patient became stable, there was no need to transfer at the time.
Patient received a total of 8 units of red blood cells transfusion. Repeat CT Abdomen Pelvis were performed, and showed, as per radiologist's impression: 'Overall decrease in size of abnormal pancreatic fluid collection likely a pseudocyst with
pancreatic stent again seen extending into the stomach. Limited evaluation of the pancreas proper, as described, without gross findings to suggest increased pancreatic/peripancreatic inflammatory changes. Short double-pigtail catheter/stent now
seen, new in the interval since prior study intraluminal amongst stool in the descending colon. Small volume true pelvis dependent free fluid, slightly decreased.'
Patient was given a short course (2 days of intravenous iron). Repeat CT Abdomen Pelvis was done (since patient was having some more abdominal pain) and it showed, as per radiologist's report: 'IMPRESSION: Decreased size of the complex pancreatic
body collection compared to the CT abdomen/pelvis from 02/13/2024, now measuring 2.8 x 1.7 cm with a gastropancreatic drainage catheter in place.'
Patient was stable for discharge with close outpatient follow-up.
Discharge Plan
-
Patient Disposition: Home with Home Care
Discharge Diagnosis/Procedures: Acute GI bleed with hemorrhagic shock
Status post blood transfusion - 8 units since admission (last PRBC transfusion was on February 10, 2024)
Acute symptomatic blood loss anemia/hemorrhagic pancreatitis
Hyperglycemia
Severe metabolic acidosis/lactic acidosis
Hyponatremia
Less likely small bowel obstruction
Leukocytosis
Hypoalbuminemia
Severe necrotizing pancreatitis
Hemorrhagic pancreatitis
Polycythemia vera on Jakafi
Prostate cancer
Parkinson's disease
History of splenic vein and portal vein thrombosis
History of cystogastrostomy with stent and necrosectomy with bleeding and stent exchange.
History of ascites
History recurrent GI bleed
History of chronic anemia
Condition: Fair
Diet: Low Fat, Low Residue and Diabetic, Carb Controlled
Additional Diets: You should be on both a LOW FAT diet PLUS as LOW RESIDUE diet until you follow-up with your case management specialist, Dr. Song.
Activity: As tolerated
Driving Restrictions: Not until seen by your Dr
Blood Work: Recheck CBC and BMP with your primary care provider in the next 1 to 2 days.
Other Services: VN
Activity Restrictions/Additional Instructions:
YOU NEED TO SEE YOUR OUTPATIENT PRIMARY CARE DOCTOR TOMORROW YOUR BLOOD SUGARS HAVE BEEN HIGH AND YOU NEED TO HAVE FURTHER TESTS INCLUDING HEMOGLOBIN A1C TO SEE WHETHER YOU HAVE DIABETES MELLITUS
You should be on both a LOW FAT diet PLUS as LOW RESIDUE diet until you follow-up with your case management specialist, Dr. Song.
Your Aspirin and Jakafi have been held for now -- to be resumed in the next few days to weeks depending on your outpatient bloodwork recheck and what your outpatient physicians and Dr. Malin think about restarting these medications. Contact (in
the next 1 to 2 days) your outpatient physicians including Dr. Malin to see when it would be good to resume Aspirin and Jakafi.
Instructions: High Blood Sugar, Adult, High Blood Sugar, Adult (DC)
Referrals:
Terri Malin MD [Active] - in one to two weeks (Hospital Follow-up)
Linnette Wisdom MD [Family Provider] - in less than 1 week (Needs repeat CBC and BMP)
Additional Discharge Medication Instructions: Your Aspirin and Jakafi have been held for now -- to be resumed in the next few days to weeks depending on your outpatient bloodwork recheck and what your outpatient physicians and Dr. Malin think
about restarting these medications.
Prescriptions:
Continued
albuterol sulfate 1 PUFF HFA aerosol inhaler
2 puff inhalation R Q6HPRN PRN (Reason: sob)
carbidopa-levodopa 25-100 mg Tablet
2 tab PO TID
pantoprazole 40 mg tablet,delayed release (DR/EC)
40 mg PO HS
cyanocobalamin (vitamin B-12) 1,000 mcg Tablet
1,000 mcg PO DAILY Qty: 100 0RF
sennosides [senna] 8.6 mg Tablet
8.6 mg PO BID
docusate sodium 100 mg Capsule
100 mg PO BID
folic acid 1 mg Tablet
1 mg PO DAILY
ferrous sulfate 325 mg (65 mg iron) Tablet
325 mg PO Q48H
Creon 24,000-76,000 -120,000 unit Capsule,Delayed Release(Dr/Ec)
1 cap PO AC
polyethylene glycol 3350 [HealthyLax] 17 gram powder in packet
17 g PO DAILY
Held
Jakafi 20 mg tablet
20 mg PO BID
Hold Instructions: Resume on 02/21/24. Please discuss with your central service technician Dr. Malin before resuming this medication.
aspirin 81 mg Tablet,Delayed Release (Dr/Ec)
81 mg PO DAILY
Hold Instructions: Resume on 02/20/24. Before resuming Aspirin, please discuss with your outpatient physicians including Dr. Malin whether or not you should resume Aspirin.
Discharge Orders:
Discharge Patient (As Directed); Ordered 02/18/24
Ordered By: Ja Simons
Discharge Date and Time
Discharge Date/Time: 02/18/24 14:57
Print Language: CROATIAN
== END 2024-02-18 14:57 | disposition home health service (06) | DRG 377 ==
LOC: 4 EAST ACU 15:33
PROVIDERS: Internal Medicine; Internal Medicine Gastroenterology; Internal Medicine Hematology & Oncology; Nurse Practitioner; Nurse Practitioner Adult Health; Nurse Practitioner Family; ADMITTING PHYSICIAN Hospitalist; ATTENDING PHYSICIAN Hospitalist; CONSULT PHYSICIAN Internal Medicine Critical Care Medicine; CONSULT PHYSICIAN Internal Medicine Gastroenterology; EMERGENCY PHYSICIAN Emergency Medicine; FAMILY PHYSICIAN Internal Medicine; OTHER PHYSICIAN Internal Medicine Hematology & Oncology; OTHER PHYSICIAN Surgery
PROC: 30233N1 Transfusion of Nonautologous Red Blood Cells into Peripheral Vein, Percutaneous Approach (ICD-10-PCS; 2024-02-08)
PROC: 0DJ08ZZ Inspection of Upper Intestinal Tract, Via Natural or Artificial Opening Endoscopic (ICD-10-PCS; 2024-02-08)
PROC: 0D768DZ Dilation of Stomach with Intraluminal Device, Via Natural or Artificial Opening Endoscopic (ICD-10-PCS; 2024-02-09)
PROC: 0W3P8ZZ Control Bleeding in Gastrointestinal Tract, Via Natural or Artificial Opening Endoscopic (ICD-10-PCS; 2024-02-09)
DX: K92.2 Gastrointestinal hemorrhage, unspecified (principal); I81 Portal vein thrombosis; K85.91 Acute pancreatitis with uninfected necrosis, unspecified; R57.8 Other shock; R57.1 Hypovolemic shock; D62 Acute posthemorrhagic anemia; K56.600 Partial intestinal obstruction, unspecified as to cause; E87.20 Acidosis, unspecified; R18.8 Other ascites; K86.3 Pseudocyst of pancreas; K31.6 Fistula of stomach and duodenum; E87.1 Hypo-osmolality and hyponatremia; Z87.891 Personal history of nicotine dependence; K92.1 Melena; Z66 Do not resuscitate; Z79.82 Long term (current) use of aspirin; E83.51 Hypocalcemia; E88.09 Other disorders of plasma-protein metabolism, not elsewhere classified; F41.9 Anxiety disorder, unspecified; F32.A Depression, unspecified; I10 Essential (primary) hypertension; G20.A1 Parkinson's disease without dyskinesia, without mention of fluctuations; K31.89 Other diseases of stomach and duodenum; C61 Malignant neoplasm of prostate; D45 Polycythemia vera
CPT/HCPCS: 36430; 71045; 74174; 74177; 80048; 80053; 81003; 81015; 82533; 82962; 83605; 83690; 83735; 83930; 83935; 84153; 84300; 84443; 85014; 85018; 85025; 85027; 85610; 85730; 86850; 86900; 86901; 86920; 87040; 93005; 94640; 96361; 96374; 96375; 96376; 99291; C1726; C2617; J1335; J2916; P9016; Q9967

== ENCOUNTER → 2024-02-19 16:03 | Outpatient (REF) | payer MEDICARE, OTHER, SELFPAY ==
[2024-02-19 17:34] LABS: % Basophils 0.5 % (0-2); % Eosinophils 1.5 % (0-6); % Immature Granulocytes 0.8 % (0-0.5); % Lymphocytes 5.9 % (20.5-51.1); % Monocytes 4.5 % (1.7-9.3); % Neutrophils 86.8 % (42.2-75.2); Absolute Eosinophils 0.1 10^3/uL (0-0.7); Absolute Immature Granulocytes 0.1 10^3/uL (0-0.05); Absolute Lymphocytes 0.5 10^3/uL (1.2-3.4); Absolute Monocytes 0.4 10^3/uL (0.1-0.6); Absolute Neutrophils 7.6 10^3/uL (1.4-6.5); Hematocrit 33.9 % (39.0-52.0); Hemoglobin 10.2 g/dL (13.0-18.0); Mean Corp Hgb Conc. 30.1 g/dL (33.0-37.0); Mean Corpuscular Hgb 27.3 pg (27.0-31.0); Mean Corpuscular Volume 90.6 fL (80.0-94.0); Mean Platelet Volume 10.5 fL (7.4-10.4); Nucleated Red Blood Cells % 0 % (-); Platelet Count 271 10^3/uL (130-400); Red Blood Cell Count 3.74 10^6/uL (4.70-6.10); Red Cell Dist. Width 16.4 % (11.5-14.5); Reticulocyte Count 4.2 % (0.4-2.8); White Blood Cell Count 8.8 10^3/uL (4.8-10.8)
[2024-02-19 17:47] LABS: Blood Urea Nitrogen 24 mg/dl (9-20); Calcium 8.5 mg/dl (8.4-10.2); Carbon Dioxide 27 mmol/L (22-30); Chloride 103 mmol/L (98-107); Glucose 202 mg/dl (70-99); Sodium 135 mmol/L (135-145); eGFR > 60.00
[2024-02-19 17:49] LABS: Anisocytosis 1+; Macrocytosis 1+; Microcytosis 1+
[2024-02-19 17:50] LABS: Poikilocytosis 1+
[2024-02-19 17:51] LABS: Ovalocytes Slight; Polychromasia 1+
[2024-02-19 17:52] LABS: Stomatocytes Slight; Target Cells Slight
[2024-02-19 17:53] LABS: Normal RBC Morphology No
[2024-02-20 08:36] LABS: Glycohemoglobin (HgbA1c) 6.3 % (4.0-5.6)
== END ==
LOC: REG 16:03
PROVIDERS: ATTENDING PHYSICIAN Internal Medicine Hematology & Oncology; FAMILY PHYSICIAN Internal Medicine
DX: D45 Polycythemia vera (principal); I81 Portal vein thrombosis; K86.1 Other chronic pancreatitis
CPT/HCPCS: 36415; 80048; 83036; 85025; 85045

== ENCOUNTER → 2024-04-03 14:28 | Outpatient (REF) | payer MEDICARE, OTHER, SELFPAY | LOC: RAD 14:28 | PROVIDERS: ATTENDING PHYSICIAN Internal Medicine Gastroenterology; FAMILY PHYSICIAN Internal Medicine | DX: K85.91 Acute pancreatitis with uninfected necrosis, unspecified (principal) | CPT/HCPCS: 74160; Q9967 ==

== ENCOUNTER 2024-04-26 13:25 | Outpatient (RCR) | payer MEDICARE, OTHER, SELFPAY ==
[2024-04-26 13:40] VITALS: BP 135/71
[2024-04-26 14:21] VITALS: BP 129/70
[2024-04-26 14:24] VITALS: BP 111/72
== END 2024-04-29 08:37 | disposition home or self-care (01) ==
LOC: OID 13:25
PROVIDERS: ATTENDING PHYSICIAN Internal Medicine Hematology & Oncology
DX: D45 Polycythemia vera (principal); I81 Portal vein thrombosis
CPT/HCPCS: 99195

== ENCOUNTER → 2024-05-17 10:39 | Outpatient (REF) | payer MEDICARE, OTHER, SELFPAY | LOC: RADI 10:39 | PROVIDERS: ATTENDING PHYSICIAN Specialist; FAMILY PHYSICIAN Internal Medicine | DX: R18.8 Other ascites (principal); Z53.8 Procedure and treatment not carried out for other reasons | CPT/HCPCS: 76705 ==

== ENCOUNTER 2024-05-28 14:16 | Outpatient (RCR) | payer MEDICARE, OTHER, SELFPAY ==
[2024-05-28 14:25] LABS: % Basophils 0.5 % (0-2); % Eosinophils 1.2 % (0-6); % Immature Granulocytes 0.2 % (0-0.5); % Lymphocytes 7.2 % (20.5-51.1); % Monocytes 2.6 % (1.7-9.3); % Neutrophils 88.3 % (42.2-75.2); Absolute Basophils 0.1 10^3/uL (0-0.2); Absolute Eosinophils 0.2 10^3/uL (0-0.7); Absolute Lymphocytes 0.9 10^3/uL (1.2-3.4); Absolute Monocytes 0.3 10^3/uL (0.1-0.6); Absolute Neutrophils 10.7 10^3/uL (1.4-6.5); Hematocrit 44.9 % (39.0-52.0); Hemoglobin 13.6 g/dL (13.0-18.0); Mean Corp Hgb Conc. 30.3 g/dL (33.0-37.0); Mean Corpuscular Hgb 22.1 pg (27.0-31.0); Mean Platelet Volume 10.8 fL (7.4-10.4); Platelet Count 283 10^3/uL (130-400); Red Blood Cell Count 6.15 10^6/uL (4.70-6.10); Red Cell Dist. Width 18.5 % (11.5-14.5); White Blood Cell Count 12.2 10^3/uL (4.8-10.8)
[2024-05-28 14:35] VITALS: BP 140/97
[2024-05-28 14:55] VITALS: BP 135/76
[2024-05-28 15:10] VITALS: BP 112/71
[2024-05-28 15:54] LABS: Iron 28 ug/dl (49-181)
[2024-05-28 16:04] LABS: Percent Saturation 6 % (20-50); Total Iron Binding Capacity 451 ug/dl (261-462)
[2024-05-28 16:30] LABS: Ferritin 11.3 ng/ml (17.9-464.0)
== END 2024-05-29 13:01 | disposition home or self-care (01) ==
LOC: OID 14:16
PROVIDERS: ATTENDING PHYSICIAN Internal Medicine Hematology & Oncology; FAMILY PHYSICIAN Internal Medicine
DX: D45 Polycythemia vera (principal); I81 Portal vein thrombosis
CPT/HCPCS: 36415; 82728; 83540; 83550; 85025; 99195

== ENCOUNTER 2024-06-27 14:03 | Outpatient (RCR) | payer MEDICARE, OTHER, SELFPAY ==
[2024-06-27 14:14] LABS: % Basophils 0.4 % (0-2); % Immature Granulocytes 0.2 % (0-0.5); % Lymphocytes 7.6 % (20.5-51.1); % Monocytes 3.5 % (1.7-9.3); % Neutrophils 87.3 % (42.2-75.2); Absolute Basophils 0.1 10^3/uL (0-0.2); Absolute Eosinophils 0.1 10^3/uL (0-0.7); Absolute Lymphocytes 0.9 10^3/uL (1.2-3.4); Absolute Monocytes 0.4 10^3/uL (0.1-0.6); Absolute Neutrophils 9.8 10^3/uL (1.4-6.5); Hematocrit 44.7 % (39.0-52.0); Hemoglobin 13.9 g/dL (13.0-18.0); Mean Corp Hgb Conc. 31.1 g/dL (33.0-37.0); Mean Corpuscular Hgb 23.4 pg (27.0-31.0); Mean Corpuscular Volume 75.3 fL (80.0-94.0); Mean Platelet Volume 10.3 fL (7.4-10.4); Platelet Count 275 10^3/uL (130-400); Red Blood Cell Count 5.94 10^6/uL (4.70-6.10); Red Cell Dist. Width 21.2 % (11.5-14.5); White Blood Cell Count 11.3 10^3/uL (4.8-10.8)
== END 2024-07-19 12:36 | disposition home or self-care (01) ==
LOC: OID 14:03
PROVIDERS: ATTENDING PHYSICIAN Internal Medicine Hematology & Oncology; FAMILY PHYSICIAN Internal Medicine
DX: D45 Polycythemia vera (principal); I81 Portal vein thrombosis
CPT/HCPCS: 36415; 85025

== ENCOUNTER 2024-07-25 14:04 | Outpatient (RCR) | payer MEDICARE, OTHER, SELFPAY ==
[2024-07-25 14:19] LABS: % Basophils 0.4 % (0-2); % Eosinophils 1.2 % (0-6); % Immature Granulocytes 0.2 % (0-0.5); % Lymphocytes 8.3 % (20.5-51.1); % Monocytes 3.2 % (1.7-9.3); % Neutrophils 86.7 % (42.2-75.2); Absolute Eosinophils 0.1 10^3/uL (0-0.7); Absolute Lymphocytes 0.9 10^3/uL (1.2-3.4); Absolute Monocytes 0.4 10^3/uL (0.1-0.6); Absolute Neutrophils 9.5 10^3/uL (1.4-6.5); Hematocrit 46.9 % (39.0-52.0); Hemoglobin 14.5 g/dL (13.0-18.0); Mean Corp Hgb Conc. 30.9 g/dL (33.0-37.0); Mean Corpuscular Hgb 23.7 pg (27.0-31.0); Mean Corpuscular Volume 76.8 fL (80.0-94.0); Mean Platelet Volume 10.4 fL (7.4-10.4); Platelet Count 287 10^3/uL (130-400); Red Blood Cell Count 6.11 10^6/uL (4.70-6.10); Red Cell Dist. Width 20.3 % (11.5-14.5); White Blood Cell Count 10.9 10^3/uL (4.8-10.8)
[2024-07-25 14:30] VITALS: BP 128/64
[2024-07-25 14:50] VITALS: BP 145/75
[2024-07-25 15:00] VITALS: BP 124/68
[2024-07-25 15:42] LABS: Iron 57 ug/dl (49-181)
[2024-07-25 15:53] LABS: Percent Saturation 12 % (20-50); Total Iron Binding Capacity 457 ug/dl (261-462)
[2024-07-25 16:18] LABS: Ferritin 11.7 ng/ml (17.9-464.0)
== END 2024-07-26 11:25 | disposition home or self-care (01) ==
LOC: OID 14:04
PROVIDERS: ATTENDING PHYSICIAN Internal Medicine Hematology & Oncology; FAMILY PHYSICIAN Internal Medicine
DX: D45 Polycythemia vera (principal); I81 Portal vein thrombosis
CPT/HCPCS: 36415; 82728; 83540; 83550; 85025; 99195

== ENCOUNTER → 2024-08-01 14:04 | Outpatient (REF) | payer MEDICARE, OTHER, SELFPAY | LOC: RAD 14:04 | PROVIDERS: ATTENDING PHYSICIAN Internal Medicine Gastroenterology; FAMILY PHYSICIAN Internal Medicine | DX: K86.89 Other specified diseases of pancreas (principal) | CPT/HCPCS: 74018 ==

== ENCOUNTER 2024-08-29 14:21 | Outpatient (RCR) | payer MEDICARE, OTHER, SELFPAY ==
[2024-08-29 14:42] LABS: % Basophils 0.4 % (0-2); % Eosinophils 1.3 % (0-6); % Immature Granulocytes 0.2 % (0-0.5); % Lymphocytes 8.8 % (20.5-51.1); % Monocytes 3.5 % (1.7-9.3); % Neutrophils 85.8 % (42.2-75.2); Absolute Eosinophils 0.1 10^3/uL (0-0.7); Absolute Lymphocytes 0.9 10^3/uL (1.2-3.4); Absolute Monocytes 0.3 10^3/uL (0.1-0.6); Absolute Neutrophils 8.4 10^3/uL (1.4-6.5); Hematocrit 42.7 % (39.0-52.0); Hemoglobin 13.3 g/dL (13.0-18.0); Mean Corp Hgb Conc. 31.1 g/dL (33.0-37.0); Mean Corpuscular Hgb 23.6 pg (27.0-31.0); Mean Corpuscular Volume 75.7 fL (80.0-94.0); Mean Platelet Volume 10.4 fL (7.4-10.4); Platelet Count 250 10^3/uL (130-400); Red Blood Cell Count 5.64 10^6/uL (4.70-6.10); Red Cell Dist. Width 18.1 % (11.5-14.5); White Blood Cell Count 9.8 10^3/uL (4.8-10.8)
[2024-08-29 15:30] LABS: Iron 37 ug/dl (49-181)
[2024-08-29 15:41] LABS: Percent Saturation 7 % (20-50); Total Iron Binding Capacity 478 ug/dl (261-462)
[2024-08-29 16:06] LABS: Ferritin 9.1 ng/ml (17.9-464.0)
== END 2024-08-30 10:22 | disposition home or self-care (01) ==
LOC: OID 14:21
PROVIDERS: ATTENDING PHYSICIAN Internal Medicine Hematology & Oncology; FAMILY PHYSICIAN Internal Medicine
DX: D45 Polycythemia vera (principal); I81 Portal vein thrombosis
CPT/HCPCS: 36415; 82728; 83540; 83550; 85025

== ENCOUNTER → 2024-09-19 13:26 | Outpatient (REF) | payer MEDICARE, OTHER, SELFPAY | LOC: PAVMRI 13:26 | PROVIDERS: ATTENDING PHYSICIAN Internal Medicine Gastroenterology; FAMILY PHYSICIAN Internal Medicine | DX: K85.91 Acute pancreatitis with uninfected necrosis, unspecified (principal) | CPT/HCPCS: 74183; A9575 ==

== ENCOUNTER 2024-09-26 14:18 | Outpatient (RCR) | payer MEDICARE, OTHER, SELFPAY ==
[2024-09-26 14:25] LABS: % Basophils 0.3 % (0-2); % Eosinophils 0.5 % (0-6); % Immature Granulocytes 0.3 % (0-0.5); % Lymphocytes 5.5 % (20.5-51.1); % Monocytes 4.1 % (1.7-9.3); % Neutrophils 89.3 % (42.2-75.2); Absolute Eosinophils 0.1 10^3/uL (0-0.7); Absolute Immature Granulocytes 0.1 10^3/uL (0-0.05); Absolute Lymphocytes 0.8 10^3/uL (1.2-3.4); Absolute Monocytes 0.6 10^3/uL (0.1-0.6); Absolute Neutrophils 13.6 10^3/uL (1.4-6.5); Hematocrit 45.1 % (39.0-52.0); Mean Corpuscular Hgb 23.3 pg (27.0-31.0); Mean Corpuscular Volume 75.2 fL (80.0-94.0); Mean Platelet Volume 10.1 fL (7.4-10.4); Platelet Count 264 10^3/uL (130-400); Red Cell Dist. Width 18.4 % (11.5-14.5); White Blood Cell Count 15.2 10^3/uL (4.8-10.8)
[2024-09-26 14:45] VITALS: BP 138/74
[2024-09-26 15:15] VITALS: BP 125/72
[2024-09-26 15:20] VITALS: BP 108/60
== END 2024-09-27 10:34 | disposition home or self-care (01) ==
LOC: OID 14:18
PROVIDERS: ATTENDING PHYSICIAN Internal Medicine Hematology & Oncology; FAMILY PHYSICIAN Internal Medicine
DX: D45 Polycythemia vera (principal); I81 Portal vein thrombosis
CPT/HCPCS: 36415; 85025; 99195

== ENCOUNTER 2024-10-24 14:05 | Outpatient (RCR) | payer MEDICARE, OTHER, SELFPAY ==
[2024-10-24 14:45] VITALS: BP 146/90
[2024-10-24 15:11] LABS: % Basophils 0.7 % (0-2); % Eosinophils 1.2 % (0-6); % Immature Granulocytes 0.4 % (0-0.5); % Lymphocytes 9.2 % (20.5-51.1); % Monocytes 3.1 % (1.7-9.3); % Neutrophils 85.4 % (42.2-75.2); Absolute Basophils 0.1 10^3/uL (0-0.2); Absolute Eosinophils 0.1 10^3/uL (0-0.7); Absolute Monocytes 0.4 10^3/uL (0.1-0.6); Absolute Neutrophils 9.5 10^3/uL (1.4-6.5); Hematocrit 49.5 % (39.0-52.0); Hemoglobin 15.2 g/dL (13.0-18.0); Mean Corp Hgb Conc. 30.7 g/dL (33.0-37.0); Mean Corpuscular Hgb 23.3 pg (27.0-31.0); Mean Corpuscular Volume 75.9 fL (80.0-94.0); Mean Platelet Volume 10.4 fL (7.4-10.4); Nucleated Red Blood Cells % 0 % (-); Platelet Count 271 10^3/uL (130-400); Red Blood Cell Count 6.52 10^6/uL (4.70-6.10); Red Cell Dist. Width 20.2 % (11.5-14.5); White Blood Cell Count 11.1 10^3/uL (4.8-10.8)
[2024-10-24 15:20] LABS: Iron 65 ug/dl (49-181)
[2024-10-24 15:30] LABS: Percent Saturation 12 % (20-50); Total Iron Binding Capacity 534 ug/dl (261-462)
[2024-10-24 15:56] LABS: Ferritin 9.4 ng/ml (17.9-464.0)
[2024-10-24 16:00] VITALS: BP 147/58
[2024-10-24 16:05] VITALS: BP 115/71
== END 2024-10-25 11:13 | disposition home or self-care (01) ==
LOC: OID 14:05
PROVIDERS: ATTENDING PHYSICIAN Internal Medicine Hematology & Oncology; FAMILY PHYSICIAN Internal Medicine
DX: D45 Polycythemia vera (principal); I81 Portal vein thrombosis
CPT/HCPCS: 36415; 82728; 83540; 83550; 85025; 99195

== ENCOUNTER 2024-12-20 14:06 | Outpatient (RCR) | payer MEDICARE, OTHER, SELFPAY ==
[2024-11-21 14:20] LABS: % Basophils 0.1 % (0-2); % Eosinophils 0.1 % (0-6); % Immature Granulocytes 0.4 % (0-0.5); % Lymphocytes 3.8 % (20.5-51.1); % Monocytes 3.7 % (1.7-9.3); % Neutrophils 91.9 % (42.2-75.2); Absolute Immature Granulocytes 0.1 10^3/uL (0-0.05); Absolute Lymphocytes 0.6 10^3/uL (1.2-3.4); Absolute Monocytes 0.6 10^3/uL (0.1-0.6); Absolute Neutrophils 14.7 10^3/uL (1.4-6.5); Hematocrit 46.4 % (39.0-52.0); Hemoglobin 14.4 g/dL (13.0-18.0); Mean Corpuscular Hgb 22.8 pg (27.0-31.0); Mean Corpuscular Volume 73.4 fL (80.0-94.0); Mean Platelet Volume 10.6 fL (7.4-10.4); Platelet Count 281 10^3/uL (130-400); Red Blood Cell Count 6.32 10^6/uL (4.70-6.10); Red Cell Dist. Width 18.8 % (11.5-14.5)
[2024-11-21 14:30] VITALS: BP 112/91
[2024-11-21 15:05] VITALS: BP 134/82
[2024-11-21 15:15] VITALS: BP 141/80
[2024-11-21 16:29] LABS: Iron 55 ug/dl (49-181)
[2024-11-21 16:38] LABS: Percent Saturation 12 % (20-50); Total Iron Binding Capacity 452 ug/dl (261-462)
[2024-11-21 16:58] LABS: Ferritin 12.2 ng/ml (17.9-464.0)
[2024-12-20 14:18] LABS: % Basophils 0.5 % (0-2); % Eosinophils 0.7 % (0-6); % Immature Granulocytes 0.3 % (0-0.5); % Monocytes 3.5 % (1.7-9.3); Absolute Basophils 0.1 10^3/uL (0-0.2); Absolute Eosinophils 0.1 10^3/uL (0-0.7); Absolute Lymphocytes 1.2 10^3/uL (1.2-3.4); Absolute Monocytes 0.5 10^3/uL (0.1-0.6); Absolute Neutrophils 11.3 10^3/uL (1.4-6.5); Hematocrit 47.6 % (39.0-52.0); Hemoglobin 14.6 g/dL (13.0-18.0); Mean Corp Hgb Conc. 30.7 g/dL (33.0-37.0); Mean Corpuscular Hgb 22.6 pg (27.0-31.0); Mean Corpuscular Volume 73.8 fL (80.0-94.0); Mean Platelet Volume 9.8 fL (7.4-10.4); Platelet Count 302 10^3/uL (130-400); Red Blood Cell Count 6.45 10^6/uL (4.70-6.10); Red Cell Dist. Width 18.7 % (11.5-14.5); White Blood Cell Count 13.1 10^3/uL (4.8-10.8)
[2024-12-20 14:30] VITALS: BP 150/84
[2024-12-20 14:45] VITALS: BP 126/87
[2024-12-20 15:14] VITALS: BP 123/79
== END 2024-12-20 23:59 | disposition home or self-care (01) ==
LOC: OID 14:06
PROVIDERS: ATTENDING PHYSICIAN Internal Medicine Hematology & Oncology; FAMILY PHYSICIAN Internal Medicine
DX: D45 Polycythemia vera (principal); I81 Portal vein thrombosis
CPT/HCPCS: 36415; 82728; 83540; 83550; 85025; 99195

== ENCOUNTER 2025-01-16 11:06 | Emergency (ER) | payer MEDICARE, OTHER, SELFPAY ==
[2025-01-16 11:26] VITALS: BP 136/84
--- NOTE | 2025-01-16 11:29 | ED.GENMED ---
ED Provider Triage
-
Patient seen by provider in Triage?: Seen in Triage
69-year-old male with a finger laceration when a window fell on it.
History of Present Illness
General
Chief Complaint: Skin Surface Trauma
Source: patient
Exam Limitations: none
Time Seen by Provider: 01/16/25 12:02
Nursing documentation reviewed up to this point in time: agreed with
History of Present Illness
History of Present Illness:
Patient is a 69-year-old male with history of Parkinson's who presents with a left middle finger injury when he accidentally closed a window on his finger causing a laceration and pain at the distal part of the digit. The nail is intact. His
tetanus shot is up-to-date, this was a work-related injury. Patient has no numbness tingling or weakness. He is right-hand dominant
Past History
Past History
ED Past Medical History: Asthma, Cancer (Prostate CA), HTN, Other (Polycythemia Vera, pancreatitis ,Parkinsons with Tremors, IBS, ) and Other (Parkinson's disease)
ED Past Surgical History: Urological (Prostatectomy)
Social History
Tobacco: Former smoker
Alcohol: Former
Personal:
Living: with family
Review of Systems
Review of Systems
Allergies reviewed?: Yes
All Other Systems: Not applicable
Phy Exam
Physical Exam
Physical Exam:
GENERAL: Alert , in no apparent distress, comfortable at rest
HEAD: NCAT
CV: 2+ radial pulse, cap refill intact
NEUROLOGICAL: Alert and oriented, no focal neuro deficits, , 5/5 strength, sensation intact, ambulation slight limp right leg
SKIN: Warm and dry, laceration
MUSCULOSKELETAL: Left middle finger distal to the nail there is a arc shaped laceration approximately half a centimeter, the nail plate is intact, he has no fluctuance to his fat pad, full range of motion
PSYCH: Normal and appropriate interaction.
Course
Orders/Labs/Results
Orders:
Orders
01/16/25 11:30
Finger(s)/Thumb 2 View Lt [CR Finger(s)/thumb Min 2 Vw Lt] Urgent
Comment:
Reason For Exam: crushed finger
Vital Signs
Initial and Last Documented VS:
Initial Vital Signs
Temp Pulse Resp BP Pulse Ox
36.6 C 80 16 136/84 99
01/16/25 11:26 01/16/25 11:26 01/16/25 11:26 01/16/25 11:26 01/16/25 11:26
Last Documented Vital Signs
Temp Pulse Resp BP Pulse Ox
36.6 C 82 18 132/82 99
01/16/25 11:26 01/16/25 13:34 01/16/25 13:34 01/16/25 13:34 01/16/25 13:34
Procedures
Laceration Closure
Left Middle Finger(s):
Status of Wound: clean
Size of Wound in cm: 0.5
Description of Wound Edges: sharp and flap-well vascularized
Preparation: cleaned with saline
Anesthesia: 1% Lidocaine and Digital-Regional
Revision/Debridement: routine- no revision
Wound exploration: extensive cleaning of contaminated wound
Type of Closure: single layer closure
Skin Closure Material: 5-0 nylon
Number of sutures: 3
MDM/Problems Addressed
Differential Diagnosis Includes:
Laceration, open fracture
MDM/Problems Addressed:
69-year-old male with Parkinson's, was working on a window and it fell on his finger causing laceration. He is able to fully range it. There is no numbness or tingling. His tetanus is unknown but he declines a tetanus shot. His laceration is arc
shaped at the distal tip and not involving the nail plate. His x-rays independently reviewed by me show no fracture. Wound irrigated after digital block and repaired with 3 sutures. Wound care instructions given
*Critical Care Note
Total Time (30-74mins, 75-104mins- exclusive of procedures): Not Applicable
ED Attending Note
-
Portions of this chart may have been created with voice recognition software.� Occasional wrong word or��sound alike� substitutions may have occurred due to the inherent limitations of voice recognition software.
Discharge Plan
Departure
Patient Disposition: Home (Routine Discharge)
Date of Disposition: 01/16/25
Time of Disposition: 13:29
Patient with high blood pressure during this ER visit?: No
Condition: Fair
Discharge Problem:
Laceration of finger
Instructions: Laceration Repair With Stitches (DC)
Prescriptions:
No Action
albuterol sulfate 1 PUFF HFA aerosol inhaler
2 puff inhalation R Q6HPRN PRN (Reason: sob)
carbidopa-levodopa 25-100 mg Tablet
2 tab PO TID
cyanocobalamin (vitamin B-12) 1,000 mcg Tablet
1,000 mcg PO DAILY Qty: 100 0RF
sennosides [senna] 8.6 mg Tablet
8.6 mg PO BID
docusate sodium 100 mg Capsule
100 mg PO BID
folic acid 1 mg Tablet
1 mg PO DAILY
Creon 24,000-76,000 -120,000 unit Capsule,Delayed Release(Dr/Ec)
1 cap PO AC
polyethylene glycol 3350 [HealthyLax] 17 gram powder in packet
17 g PO DAILY
insulin glargine U-300 conc [Toujeo SoloStar U-300 Insulin] 300 unit/mL (1.5 mL) Insulin Pen
10 unit SC .QPM
insulin aspart (niacinamide) 100 unit/mL (3 mL) Insulin Pen
1 sliding scale dose SC .SLIDING SCALE
Referrals:
Linnette Wisdom MD [Family Provider] - Follow up in 1 week (7 to 10 days for suture removal)
Activity Restrictions/Additional Instructions:
KEEP THE WOUND CLEAN AND DRY FOR 24 HOURS
AFTER THAT YOU CAN GET IT WET IN THE BATH/SHOWER ONCE A DAY AND MAKE SURE IT IS CLEAN AND THERE IS NO DRIED BLOOD ON THE STITCHES
APPLY NEOSPORIN AND A BANDAID
THE STITCHES NEED TO BE REMOVED IN ABOUT 7-10 DAYS, SEE YOUR DOCTOR FOR THIS.
THE LAST DAY BEFORE STITCHES OUT, NO OINTMENT, LEAVE OPEN TO AIR
WATCH FOR SIGNS OF INFECTION AND RETURN NEEDED FOR PAIN, SWELLING, REDNESS, DRAINAGE, BLEEDING.
MOTRIN NEEDED FOR PAIN.
Interventions
Interventions:
*Risk Screen - Suicide Last Done: 01/16/25 11:27
*General Assessment Last Done: 01/16/25 12:56
*Neglect/Abuse Screening Last Done: 01/16/25 11:27
*ED COVID-19 Vaccine History Last Done: 01/16/25 12:56
*Nursing Disposition Last Done: 01/16/25 13:34
ED-Skin Assessment Last Done: 01/16/25 12:08
Discharge Date and Time
Discharge Date/Time: 01/16/25 13:50
Print Language: FRENCH
[2025-01-16 13:34] VITALS: BP 132/82
== END 2025-01-16 13:50 | disposition home or self-care (01) ==
LOC: EMR 11:06
PROVIDERS: EMERGENCY PHYSICIAN Emergency Medicine; FAMILY PHYSICIAN Internal Medicine
DX: S61.213A Laceration without foreign body of left middle finger without damage to nail, initial encounter (principal); W20.8XXA Other cause of strike by thrown, projected or falling object, initial encounter; Y99.0 Civilian activity done for income or pay; G20.A1 Parkinson's disease without dyskinesia, without mention of fluctuations; I10 Essential (primary) hypertension; J45.909 Unspecified asthma, uncomplicated; Z85.46 Personal history of malignant neoplasm of prostate; Z87.891 Personal history of nicotine dependence
CPT/HCPCS: 12001; 99283; 73140

== ENCOUNTER 2025-01-17 14:17 | Outpatient (RCR) | payer MEDICARE, OTHER, SELFPAY ==
[2025-01-17 14:28] LABS: % Basophils 0.4 % (0-2); % Eosinophils 1.1 % (0-6); % Immature Granulocytes 0.2 % (0-0.5); % Lymphocytes 10.1 % (20.5-51.1); % Monocytes 3.5 % (1.7-9.3); % Neutrophils 84.7 % (42.2-75.2); Absolute Eosinophils 0.1 10^3/uL (0-0.7); Absolute Lymphocytes 1.1 10^3/uL (1.2-3.4); Absolute Monocytes 0.4 10^3/uL (0.1-0.6); Absolute Neutrophils 9.3 10^3/uL (1.4-6.5); Hematocrit 44.7 % (39.0-52.0); Hemoglobin 13.7 g/dL (13.0-18.0); Mean Corp Hgb Conc. 30.6 g/dL (33.0-37.0); Mean Corpuscular Hgb 22.5 pg (27.0-31.0); Mean Corpuscular Volume 73.4 fL (80.0-94.0); Mean Platelet Volume 9.8 fL (7.4-10.4); Platelet Count 269 10^3/uL (130-400); Red Blood Cell Count 6.09 10^6/uL (4.70-6.10); Red Cell Dist. Width 18.6 % (11.5-14.5); White Blood Cell Count 10.9 10^3/uL (4.8-10.8)
== END 2025-01-17 23:59 | disposition home or self-care (01) ==
LOC: OID 14:17
PROVIDERS: ATTENDING PHYSICIAN Internal Medicine Hematology & Oncology; FAMILY PHYSICIAN Internal Medicine
DX: D45 Polycythemia vera (principal); I81 Portal vein thrombosis
CPT/HCPCS: 36415; 85025

== ENCOUNTER 2025-02-14 14:23 | Outpatient (RCR) | payer MEDICARE, OTHER, SELFPAY ==
[2025-02-14 14:43] LABS: % Basophils 0.4 % (0-2); % Eosinophils 1.1 % (0-6); % Immature Granulocytes 0.3 % (0-0.5); % Lymphocytes 8.4 % (20.5-51.1); % Monocytes 3.6 % (1.7-9.3); % Neutrophils 86.2 % (42.2-75.2); Absolute Basophils 0.1 10^3/uL (0-0.2); Absolute Eosinophils 0.1 10^3/uL (0-0.7); Absolute Monocytes 0.4 10^3/uL (0.1-0.6); Absolute Neutrophils 10.2 10^3/uL (1.4-6.5); Hematocrit 45.8 % (39.0-52.0); Hemoglobin 14.1 g/dL (13.0-18.0); Mean Corp Hgb Conc. 30.8 g/dL (33.0-37.0); Mean Corpuscular Hgb 22.4 pg (27.0-31.0); Mean Corpuscular Volume 72.7 fL (80.0-94.0); Mean Platelet Volume 9.9 fL (7.4-10.4); Platelet Count 299 10^3/uL (130-400); Red Cell Dist. Width 19.1 % (11.5-14.5); White Blood Cell Count 11.8 10^3/uL (4.8-10.8)
[2025-02-14 14:50] VITALS: BP 144/77
[2025-02-14 15:15] VITALS: BP 132/74
[2025-02-14 15:25] VITALS: BP 107/72
[2025-02-14 15:28] LABS: Iron 45 ug/dl (49-181)
[2025-02-14 15:35] VITALS: BP 106/58
[2025-02-14 15:37] LABS: Percent Saturation 8 % (20-50); Total Iron Binding Capacity 513 ug/dl (261-462)
[2025-02-14 16:04] LABS: Ferritin 8.7 ng/ml (17.9-464.0)
== END 2025-02-17 08:31 | disposition home or self-care (01) ==
LOC: OID 14:23
PROVIDERS: ATTENDING PHYSICIAN Internal Medicine Hematology & Oncology; FAMILY PHYSICIAN Internal Medicine
DX: D45 Polycythemia vera (principal); I81 Portal vein thrombosis; K86.89 Other specified diseases of pancreas
CPT/HCPCS: 36415; 82728; 83540; 83550; 85025; 99195

== ENCOUNTER → 2025-03-05 08:37 | Outpatient (REF) | payer MEDICARE, OTHER, SELFPAY ==
[2025-03-05 18:28] LABS: TSH Reflex To Free T4 1.45 uIU/ml (0.47-4.68)
[2025-03-05 18:47] LABS: Vitamin B12 668 pg/ml (239-931)
[2025-03-07 05:18] LABS: Copper, Serum 84.4 ug/dL (70.0-140.0)
== END ==
LOC: REG 08:37
PROVIDERS: ATTENDING PHYSICIAN Psychiatry & Neurology Neurology; FAMILY PHYSICIAN Internal Medicine
DX: E53.8 Deficiency of other specified B group vitamins (principal); G20.A1 Parkinson's disease without dyskinesia, without mention of fluctuations; I10 Essential (primary) hypertension
CPT/HCPCS: 36415; 82525; 82607; 84443

== ENCOUNTER 2025-03-17 13:12 | Outpatient (RCR) | payer MEDICARE, OTHER, SELFPAY ==
[2025-03-17 13:41] LABS: % Basophils 0.4 % (0-2); % Eosinophils 0.7 % (0-6); % Immature Granulocytes 0.2 % (0-0.5); % Lymphocytes 7.9 % (20.5-51.1); % Monocytes 3.2 % (1.7-9.3); % Neutrophils 87.6 % (42.2-75.2); Absolute Basophils 0.1 10^3/uL (0-0.2); Absolute Eosinophils 0.1 10^3/uL (0-0.7); Absolute Monocytes 0.4 10^3/uL (0.1-0.6); Absolute Neutrophils 10.5 10^3/uL (1.4-6.5); Hematocrit 45.9 % (39.0-52.0); Hemoglobin 14.1 g/dL (13.0-18.0); Mean Corp Hgb Conc. 30.7 g/dL (33.0-37.0); Mean Corpuscular Hgb 22.6 pg (27.0-31.0); Mean Corpuscular Volume 73.6 fL (80.0-94.0); Mean Platelet Volume 10.1 fL (7.4-10.4); Platelet Count 299 10^3/uL (130-400); Red Blood Cell Count 6.24 10^6/uL (4.70-6.10); Red Cell Dist. Width 19.1 % (11.5-14.5)
[2025-03-17 13:45] VITALS: BP 132/80
[2025-03-17 14:04] VITALS: BP 109/73
[2025-03-17 14:09] VITALS: BP 122/72
[2025-03-17 14:10] VITALS: BP 121/76
[2025-03-17 14:54] LABS: Iron 36 ug/dl (49-181)
[2025-03-17 15:03] LABS: Percent Saturation 7 % (20-50); Total Iron Binding Capacity 494 ug/dl (261-462)
[2025-03-17 15:30] LABS: Ferritin 7.1 ng/ml (17.9-464.0)
== END 2025-03-18 08:56 | disposition home or self-care (01) ==
LOC: OID 13:12
PROVIDERS: ATTENDING PHYSICIAN Internal Medicine Hematology & Oncology; FAMILY PHYSICIAN Internal Medicine
DX: D45 Polycythemia vera (principal); D47.1 Chronic myeloproliferative disease; I81 Portal vein thrombosis
CPT/HCPCS: 36415; 82728; 83540; 83550; 85025; 99195

== ENCOUNTER 2025-04-18 13:55 | Outpatient (RCR) | payer MEDICARE, OTHER, SELFPAY ==
[2025-04-18 14:09] LABS: % Basophils 0.4 % (0-2); % Eosinophils 1.4 % (0-6); % Immature Granulocytes 0.3 % (0-0.5); % Lymphocytes 10.2 % (20.5-51.1); % Monocytes 3.5 % (1.7-9.3); % Neutrophils 84.2 % (42.2-75.2); Absolute Basophils 0.1 10^3/uL (0-0.2); Absolute Eosinophils 0.2 10^3/uL (0-0.7); Absolute Lymphocytes 1.2 10^3/uL (1.2-3.4); Absolute Monocytes 0.4 10^3/uL (0.1-0.6); Absolute Neutrophils 9.9 10^3/uL (1.4-6.5); Hematocrit 41.7 % (39.0-52.0); Hemoglobin 13.2 g/dL (13.0-18.0); Mean Corp Hgb Conc. 31.7 g/dL (33.0-37.0); Mean Corpuscular Hgb 22.5 pg (27.0-31.0); Mean Corpuscular Volume 71.2 fL (80.0-94.0); Mean Platelet Volume 10.5 fL (7.4-10.4); Platelet Count 293 10^3/uL (130-400); Red Blood Cell Count 5.86 10^6/uL (4.70-6.10); Red Cell Dist. Width 18.1 % (11.5-14.5); White Blood Cell Count 11.8 10^3/uL (4.8-10.8)
== END 2025-04-19 23:59 | disposition home or self-care (01) ==
LOC: OID 13:55
PROVIDERS: ATTENDING PHYSICIAN Internal Medicine Hematology & Oncology; FAMILY PHYSICIAN Internal Medicine
DX: D45 Polycythemia vera (principal); I81 Portal vein thrombosis
CPT/HCPCS: 36415; 85025

== ENCOUNTER 2025-05-16 13:38 | Outpatient (RCR) | payer MEDICARE, OTHER, SELFPAY ==
[2025-05-16 14:35] LABS: % Basophils 0.7 % (0-2); % Eosinophils 0.9 % (0-6); % Immature Granulocytes 0.6 % (0-0.5); % Monocytes 3.9 % (1.7-9.3); % Neutrophils 81.9 % (42.2-75.2); Absolute Basophils 0.1 10^3/uL (0-0.2); Absolute Eosinophils 0.1 10^3/uL (0-0.7); Absolute Immature Granulocytes 0.1 10^3/uL (0-0.05); Absolute Lymphocytes 1.4 10^3/uL (1.2-3.4); Absolute Monocytes 0.5 10^3/uL (0.1-0.6); Absolute Neutrophils 9.8 10^3/uL (1.4-6.5); Hematocrit 43.5 % (39.0-52.0); Hemoglobin 13.2 g/dL (13.0-18.0); Mean Corp Hgb Conc. 30.3 g/dL (33.0-37.0); Mean Corpuscular Hgb 21.7 pg (27.0-31.0); Mean Corpuscular Volume 71.4 fL (80.0-94.0); Mean Platelet Volume 10.8 fL (7.4-10.4); Nucleated Red Blood Cells % 0 % (-); Platelet Count 354 10^3/uL (130-400); Red Blood Cell Count 6.09 10^6/uL (4.70-6.10); Red Cell Dist. Width 19.9 % (11.5-14.5); White Blood Cell Count 11.9 10^3/uL (4.8-10.8)
== END 2025-05-19 23:59 | disposition home or self-care (01) ==
LOC: OID 13:38
PROVIDERS: Nurse Practitioner Adult Health; ATTENDING PHYSICIAN Internal Medicine Hematology & Oncology; FAMILY PHYSICIAN Internal Medicine
DX: D47.1 Chronic myeloproliferative disease (principal); D45 Polycythemia vera; I81 Portal vein thrombosis
CPT/HCPCS: 85025

== ENCOUNTER 2025-05-19 13:03 | Outpatient (RCR) | payer MEDICARE, OTHER, SELFPAY | END 2025-05-19 23:59 | disposition home or self-care (01) | LOC: ROT 13:03 | PROVIDERS: ATTENDING PHYSICIAN Psychiatry & Neurology Neurology; FAMILY PHYSICIAN Internal Medicine | DX: G20.A1 Parkinson's disease without dyskinesia, without mention of fluctuations (principal); Z73.6 Limitation of activities due to disability; R26.89 Other abnormalities of gait and mobility; R26.2 Difficulty in walking, not elsewhere classified; R41.841 Cognitive communication deficit | CPT/HCPCS: 96125; 97110; 97163; 97167; 97530; 97537 ==

== ENCOUNTER → 2025-06-03 07:31 | Outpatient (REF) | payer MEDICARE, OTHER, SELFPAY | LOC: MRI 07:31 | PROVIDERS: ATTENDING PHYSICIAN Internal Medicine Gastroenterology; FAMILY PHYSICIAN Internal Medicine | DX: K85.91 Acute pancreatitis with uninfected necrosis, unspecified (principal) | CPT/HCPCS: 74183; A9575 ==

== ENCOUNTER 2025-06-10 07:50 | Outpatient (RCR) | payer MEDICARE, OTHER, SELFPAY ==
[2025-06-10 08:36] LABS: Hematocrit 44.3 % (39.0-52.0); Hemoglobin 13.4 g/dL (13.0-18.0); Mean Corp Hgb Conc. 30.2 g/dL (33.0-37.0); Mean Corpuscular Volume 73.5 fL (80.0-94.0); Platelet Count 277 10^3/uL (130-400); Red Cell Dist. Width 20.5 % (11.5-14.5)
[2025-06-10 09:52] LABS: Iron 44 ug/dl (49-181)
[2025-06-10 10:02] LABS: Total Iron Binding Capacity 499 ug/dl (261-462)
[2025-06-10 10:34] LABS: Ferritin 7.5 ng/ml (17.9-464.0)
== END 2025-06-19 23:59 | disposition home or self-care (01) ==
LOC: OID 07:50
PROVIDERS: ATTENDING PHYSICIAN Internal Medicine Hematology & Oncology; FAMILY PHYSICIAN Internal Medicine
DX: D47.1 Chronic myeloproliferative disease (principal); D45 Polycythemia vera (principal); I81 Portal vein thrombosis
CPT/HCPCS: 36415; 82728; 83540; 83550; 85025

== ENCOUNTER 2025-06-18 14:32 | Outpatient (RCR) | payer MEDICARE, OTHER, SELFPAY | END 2025-06-18 23:59 | disposition home or self-care (01) | LOC: ROT 14:32 | PROVIDERS: ATTENDING PHYSICIAN Psychiatry & Neurology Neurology; FAMILY PHYSICIAN Internal Medicine | DX: G20.A1 Parkinson's disease without dyskinesia, without mention of fluctuations (principal); R41.841 Cognitive communication deficit; Z73.6 Limitation of activities due to disability; R26.2 Difficulty in walking, not elsewhere classified | CPT/HCPCS: 97110; 97112; 97116; 97129; 97130; 97530; 97535 ==

== ENCOUNTER 2025-07-10 13:23 | Outpatient (RCR) | payer MEDICARE, OTHER, SELFPAY ==
[2025-07-10 13:34] LABS: Hematocrit 45.9 % (39.0-52.0); Hemoglobin 14.2 g/dL (13.0-18.0); Mean Corp Hgb Conc. 30.9 g/dL (33.0-37.0); Mean Corpuscular Volume 73.7 fL (80.0-94.0); Platelet Count 308 10^3/uL (130-400); Red Cell Dist. Width 20.9 % (11.5-14.5)
[2025-07-10 13:40] VITALS: BP 154/98
[2025-07-10 14:15] VITALS: BP 142/85
[2025-07-10 14:18] VITALS: BP 136/85
[2025-07-10 14:27] VITALS: BP 118/81
== END 2025-07-20 23:59 | disposition home or self-care (01) ==
LOC: OID 13:23
PROVIDERS: ATTENDING PHYSICIAN Internal Medicine Hematology & Oncology; FAMILY PHYSICIAN Internal Medicine
DX: D47.1 Chronic myeloproliferative disease (principal); D45 Polycythemia vera; I81 Portal vein thrombosis
CPT/HCPCS: 36415; 85025; 99195

== ENCOUNTER 2025-07-14 14:51 | Outpatient (RCR) | payer MEDICARE, OTHER, SELFPAY | END 2025-07-14 23:59 | disposition home or self-care (01) | LOC: ROT 14:51 | PROVIDERS: ATTENDING PHYSICIAN Psychiatry & Neurology Neurology; FAMILY PHYSICIAN Internal Medicine | DX: G20.A1 Parkinson's disease without dyskinesia, without mention of fluctuations (principal); R41.841 Cognitive communication deficit; Z73.6 Limitation of activities due to disability; R26.2 Difficulty in walking, not elsewhere classified | CPT/HCPCS: 97110; 97112; 97116; 97129; 97130; 97530; 97535; 97537 ==

== ENCOUNTER 2025-07-28 14:23 | Outpatient (RCR) | payer MEDICARE, OTHER, SELFPAY | END 2025-07-28 23:59 | disposition home or self-care (01) | LOC: ROT 14:23 | PROVIDERS: ATTENDING PHYSICIAN Psychiatry & Neurology Neurology; FAMILY PHYSICIAN Internal Medicine | DX: G20.A1 Parkinson's disease without dyskinesia, without mention of fluctuations (principal); R41.841 Cognitive communication deficit; Z73.6 Limitation of activities due to disability; R26.2 Difficulty in walking, not elsewhere classified | CPT/HCPCS: 97110; 97112; 97129; 97130; 97530; 97535; 97537 ==

== ENCOUNTER 2025-08-07 13:57 | Outpatient (RCR) | payer MEDICARE, OTHER, SELFPAY ==
[2025-08-07 14:10] LABS: Hematocrit 45.6 % (39.0-52.0); Hemoglobin 14.2 g/dL (13.0-18.0); Mean Corp Hgb Conc. 31.1 g/dL (33.0-37.0); Mean Corpuscular Volume 73.4 fL (80.0-94.0); Platelet Count 348 10^3/uL (130-400); Red Cell Dist. Width 19.0 % (11.5-14.5)
[2025-08-07 14:15] VITALS: BP 150/91
[2025-08-07 14:36] VITALS: BP 121/84
[2025-08-07 14:40] VITALS: BP 102/64
== END 2025-08-08 08:59 | disposition home or self-care (01) ==
LOC: OID 13:57
PROVIDERS: ATTENDING PHYSICIAN Internal Medicine Hematology & Oncology; FAMILY PHYSICIAN Internal Medicine
DX: D47.1 Chronic myeloproliferative disease (principal); D45 Polycythemia vera; I81 Portal vein thrombosis
CPT/HCPCS: 36415; 85025; 99195

== ENCOUNTER 2025-08-30 07:19 | Inpatient (IN) | payer MEDICARE, OTHER, SELFPAY ==
[2025-08-30] VITALS (9 sets, daily range): BP systolic 60–208; BP diastolic 20–100
[2025-08-30 03:56] LABS: Hematocrit 47.4 % (39.0-52.0); Hemoglobin 14.4 g/dL (13.0-18.0); Mean Corp Hgb Conc. 30.4 g/dL (33.0-37.0); Mean Corpuscular Volume 73.9 fL (80.0-94.0); Nucleated Red Blood Cells % 0 % (-); Platelet Count 330 10^3/uL (130-400); Red Cell Dist. Width 19.9 % (11.5-14.5)
[2025-08-30] MEDS: ZOFRAN 4 MG IV (04:12)
[2025-08-30] MEDS: MORPHINE SULFATE 4 MG IV ×4 (04:16→18:44)
[2025-08-30] MEDS: NSS 1000 IV ×3 (04:16→22:41)
[2025-08-30 04:20] LABS: ALT (SGPT) 25 U/L (0-50); AST (SGOT) 22 U/L (17-59); Albumin 4.9 g/dl (3.5-5.0); Alkaline Phosphatase 158 U/L (38-126); Blood Urea Nitrogen 16 mg/dl (9-20); Calcium 9.5 mg/dl (8.4-10.2); Carbon Dioxide 27 mmol/L (22-30); Chloride 103 mmol/L (98-107); Glucose 268 mg/dl (70-99); Potassium 4.4 mmol/L (3.5-5.1); Sodium 140 mmol/L (135-145); Total Protein 7.9 g/dl (6.3-8.2); eGFR > 60.00
[2025-08-30 04:40] LABS: Lipase 166 U/L (23-300)
--- NOTE | 2025-08-30 06:32 | ED.GENMED ---
History of Present Illness
General
Chief Complaint: Abdominal Pain
Source: patient
Exam Limitations: none
Time Seen by Provider: 08/30/25 05:01
Nursing documentation reviewed up to this point in time: agreed with
History of Present Illness
History of Present Illness:
This is a 69-year-old gentleman who resides at home with his . He has remote history of prostate cancer status post prostatectomy 2009. History of polycythemia vera, managed expectantly, sporadic phlebotomy. He had been maintained on immune
modulator in the past but developed pancreatitis in 2022. No history of recurrent episodes of pancreatitis with discontinuation of immune modulator. He also has history of Parkinson's with essential tremor, hypertension, irritable bowel syndrome,
insulin requiring diabetes, mild intermittent asthma. He presents with acute left inguinal pain, swelling that began initially 1 week ago, mild bulge and swelling left inguinal region after bearing down to pass a bowel movement. He does admit to
mild intermittent bulging to the left inguinal region but generally resolves promptly. Since last week however he has had persistent bulge, mild pain that became much worse and larger in size throughout the the day today. He has also noted some
abdominal bloating this evening, mild nausea without vomiting. He has not had a fever nor chills. No dysuria no urgency and or hematuria. He continues with some constipation but no rectal pain.
Past History
Past History
ED Past Medical History: Asthma, Cancer (Prostate CA-status post prostatectomy 2009), HTN, IDDM, Other (Polycythemia Vera, pancreatitis ,Parkinsons with Tremors, IBS) and Other (Parkinson's disease)
ED Past Surgical History: Urological (Prostatectomy-2009)
Social History
Tobacco: Former smoker
Alcohol: Former
Personal:
Living: with family
Employment: Retired
Family History
Family History: Other (Noncontributory)
Phy Exam
Physical Exam
Physical Exam:
GENERAL: 69-year-old gentleman appears his stated age, bright and alert, pleasant, appears mildly uncomfortable but easily communicative. Afebrile.
EYE: anicteric
NECK: Supple, nontender, no meningismus, no significant adenopathy.
ENT: oral mucosa is moist. No rhinorrhea.
CARDIAC: Regular rate and rhythm. no murmur.
LUNGS: Clear breath sounds bilaterally, no acute respiratory distress, no wheezes/rales/rhonchi
ABDOMEN: Soft, mildly distended, large left inguinal hernia that is moderately tender to palpation, mild local erythema of skin, no mottling, moderate edema of left hemiscrotum without focal tenderness. no r/g, no cvat. Mildly hyperactive bowel
sounds.
NEUROLOGICAL: Alert and oriented x3, no focal neuro deficits. Resting tremor right upper extremity.
SKIN: Warm and dry, normal color, skin intact. No rash.
MUSCULOSKELETAL: No C/C/E. peripheral pulses are full and equal b/l. No palpable tenderness.
PSYCH: Normal and appropriate interaction.
Course
Orders/Labs/Results
Orders:
Orders
08/30/25 03:47
Complete Blood Count/With Diff Urgent
Comprehensive Metabolic Panel Urgent
08/30/25 03:55
HYDROmorphone [Dilaudid] 0.5 mg .ROUTE .STK-MED ONE
Ondansetron Injectable [Zofran] 4 mg .ROUTE .STK-MED ONE
08/30/25 03:57
CT Abd/pelvis W Iv Cont Urgent
Comment:
Reason For Exam: abd pain
08/30/25 04:00
Lactic Acid Urgent
Lipase Urgent
08/30/25 04:02
Ondansetron Injectable [Zofran] 4 mg IV NOW STA
08/30/25 04:14
Morphine Sulfate 4 mg .ROUTE .STK-MED ONE
08/30/25 04:15
Morphine Sulfate 4 mg IV NOW STA
08/30/25 04:16
0.9% Sodium Chloride 1000 ml [Nss] 1,000 ml IV BOLUS
Abnormal Lab Results
08/30/25
03:47
WBC 15.0 H 10^3/uL
(4.8-10.8)
RBC 6.41 H 10^6/uL
(4.70-6.10)
MCV 73.9 L fL
(80.0-94.0)
MCH 22.5 L pg
(27.0-31.0)
MCHC 30.4 L g/dL
(33.0-37.0)
RDW 19.9 H %
(11.5-14.5)
Abs Immat Gran (auto) 0.1 H 10^3/uL
(0-0.05)
Absolute Neuts (auto) 13.4 H 10^3/uL
(1.4-6.5)
Absolute Lymphs (auto) 0.9 L 10^3/uL
(1.2-3.4)
Neutrophils % 89.8 H %
(42.2-75.2)
Lymphocytes % 5.9 L %
(20.5-51.1)
Creatinine 0.6 L mg/dL
(0.7-1.3)
Glucose 268 H mg/dl
(70-99)
Alkaline Phosphatase 158 H U/L
(38-126)
08/30/25 03:47
08/30/25 03:47
Vital Signs
Initial and Last Documented VS:
Initial Vital Signs
Temp Pulse Resp BP Pulse Ox
97.0 F 60 18 208/100 99
08/30/25 02:58 08/30/25 02:58 08/30/25 02:58 08/30/25 02:58 08/30/25 02:58
Last Documented Vital Signs
Temp Pulse Resp BP Pulse Ox
97.0 F 60 18 148/79 97
08/30/25 02:58 08/30/25 02:58 08/30/25 02:58 08/30/25 06:18 08/30/25 06:30
MDM/Problems Addressed
Differential Diagnosis Includes:
Differential diagnosis includes, in no particular order and is not limited to:
Inguinal hernia, incarcerated or reducible
Femoral hernia
Lymphadenopathy due to infection or other causes testicular torsion or epididymitis�unlikely given the location and description
Strangulated hernia
Lipoma
Abscess formation secondary to infection
Hydrocele or spermatic cord swelling
Malignancy related lymph node swelling
MDM/Problems Addressed:
Acute problems:
Suspected large left inguinal hernia in the left groin region. Concern for incarcerated hernia, concern for small bowel obstruction either complete or partial
Will initiate IV fluids, administer IV morphine for pain. Patient notes allergy to Dilaudid but has tolerated morphine in the past.
Will check labs, lactic acid and will plan for CT abdomen pelvis with IV contrast.
Chronic conditions affecting care:
Polycythemia vera
Remote history of prostate cancer
Diabetes
Asthma
Hypertension
*Radiology
Radiology exam reviewed: radiology read reviewed
*Pulse Oximetry
SaO2: 97
Oxygen Mode of Delivery: Room air
Patient hypoxic: no
*Critical Care Note
Total Time (30-74mins, 75-104mins- exclusive of procedures): Not Applicable
Update Note
Update Note:
Labs show elevated white blood cell count of 15, normal H&H. Unremarkable chemistries save for elevated random glucose 200-68. No acidosis.
Lactic acid is normal at 1.2.
CAT scan shows dilated loops of small bowel which extend in the left inguinal hernia where there is a large segment of obstructed small bowel within the left inguinal hernia. Moderate amount of surrounding stranding about the obstructed loops of
bowel. Moderate reactive amount of free fluid within the left inguinal canal. There is no pneumatosis nor portal venous gas. No free air. Small amount of free fluid.
Case discussed with general surgery, Dr. Becerril. Will admit to surgery service. Will keep NPO.
Will continue IV morphine for as needed pain, IV fluids and will initiate IV antibiotics.
Patient has history of penicillin allergy but has tolerated cephalosporins in the past. Will start IV Rocephin and metronidazole.
ED Attending Note
-
Portions of this chart may have been created with voice recognition software.� Occasional wrong word or��sound alike� substitutions may have occurred due to the inherent limitations of voice recognition software.
Discharge Plan
Departure
Patient Disposition: Admit
Date of Disposition: 08/30/25
Time of Disposition: 06:33
Admit to: Med/Surg
Admit to doctor: Jone
Presentation/result/management discussed w/ accepting MD/DO: gen surgery
Discharge Problem:
Incarcerated left inguinal hernia, Small bowel obstruction r/t hernia
Prescriptions:
No Action
albuterol sulfate 1 PUFF HFA aerosol inhaler
2 puff inhalation R Q6HPRN PRN (Reason: sob)
carbidopa-levodopa 25-100 mg Tablet
1.5 tab PO QID
cyanocobalamin (vitamin B-12) 1,000 mcg Tablet
1,000 mcg PO DAILY Qty: 100 0RF
sennosides [senna] 8.6 mg Tablet
8.6 mg PO BID
docusate sodium 100 mg Capsule
100 mg PO BID
folic acid 1 mg Tablet
1 mg PO DAILY
Creon 24,000-76,000 -120,000 unit Capsule,Delayed Release(Dr/Ec)
1 cap PO AC
polyethylene glycol 3350 [HealthyLax] 17 gram powder in packet
17 g PO DAILY
insulin glargine U-300 conc [Toujeo SoloStar U-300 Insulin] 300 unit/mL (1.5 mL) Insulin Pen
10 unit SC .QPM
insulin aspart (niacinamide) 100 unit/mL (3 mL) Insulin Pen
1 sliding scale dose SC .SLIDING SCALE
Referrals:
Linnette Wisdom MD [Family Provider, Internal Medicine]
Interventions
Interventions:
*Risk Screen - Suicide Last Done: 08/30/25 02:58
*General Assessment Last Done: 08/30/25 03:33
*Neglect/Abuse Screening Last Done: 08/30/25 02:58
*ED- Fall Risk Assessment Last Done: 08/30/25 02:58
*ED COVID-19 Vaccine History Last Done: 08/30/25 02:58
*ED Influenza Vaccine History Last Done: 08/30/25 02:58
BX-Tozvnm-Abkqgrxqad Assessment Last Done: 08/30/25 03:33
Discharge Date and Time
Print Language: THAI
--- NOTE | 2025-08-30 06:54 | HP.FOC2 ---
Focused History & Physical
Chief Complaint
HPI:
Chief Complaint: left groin pain
HPI / Indication for Planned Procedure:
69 YOM with PMH Asthma, Prostate CA s/p prostatectomy, Polycythemia Vera ,Parkinsons with Tremors comes in to the ED with Left groin pain that started about 2 weeks ago with bulging and swelling in the left groin area. He reports he has had the left
hernia before but would resolve on its own. He report mild nausea associated with the pain. He also c/o of chronic constipation, last bm two days ago. He denies fever, chills, chest pain and sob at this time.
Relevant Past Medical History: Diabetes
Relevant Social History: Negative
Relevant Family History: Negative
Relevant Past Surgical History: Positive for (prostatectomy)
Review of Systems
Review of Pertinent Systems: All Systems Negative Except for the Following Positives (left groin swelling and bulding. BL hand tremors )
Medication
See Medication form for detailed medications: Yes
Medication List (including Herbals & OTC):
albuterol sulfate 90 mcg/actuation aerosol inhaler 2 puff inhalation R Q6HPRN PRN sob 01/19/18
carbidopa 25 mg-levodopa 100 mg tablet 1.5 tab PO QID Neurological Condition 07/07/23
cyanocobalamin (vitamin B-12) 1,000 mcg tablet 1,000 mcg PO DAILY #100 tabs 10/13/23
sennosides 8.6 mg tablet (senna) 8.6 mg PO BID Constipation 11/23/23
docusate sodium 100 mg capsule 100 mg PO BID Constipation 01/05/24
folic acid 1 mg tablet 1 mg PO DAILY Supplement 01/05/24
lvvxag-yrgpwdrz-zraprx(pork)24,000-76,000-120,000 unit capsule,del rel (Creon) 1 cap PO AC Gastrointestinal Issue 02/08/24
polyethylene glycol 3350 17 gram oral powder packet (HealthyLax) 17 g PO DAILY Constipation 02/08/24
insulin aspart (niacinamide)(U-100) 100 unit/mL(3 mL) subcutaneous pen 1 sliding scale dose SC .SLIDING SCALE 12/20/24
insulin glargine U-300 conc 300 unit/mL (1.5 mL) subcutaneous pen (Toujeo SoloStar U-300 Insulin) 10 unit SC .QPM 12/20/24
Medications Reviewed: Yes
Allergies and Reactions
Patient has Allergies: Yes
Noted Allergies and Reactions:
Allergy/AdvReac Type Severity Reaction Status Date / Time
ciprofloxacin (From Cipro) Allergy Dizziness Verified 08/30/25 02:58
clindamycin HCl (From Allergy Rash Verified 08/30/25 02:58
Cleocin)
hydromorphone (From Dilaudid) Allergy Rash Verified 08/30/25 02:58
influenza virus vacc Allergy SWELLING/COULDN'T Verified 08/30/25 02:58
trivalent, split BREATHE
monosodium glutamate Allergy Unknown Verified 08/30/25 02:58
Penicillins Allergy Hives; Verified 08/30/25 02:58
tolerated
cefepime,
ertapenem
12/2023
Pertinent Physical Exam
All Other Systems: Negative
Head/Neck: Normal
Lungs: Normal
Heart: Normal
Abdomen: Other (hypoactive, left groin buldge)
Extremities: Normal
Neurological: Other (poor historian)
Diagnosis / Assessment
Left inguinal hernia/SBO
Plan / Procedure
# Left inguinal hernia/SBO
- NPO
- Pain control - morphine
- N/V - zofran
- IVF
- ABX
DVT prophylaxis - SCD
DNR
[2025-08-30] MEDS: ROCEPHIN 1000 MG IV (06:55)
[2025-08-30] MEDS: FLAGYL 500 MG 100 IV (06:55)
--- NOTE | 2025-08-30 08:59 | CON.HOSP ---
Consultation
-
Requesting Provider: DERIC Hicks
Performing Provider: Ja Simons MD
Reason for Consultation: Medical Management
Family Physician
-
Family Physician: Linnette Wisdom
Chief Complaint
-
Abdominal Pain
History of Present Illness
69 y/o male with past medical history of chronic constipation, Diabetes Mellitus, Hypertension, Asthma, Prostate Cancer status post prostatectomy, Polycythemia Vera, Parkinsons with Tremors, complicated gastrointestinal history some of which include
severe necrotizing pancreatitis with PD disruption, recurrent ascites, hemorrhagic pancreatitis, status post necrosectomy and cystogastrostomy with stent and stent migration and bleeding, also polycythemia vera on Jakafi, history of splenic portal
vein thrombosis treated with anticoagulation in the past and subsequently discontinued after developing hemorrhagic pancreatitis, recurrent GI bleed and Portal Vein Thrombosis, [place] [facility] with left groin pain that started about 2 weeks
ago with bulging and swelling in the left groin area. He reported that he has had the left hernia before but would resolve on its own. He report mild nausea associated with the pain. He denied fever, chills, chest pain, sob or any other complaints.
Medical History
Past Medical History
Past Medical History: Reports Other (As per HPI above)
Past Surgical History: Reports Urological (Prostatectomy-2009)
Social History
Tobacco: Former Smoker
Alcohol: None
Drug: None
Family History
Family History: Reviewed & Not Pertinent
Allergies / Home Medications
Allergies reflects when Allergies were last updated in [facility].
Home Medications with original date entered in [facility]
Allergy/Medication List:
Allergies
Allergy/AdvReac Type Severity Reaction Status Date / Time
ciprofloxacin (From Cipro) Allergy Dizziness Verified 08/30/25 02:58
clindamycin HCl (From Allergy Rash Verified 08/30/25 02:58
Cleocin)
hydromorphone (From Dilaudid) Allergy Rash Verified 08/30/25 02:58
influenza virus vacc Allergy SWELLING/COULDN'T Verified 08/30/25 02:58
trivalent, split BREATHE
monosodium glutamate Allergy Unknown Verified 08/30/25 02:58
Penicillins Allergy Hives; Verified 08/30/25 02:58
tolerated
cefepime,
ertapenem
12/2023
Home Medications
albuterol sulfate 90 mcg/actuation aerosol inhaler 2 puff inhalation R Q6HPRN PRN sob 01/19/18
carbidopa 25 mg-levodopa 100 mg tablet 1.5 tab PO QID Neurological Condition 07/07/23
cyanocobalamin (vitamin B-12) 1,000 mcg tablet 1,000 mcg PO DAILY #100 tabs 10/13/23
sennosides 8.6 mg tablet (senna) 8.6 mg PO BID Constipation 11/23/23
docusate sodium 100 mg capsule 100 mg PO BID Constipation 01/05/24
folic acid 1 mg tablet 1 mg PO DAILY Supplement 01/05/24
yhknbe-ttmrclql-qnitpm(pork)24,000-76,000-120,000 unit capsule,del rel (Creon) 1 cap PO AC Gastrointestinal Issue 02/08/24
polyethylene glycol 3350 17 gram oral powder packet (HealthyLax) 17 g PO DAILY Constipation 02/08/24
insulin aspart (niacinamide)(U-100) 100 unit/mL(3 mL) subcutaneous pen 1 sliding scale dose SC .SLIDING SCALE 12/20/24
insulin glargine U-300 conc 300 unit/mL (1.5 mL) subcutaneous pen (Toujeo SoloStar U-300 Insulin) 10 unit SC .QPM 12/20/24
Review of Systems
-
A 12 point Review of Systems was completed except as noted: Yes
Physical Exam
Vital Signs
Vital Signs
Temp Pulse Resp BP Pulse Ox
97.0 F 60 18 148/79 97
08/30/25 02:58 08/30/25 02:58 08/30/25 02:58 08/30/25 06:18 08/30/25 06:34
Physical Exam
General: No Apparent Distress and Comfortable
HEENT: Normocephalic
Respiratory: Clear
Cardiac: S1/S2 and Regular Rhythm
GI: Soft, Non Tender and Normal Bowel Sounds
Skin: Warm and Dry
Neuro: Awake, Alert and Nonfocal/Grossly Intact
Psych: Calm and Intact Judgement
Laboratory Results
-
Laboratory Results
08/30/25 03:47
08/30/25 03:47
Lactic Acid 1.2 mmol/L (0.7-2.0) 08/30/25 04:00
Total Bilirubin 0.6 mg/dl (0.2-1.3) 08/30/25 03:47
AST 22 U/L (17-59) 08/30/25 03:47
ALT 25 U/L (0-50) 08/30/25 03:47
Alkaline Phosphatase 158 U/L (38-126) H 08/30/25 03:47
Lipase 166 U/L (23-300) 08/30/25 04:00
Impression / Plan
-
Assessment/Plan
Left inguinal hernia/SBO
- NPO
- Pain control - morphine
- N/V - zofran
- IVF
- ABX
Leukocytosis
- Suspected stress reaction from hernia and SBO
History/Conditions prior to presentation:
Diabetes Mellitus -- will do Q6H Low Dose Sliding Scale; reduce home Insulin dose by about 50% while NPO
Parkinson's disease -- continue home Carbidopa-Levodopa
History of Constipation
History of Hypertension
-Monitor BP
Asthma
-Stable
Additional History
Acute GI bleed with hemorrhagic shock status post blood transfusion - received many units of red blood cells transfusion
Acute symptomatic blood loss anemia/hemorrhagic pancreatitis
Severe metabolic acidosis/lactic acidosis
History of Hyponatremia
Less likely small bowel obstruction
History of Severe necrotizing pancreatitis
History of Hemorrhagic pancreatitis
Polycythemia vera -- previously was on Jakafi, but this was stopped as thought to cause pancreatitis. Gets outpatient therapeutic phlebotomy. Is patient supposed to be on Aspirin 81 mg daily?
History of Prostate cancer status post prostatectomy
History of splenic vein and portal vein thrombosis -- anticoagulation in the past stopped after developed hemorrhagic pancreatitis
History of cystogastrostomy with stent and necrosectomy with bleeding and stent exchange.
History of ascites
History recurrent GI bleed
History of chronic anemia
DVT Prophylaxis: SCDs. Avoiding chemical prophylaxis given severe GI bleed and hemorrhagic pancreatitis.
Code Status: DNR
[2025-08-30 09:32] LABS: Glucose - Point of Care 228 mg/dl (70-99)
[2025-08-30] MEDS: NOVOLOG FLEXPEN-LOW RESISTANCE 2 UNITS SC (09:43)
--- NOTE | 2025-08-30 10:43 | CM ---
Patient seen at bedside on . Patient states that he lives in a 3 story home with his . Patient has a walker at home but does not use it. Patient states he is independent and driving. Patient PCP is Dr. Jenny Wisdom and he uses the [facility]. Patient stated that he has had [facility] in the Past. Patient plan is for discharge home with no needs. CM will continue to follow for discharge planning needs.
Plan; home with no needs vs home with VN pending medical treatment plan
[2025-08-30 12:53] LABS: Glucose - Point of Care 153 mg/dl (70-99)
[2025-08-30] MEDS: FOLVITE PO (14:07)
[2025-08-30] MEDS: COLACE PO ×2 (14:07→21:13)
[2025-08-30] MEDS: ZENPEP DELAYED RELEASE CAPSULE PO ×2 (14:08→17:06)
[2025-08-30] MEDS: SINEMET 25-100 PO ×2 (14:08)
[2025-08-30] MEDS: SENOKOT PO (14:08)
[2025-08-30] MEDS: VITAMIN B-12 PO (14:08)
[2025-08-30 14:39] LABS: Glucose - Point of Care 128 mg/dl (70-99)
[2025-08-30] MEDS: NOVOLOG FLEXPEN-LOW RESISTANCE SC ×3 (14:59→23:31)
--- NOTE | 2025-08-30 15:38 | W.PN.UPDATE ---
Update Note
Progress Note Update
I personally reviewed the medical record and imaging studies.� 69-year-old male with multiple medical problems including insulin-dependent diabetes mellitus and a history of necrotizing pancreatitis, who presents with an incarcerated left inguinal
hernia.� He has a known hernia on the left that would come and go over the past several years.� He has a history of chronic constipation and 2 weeks ago he strained and since that time he noted the bulge has become larger. Last night there was
excruciating lower abdominal pain prompting him to come to the ED.� At the present time he is comfortable and there has been no vomiting. �His last bowel movement was 2 days ago and he has been passing flatus.
He remains afebrile and is not tachycardic.� His white count is 15 and his electrolytes and renal function are normal.� His glucose is 268.� His lactate is normal.� A CT scan of the abdomen and pelvis with contrast reveals a large left inguinal
hernia containing small bowel.� There appears to be an obstruction with some mild wall thickening and edema.� There is no evidence of pneumatosis.
On physical examination he is in no acute distress.� He states the pain has resolved and he denies any nausea.� His abdomen is completely soft and flat and the hernia is reduced.
I reviewed the management options including nonoperative management versus surgery.� We discussed the risks and benefits of each.� I do not feel emergency surgery is necessary at this time but do recommend he stay and have it repaired during this
admission.� Without surgery there is a risk of recurrence.� Risks of surgery include, but are not limited to, bleeding, infection, recurrence, seroma, injury other structures, and the risks of anesthesia.� All questions answered and he is in
agreement with the plan.� He is being admitted to the hospital for observation and I have added him to the OR schedule for 09/01, sooner if needed.
[2025-08-30] MEDS: SINEMET 25-100 1.5 TABLET PO ×2 (17:25→23:28)
[2025-08-30 18:03] LABS: Glucose - Point of Care 140 mg/dl (70-99)
[2025-08-30] MEDS: LANTUS 0.04 UNITS SC (18:33)
[2025-08-30] MEDS: MORPHINE SULFATE 2 MG IV (23:32)
[2025-08-31 03:33] LABS: Glucose - Point of Care 108 mg/dl (70-99)
[2025-08-31] MEDS: NOVOLOG FLEXPEN-LOW RESISTANCE SC ×2 (05:22→11:52)
[2025-08-31] MEDS: MORPHINE SULFATE 4 MG IV ×3 (05:22→19:40)
[2025-08-31] MEDS: NSS 1000 IV ×2 (05:31→15:50)
[2025-08-31 07:00] VITALS: BP 149/85
[2025-08-31 07:56] LABS: Hematocrit 41.8 % (39.0-52.0); Hemoglobin 12.7 g/dL (13.0-18.0); Mean Corp Hgb Conc. 30.4 g/dL (33.0-37.0); Mean Corpuscular Volume 74.5 fL (80.0-94.0); Nucleated Red Blood Cells % 0 % (-); Platelet Count 255 10^3/uL (130-400); Red Cell Dist. Width 19.7 % (11.5-14.5)
[2025-08-31] MEDS: SINEMET 25-100 1.5 TABLET PO ×4 (07:56→22:44)
[2025-08-31] MEDS: COLACE 100 MG PO ×2 (07:57→20:18)
[2025-08-31] MEDS: ZENPEP DELAYED RELEASE CAPSULE PO ×2 (07:57→10:32)
[2025-08-31] MEDS: VITAMIN B-12 PO (07:57)
[2025-08-31] MEDS: FOLVITE PO (07:57)
[2025-08-31 08:23] LABS: Blood Urea Nitrogen 16 mg/dl (9-20); Calcium 8.6 mg/dl (8.4-10.2); Carbon Dioxide 27 mmol/L (22-30); Chloride 104 mmol/L (98-107); Glucose 122 mg/dl (70-99); Magnesium 1.9 mg/dl (1.6-2.3); Potassium 4.2 mmol/L (3.5-5.1); Sodium 137 mmol/L (135-145); eGFR > 60.00
--- NOTE | 2025-08-31 10:56 | CM ---
Patient seen at bedside with Bee
OR tomorrow
concerned with stairs at home, will benefit PT/OT post-op
PLAN: OR 09/01, CM to follow for needs
[2025-08-31 11:51] LABS: Glucose - Point of Care 113 mg/dl (70-99)
[2025-08-31] MEDS: ZENPEP DELAYED RELEASE CAPSULE 1 CAPSULE PO ×2 (12:55→16:19)
--- NOTE | 2025-08-31 13:46 | W.PN.GS2 ---
Today's Communication / Plan
-
Ok for diet today, NPO after MN for tentative OR
Assessment / Plan
-
69 yo male with multiple medical problems including insulin-dependent diabetes mellitus and a history of necrotizing pancreatitis who presents with an incarcerated left inguinal hernia. 2 weeks ago he strained and since that time he noted the bulge
has become larger. He presented with excruciating lower abdominal pain for <24hours through the ED. CT scan of the abdomen and pelvis with contrast reveals a large left inguinal hernia containing small bowel with resultant small bowel obstruction
with some mild wall thickening and edema.�The hernia was able to be reduced in the ER with significant improvement in symptoms.
AFVSS
Hernia remains soft/reducible
No further nausea, pain improved
No leukocytosis, renal function stable
Plan:
Ok for regular diet today
NPO after MN for tentative OR repair
Preop labs in AM including coags and type and screen
Med rec did not include pt's xanax which was verified on PDMP, will order prn
Medical management as per hospitalist
Subjective Data
-
Date of Service: August 31, 2025
Pt seen and examined at bedside with Dr. Becerril. Denies n/v. Passing flatus. Intermittent discomfort at hernia site. Notes he feels very hungry.
Objective Data
-
Intake and Output
08/30/25 08/31/25 09/01/25
06:59 06:59 06:59
Intake Total 240 / 240
Output Total 650 / 650
Balance -410 / -410
Intake:
Oral fluids 240 / 240
Output:
Urine, Voided 650 / 650
Vital Signs
Temp Pulse Resp BP Pulse Ox
97.9 F 71 16 149/85 96
08/31/25 07:00 08/31/25 10:15 08/31/25 10:15 08/31/25 07:00 08/31/25 10:15
Lab Results
08/31/25 07:03
08/31/25 07:03
Calcium 8.6 mg/dl (8.4-10.2) 08/31/25 07:03
Magnesium 1.9 mg/dl (1.6-2.3) 08/31/25 07:03
Total Bilirubin 0.6 mg/dl (0.2-1.3) 08/30/25 03:47
AST 22 U/L (17-59) 08/30/25 03:47
ALT 25 U/L (0-50) 08/30/25 03:47
Alkaline Phosphatase 158 U/L (38-126) H 08/30/25 03:47
Total Protein 7.9 g/dl (6.3-8.2) 08/30/25 03:47
Albumin 4.9 g/dl (3.5-5.0) 08/30/25 03:47
Physical Exam
-
NAD
ABD soft, nt, nd
Left inguinal hernia soft, reducible
[2025-08-31] MEDS: MORPHINE SULFATE 2 MG IV (14:35)
[2025-08-31] MEDS: XANAX 0.25 MG PO (14:38)
[2025-08-31 15:00] VITALS: BP 144/87
[2025-08-31 16:48] LABS: Glucose - Point of Care 280 mg/dl (70-99)
[2025-08-31] MEDS: NOVOLOG FLEXPEN-LOW RESISTANCE 3 UNITS SC (17:04)
[2025-08-31] MEDS: LANTUS 0.04 UNITS SC (17:05)
--- NOTE | 2025-08-31 20:35 | W.PN.HOSP.TC ---
Today's Communication/Plan
-
Glucose levels acceptable, vital signs fine
NPO after midnight for surgery for hernia repair tomorrow
Assessment / Plan
Assessment / Plan
Physical Exam
General: No Apparent Distress and Comfortable
HEENT: Normocephalic
Respiratory: Clear
Cardiac: S1/S2 and Regular Rhythm
GI: Soft, Non Tender and Normal Bowel Sounds
Skin: Warm and Dry
Neuro: Awake, Alert and Nonfocal/Grossly Intact
Psych: Calm and Intact Judgement
Assessment/Plan
69 y/o male with past medical history of chronic constipation, Diabetes Mellitus, Hypertension, Asthma, Prostate Cancer status post prostatectomy, Polycythemia Vera, Parkinsons with Tremors, complicated gastrointestinal history some of which include
severe necrotizing pancreatitis with PD disruption, recurrent ascites, hemorrhagic pancreatitis, status post necrosectomy and cystogastrostomy with stent and stent migration and bleeding, also polycythemia vera on Jakafi, history of splenic portal
vein thrombosis treated with anticoagulation in the past and subsequently discontinued after developing hemorrhagic pancreatitis, recurrent GI bleed and Portal Vein Thrombosis, presented to the [facility] with left groin pain that started about 2 weeks
prior to presentation with bulging and swelling in the left groin area. He reported that he has had the left hernia before but would resolve on its own. He reported mild nausea associated with the pain. He denied fever, chills, chest pain, sob or
any other complaints.
Left inguinal hernia/SBO
- Okay for regular diet as per surgery -- but NPO after midnight for tentative OR repair
- Pain control - morphine
- N/V - zofran
- IVF
Leukocytosis
- Resolved
- Suspected stress reaction from hernia and SBO
History/Conditions prior to presentation:
Diabetes Mellitus
- currently glucose in acceptable range
- Continue Q6H Low Dose Sliding Scale; reduce home Insulin dose by approximately 50% since gonna be NPO
Parkinson's disease
- Stable
- Continue home Carbidopa-Levodopa
History of Constipation
History of Hypertension
-Monitor BP
Asthma
-Stable
Additional History
Acute GI bleed with hemorrhagic shock status post blood transfusion - received many units of red blood cells transfusion
Acute symptomatic blood loss anemia/hemorrhagic pancreatitis
Severe metabolic acidosis/lactic acidosis
History of Hyponatremia
Less likely small bowel obstruction
History of Severe necrotizing pancreatitis
History of Hemorrhagic pancreatitis
Polycythemia vera -- previously was on Jakafi, but this was stopped as thought to cause pancreatitis. Gets outpatient therapeutic phlebotomy. Per patient and his , he is no longer on Aspirin 81 mg daily
History of Prostate cancer status post prostatectomy
History of splenic vein and portal vein thrombosis -- anticoagulation in the past stopped after developed hemorrhagic pancreatitis
History of cystogastrostomy with stent and necrosectomy with bleeding and stent exchange.
History of ascites
History recurrent GI bleed
History of chronic anemia
DVT Prophylaxis: SCDs. Avoiding chemical prophylaxis given severe GI bleed and hemorrhagic pancreatitis.
Code Status: DNR
Anticipated Discharge: > 48 hours
Subjective/Interval History
-
Date of Service: August 31, 2025
Patient was seen and examined. He denied any new symptoms or complaints.
Objective Data
-
Vital Signs:
Vital Signs
Temp Pulse Resp BP Pulse Ox
98.2 F 85 16 144/87 95
08/31/25 15:00 08/31/25 15:00 08/31/25 15:00 08/31/25 15:00 08/31/25 15:00
I&O
08/30/25 08/31/25 09/01/25
06:59 06:59 06:59
Intake Total 240 / 240 600 / 600
Output Total 650 / 650
Balance -410 / -410 600 / 600
[2025-08-31 23:12] LABS: Glucose - Point of Care 317 mg/dl (70-99)
[2025-08-31 23:41] VITALS: BP 153/78
[2025-08-31] MEDS: NOVOLOG FLEXPEN-LOW RESISTANCE 4 UNITS SC (23:44)
[2025-09-01] VITALS (14 sets, daily range): BP systolic 5–161; BP diastolic 70–98
[2025-09-01] MEDS: NSS 1000 IV ×3 (02:40→21:19)
[2025-09-01 05:59] LABS: Glucose - Point of Care 207 mg/dl (70-99)
[2025-09-01] MEDS: NOVOLOG FLEXPEN-LOW RESISTANCE 2 UNITS SC (06:09)
[2025-09-01] MEDS: MORPHINE SULFATE 4 MG IV (06:41)
[2025-09-01 06:56] LABS: Hematocrit 39.7 % (39.0-52.0); Hemoglobin 12.2 g/dL (13.0-18.0); Mean Corp Hgb Conc. 30.7 g/dL (33.0-37.0); Mean Corpuscular Volume 74.3 fL (80.0-94.0); Platelet Count 237 10^3/uL (130-400); Red Cell Dist. Width 18.9 % (11.5-14.5)
[2025-09-01] MEDS: ZENPEP DELAYED RELEASE CAPSULE PO ×3 (07:07→16:54)
[2025-09-01] MEDS: FOLVITE PO (07:08)
[2025-09-01 07:11] LABS: INR 1.24; PT 15.9 Sec (11.4-14.6)
[2025-09-01 07:12] LABS: APTT 28.9 Sec (23.4-35.0)
[2025-09-01 07:22] LABS: Blood Urea Nitrogen 12 mg/dl (9-20); Calcium 8.2 mg/dl (8.4-10.2); Carbon Dioxide 25 mmol/L (22-30); Chloride 105 mmol/L (98-107); Glucose 166 mg/dl (70-99); Potassium 4.0 mmol/L (3.5-5.1); Sodium 136 mmol/L (135-145); eGFR > 60.00
[2025-09-01] MEDS: COLACE 100 MG PO ×2 (07:41→19:05)
[2025-09-01] MEDS: SINEMET 25-100 1.5 TABLET PO ×4 (07:42→21:22)
[2025-09-01] MEDS: VITAMIN B-12 1000 MCG PO (07:42)
--- NOTE | 2025-09-01 08:33 | W.PN.HOSP.TC ---
Today's Communication/Plan
-
see plan
Assessment / Plan
Assessment / Plan
69 y/o male with past medical history of chronic constipation, Diabetes Mellitus, Hypertension, Asthma, Prostate Cancer status post prostatectomy, Polycythemia Vera, Parkinsons with Tremors, complicated gastrointestinal history some of which include
severe necrotizing pancreatitis with PD disruption, recurrent ascites, hemorrhagic pancreatitis, status post necrosectomy and cystogastrostomy with stent and stent migration and bleeding, also polycythemia vera on Jakafi, history of splenic portal
vein thrombosis treated with anticoagulation in the past and subsequently discontinued after developing hemorrhagic pancreatitis, recurrent GI bleed and Portal Vein Thrombosis, presented to the [facility] ER with left groin pain that started about 2 weeks
prior to presentation with bulging and swelling in the left groin area. He reported that he has had the left hernia before but would resolve on its own. He reported mild nausea associated with the pain. He denied fever, chills, chest pain, sob or
any other complaints.
Gen: NAD, AAOx3.
Eyes: EOMI, PERRLA, no scleral icterus.
Neck: supple.
CV: RRR, +S1/S2, no m/r/g.
Resp: CTAB, no rales, wheezes, or rhonchi.
Abd: +BS, soft, RLQ TTP, ND
Skin: No rashes.
Neuro: CN 2-12 intact, non-focal, resting tremor.
Psych: Normal mood and affect.
Left inguinal hernia/SBO:
-surgery primary and managing, OR today
-cont IVFs, pain control
-currently NPO
-leukocytosis, resolved
DM2:
-cont Lantus/SSI/accuchecks
Parkinson's disease:
-cont Sinemet
Other problems:
h/o Constipation
h/o Essential HTN, currently not on antihypertensive medications
Asthma, not in acute exac
h/o Acute GI bleed with hemorrhagic shock status post blood transfusion (as well as recurrent GIB)
h/o severe necrotizing pancreatitis and hemorrhagic pancreatitis
Severe metabolic acidosis/lactic acidosis
Polycythemia vera: previously was on Jakafi, but this was stopped as thought to cause pancreatitis. Gets outpatient therapeutic phlebotomy. Per patient and his , he is no longer on Aspirin 81 mg daily.
h/o Prostate CA s/p prostatectomy
h/o splenic vein and portal vein thrombosis, AC in the past stopped after developed hemorrhagic pancreatitis
h/o cystogastrostomy with stent and necrosectomy with bleeding and stent exchange
h/o ascites
Chronic anemia
DVT Prophylaxis: SCDs. Avoiding chemical prophylaxis given h/o severe GI bleed and hemorrhagic pancreatitis.
Code Status: DNR
Anticipated Discharge: 24 - 48 hours
Subjective/Interval History
-
Date of Service: September 01, 2025
No new complaints.
Objective Data
-
Labs:
Laboratory Results
09/01/25
06:42
WBC 9.0
Hgb 12.2 L
Hct 39.7
Plt Count 237
PT 15.9 H
INR 1.24
APTT 28.9
Sodium 136
Potassium 4.0
Chloride 105
Carbon Dioxide 25
BUN 12
Creatinine 0.6 L
Glucose 166 H
Calcium 8.2 L
Vital Signs:
Vital Signs
Temp Pulse Resp BP Pulse Ox
97.4 F 72 18 144/70 95
09/01/25 07:22 09/01/25 07:22 09/01/25 07:22 09/01/25 07:22 09/01/25 07:22
I&O
08/31/25 09/01/25 09/02/25
06:59 06:59 06:59
Intake Total 240 / 240 600 / 600
Output Total 650 / 650 600 / 600
Balance -410 / -410 0 / 0
--- NOTE | 2025-09-01 11:29 | W.PN.GS2 ---
Today's Communication / Plan
-
OR today
Assessment / Plan
-
69 yo male with multiple medical problems including insulin-dependent diabetes mellitus and a history of necrotizing pancreatitis who presents with an incarcerated left inguinal hernia. 2 weeks ago he strained and since that time he noted the bulge
has become larger. He presented with excruciating lower abdominal pain for <24hours through the ED. CT scan of the abdomen and pelvis with contrast reveals a large left inguinal hernia containing small bowel with resultant small bowel obstruction
with some mild wall thickening and edema.�The hernia was able to be reduced in the ER with significant improvement in symptoms.
Plan:
Will plan for an open left inguinal hernia repair with possible mesh.
Risks/Benefits/Alternatives, expected postoperative course and possible complications (bleeding, infection, injury to surrounding structures, acute/chronic pain) discussed at length. Patient wishes to proceed with surgery. All questions answered.
Consent obtained with on phone.
I spent 60 minutes in total for the care of this patient today including direct patient care and counseling, reviewing labs, imaging, coordination of care, as well as documentation.
Time Spent
Total Time Spent with Patient (in minutes): 30
Subjective Data
-
Date of Service: September 01, 2025
Interval Events:
No acute events overnight. Slept well. Pain Controlled. Denies Nausea/Vomiting, +bowel function.
Objective Data
-
Intake and Output
08/31/25 09/01/25 09/02/25
06:59 06:59 06:59
Intake Total 240 / 240 600 / 600
Output Total 650 / 650 600 / 600
Balance -410 / -410 0 / 0
Intake:
Oral fluids 240 / 240 600 / 600
Output:
Urine, Voided 650 / 650 600 / 600
Other:
Number of approximated MODERATE 2
amounts of urine
Vital Signs
Temp Pulse Resp BP Pulse Ox
97.4 F 72 18 144/70 95
09/01/25 07:22 09/01/25 07:22 09/01/25 07:22 09/01/25 07:22 09/01/25 07:30
Lab Results
09/01/25 06:42
09/01/25 06:42
Calcium 8.2 mg/dl (8.4-10.2) L 09/01/25 06:42
Magnesium 1.9 mg/dl (1.6-2.3) 08/31/25 07:03
Total Bilirubin 0.6 mg/dl (0.2-1.3) 08/30/25 03:47
AST 22 U/L (17-59) 08/30/25 03:47
ALT 25 U/L (0-50) 08/30/25 03:47
Alkaline Phosphatase 158 U/L (38-126) H 08/30/25 03:47
Total Protein 7.9 g/dl (6.3-8.2) 08/30/25 03:47
Albumin 4.9 g/dl (3.5-5.0) 08/30/25 03:47
Physical Exam
-
GENERAL/NEURO: Awake, Alert, no distress
CHEST: Unlabored breathing on RA
ABDOMEN: Soft, Non-Tender, Non-Distended, incarcerated left inguinal hernia
Patient has a singletary catheter: No
Patient has a central line: No
[2025-09-01 11:58] LABS: Glucose - Point of Care 160 mg/dl (70-99)
[2025-09-01] MEDS: NOVOLOG FLEXPEN-LOW RESISTANCE SC ×2 (12:00→17:31)
--- NOTE | 2025-09-01 12:05 | CM ---
Patient seen at bedside with Bee
per note OR today-Will plan for an open left inguinal hernia repair with possible mesh
Will await PT/OT post op for recs
concerned with stairs in home
PLAN: OR today, CM to follow for discharge planning needs
--- NOTE | 2025-09-01 15:42 | W.IMMPOSTOP ---
Surgical Immed Post Op Note
-
Primary Surgeon: Miky Olvera MD
Assisting Surgeon: None
Pre-op Diagnosis: Incarcerated left inguinal hernia
Post-op Diagnosis: Same
Procedure Performed:
1. Open incarcerated left inguinal hernia repair with mesh
2. Open left inguinal neurectomy x 2
Anesthesia Type: General
Specimen / Cultures: Left inguinal nerves x 2
Estimated Blood Loss: 7 cc
Complications: None
Operative Findings: Very large left indirect inguinal hernia reduced after induction. High ligation of the sac performed and standard repair with a 7.5 x 15 cm Bard soft uncoated polypropylene mesh. There was also a small direct component. There
was a small cord lipoma that was resected. Given the size of the space after reduction of the hernia a 19 Mongolian round Adams drain was introduced through a stab incision lateral to our dissection and inserted along the external oblique into the
scrotum. This was secured at the skin with a 2-0 nylon suture.
POST OP PLAN:
Imaging: None
Labs: Routine AM
Diet: Clears, advance to regular diet as tolerated.
Analgesia: Tylenol 650mg q6 Danelle, Dilaudid 0.5mg q2h PRN
Neuro/vascular checks: Per unit protocol
AC/AP: Hold Therapeutic AC, Ok for DVT PPx
Activity: Ad Dee
Wound/Incisions/Drains: Routine, ROSA ELENA to bulb suction.
Abx: None
Dispo: RNF, anticipate discharge home Monday or Monday pending clinical course.
--- NOTE | 2025-09-01 15:49 | OR.RPT ---
Addendum entered and electronically signed by Miky Olvera MD 09/02/25 10:15:
The hernia sac was very large and measured over 12 cm. As such CPT code 96204 is being requested.
Original Note:
Operative Report
Operative Report
Patient Name: Raul Jeffery
: 1955
Date of Operation: 09/01/2025
Preoperative Diagnosis: Incarcerated left inguinal hernia
Postoperative Diagnosis: Incarcerated left inguinal hernia
Procedure(s):
1. Open left incarcerated inguinal hernia repair with mesh (24393)
2. Pragmatic left inguinal neurectomy x 2 (31861)
3. Excision of lesion of a spermatic cord lipoma ([id number])
Surgeon(s):
Dr. Olvera
Trestle Mechanic(s):
MICAELA Goldberg
Anesthesia: General
Estimated Blood Loss: 7 cc
Urine Output: None
Drains/Lines/Implants: 15x7.5cm Bard Soft uncoated polypropylene Mesh cut to size
Specimen / Cultures:
Inguinal nerves x 2
Indication for surgery: The patient has a history of groin pain and some asymmetry noted on exam and was found to have an incarcerated left inguinal Hernia. Following review of therapeutic options they elected to undergo an open repair
Operative Findings: Very large incarcerated left indirect inguinal hernia reduced after induction. High ligation of the sac performed and standard repair with a 7.5 x 15 cm Bard soft uncoated polypropylene mesh. There was also a small direct
component. There was a small cord lipoma that was resected. Given the size of the space after reduction of the hernia a 19 Kazakh round Adams drain was introduced through a stab incision lateral to our dissection and inserted along the external
oblique into the scrotum. This was secured at the skin with a 2-0 nylon suture.
Details of the operation:
After induction of general anesthesia, the patient was clipped, prepped and draped in the supine position. A team timeout was performed confirming administration of DVT prophylaxis, IV antibiotics and SCDs. The ASIS and pubic tubercle were marked
and an incision was chosen along the course of a skin line. The skin was anesthetized with Lidocaine. An incision was made through the skin line and dissection carried down through subcutaneous tissue and Ryder's fascia. A Small Jeremiah wound
retractor was used to provide exposure. The external oblique fibers were then divided in the direction of travel. The ilioinguinal and iliohypogastric nerves were identified and resected. Dissection was carried down to the floor, which revealed the
following:
At the site of the indirect (internal) ring, there was a moderate size protrusion of preperitoneal fat, the hernia sac was identified, dissected and reduced off the cord structures. A high ligation was performed with a 2-0 Vicryl suture.
A cord lipoma was also identified reduced and removed.
The direct space, floor of the canal revealed a mild weakness
The floor of the canal was then reconstructed by placing a 15 x 7.5 cm Bard soft uncoated polypropylene mesh trimmed to size and secured it in place with interrupted 0-PDS sutures medially at the pubic tubercle, inferiorly along the inguinal
ligament, laterally/superiorly in the conjoint tendon. A slit was made in the mesh just wide enough to accommodate the cord this was also reapproximated with the PDS suture. Care was taken not to injure or entrap any nerves. The external oblique
fibers were then closed using a running 2-0 Vicryl suture. Due to the size of the hernia extending into the scrotum a 19 Kazakh round Adams drain was introduced through a stab incision lateral to our groin incision and tunneled over the external
bleak into the groin. The drain was secured at the skin with a 2-0 nylon suture. Ryder's fascia was then closed with interrupted 3-0 Vicryl suture. The skin was closed in layers with interrupted 3-0 vicryl deep dermals followed by a running
subcuticular 4-0 Monocryl followed by dermabond. The patient returned to the Recovery Room in stable condition. Sponge and instrument counts were correct.
I was the attending physician and performed the procedure with assistance of the PA above. The assistance of Priscilla Oglesby, PA was required due to the complexity of the procedure. During the procedure Priscilla assisted with retraction, resection, and
closure of the wound. I was present for all portions of the case, excluding skin closure.
Miky Olvera MD
[2025-09-01 15:52] LABS: Glucose - Point of Care 160 mg/dl (70-99)
[2025-09-01] MEDS: LANTUS 0.04 UNITS SC (17:33)
[2025-09-01] MEDS: MORPHINE SULFATE 2 MG IV (18:15)
[2025-09-02 03:00] VITALS: BP 146/82
[2025-09-02] MEDS: MORPHINE SULFATE 4 MG IV ×3 (03:05→22:32)
[2025-09-02] MEDS: XANAX 0.25 MG PO (05:42)
[2025-09-02 07:41] VITALS: BP 159/89
[2025-09-02] MEDS: VITAMIN B-12 1000 MCG PO (07:44)
[2025-09-02] MEDS: SINEMET 25-100 1.5 TABLET PO ×4 (07:44→22:37)
[2025-09-02] MEDS: FOLVITE 1 MG PO (07:45)
[2025-09-02] MEDS: COLACE 100 MG PO ×2 (07:45→20:06)
[2025-09-02] MEDS: ZENPEP DELAYED RELEASE CAPSULE 1 CAPSULE PO ×3 (07:46→17:11)
--- NOTE | 2025-09-02 08:04 | W.PN.GS2 ---
Today's Communication / Plan
-
-- Carb control diet, may need to resume bowel meds (likely constipation with underlying nurologic issues)
-- Pain control: Tylenol, Toradol, IV Morphine PRN
-- DVT: Lovenox, SCDs
-- Medical management per Hospitalist
-- PT/OT, CM consult for dispo planning
Assessment / Plan
-
69 yo male with multiple medical problems including insulin-dependent diabetes mellitus and a history of necrotizing pancreatitis who presents with an incarcerated left inguinal hernia.
CT scan of the abdomen and pelvis with contrast reveals a large left inguinal hernia containing small bowel with resultant small bowel obstruction with some mild wall thickening and edema.�The hernia was able to be reduced in the ER with significant
improvement in symptoms.
POD#1 s/p open LEFT inguinal hernia repair with mesh
AVSS
No repeat labs
Plan to advance to a carb controlled diet today, will need to monitor for tolerance given presentation within obstructive component to his hernia. Pain control with Tylenol and Toradol, will try to avoid narcotics if at all possible and monitored
throughout the day. PT OT for aid in dispo, currently lives at home with his . Medical care per consulting Hospitalist.
Plan:
-- Carb control diet, may need to resume bowel meds (likely constipation with underlying nurologic issues)
-- Pain control: Tylenol, Toradol, IV Morphine PRN
-- HLIV
-- DVT: Lovenox, SCDs
-- Medical management per Hospitalist
-- PT/OT, CM consult for dispo planning
Subjective Data
-
Date of Service: September 02, 2025
Encounter limited due to cognitive status. No major complaints. Does report groin discomfort and mild nausea. Denies any flatus or BM. No fevers.
Objective Data
-
Intake and Output
09/01/25 09/02/25 09/03/25
06:59 06:59 06:59
Intake Total 600 / 600 680 / 680
Output Total 600 / 600 1350 / 1350
Balance 0 / 0 -670 / -670
Intake:
Oral fluids 600 / 600 480 / 480
IV fluids (Total) 200 / 200
Normosal 200 / 200
Output:
Drain Output (Total) 50 / 50
Left Lower Abdomen Kurt- 50 / 50
Bishop
Urine, Singletary 350 / 350
Urine, Voided 600 / 600 950 / 950
Other:
Number of approximated MODERATE 2 1
amounts of urine
Number of approximated LARGE 1
amounts of urine
Vital Signs
Temp Pulse Resp BP Pulse Ox
97.5 F 73 16 159/89 97
09/02/25 07:41 09/02/25 07:41 09/02/25 07:41 09/02/25 07:41 09/02/25 07:41
Lab Results
09/01/25 06:42
09/01/25 06:42
Calcium 8.2 mg/dl (8.4-10.2) L 09/01/25 06:42
Magnesium 1.9 mg/dl (1.6-2.3) 08/31/25 07:03
Total Bilirubin 0.6 mg/dl (0.2-1.3) 08/30/25 03:47
AST 22 U/L (17-59) 08/30/25 03:47
ALT 25 U/L (0-50) 08/30/25 03:47
Alkaline Phosphatase 158 U/L (38-126) H 08/30/25 03:47
Total Protein 7.9 g/dl (6.3-8.2) 08/30/25 03:47
Albumin 4.9 g/dl (3.5-5.0) 08/30/25 03:47
Physical Exam
-
Gen: NAD
Abd: soft, tender to palpation in LEFT groin, incision c/d/i - no erythema, ecchymosis or drainage, ROSA ELENA serosang, no palpable hernia or seroma
Patient has a singletary catheter: No
Patient has a central line: No
[2025-09-02 08:09] LABS: Glucose - Point of Care 204 mg/dl (70-99)
[2025-09-02] MEDS: NSS IV (08:45)
[2025-09-02] MEDS: NOVOLOG FLEXPEN-LOW RESISTANCE 2 UNITS SC (08:46)
--- NOTE | 2025-09-02 10:07 | W.PN.HOSP.TC ---
Today's Communication/Plan
-
see plan
Assessment / Plan
Assessment / Plan
69 y/o male with past medical history of chronic constipation, Diabetes Mellitus, Hypertension, Asthma, Prostate Cancer status post prostatectomy, Polycythemia Vera, Parkinsons with Tremors, complicated gastrointestinal history some of which include
severe necrotizing pancreatitis with PD disruption, recurrent ascites, hemorrhagic pancreatitis, status post necrosectomy and cystogastrostomy with stent and stent migration and bleeding, also polycythemia vera on Jakafi, history of splenic portal
vein thrombosis treated with anticoagulation in the past and subsequently discontinued after developing hemorrhagic pancreatitis, recurrent GI bleed and Portal Vein Thrombosis, presented to the [facility] ER with left groin pain that started about 2 weeks
prior to presentation with bulging and swelling in the left groin area. He reported that he has had the left hernia before but would resolve on its own. He reported mild nausea associated with the pain. He denied fever, chills, chest pain, sob or
any other complaints.
Gen: NAD, AAOx3.
Eyes: EOMI, PERRLA, no scleral icterus.
Neck: supple.
CV: RRR, +S1/S2, no m/r/g.
Resp: CTAB, no rales, wheezes, or rhonchi.
Abd: +BS, soft, NT to light palpation, ND
Skin: No rashes.
Neuro: CN 2-12 intact, non-focal, resting tremor.
Psych: Normal mood and affect.
Left inguinal hernia/SBO:
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
-surgery primary and managing
-pain control
-diet advanced
-leukocytosis, resolved
DM2:
-cont Lantus (increase to 10U)/SSI/accuchecks
Parkinson's disease:
-cont Sinemet
Other problems:
h/o Constipation
Essential HTN: start Lisinopril 5mg daily
Asthma, not in acute exac
h/o Acute GI bleed with hemorrhagic shock status post blood transfusion (as well as recurrent GIB)
h/o severe necrotizing pancreatitis and hemorrhagic pancreatitis
Severe metabolic acidosis/lactic acidosis
Polycythemia vera: previously was on Jakafi, but this was stopped as thought to cause pancreatitis. Gets outpatient therapeutic phlebotomy. Per patient and his , he is no longer on Aspirin 81 mg daily.
h/o Prostate CA s/p prostatectomy
h/o splenic vein and portal vein thrombosis, AC in the past stopped after developed hemorrhagic pancreatitis
h/o cystogastrostomy with stent and necrosectomy with bleeding and stent exchange
h/o ascites
Chronic anemia
DVT Prophylaxis: SCDs. Avoiding chemical prophylaxis given h/o severe GI bleed and hemorrhagic pancreatitis.
Code Status: DNR
Anticipated Discharge: Within 24 hours
Subjective/Interval History
-
Date of Service: September 02, 2025
c/o post-op pain.
Objective Data
-
Vital Signs:
Vital Signs
Temp Pulse Resp BP Pulse Ox
97.5 F 73 16 159/89 97
09/02/25 07:41 09/02/25 07:41 09/02/25 07:41 09/02/25 07:41 09/02/25 08:50
I&O
09/01/25 09/02/25 09/03/25
06:59 06:59 06:59
Intake Total 600 / 600 680 / 680
Output Total 600 / 600 1350 / 1350
Balance 0 / 0 -670 / -670
--- NOTE | 2025-09-02 10:29 | CM ---
Addendum entered by Magda Tavarez 09/02/25 14:32:
Patient , requesting referral [facility]. Patient concerned due to her own medical issues and in abiltiy. to care for her . CM will send referrals out to SNF options. CM will continue to follow for discharge planning needs.
Plan; SNF referral; pending response
Original Note:
Patient seen at bedside on . Patient states that he anticipates being here several more days and then going to rehab. Patient states he will not be able to drive but really enjoyed the outpatient therapy here at . Patient has not yet been
seen by therapy and recommendations will be necessary to clarify level of care needs. Patient anticipates drain to be removed prior to discharge and did not want to talk about VN but instead wanted to consider SNF level care. CM will continue to
follow for discharge planning needs.
Plan; home with level of care clarification; SNF vs home with Vn
[2025-09-02] MEDS: TORADOL 15 MG IV ×2 (10:46→20:06)
[2025-09-02] MEDS: ZESTRIL 5 MG PO (10:46)
[2025-09-02 10:55] VITALS: BP 140/76; PULSE 78
[2025-09-02 11:41] LABS: Glucose - Point of Care 184 mg/dl (70-99)
[2025-09-02] MEDS: NOVOLOG FLEXPEN-LOW RESISTANCE 1 UNITS SC (12:01)
[2025-09-02] MEDS: NSS 1000 IV (14:57)
[2025-09-02 15:35] VITALS: BP 152/80
[2025-09-02 16:32] LABS: Glucose - Point of Care 104 mg/dl (70-99)
[2025-09-02] MEDS: NOVOLOG FLEXPEN-LOW RESISTANCE SC (16:47)
[2025-09-02] MEDS: LOVENOX 40 MG SC (17:11)
[2025-09-02] MEDS: LANTUS 0.1 UNITS SC (17:12)
[2025-09-02 21:16] LABS: Glucose - Point of Care 252 mg/dl (70-99)
[2025-09-02 23:40] VITALS: BP 147/71
[2025-09-03 06:40] LABS: Hematocrit 40.4 % (39.0-52.0); Hemoglobin 12.1 g/dL (13.0-18.0); Mean Corp Hgb Conc. 30.0 g/dL (33.0-37.0); Mean Corpuscular Volume 75.4 fL (80.0-94.0); Platelet Count 260 10^3/uL (130-400); Red Cell Dist. Width 19.2 % (11.5-14.5)
[2025-09-03 07:05] LABS: Blood Urea Nitrogen 14 mg/dl (9-20); Calcium 8.3 mg/dl (8.4-10.2); Carbon Dioxide 28 mmol/L (22-30); Chloride 104 mmol/L (98-107); Estimated Creatinine Clearance 96 ml/min; Glucose 163 mg/dl (70-99); Potassium 4.5 mmol/L (3.5-5.1); Sodium 136 mmol/L (135-145); eGFR > 60.00
[2025-09-03] MEDS: VITAMIN B-12 1000 MCG PO (07:22)
[2025-09-03] MEDS: ZESTRIL 5 MG PO (07:22)
[2025-09-03] MEDS: SINEMET 25-100 1.5 TABLET PO ×4 (07:22→22:20)
[2025-09-03] MEDS: FOLVITE 1 MG PO (07:22)
[2025-09-03] MEDS: COLACE 100 MG PO (07:22)
[2025-09-03] MEDS: ZENPEP DELAYED RELEASE CAPSULE 1 CAPSULE PO ×3 (07:24→17:27)
[2025-09-03 07:28] VITALS: BP 144/77
[2025-09-03 07:51] LABS: Glucose - Point of Care 170 mg/dl (70-99)
--- NOTE | 2025-09-03 08:22 | W.PN.HOSP.TC ---
Today's Communication/Plan
-
see plan
Assessment / Plan
Assessment / Plan
69 y/o male with past medical history of chronic constipation, Diabetes Mellitus, Hypertension, Asthma, Prostate Cancer status post prostatectomy, Polycythemia Vera, Parkinsons with Tremors, complicated gastrointestinal history some of which include
severe necrotizing pancreatitis with PD disruption, recurrent ascites, hemorrhagic pancreatitis, status post necrosectomy and cystogastrostomy with stent and stent migration and bleeding, also polycythemia vera on Jakafi, history of splenic portal
vein thrombosis treated with anticoagulation in the past and subsequently discontinued after developing hemorrhagic pancreatitis, recurrent GI bleed and Portal Vein Thrombosis, presented to the [facility] ER with left groin pain that started about 2 weeks
prior to presentation with bulging and swelling in the left groin area. He reported that he has had the left hernia before but would resolve on its own. He reported mild nausea associated with the pain. He denied fever, chills, chest pain, sob or
any other complaints.
Gen: NAD, AAOx3.
Eyes: EOMI, PERRLA, no scleral icterus.
Neck: supple.
CV: remains RRR, +S1/S2, no m/r/g.
Resp: remains CTAB, no rales, wheezes, or rhonchi.
Abd: remains +BS, soft, NT to light palpation, ND
Skin: No rashes.
Neuro: CN 2-12 intact, non-focal, resting tremor.
Psych: Normal mood and affect.
Left inguinal hernia/SBO:
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
-surgery primary and managing
-pain control
-diet advanced
-leukocytosis, resolved
-case discussed with surgery. Plan is for better pain control today and hopefully remove ROSA ELENA drain and d/c tomorrow.
DM2:
-cont Lantus/SSI/accuchecks
-check a1c
Parkinson's disease:
-cont Sinemet
Other problems:
h/o Constipation
Essential HTN: started on Lisinopril 5mg daily
Asthma, not in acute exac
h/o Acute GI bleed with hemorrhagic shock status post blood transfusion (as well as recurrent GIB)
h/o severe necrotizing pancreatitis and hemorrhagic pancreatitis
Severe metabolic acidosis/lactic acidosis
Polycythemia vera: previously was on Jakafi, but this was stopped as thought to cause pancreatitis. Gets outpatient therapeutic phlebotomy. Per patient and his , he is no longer on Aspirin 81 mg daily.
h/o Prostate CA s/p prostatectomy
h/o splenic vein and portal vein thrombosis, AC in the past stopped after developed hemorrhagic pancreatitis
h/o cystogastrostomy with stent and necrosectomy with bleeding and stent exchange
h/o ascites
Chronic anemia
DVT Prophylaxis: SCDs. Avoiding chemical prophylaxis given h/o severe GI bleed and hemorrhagic pancreatitis.
Code Status: DNR
Anticipated Discharge: Within 24 hours
Subjective/Interval History
-
Date of Service: September 03, 2025
Pt c/o severe abd pain (although does not appear in pain). Tolerating diet.
Objective Data
-
Labs:
Laboratory Results
09/03/25
06:05
WBC 9.2
Hgb 12.1 L
Hct 40.4
Plt Count 260
Sodium 136
Potassium 4.5
Chloride 104
Carbon Dioxide 28
BUN 14
Creatinine 0.7
Glucose 163 H
Calcium 8.3 L
Vital Signs:
Vital Signs
Temp Pulse Resp BP Pulse Ox
98 F 74 16 144/77 95
09/03/25 07:28 09/03/25 07:28 09/03/25 07:28 09/03/25 07:28 09/03/25 07:28
I&O
09/02/25 09/03/25 09/04/25
06:59 06:59 06:59
Intake Total 680 / 680 960 / 960
Output Total 1350 / 1350 1365 / 1365
Balance -670 / -670 -405 / -405
[2025-09-03] MEDS: NOVOLOG FLEXPEN-LOW RESISTANCE 1 UNITS SC ×2 (09:00→17:27)
[2025-09-03] MEDS: MOTRIN 400 MG PO ×2 (10:37→15:59)
[2025-09-03 10:40] LABS: Glycohemoglobin (HgbA1c) 9.4 % (4.0-5.6)
[2025-09-03 11:53] LABS: Glucose - Point of Care 200 mg/dl (70-99)
--- NOTE | 2025-09-03 12:05 | W.PN.GS2 ---
Today's Communication / Plan
-
Pain med adjusted, bowel regimen restarted
Assessment / Plan
-
69 yo male with multiple medical problems including insulin-dependent diabetes mellitus and a history of necrotizing pancreatitis who presents with an incarcerated left inguinal hernia.
CT scan of the abdomen and pelvis with contrast reveals a large left inguinal hernia containing small bowel with resultant small bowel obstruction with some mild wall thickening and edema.�The hernia was able to be reduced in the ER with significant
improvement in symptoms.
POD#2 s/p open LEFT inguinal hernia repair with mesh
AVSSS, ruma PO
No leukocytosis, A1C 9.4% noted
Currently lives at home with his .
Plan:
-- Carb control diet, senna/docusate
-- Pain control: SELINA tylenol and ibuprofen, PRN oxy, ice packs
-- HLIV
-- DVT: Lovenox, SCDs
-- Medical management per Hospitalist
-- PT/OT, CM consult for dispo planning
Subjective Data
-
Date of Service: September 03, 2025
AFVSS, c/o left groin pain, ambulating, voiding, ruma PO
Objective Data
-
Intake and Output
09/02/25 09/03/25 09/04/25
06:59 06:59 06:59
Intake Total 680 / 680 960 / 960
Output Total 1350 / 1350 1365 / 1365
Balance -670 / -670 -405 / -405
Intake:
Oral fluids 480 / 480 960 / 960
IV fluids (Total) 200 / 200
Normosal 200 / 200
Output:
Drain Output (Total) 50 / 50 40 / 40
Left Lower Abdomen Kurt- 50 / 50 40 / 40
Bishop
Urine, Singletary 350 / 350
Urine, Voided 950 / 950 1325 / 1325
Other:
Number of approximated MODERATE 1
amounts of urine
Number of approximated LARGE 1
amounts of urine
Vital Signs
Temp Pulse Resp BP Pulse Ox
98 F 74 16 144/77 95
09/03/25 07:28 09/03/25 07:28 09/03/25 07:28 09/03/25 07:28 09/03/25 08:00
Lab Results
09/03/25 06:05
09/03/25 06:05
Calcium 8.3 mg/dl (8.4-10.2) L 09/03/25 06:05
Magnesium 1.9 mg/dl (1.6-2.3) 08/31/25 07:03
Total Bilirubin 0.6 mg/dl (0.2-1.3) 08/30/25 03:47
AST 22 U/L (17-59) 08/30/25 03:47
ALT 25 U/L (0-50) 08/30/25 03:47
Alkaline Phosphatase 158 U/L (38-126) H 08/30/25 03:47
Total Protein 7.9 g/dl (6.3-8.2) 08/30/25 03:47
Albumin 4.9 g/dl (3.5-5.0) 08/30/25 03:47
Physical Exam
-
Gen: NAD
Abd: soft, left groin incision cdi, appropriately tender, drain clear ss
Patient has a singletary catheter: No
Patient has a central line: No
[2025-09-03] MEDS: NOVOLOG FLEXPEN-LOW RESISTANCE 2 UNITS SC (12:27)
--- NOTE | 2025-09-03 12:46 | CM ---
Patient seen at bedside with Bee
spoke with Lu at [facility]-accepted in [facility], CM to call in am for bed availability
no preauth
PLAN: [facility], pending bed available, CM to call in AM
[2025-09-03] MEDS: ROXICODONE 10 MG PO (13:54)
[2025-09-03 15:47] VITALS: BP 140/72
[2025-09-03 16:46] LABS: Glucose - Point of Care 180 mg/dl (70-99)
[2025-09-03] MEDS: LOVENOX 40 MG SC (17:21)
[2025-09-03] MEDS: TYLENOL 1000 MG PO (17:27)
[2025-09-03] MEDS: LANTUS 0.1 UNITS SC (17:33)
[2025-09-03] MEDS: SENOKOT PO (20:53)
[2025-09-03] MEDS: COLACE PO (20:53)
[2025-09-03 21:56] LABS: Glucose - Point of Care 222 mg/dl (70-99)
[2025-09-03] MEDS: MOTRIN PO ×2 (22:19→22:23)
[2025-09-03 23:00] VITALS: BP 125/62
[2025-09-04] MEDS: TYLENOL PO ×2 (00:12→06:07)
[2025-09-04] MEDS: MOTRIN PO (03:59)
[2025-09-04 07:53] VITALS: BP 134/92
[2025-09-04 07:56] LABS: Glucose - Point of Care 223 mg/dl (70-99)
[2025-09-04] MEDS: NOVOLOG FLEXPEN-LOW RESISTANCE 2 UNITS SC (08:00)
[2025-09-04] MEDS: SENOKOT 8.6 MG PO (08:01)
[2025-09-04] MEDS: COLACE 100 MG PO (08:01)
[2025-09-04] MEDS: VITAMIN B-12 1000 MCG PO (08:01)
[2025-09-04] MEDS: ZESTRIL 5 MG PO (08:01)
[2025-09-04] MEDS: FOLVITE 1 MG PO (08:01)
[2025-09-04] MEDS: ZENPEP DELAYED RELEASE CAPSULE 1 CAPSULE PO (08:02)
[2025-09-04] MEDS: SINEMET 25-100 1.5 TABLET PO (08:02)
--- NOTE | 2025-09-04 08:12 | W.PN.GS2 ---
Today's Communication / Plan
-
`
Assessment / Plan
-
69 yo male with multiple medical problems including insulin-dependent diabetes mellitus and a history of necrotizing pancreatitis who presents with an incarcerated left inguinal hernia.
CT scan of the abdomen and pelvis with contrast reveals a large left inguinal hernia containing small bowel with resultant small bowel obstruction with some mild wall thickening and edema.�The hernia was able to be reduced in the ER with significant
improvement in symptoms.
POD#3 s/p open LEFT inguinal hernia repair with mesh
Doing well postop
ROSA ELENA removed
Stable for discharge from postoperative standpoint
Plan:
-- Carb control diet, senna/docusate
-- Pain control: SELINA tylenol and ibuprofen, PRN oxy, ice packs
-- HLIV
-- DVT: Lovenox, SCDs
-- Medical management per Hospitalist
--DC home versus [facility]
Subjective Data
-
Date of Service: September 04, 2025
Patient seen and examined.
Initially standing comfortably at bedside
Sat down for evaluation
Postoperative incisional pain stable and controlled
Tolerating dietary intake, bowel movement yesterday
Objective Data
-
Intake and Output
09/03/25 09/04/25 09/05/25
06:59 06:59 06:59
Intake Total 960 / 960 1620 / 1620
Output Total 1365 / 1365
Balance -405 / -405 1620 / 1620
Intake:
Oral fluids 960 / 960 1620 / 1620
Output:
Drain Output (Total) 40 / 40
Left Lower Abdomen Kurt- 40 / 40
Bishop
Urine, Voided 1325 / 1325
Other:
Number of approximated MODERATE 3
amounts of urine
Vital Signs
Temp Pulse Resp BP Pulse Ox
97.6 F 86 16 134/92 97
09/04/25 07:53 09/04/25 07:53 09/04/25 07:53 09/04/25 07:53 09/04/25 07:53
Lab Results
09/03/25 06:05
09/03/25 06:05
Calcium 8.3 mg/dl (8.4-10.2) L 09/03/25 06:05
Magnesium 1.9 mg/dl (1.6-2.3) 08/31/25 07:03
Total Bilirubin 0.6 mg/dl (0.2-1.3) 08/30/25 03:47
AST 22 U/L (17-59) 08/30/25 03:47
ALT 25 U/L (0-50) 08/30/25 03:47
Alkaline Phosphatase 158 U/L (38-126) H 08/30/25 03:47
Total Protein 7.9 g/dl (6.3-8.2) 08/30/25 03:47
Albumin 4.9 g/dl (3.5-5.0) 08/30/25 03:47
Physical Exam
-
NAD AAO x 3
ABD: Soft, nondistended, tenderness to palpation localizing to left inguinal incision site.
Incision with glue dressing. No significant ecchymosis. Localized soft tissue swelling. No seromas.
ROSA ELENA with scant serosanguineous fluid
--- NOTE | 2025-09-04 08:20 | W.PN.HOSP.TC ---
Today's Communication/Plan
-
see plan
Assessment / Plan
Assessment / Plan
69 y/o male with past medical history of chronic constipation, Diabetes Mellitus, Hypertension, Asthma, Prostate Cancer status post prostatectomy, Polycythemia Vera, Parkinsons with Tremors, complicated gastrointestinal history some of which include
severe necrotizing pancreatitis with PD disruption, recurrent ascites, hemorrhagic pancreatitis, status post necrosectomy and cystogastrostomy with stent and stent migration and bleeding, also polycythemia vera on Jakafi, history of splenic portal
vein thrombosis treated with anticoagulation in the past and subsequently discontinued after developing hemorrhagic pancreatitis, recurrent GI bleed and Portal Vein Thrombosis, presented to the [facility] ER with left groin pain that started about 2 weeks
prior to presentation with bulging and swelling in the left groin area. He reported that he has had the left hernia before but would resolve on its own. He reported mild nausea associated with the pain. He denied fever, chills, chest pain, sob or
any other complaints.
Gen: NAD, AAOx3.
Eyes: EOMI, PERRLA, no scleral icterus.
Neck: supple.
CV: continues to remain RRR, +S1/S2, no m/r/g.
Resp: continues to remain CTAB, no rales, wheezes, or rhonchi.
Abd: continues to remain +BS, soft, NT to light palpation, ND
Skin: No rashes.
Neuro: CN 2-12 intact, non-focal, resting tremor.
Psych: Normal mood and affect.
Left inguinal hernia/SBO:
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
-surgery primary and managing
-pain control
-diet advanced
-leukocytosis, resolved
-ROSA ELENA drain removed today
DM2:
-uncontrolled, a1c 9.4%
-increase Lantus to 12U and start premeal aspart 3U
-cont SSI/accuchecks
Other problems:
Parkinson's disease: cont Sinemet
h/o Constipation
Essential HTN: increase Lisinopril to 10mg daily
Asthma, not in acute exac
h/o Acute GI bleed with hemorrhagic shock status post blood transfusion (as well as recurrent GIB)
h/o severe necrotizing pancreatitis and hemorrhagic pancreatitis
Severe metabolic acidosis/lactic acidosis
Polycythemia vera: previously was on Jakafi, but this was stopped as thought to cause pancreatitis. Gets outpatient therapeutic phlebotomy. Per patient and his , he is no longer on Aspirin 81 mg daily.
h/o Prostate CA s/p prostatectomy
h/o splenic vein and portal vein thrombosis, AC in the past stopped after developed hemorrhagic pancreatitis
h/o cystogastrostomy with stent and necrosectomy with bleeding and stent exchange
h/o ascites
Chronic anemia
DVT Prophylaxis: SCDs. Avoiding chemical prophylaxis given h/o severe GI bleed and hemorrhagic pancreatitis.
Code Status: DNR
Anticipated Discharge: Today
Subjective/Interval History
-
Date of Service: September 04, 2025
No new complaints.
Objective Data
-
Vital Signs:
Vital Signs
Temp Pulse Resp BP Pulse Ox
97.6 F 86 16 134/92 97
09/04/25 07:53 09/04/25 08:01 09/04/25 07:53 09/04/25 08:01 09/04/25 07:53
I&O
09/03/25 09/04/25 09/05/25
06:59 06:59 06:59
Intake Total 960 / 960 1620 / 1620
Output Total 1365 / 1365
Balance -405 / -405 1620 / 1620
--- NOTE | 2025-09-04 09:29 | STATUS ---
SITUATION:
BACKGROUND:
ASSESSMENT:
RECOMMENDATION:
--- NOTE | 2025-09-04 09:29 | CM ---
Patient seen at bedside
spoke with patient's , prefers Home health vs. snf
PT today rec home health-worked on stairs
options reviewed prefers [facility] - notified liaison referral to be entered
IMM explained & signed. In chart.
PLAN: Home with [facility]
will transport
[2025-09-04 09:30] VITALS: BP 166/91; PULSE 84
[2025-09-04] MEDS: MOTRIN 400 MG PO (09:34)
--- NOTE | 2025-09-04 09:51 | VNURNOTE ---
Home Health Liaison met with patient at bedside to discuss [facility] nurse/therapy, visits, schedule and homebound status. Patient is agreeable and understands that visits at home will be 2-3 x per week to assess and teach medical management. He is
aware that [facility] will contact them for start of care in 1-2 days after discharge from . Provided contact number for [facility].
PM [facility] referral completed in [facility].
--- NOTE | 2025-09-04 09:52 | VNURNOTE ---
Home Health Liaison met with patient at bedside to discuss [facility] nurse/therapy, visits, schedule and homebound status. Patient is agreeable and understands that visits at home will be 2-3 x per week to assess and teach medical management. He is
aware that [facility] will contact them for start of care within a few days after discharge from . Provided contact number for [facility].
[facility] referral completed in [facility].
[2025-09-04 11:29] VITALS: BP 125/64
--- NOTE | 2025-09-05 14:12 | W.DS.TRANS ---
Addendum entered and electronically signed by DERIC Neville 09/05/25 14:13:
dictated [id number]
Original Note:
DC Summary - [employer]
-
Discharge Instructions:
Discharge Diagnosis/Procedures Open LEFT inguinal hernia repair
Diet Diabetic, Carb Controlled
Activity No strenuous activity
Driving Restrictions No driving
Bathing Restrictions OK to Shower
Instructions:
Stand-Alone Forms:
Changes to Home Medications: No
Discharge Medications:
DC Medications w/original date entered in [employer]
albuterol sulfate 90 mcg/actuation aerosol inhaler 2 puff inhalation R Q6HPRN PRN sob 01/19/18
carbidopa 25 mg-levodopa 100 mg tablet 1.5 tab PO QID Neurological Condition 07/07/23
cyanocobalamin (vitamin B-12) 1,000 mcg tablet 1,000 mcg PO DAILY #100 tabs 10/13/23
sennosides 8.6 mg tablet (senna) 8.6 mg PO BID Constipation 11/23/23
docusate sodium 100 mg capsule 100 mg PO BID Constipation 01/05/24
folic acid 1 mg tablet 1 mg PO DAILY Supplement 01/05/24
rwpkqj-zarjkjwt-fpphli(pork)24,000-76,000-120,000 unit capsule,del rel (Creon) 1 cap PO AC Gastrointestinal Issue 02/08/24
polyethylene glycol 3350 17 gram oral powder packet (HealthyLax) 17 g PO DAILY Constipation 02/08/24
insulin aspart (niacinamide)(U-100) 100 unit/mL(3 mL) subcutaneous pen 1 sliding scale dose SC .SLIDING SCALE 12/20/24
acetaminophen 500 mg tablet (Tylenol Extra Strength) 1,000 mg (2 x 500 mg) PO Q6HPRN PRN mild pain #1 tab 09/04/25
ibuprofen 200 mg tablet 400 mg (2 x 200 mg) PO Q6HPRN PRN moderate pain #1 tab 09/04/25
insulin aspart U-100 100 unit/mL (3 mL) subcutaneous pen (Novolog FlexPen U-100 Insulin aspart) 3 unit (0.03 mL) SC AC #5 ea 09/04/25
insulin glargine U-300 conc 300 unit/mL (1.5 mL) subcutaneous pen (Toujeo SoloStar U-300 Insulin) 12 unit (0.04 mL) SC .QPM #4.5 mL 09/04/25
lisinopril 10 mg tablet 10 mg PO DAILY #30 tabs 09/04/25
oxycodone 5 mg tablet 5 mg PO Q4HPRN PRN breakthrough/severe pain #10 tabs 09/04/25
Home Medication Changes
Pending Results: No
== END 2025-09-04 11:32 | disposition home health service (06) | DRG 351 ==
LOC: 3 WEST ACU 07:19
PROVIDERS: Internal Medicine; Nurse Practitioner Gerontology; Registered Nurse; ADMITTING PHYSICIAN Surgery; ATTENDING PHYSICIAN Surgery; EMERGENCY PHYSICIAN Emergency Medicine; FAMILY PHYSICIAN Internal Medicine; OTHER PHYSICIAN Hospitalist
PROC: 0VBG0ZZ Excision of Left Spermatic Cord, Open Approach (ICD-10-PCS; 2025-09-01)
PROC: 01B90ZZ Excision of Lumbar Plexus, Open Approach (ICD-10-PCS; 2025-09-01)
PROC: 0YU60JZ Supplement Left Inguinal Region with Synthetic Substitute, Open Approach (ICD-10-PCS; 2025-09-01)
DX: K40.30 Unilateral inguinal hernia, with obstruction, without gangrene, not specified as recurrent (principal); K56.609 Unspecified intestinal obstruction, unspecified as to partial versus complete obstruction; D17.6 Benign lipomatous neoplasm of spermatic cord; Z85.46 Personal history of malignant neoplasm of prostate; D45 Polycythemia vera; J45.20 Mild intermittent asthma, uncomplicated; G20.A1 Parkinson's disease without dyskinesia, without mention of fluctuations; Z90.79 Acquired absence of other genital organ(s); K59.09 Other constipation; E11.9 Type 2 diabetes mellitus without complications; Z88.0 Allergy status to penicillin; Z88.7 Allergy status to serum and vaccine; Z66 Do not resuscitate; I10 Essential (primary) hypertension; Z87.891 Personal history of nicotine dependence; Z88.1 Allergy status to other antibiotic agents
CPT/HCPCS: 74177; 80048; 80053; 82962; 83036; 83605; 83690; 83735; 85025; 85027; 85610; 85730; 86850; 86900; 86901; 88304; 93005; 94640; 96361; 96374; 96375; 97116; 97162; 99285; Q9967

== ENCOUNTER 2025-10-14 14:12 | Outpatient (RCR) | payer MEDICARE, OTHER, SELFPAY ==
[2025-10-14 14:23] LABS: Hematocrit 47.0 % (39.0-52.0); Hemoglobin 14.4 g/dL (13.0-18.0); Mean Corp Hgb Conc. 30.6 g/dL (33.0-37.0); Mean Corpuscular Volume 74.1 fL (80.0-94.0); Platelet Count 371 10^3/uL (130-400); Red Cell Dist. Width 18.8 % (11.5-14.5)
[2025-10-14 14:30] VITALS: BP 153/98
[2025-10-14 15:05] VITALS: BP 113/76
[2025-10-14 15:06] LABS: Iron 39 ug/dl (49-181)
[2025-10-14 15:15] VITALS: BP 142/91
[2025-10-14 15:15] LABS: Total Iron Binding Capacity 571 ug/dl (261-462)
[2025-10-14 15:44] LABS: Ferritin 7.1 ng/ml (17.9-464.0)
== END 2025-10-17 10:09 | disposition home or self-care (01) ==
LOC: OID 14:12
PROVIDERS: ATTENDING PHYSICIAN Internal Medicine Hematology & Oncology; FAMILY PHYSICIAN Internal Medicine
DX: D47.1 Chronic myeloproliferative disease (principal); D45 Polycythemia vera; I81 Portal vein thrombosis
CPT/HCPCS: 36415; 82728; 83540; 83550; 85025